=== PATIENT | female | born 1945 | race Caucasian/White ===

== ENCOUNTER → 2017-06-28 | Outpatient (CLI) | payer MEDICARE ==
--- NOTE | 2017-06-28 13:22 | MM ---
Reason for exam: screening (asymptomatic). Last mammogram was performed 1 year and 1 month ago. History: Patient is postmenopausal. Physical Findings: A clinical breast exam by your physician is recommended on an annual basis and results should be correlated with mammographic findings. MG 3D Screening Mammo W/Cad Bilateral CC and MLO view(s) were taken. Prior study comparison: June 05, 2016, bilateral MG 3d screening mammo w/cad. June 03, 2015, bilateral MG screening mammo w CAD. May 29, 2014, bilateral MG screening mammo w CAD. The breast tissue is heterogeneously dense. This may lower the sensitivity of mammography. Finding: There are typically benign dystrophic, round calcifications in the upper outer quadrant of both breasts. There is no discrete abnormality. ASSESSMENT: Benign, BI-RAD 2 RECOMMENDATION: Routine screening mammogram of both breasts in 1 year.
--- NOTE | 2017-06-28 13:50 | BD ---
EXAMINATION TYPE: MG DEXA axial skeleton. DATE OF EXAM: 06/28/2017 COMPARISON: 05.29.2014 CLINICAL HISTORY: M85.80 OSTEOPENIA Height: 62 Weight: 113 FRAX RISK QUESTIONS: Alcohol (3 or more units per day): NO Family History (Parent hip fracture): NO Glucocorticoids (More than 3mos): YES (Ex: prednisone, prednisolone, methylprednisolone, dexamethasone, and hydrocortisone). History of Fracture in Adulthood: NO Secondary Osteoporosis: NO 1. Type 1 Diabetes: NO 2. Hyperthyroidism: NO 3. Menopause before 45: NO 4. Malnutrition: NO 5. Chronic liver disease: NO Rheumatoid Arthritis: NO Current Tobacco Use: NO RISK FACTORS HISTORY OF: Family History of Osteoporosis: NO Active: YES Diet low in dairy products/other sources of calcium: NO Postmenopausal woman: YES, AT 51 YRS OLD Lost more than 2 inches in height since high school: YES...64.5 IN [employer]IGHS[employer] Hyperparathyroidism: NO Adrenal Insufficiency: NO MEDICATIONS: Prednisone or other steroids: INHALERS AND PREDNISONE FOR ALLERGIES... How Long: ON AND OFF FOR YRS, ALLERGIES/ASTHMA Osteoporosis Medications: FOSAMAX IN THE PAST NONE NOW, STOPPED OVER 10 YRS AGO Additional Medications: REFLUX MEDS IN THE PAST...NONE NOW...MULTIVITAMIN AND 600 CALCIUM WITH D Additional History: PERTHES A CHILD, EXAM MEASUREMENTS: Bone mineral densitometry was performed using the Quture System. Bone mineral density as measured about the Lumbar spine is: ----- L1-L4(G/cm2): 1.013 T Score Values are as follows: ----- L1: -1.8 ----- L2: -1.5 ----- L3: -0.9 ----- L4: -1.5 ----- L1-L4: -1.4 Bone mineral density has: Decreased -0.6% since study of: 05.29.2014 Bone mineral density about the R hip (g/cm2): 0.745 Bone mineral density about the L hip (g/cm2): 0.745 T Score values are as follows: -----R Neck: -2.2 -----L Neck: -2.5 -----R Total: -2.1 -----L Total: -2.1 Bone mineral density has: Decreased -5.6% since study of: 05.29.2014 FRAX%'S: THERE IS A 21.1% CHANCE OF A MAJOR OSTEOPOROTIC FX AND A 6.8% FOR A HIP FX....PROBABILIT Y IN 10 YRS TIME IMPRESSION: Osteopenia (T Score between -2.5 and -1 as noted by T score values There is slightly increased risk of fracture and the patient may be considered for treatment. Re-Screen 2-5 years FOR BOTH OF HER HIPS AND HER LUMBAR SPINE. NOTE: T-SCORE=SD OF THE YOUNG ADULT MEAN.
== END | disposition home or self-care (01) ==
LOC: RADMAMWWP 08:55
PROVIDERS: ATTEND Internal Medicine
DX: Z12.31 Encounter for screening mammogram for malignant neoplasm of breast (principal); M85.80 Other specified disorders of bone density and structure, unspecified site
CPT/HCPCS: 77080; 77063; G0202

== ENCOUNTER → 2018-07-09 | Outpatient (CLI) | payer MEDICARE ==
--- NOTE | 2018-07-11 11:52 | MM ---
Reason for exam: screening (asymptomatic). Last mammogram was performed 1 year ago. History: Patient is postmenopausal. Physical Findings: A clinical breast exam by your physician is recommended on an annual basis and results should be correlated with mammographic findings. MG 3D Screening Mammo W/Cad Bilateral CC and MLO view(s) were taken. Prior study comparison: June 28, 2017, bilateral MG 3d screening mammo w/cad. June 05, 2016, bilateral MG 3d screening mammo w/cad. The breast tissue is heterogeneously dense. This may lower the sensitivity of mammography. Stable benign calcifications. No significant changes when compared with prior studies. ASSESSMENT: Benign, BI-RAD 2 RECOMMENDATION: Routine screening mammogram of both breasts in 1 year.
== END | disposition home or self-care (01) ==
LOC: RADMAMWWP 08:09
PROVIDERS: ATTEND Internal Medicine
DX: Z12.31 Encounter for screening mammogram for malignant neoplasm of breast (principal)
CPT/HCPCS: 77063; 77067

== ENCOUNTER 2019-03-23 17:19 | Inpatient (IN) | payer MEDICARE ==
[2019-03-23] MEDS ORDERED: IPRATROPIUM 0.5 MG/2.5 ML NEBU INHALATION STA (17:23)
[2019-03-23] MEDS ORDERED: ALBUTEROL NEBULIZED 2.5 MG/3 ML INHALATION STA (17:23)
[2019-03-23] MEDS ORDERED: methylPREDNISolone SOD SUCCI 125 MG/2 ML VIAL IV STA (17:23)
--- NOTE | 2019-03-23 17:37 | ED ---
General Adult HPI - General Stated complaint: ASTHMA Time Seen by Provider: 03/23/19 17:23 Source: patient, family, RN notes reviewed, old records reviewed Mode of arrival: wheelchair Limitations: no limitations - History of Present Illness Initial comments: 74-year-old female with history of asthma presents with 1 hour history of severe dyspnea. Patient has had cough for the past several days. History is obtained from the patient's indicates at the time my initial evaluation patient is in moderate to severe respiratory distress. She denies any pain complaints, no chest pain. No preceding fever or chills. She did have preceding mild cough. She has history of asthma and has been taking albuterol at home with minimal relief. No previous tobacco use. No history of CAD no history of heart failure. - Related Data Home Medications Medication Instructions Recorded Confirmed Calcium+ Vitamin D 1 tab PO DAILY 06/06/16 06/08/16 Fluticasone Propionate [Flovent 1 puff INHALATION HS 06/06/16 06/08/16 Hfa 110mcg] Multivitamins, Thera [Multivitamin] 1 tab PO DAILY 06/06/16 06/06/16 diphenhydrAMINE HCL [Benadryl] 25 mg PO DIRECTED PRN 06/06/16 06/08/16 Allergies Allergy/AdvReac Type Severity Reaction Status Date / Time Sulfa (Sulfonamide Allergy Rash/Hives Verified 03/23/19 17:32 Antibiotics) Review of Systems ROS Statement: Those systems with pertinent positive or pertinent negative responses have been documented in the HPI. ROS Other: All systems not noted in ROS Statement are negative. Past Medical History Past Medical History: Asthma History of Any Multi-Drug Resistant Organisms: None Reported Past Surgical History: Unable to Obtain Past Psychological History: No Psychological Hx Reported Smoking Status: Former smoker Past Alcohol Use History: None Reported Past Drug Use History: None Reported General Exam Limitations: no limitations General appearance: alert, in distress Head exam: Present: atraumatic, normocephalic Eye exam: Present: normal appearance, PERRL ENT exam: Present: normal exam Neck exam: Present: normal inspection. Absent: tenderness, meningismus Respiratory exam: Present: respiratory distress, wheezes, rhonchi, accessory muscle use, decreased breath sounds, prolonged expiratory Cardiovascular Exam: Present: normal rhythm, tachycardia GI/Abdominal exam: Present: soft. Absent: distended, tenderness, guarding Extremities exam: Present: normal inspection, normal capillary refill. Absent: pedal edema, calf tenderness Neurological exam: Present: alert, oriented X3, CN II-XII intact. Absent: motor sensory deficit Psychiatric exam: Present: anxious Skin exam: Present: warm, dry, intact. Absent: cyanosis, diaphoretic Course Vital Signs 03/23/19 03/23/19 03/23/19 17:28 17:30 18:22 Temperature 99.5 F Pulse Rate 116 H 128 H 104 H Respiratory 28 H 34 H Rate Blood Pressure 162/103 O2 Sat by Pulse 84 L Oximetry 03/23/19 03/23/19 18:44 19:00 Temperature 98.7 F Pulse Rate Respiratory 20 Rate Blood Pressure O2 Sat by Pulse Oximetry EKG Findings - EKG Comments: EKG Findings:: EKG: Sinus tachycardia with occasional PVC T-wave inversion in inferior leads, rate of 102, CO interval 126, QRS duration 88, QTC [address] segment elevation Medical Decision Making - Medical Decision Making 74-year-old female presenting in severe respiratory distress history of asthma. Patient has minimal air entry with hypoxia in the low 80s. She is given 10 of albuterol, 1 Atrovent, IV Solu-Medrol. Workup was initiated emergency department. She has a chest x-ray which is negative for focal pneumonia. Normal CBC, normal CMP, troponin and BNP are negative. After initial treatment she has improved air entry, she has persistent wheezing and mild tachypnea. Oxygenation is improved to mid 90s with supplemental oxygen. She will be admitted for status asthmaticus. She is initially placed on 2 hour albuterol. She will be continued on IV steroids. - Lab Data Result diagrams: 03/23/19 17:35 03/23/19 17:35 Lab Results 03/23/19 03/23/19 03/23/19 Range/Units 17:35 17:35 17:35 WBC 10.4 (3.8-10.6) k/uL RBC 4.22 (3.80-5.40) m/uL Hgb 13.4 (11.4-16.0) gm/dL Hct 42.2 (34.0-46.0) % MCV 100.0 (80.0-100.0) fL MCH 31.8 (25.0-35.0) pg MCHC 31.8 (31.0-37.0) g/dL RDW 12.7 (11.5-15.5) % Plt Count 460 H (150-450) k/uL Neutrophils % 54 % Lymphocytes % 32 % Monocytes % 4 % Eosinophils % 7 % Basophils % 1 % Neutrophils # 5.6 (1.3-7.7) k/uL Lymphocytes # 3.3 (1.0-4.8) k/uL Monocytes # 0.5 (0-1.0) k/uL Eosinophils # 0.7 (0-0.7) k/uL Basophils # 0.1 (0-0.2) k/uL PT (9.0-12.0) sec INR (<1.2) APTT (22.0-30.0) sec Sodium 144 (137-145) mmol/L Potassium 4.4 (3.5-5.1) mmol/L Chloride 106 (98-107) mmol/L Carbon Dioxide 26 (22-30) mmol/L Anion Gap 12 mmol/L BUN 16 (7-17) mg/dL Creatinine 0.79 (0.52-1.04) mg/dL Est GFR (CKD-EPI)AfAm 87 (>60 ml/min/1.73 sqM) Est GFR (CKD-EPI)NonAf 76 (>60 ml/min/1.73 sqM) Glucose 98 (74-99) mg/dL Calcium 9.7 (8.4-10.2) mg/dL Magnesium 2.1 (1.6-2.3) mg/dL Total Bilirubin 0.5 (0.2-1.3) mg/dL AST 21 (14-36) U/L ALT 26 (9-52) U/L Alkaline Phosphatase 82 (38-126) U/L Troponin I (0.000-0.034) ng/mL NT-Pro-B Natriuret Pep 197 pg/mL Total Protein 8.3 H (6.3-8.2) g/dL Albumin 4.9 (3.5-5.0) g/dL 03/23/19 03/23/19 Range/Units 17:35 17:35 WBC (3.8-10.6) k/uL RBC (3.80-5.40) m/uL Hgb (11.4-16.0) gm/dL Hct (34.0-46.0) % MCV (80.0-100.0) fL MCH (25.0-35.0) pg MCHC (31.0-37.0) g/dL RDW (11.5-15.5) % Plt Count (150-450) k/uL Neutrophils % % Lymphocytes % % Monocytes % % Eosinophils % % Basophils % % Neutrophils # (1.3-7.7) k/uL Lymphocytes # (1.0-4.8) k/uL Monocytes # (0-1.0) k/uL Eosinophils # (0-0.7) k/uL Basophils # (0-0.2) k/uL PT 9.9 (9.0-12.0) sec INR 0.9 (<1.2) APTT 25.6 (22.0-30.0) sec Sodium (137-145) mmol/L Potassium (3.5-5.1) mmol/L Chloride (98-107) mmol/L Carbon Dioxide (22-30) mmol/L Anion Gap mmol/L BUN (7-17) mg/dL Creatinine (0.52-1.04) mg/dL Est GFR (CKD-EPI)AfAm (>60 ml/min/1.73 sqM) Est GFR (CKD-EPI)NonAf (>60 ml/min/1.73 sqM) Glucose (74-99) mg/dL Calcium (8.4-10.2) mg/dL Magnesium (1.6-2.3) mg/dL Total Bilirubin (0.2-1.3) mg/dL AST (14-36) U/L ALT (9-52) U/L Alkaline Phosphatase (38-126) U/L Troponin I <0.012 (0.000-0.034) ng/mL NT-Pro-B Natriuret Pep pg/mL Total Protein (6.3-8.2) g/dL Albumin (3.5-5.0) g/dL Critical Care Time Critical Care Time: Yes Total Critical Care Time: 35 Disposition Clinical Impression: Asthma with status asthmaticus Disposition: ADMITTED IP TO THIS [facility] Condition: Stable Is patient prescribed a controlled substance at d/c from ED?: No Referrals: Socrates Hutchison MD [Primary Care Provider] - 1-2 days Decision to Admit Reason: Admit from EC Decision Date: 03/23/19 Decision Time: 19:19
[2019-03-23 18:00] LABS: Basophils # (A) 0.1 k/uL (0-0.2); Basophils % (A) 1 %; Eosinophils # (A) 0.7 k/uL (0-0.7); Eosinophils % (A) 7 %; HCT 42.2 % (34.0-46.0); HGB 13.4 gm/dL (11.4-16.0); Lymphocytes # (A) 3.3 k/uL (1.0-4.8); Lymphocytes % (A) 32 %; MCH 31.8 pg (25.0-35.0); MCHC 31.8 g/dL (31.0-37.0); Mean Platelet Volume 6.9; Monocytes # (A) 0.5 k/uL (0-1.0); Monocytes % (A) 4 %; Neutrophils # (A) 5.6 k/uL (1.3-7.7); Neutrophils % (A) 54 %; Platelet Count 460 k/uL (150-450); RBC 4.22 m/uL (3.80-5.40); RDW 12.7 % (11.5-15.5); WBC 10.4 k/uL (3.8-10.6)
[2019-03-23 18:08] LABS: Albumin 4.9 g/dL (3.5-5.0); Calcium 9.7 mg/dL (8.4-10.2); Magnesium 2.1 mg/dL (1.6-2.3); Potassium 4.4 mmol/L (3.5-5.1); Total Bilirubin 0.5 mg/dL (0.2-1.3); Total Protein 8.3 g/dL (6.3-8.2)
[2019-03-23 18:12] LABS: INR 0.9 (<1.2); Partial Thromboplastin Time 25.6 sec (22.0-30.0); Prothrombin Time 9.9 sec (9.0-12.0)
--- NOTE | 2019-03-23 18:31 | XR ---
EXAMINATION TYPE: XR chest 1V portable DATE OF EXAM: 03/23/2019 COMPARISON: 05/26/2012 HISTORY: Difficulty breathing TECHNIQUE: Single frontal view of the chest is obtained. FINDINGS: Heart and mediastinum are normal. Lungs are clear of infiltrate. There is no heart failure . There are chest leads. IMPRESSION: No active cardiopulmonary disease. No change.
[2019-03-23] MEDS ORDERED: IPRATROPIUM-ALBUTEROL 3 ML NEB INHALATION PRN (19:14)
[2019-03-23] MEDS ORDERED: ALBUTEROL NEBULIZED 2.5 MG/3 ML INHALATION PRN (19:15)
[2019-03-23] MEDS ORDERED: diphenhydrAMINE 25 MG CAP PO PRN (19:53)
[2019-03-23] MEDS ORDERED: ALBUTEROL INHALER 60 PUFF/8 GM INHALER INHALATION SCH (20:00)
[2019-03-23] MEDS: IPRATROPIUM-ALBUTEROL 3 ML NEB INHALATION SCH (21:17)
--- NOTE | 2019-03-23 21:25 | P.HPIM ---
History of Present Illness H&P Date: 03/23/19 (COPD exacerbation rule out PE) Chief Complaint: Acute shortness of breath started 3 or after returning from [facility] abrupt o This history and physical dictated by Dr. barton on the weekend covering for Dr. Hutchison. Patient seen in the emergency room module 2. Patient admitted because of acute exacerbation of COPD. Chief complaint severe shortness of breath not resolved with her home treatment with nebulizers at home. The shortness of breath all of a sudden onset 3 hours after return from the [facility] and progressively worse. History of present illness: Patient of Dr. Roe with a long-standing history of asthma and she never smoked or drank. She went to [facility] this morning have no shortness of breath no wheezing. After return from discharge 3 however she started to have severe wheezing and asthma she tried a nebulizer at home 2 with no residual effusion and subsequently she brought to the emergency room at [facility]. She had lab and x-ray which shows essentially negative except her protein was 8.3 and platelets 460. I was called by the ER physician Dr. [place] who stated the patient needs to be admitted because of the acute exacerbation and still wheezing despite of treatment in the ER. Patient seen in the ER and prescription all of a sudden onset of the shortness of breath and not resolved by the nebulizer subsequently we added the d-dimer and if it is elevated we'll proceed with CT angiogram of the chest to rule out PE. And patient will be admitted to the room [address] the [place] with the underlying her sinus tach. Past history: Asthma, COPD, exacerbation which is not recurrent in the past and this is never happened before to be a is sudden shortness of breath and exacerbation. No smoking no drinking time Tubal ligation and surgical history. Family history: Patient her at bedside and she is 2 para 2 . 2 controlled sons. She had a history of varicose veins of the lower extremities bilateral but not bothering her much. Review of systems: Neuropsychiatry negative. Cardiovascular negative, no shortness of breath no chest pain. Pulmonary: Acute onset of shortness of breath after return from [facility] with the outpatient treatment failure. GI no hematemesis or melena or hematochezia no nausea or vomiting. no dysuria or bladder distention. Or incontinent. Musculoskeletal: No evidence of muscle cramps or pain in the legs . Hematologically: Negative Lymph node not enlarged and no history of malignancy. The rest of review of system 14 point was negative. Physical examination: Temperature 97.7 axillary. Heart rate 103 mild tachycardia. Respiratory rate 14-19. Blood pressure 149/68 with a repeat 130/65 she is on nasal oxygen 3 L and saturation 97%. Clinical exam. HEENT negative, neck was supple no JVD no thyromegaly no lymphadenopathy trachea midline. Oropharynx upper plate dentures and lower natural missing teeth Was negative and the ER negative. Chest was clear to auscultation and percussion at the time she cleared with from the wheezing . Heart regular sinus rhythm with the mild tachycardia. Abdomen: Soft positive bowel sounds no organomegaly enlargement. Extremities no edema positive pulses and minimal varicosities superficial. Assessment: Acute asthma exacerbation. #2 rule out PE. Plan: We'll be obtaining a d-dimer if it is positive we'll proceed with fourth her computed tomography scan angiogram of the chest. Patient treated with a steroid and they are and inhalation therapy with nebulizers. Dr. Roe will be following the patient in a.m. Past Medical History Past Medical History: Asthma History of Any Multi-Drug Resistant Organisms: None Reported Past Surgical History: Unable to Obtain Past Psychological History: No Psychological Hx Reported Smoking Status: Former smoker Past Alcohol Use History: None Reported Past Drug Use History: None Reported Medications and Allergies Home Medications Medication Instructions Recorded Confirmed Type Calcium+ Vitamin D 1 tab PO DAILY 06/06/16 03/23/19 History Multivitamins, Thera [Multivitamin] 1 tab PO DAILY 06/06/16 03/23/19 History diphenhydrAMINE HCL [Benadryl] 25 mg PO DIRECTED PRN 06/06/16 03/23/19 History Albuterol Sulfate [Proair Hfa] 2 puff INHALATION RT-Q4H 03/23/19 03/23/19 History RX: Aspirin [Ross Aspirin EC] 81 mg PO DAILY 03/23/19 03/23/19 History Ubidecarenone [Co Q-10] 100 mg PO DAILY 03/23/19 03/23/19 History Allergies Allergy/AdvReac Type Severity Reaction Status Date / Time Sulfa (Sulfonamide Allergy Rash/Hives Verified 03/23/19 19:22 Antibiotics) Physical Exam Vitals: Vital Signs Temp Pulse Resp BP Pulse Ox 05/05/19 19:40 100 19 130/65 97 03/23/19 19:30 101 H 6 L 141/66 97 03/23/19 19:10 101 H 23 141/66 95 03/23/19 19:00 98.7 F 103 H 14 149/68 96 03/23/19 18:51 107 H 20 149/68 95 03/23/19 18:44 20 03/23/19 18:22 104 H 03/23/19 17:30 99.5 F 128 H 34 H 162/103 84 L 03/23/19 17:28 116 H 28 H Intake and Output 03/23/19 03/23/19 03/23/19 06:59 14:59 22:59 Other: Weight 54.431 kg Results CBC & Chem 7: 03/23/19 17:35 03/23/19 17:35 Labs: Abnormal Lab Results - Last 24 Hours (Table) 03/23/19 03/23/19 Range/Units 17:35 17:35 Plt Count 460 H (150-450) k/uL Total Protein 8.3 H (6.3-8.2) g/dL
[2019-03-23] MEDS: methylPREDNISolone SOD SUCCI 125 MG/2 ML VIAL IV SCH (23:30)
[2019-03-24 06:07] LABS: Glucose,Whole Blood 154 mg/dL (75-99)
[2019-03-24] MEDS: methylPREDNISolone SOD SUCCI 125 MG/2 ML VIAL IV SCH ×3 (06:08→18:52)
[2019-03-24] MEDS: INSULIN ASPART (NovoLOG) 100 UNIT/ML VIAL SQ SCH ×3 (06:41→18:05)
--- NOTE | 2019-03-24 08:20 | P.PN ---
Progress Note - Text The patient is a 74-year-old female who has a history of asthma which is usually mild and controlled but yesterday she had a episode this started rather suddenly after [facility] services on Sunday she became short of breath with wheezing and cough. No fever chills or hemoptysis noted. Because it persisted despite using her inhaler she came to the emergency room here at [facility]. Patient has been treated with corticosteroids and does feel better but still has some cough and wheezing this morning. No chest pain. Patient also had an episode while wintering down in [place]. Apparently she was placed on inhaled in inhaler Brio which she did not take on a daily basis. Patient is a former smoker. This morning patient is sitting up in her room. Her is present. Some intermittent coughing. Vital signs show a temperature 98.1 with a pulse of 90 and respirations 16. Blood pressure 148/80 and she is 94% saturated on room air. Lungs do reveal an inspiratory wheeze more so on the left this morning. No consolidation signs. Heart tones were regular. No unusual edema. She is alert and oriented. Cranial nerves intact. No focal peripheral weakness noted. Laboratory values on admission were for the most part unremarkable. ProBNP, d-dimer and troponin values were normal. Chest x-ray showed no active disease. EKG showed some isolated T-wave changes in inferior leads which were nondiagnostic. Impressions and plans Exacerbation of pneumonia. Presently partially responding to IV corticosteroids along with her respiratory treatments. Discussed with patient and her at bedside this morning. We will ask pulmonary medicine to evaluate. Continue present treatment. Discussed the need likely for maintenance inhalers to hopefully prevent further episodes of possible.
[2019-03-24] MEDS: ASPIRIN 81 MG PO SCH (08:23)
[2019-03-24] MEDS: CALCIUM CARB-VIT D 500MG-200UN 1 EACH TAB PO SCH (08:23)
[2019-03-24] MEDS: MULTIVITAMINS, THERA 1 EACH TAB PO SCH (08:23)
[2019-03-24] MEDS ORDERED: NON-FORMULARY DRUG (Ubidecarenone [Co Q-10] 100 MG) PO SCH (09:00)
[2019-03-24] MEDS: IPRATROPIUM-ALBUTEROL 3 ML NEB INHALATION SCH ×5 (09:06→23:34)
[2019-03-24] MEDS: BUDESONIDE 1 MG/2 ML NEBU INHALATION SCH ×2 (10:07→19:20)
[2019-03-24] MEDS: FORMOTEROL FUMARATE 20 MCG/2 ML NEBU INHALATION SCH ×2 (10:07→19:20)
--- NOTE | 2019-03-24 11:20 | P.CNPUL ---
History of Present Illness Consult date: 03/24/19 Requesting physician: Socrates Hutchison Reason for consult: dyspnea, cough, asthma Chief complaint: Status asthmaticus History of present illness: This is a 74-year-old white female patient of Dr. Hong, with past medical history of chronic bronchial asthma, ALLERGIC rhinitis, lifetime nonsmoker who presented to the hospital on 03/23/2019 at 5:00 in the evening with complaints of moderate to severe respiratory distress, hypoxemia. Her onset of symptoms was yesterday at 4:00 pm, patient was progressively short of breath, the administered two breathing treatments [id number] with no improvement, her oxygenation continued to deteriorate and she was taken to the hospital. Patient does not wear oxygen, her pulse ox was 84% on room air on presentation. Chest x-ray did not show any active cardiopulmonary disease. Lab work was negative for any leukocytosis, white blood cell count was 10.4, d-dimer was negative, electrolytes and renal profile were within normal limits. ProBNP was 197, troponin was negative 1. Patient was given breathing treatments, she was started on IV steroids, and she was improving, this morning at the time of my evaluation patient was sitting up in bed, doing her DuoNeb nebulized treatment, in no acute distress, room air pulse ox was 94%, vitals are stable, no fever or chills. Patient stated that she was recently hospitalized in [place] for an asthma attack, her physician gave her Breo Ellipta sample, as she had recently run out of it. She has a nebulizer machine at home with albuterol breathing treatments, and she has pro-air. No other maintenance inhalers. She had seen Dr. Hanson in the remote past for an acute exacerbation of asthma for which she was hospitalized. She denies ever being intubated. She complains of ALLERGIC rhinitis, runny nose, sneezing, itchy eyes itchy throat. She states humidity and ALLERGIES suspected to be her triggers. She has lately been using her rescue inhaler quite frequently, and having a lot of nighttime symptoms with increased coughing at bedtime. Shortly after my evaluation patient was t ransferred to medical surgical floor where she suffered an acute asthma attack, she started acutely desaturating, I was called emergently to the bedside, and the patient's O2 sat was 74% on 100% nonrebreather, she received urgent nebulized treatment, etc. dose of 60 mg of Solu-Medrol was given, she was hardly moving any air, she was valadez, and a CODE BLUE was called. 1 mg of epinephrine was given IV push for acute bronchospasm, anesthesia was called, and the patient was emergently intubated. Patient never lost her pulse, CPR was not administered, she did not require defibrillation. After intubation she was sedated, and placed on assist-control mode of ventilation with a rate of 20, tidal vital 350, FiO2 100% and PEEP of 5. Review of Systems All systems: negative Constitutional: Denies chills, Denies fever Eyes: denies blurred vision, denies pain Ears, nose, mouth and throat: Reports nasal congestion, Reports post-nasal drip, Denies headache, Denies sore throat Cardiovascular: Denies chest pain, Denies shortness of breath Respiratory: Reports congestion, Reports cough with sputum, Reports dyspnea, Reports wheezing, Denies cough Gastrointestinal: Denies abdominal pain, Denies diarrhea, Denies nausea, Denies vomiting Genitourinary: Denies dysuria, Denies hematuria Musculoskeletal: Denies myalgias Integumentary: Denies pruritus, Denies rash Neurological: Denies numbness, Denies weakness Psychiatric: Denies anxiety, Denies depression Endocrine: Denies fatigue, Denies weight change Past Medical History Past Medical History: Asthma History of Any Multi-Drug Resistant Organisms: None Reported Past Surgical History: Tubal Ligation Past Anesthesia/Blood Transfusion Reactions: No Reported Reaction Past Psychological History: No Psychological Hx Reported Smoking Status: Never smoker Past Alcohol Use History: None Reported Past Drug Use History: None Reported - Past Family History Father Family Medical History: Hypertension Mother Additional Family Medical History / Comment(s): Alzhemiers Sister(s) Family Medical History: CVA/TIA Medications and Allergies Home Medications Medication Instructions Recorded Confirmed Type Calcium+ Vitamin D 1 tab PO DAILY 06/06/16 03/23/19 History Multivitamins, Thera [Multivitamin] 1 tab PO DAILY 06/06/16 03/23/19 History diphenhydrAMINE HCL [Benadryl] 25 mg PO DIRECTED PRN 06/06/16 03/23/19 History Albuterol Sulfate [Proair Hfa] 2 puff INHALATION RT-Q4H 03/23/19 03/23/19 History Aspirin [Cidra Aspirin EC] 81 mg PO DAILY 03/23/19 03/23/19 History Ubidecarenone [Co Q-10] 100 mg PO DAILY 03/23/19 03/23/19 History Allergies Allergy/AdvReac Type Severity Reaction Status Date / Time Sulfa (Sulfonamide Allergy Rash/Hives Verified 03/23/19 19:22 Antibiotics) Physical Exam Vitals: Vital Signs Temp Pulse Pulse Resp BP BP Pulse Ox 03/24/19 10:05 96 03/24/19 09:17 93 03/24/19 09:06 92 03/24/19 08:00 97.7 F 96 20 156/78 95 03/24/19 05:00 90 16 148/80 94 L 03/23/19 23:31 97 16 139/76 96 03/23/19 21:29 98.1 F 97 18 155/69 98 03/23/19 21:23 91 03/23/19 21:16 89 03/23/19 21:10 96 13 135/64 98 03/23/19 21:00 95 22 129/60 98 03/23/19 20:50 98 13 129/60 98 03/23/19 20:40 96 18 129/60 98 03/23/19 19:50 101 H 13 130/65 97 03/23/19 19:40 100 19 130/65 97 03/23/19 19:30 101 H 6 L 141/66 97 03/23/19 19:10 101 H 23 141/66 95 03/23/19 19:00 98.7 F 103 H 14 149/68 96 03/23/19 18:51 107 H 20 149/68 95 03/23/19 18:44 20 03/23/19 18:22 104 H 03/23/19 17:30 99.5 F 128 H 34 H 162/103 84 L 03/23/19 17:28 116 H 28 H Intake and Output 03/23/19 03/24/19 03/24/19 22:59 06:59 14:59 Intake Total 240 Balance 240 Intake: Oral 240 Other: # Voids 1 Weight 54.431 kg 52.9 kg GENERAL EXAM: 74-year-old white female, intubated, sedated on mechanical ventilator. HEAD: Normocephalic/atraumatic. EYES: Normal reaction of pupils, equal size. Conjunctiva pink, sclera white. NOSE: Clear with pink turbinates. THROAT: No erythema or exudates. NECK: No masses, no JVD, no thyroid enlargement, no adenopathy. CHEST: No chest wall deformity. Symmetrical expansion. LUNGS: Diminished air movement bilaterally, with very tight end expiratory wheezes CVS: Regular rate and rhythm, normal S1 and S2, no gallops, no murmurs, no rubs ABDOMEN: Soft, nontender. No hepatosplenomegaly, normal bowel sounds, no guarding or rigidity. EXTREMITIES: No clubbing, no edema, no cyanosis, 2+ pulses and upper and lower extremities. MUSCULOSKELETAL: Muscle strength and tone normal. SPINE: No scoliosis or deformity SKIN: No rashes CENTRAL NERVOUS SYSTEM: Sedated, intubated. No focal deficits, tone is normal in all 4 extremities. Results - Laboratory Findings CBC and BMP: 03/23/19 17:35 03/23/19 17:35 PT/INR, D-dimer PT 9.9 sec (9.0-12.0) 03/23/19 17:35 INR 0.9 (<1.2) 03/23/19 17:35 D-Dimer 0.33 mg/L FEU (<0.60) 03/23/19 17:35 Abnormal lab findings: Abnormal Labs 03/23/19 03/23/19 03/24/19 17:35 17:35 06:06 Plt Count 460 H POC Glucose (mg/dL) 154 H Total Protein 8.3 H - Diagnostic Findings Chest x-ray: report reviewed, image reviewed Additional studies: EKG reviewed Assessment and Plan Plan: Assessment: #1. Acute hypoxemic respiratory failure secondary to status asthmaticus, acute bronchospasm, requiring intubation and placement on mechanical ventilator #2. Severe persistent bronchial asthma #3. ALLERGIC rhinitis #4. Recent hospitalization in [place] for acute exacerbation of chronic bronchial asthma #5. History of bronchospastic angina 20 years ago #6. Lifetime nonsmoker Plan: We'll obtain a blood gas and half an hour, patient has been intubated, she sedated, she was given a dose of IV Nimbex to synchronize with the vent. Added Pulmicort and Perforomist were added, will continue with IV Solu-Medrol 62 g every 6 hours, we'll add Singulair, will add Claritin. Patient will be transferred to the intensive care unit once a bed is available, and intensive care nurse will be taking care of her on the floor. Postintubation chest x-ray has been reviewed with Dr. Cruz, patient was seen and evaluated by Dr. Curz. Patient's spouse was updated on patient's condition. We'll continue to closely follow I performed a history & physical examination of the patient and discussed their management with my nurse practitioner, Leslee Morris. I reviewed the nurse practitioner's note and agree with the documented findings and plan of care. Lung sounds are positive for diminished air entry, diffuse wheezes throughout the lung bowie. The findings and the impression was discussed with the patient. I attest to the documentation by the nurse practitioner. Time with Patient: Greater than 30
--- NOTE | 2019-03-24 11:27 | XR ---
EXAMINATION TYPE: XR chest 1V portable DATE OF EXAM: 03/24/2019 CLINICAL HISTORY: Difficulty breathing progress study. TECHNIQUE: Single AP portable supine view of the chest is obtained. COMPARISON: Chest x-ray from yesterday FINDINGS: There is new oral gastric tube projecting into stomach. There is no endotracheal tube term inating above the aortic knob and below clavicles, approximately 5 cm above queta. There is background chronic parenchymal change without suspicious new focal airspace opacity, pleural effusion, or pneumothorax seen. Cardiac silhouette size remains within normal limits. Osseous struct ures are demineralized. IMPRESSION: 1. New endotracheal and orogastric tubes are satisfactory in position. 2. Chronic parenchymal changes without acute pulmonary process.
[2019-03-24] MEDS ORDERED: SODIUM CHLORIDE 0.9% 500 ML 500 ML IV ONE (11:31)
[2019-03-24 11:33] LABS: ABG Base Excess -1.3 mmol/L; ABG HCO3 26 mmol/L (21-25); ABG PCO2 55 mmHg (35-45); ABG PH 7.28 (7.35-7.45); ABG PO2 >400 mmHg (83-108); ABG TCO2 27 mmol/L (19-24)
[2019-03-24] MEDS ORDERED: PROPOFOL 1,000 MG in EMPTY BAG 1 BAG IV SCH (11:45)
[2019-03-24 12:00] LABS: Glucose,Whole Blood 185 mg/dL (75-99)
[2019-03-24] MEDS ORDERED: NALOXONE 0.4 MG/ML 1 ML VIAL IV PRN (12:07)
[2019-03-24] MEDS ORDERED: MORPHINE SULFATE 2 MG/ML SYRINGE IVP PRN (12:12)
[2019-03-24] MEDS ORDERED: LORazepam 2 MG/ML INJ IV ONE (12:50)
[2019-03-24] MEDS ORDERED: CISATRACURIUM 2 MG/ML 5 ML VIAL IV ONE (13:30)
[2019-03-24 13:39] LABS: Appearance,Urine Clear (Clear); Bilirubin,Urine Negative (Negative); Blood,Urine Negative (Negative); Color,Urine Yellow; Glucose,Urine (UA) 1+ (Negative); Hyaline Casts,Urine 23 /lpf (0-2); Ketones,Urine Negative (Negative); Leukocyte Esterase,Urine Negative (Negative); Mucus,Urine Rare /hpf; Nitrite,Urine Negative (Negative); Protein,Urine 1+ (Negative); RBC,Urine 2 /hpf (0-5); Specific Gravity,Urine 1.024 (1.001-1.035); Squamous Epithelial Cell,Urine 1 /hpf (0-4); Urobilinogen,Urine <2.0 mg/dL (<2.0)
[2019-03-24] MEDS: SODIUM CHLORIDE 0.9% 1,000 ML IV SCH ×2 (13:44→20:10)
[2019-03-24] MEDS: PROPOFOL 1,000 MG in EMPTY BAG 1 BAG IV SCH ×2 (13:48→17:07)
[2019-03-24] MEDS: LORATADINE 10 MG TAB PO SCH (13:51)
[2019-03-24] MEDS: PANTOPRAZOLE 40 MG/10 ML VIAL IVP SCH (13:51)
[2019-03-24] MEDS: ENOXAPARIN 40 MG/0.4 ML SYRINGE SQ SCH (13:51)
[2019-03-24] MEDS ORDERED: CISATRACURIUM 200 MG in SODIUM CHLORIDE 0.9% 180 ML IV SCH (14:00)
[2019-03-24] MEDS: fentaNYL (PF) 1,000 MCG in SODIUM CHLORIDE 0.9% 80 ML IV SCH (14:12)
[2019-03-24 14:17] LABS: Glucose,Whole Blood 212 mg/dL (75-99)
[2019-03-24 15:04] LABS: ABG Base Excess 0.9 mmol/L; ABG HCO3 25 mmol/L (21-25); ABG Oxygen Saturation 97.3 % (94-97); ABG PCO2 39 mmHg (35-45); ABG PH 7.42 (7.35-7.45); ABG PO2 91 mmHg (83-108); ABG TCO2 27 mmol/L (19-24)
[2019-03-24 15:31] LABS: HCT 38.8 % (34.0-46.0); HGB 12.3 gm/dL (11.4-16.0); MCH 31.6 pg (25.0-35.0); MCHC 31.7 g/dL (31.0-37.0); MCV 99.7 fL (80.0-100.0); Mean Platelet Volume 7.5; Platelet Count 388 k/uL (150-450); RBC 3.89 m/uL (3.80-5.40); RDW 12.8 % (11.5-15.5); WBC 5.2 k/uL (3.8-10.6)
[2019-03-24 15:37] LABS: Anion Gap 11 mmol/L; Blood Urea Nitrogen 14 mg/dL (7-17); Calcium 9.5 mg/dL (8.4-10.2); Carbon Dioxide 24 mmol/L (22-30); Chloride 106 mmol/L (98-107); Glucose 144 mg/dL (74-99); Potassium 4.2 mmol/L (3.5-5.1); Sodium 141 mmol/L (137-145)
[2019-03-24] MEDS ORDERED: ARTIFICIAL TEARS-HYPROMELLOSE DROPS 15 ML BTL BOTH EYES SCH (16:00)
[2019-03-24] MEDS ORDERED: INSULIN ASPART (NovoLOG) 100 UNIT/ML VIAL SQ SCH (16:30)
[2019-03-24 17:48] LABS: Glucose,Whole Blood 100 mg/dL (75-99)
[2019-03-24] MEDS: CHLORHEXIDINE GLUCONATE 15 ML CUP MUCOUS MEM SCH (20:10)
[2019-03-24] MEDS: MONTELUKAST 10 MG TAB PO SCH (20:10)
[2019-03-24] MEDS ORDERED: SODIUM CHLORIDE 0.9% 1,000 ML IV ONE (22:03)
[2019-03-25] MEDS: methylPREDNISolone SOD SUCCI 125 MG/2 ML VIAL IV SCH ×4 (00:15→17:55)
[2019-03-25] MEDS: PROPOFOL 1,000 MG in EMPTY BAG 1 BAG IV SCH ×3 (00:16→10:57)
[2019-03-25 00:21] LABS: Glucose,Whole Blood 121 mg/dL (75-99)
[2019-03-25] MEDS: INSULIN ASPART (NovoLOG) 100 UNIT/ML VIAL SQ SCH ×4 (00:41→17:55)
[2019-03-25] MEDS: IPRATROPIUM-ALBUTEROL 3 ML NEB INHALATION SCH ×5 (03:23→19:56)
[2019-03-25 06:14] LABS: Basophils % (A) 0 %; Eosinophils % (A) 0 %; HCT 36.3 % (34.0-46.0); HGB 11.4 gm/dL (11.4-16.0); Lymphocytes # (A) 0.5 k/uL (1.0-4.8); Lymphocytes % (A) 7 %; MCH 31.5 pg (25.0-35.0); MCHC 31.5 g/dL (31.0-37.0); MCV 99.9 fL (80.0-100.0); Monocytes # (A) 0.2 k/uL (0-1.0); Monocytes % (A) 3 %; Neutrophils % (A) 90 %; Platelet Count 271 k/uL (150-450); RBC 3.64 m/uL (3.80-5.40); RDW 13.3 % (11.5-15.5); WBC 7.8 k/uL (3.8-10.6)
[2019-03-25 06:31] LABS: Anion Gap 7 mmol/L; Blood Urea Nitrogen 15 mg/dL (7-17); Calcium 8.5 mg/dL (8.4-10.2); Carbon Dioxide 20 mmol/L (22-30); Chloride 114 mmol/L (98-107); Glucose 128 mg/dL (74-99); Magnesium 2.3 mg/dL (1.6-2.3); Potassium 4.1 mmol/L (3.5-5.1); Sodium 141 mmol/L (137-145)
[2019-03-25 06:43] LABS: Glucose,Whole Blood 117 mg/dL (75-99)
[2019-03-25 07:31] LABS: ABG Base Excess -1.2 mmol/L; ABG HCO3 23 mmol/L (21-25); ABG Oxygen Saturation 99.4 % (94-97); ABG PCO2 33 mmHg (35-45); ABG PH 7.45 (7.35-7.45); ABG PO2 156 mmHg (83-108); ABG TCO2 24 mmol/L (19-24)
--- NOTE | 2019-03-25 07:55 | P.PN ---
Progress Note - Text The patient is a 74-year-old female with underlying asthma that presented to 2 days previous with the acute episode. She initially seemed to respond to respiratory treatments and corticosteroids then developed sudden attack yesterday morning requiring intubation and transfer to the intensive care unit. Patient has been seen by pulmonary medicine Dr. Kovacs please refer to his consult. Patient has generally been sedated through the night and has not had any significant problems. This morning she appears to be resting comfortably and sedated. Vital signs show a blood pressure 115/62 with a pulse of 57 respirations 24 and she is 98% saturated. Last temperature is 96.8. Lungs are generally clear although diminished at bases. Heart tones were regular. She is presently sedated. Laboratory CBC unremarkable. White count 7.8 with a hemoglobin 11.4. Sodium 141 with a potassium 4.1 and a CO2 content of 20. Blood sugar was 128 BUN of 15 and creatinine 0.47 given her GFR greater than 90. Phosphorus magnesium calcium normal Blood gases show pH 7.45 and pCO2 of 33 and a pO2 of 156 on 50% FiO2. Chest x-ray does not appear to show any acute changes. Official reading to follow from radiology. Impression and plans Patient with acute on chronic respiratory failure with underlying asthma attack requiring mechanical ventilation at this time. Discussed at length with at bedside. We'll wait for further recommendations from pulmonary medicine today. Continue present treatment for now.
[2019-03-25] MEDS: FORMOTEROL FUMARATE 20 MCG/2 ML NEBU INHALATION SCH ×2 (08:05→20:09)
[2019-03-25] MEDS: BUDESONIDE 1 MG/2 ML NEBU INHALATION SCH ×2 (08:05→19:56)
[2019-03-25] MEDS: ASPIRIN 81 MG PO SCH (08:20)
[2019-03-25] MEDS: PANTOPRAZOLE 40 MG/10 ML VIAL IVP SCH (08:20)
[2019-03-25] MEDS: CHLORHEXIDINE GLUCONATE 15 ML CUP MUCOUS MEM SCH (08:20)
[2019-03-25] MEDS: ENOXAPARIN 40 MG/0.4 ML SYRINGE SQ SCH (08:20)
[2019-03-25] MEDS: MULTIVITAMINS, THERA 1 EACH TAB PO SCH (08:20)
[2019-03-25] MEDS: LORATADINE 10 MG TAB PO SCH (08:20)
[2019-03-25] MEDS: SODIUM CHLORIDE 0.9% 1,000 ML IV SCH ×2 (08:21→16:19)
--- NOTE | 2019-03-25 08:39 | XR ---
EXAMINATION TYPE: XR chest 1V portable DATE OF EXAM: 03/25/2019 COMPARISON: 03/24/2019 HISTORY: Difficulty breathing TECHNIQUE: Single frontal view of the chest is obtained. FINDINGS: ET and NG tubes stable. Bilateral consolidation and small effusion greater on the left. Bi apical pleural thickening. Diffuse osteopenia. No overt failure. IMPRESSION: Findings suggestive of COPD with bilateral lower lobe infiltrate and small effusion whic h has progressed on the left.
--- NOTE | 2019-03-25 10:25 | P.PN ---
Subjective Progress Note Date: 03/25/19 Principal diagnosis: Acute hypoxic respiratory failure secondary to status asthmaticus. This is a 74-year-old white female patient of Dr. Hong, with past medical history of chronic bronchial asthma, ALLERGIC rhinitis, lifetime nonsmoker who presented to the hospital on 03/23/2019 at 5:00 in the evening with complaints of moderate to severe respiratory distress, hypoxemia. Her onset of symptoms was yesterday at 4:00 pm, patient was progressively short of breath, the administered two breathing treatments [id number] with no improvement, her oxygenation continued to deteriorate and she was taken to the hospital. Patient does not wear oxygen, her pulse ox was 84% on room air on presentation. Chest x-ray did not show any active cardiopulmonary disease. Lab work was negative for any leukocytosis, white blood cell count was 10.4, d-dimer was negative, electrolytes and renal profile were within normal limits. ProBNP was 197, troponin was negative 1. Patient was given breathing treatments, she was started on IV steroids, and she was improving, this morning at the time of my evaluation patient was sitting up in bed, doing her DuoNeb nebulized treatment, in no acute distress, room air pulse ox was 94%, vitals are stable, no fever or chills. Patient stated that she was recently hospitalized in [place] for an asthma attack, her physician gave her [place] sample, as she had recently run out of it. She has a nebulizer machine at home with albuterol breathing treatments, and she has pro-air. No other maintenance inhalers. She had seen Dr. Hanson in the remote past for an acute exacerbation of asthma for which she was hospitalized. She denies ever being intubated. She complains of ALLERGIC rhinitis, runny nose, sneezing, itchy eyes itchy throat. She states humidity and ALLERGIES suspected to be her triggers. She has lately been using her rescue inhaler quite frequently, and having a lot of nighttime symptoms with increased coughing at bedtime. Shortly after my evaluation patient was transferred to medical surgical floor where she suffered an acute asthma attack, she started acutely desaturating, I was called emergently to the bedside, and the patient's O2 sat was 74% on 100% nonrebreather, she received urgent nebulized treatment, etc. dose of 60 mg of Solu-Medrol was given, she was hardly moving any air, she was valadez, and a CODE BLUE was called. 1 mg of epinephrine was given IV push for acute bronchospasm, anesthesia was called, and the patient was emergently intubated. Patient never lost her pulse, CPR was not adm inistered, she did not require defibrillation. After intubation she was sedated, and placed on assist-control mode of ventilation with a rate of 20, tidal vital 350, FiO2 100% and PEEP of 5. Patient was reevaluated today on 03/25/2019, patient remains on mechanical ventilation, and she is still on propofol and fentanyl drip. Her ventilator settings were adjusted today, she is now on FiO2 of 40%, cut down her assist- control rate to 18, tidal volume is 350 and PEEP of 5. is at bedside, and he was updated on her condition. Chest x-ray was reviewed no evidence of active disease was noted. Patient is on bronchodilators, steroids, antibiotics, and my plan today is to awaken the patient, assess mental status, assess weaning and weaning parameters, and possibly give the patient a weaning trial. Patient will be placed on a pressure support and CPAP, and if tolerated may actually con senior sql dba extubating the patient today. Her ABG this morning showed a pO2 of 156 pCO2 of 33 pH of 7.45, her direct lites are normal CBC is relatively normal. Patient is yet to be awakened, presently on propofol and fentanyl. Objective - Vital Signs Vital signs: Vital Signs Temp 97.4 F L 03/25/19 08:00 Pulse 61 03/25/19 10:00 Resp 24 03/25/19 10:00 BP 108/61 03/25/19 10:00 Pulse Ox 98 03/25/19 10:00 Intake & Output 03/24/19 03/25/19 03/25/19 18:59 06:59 18:59 Intake Total 585.497 9423.412 562.107 Output Total 440 705 200 Balance 505.033 985.412 362.107 Weight 55.4 kg Intake: IV 600 1525 375 Sodium Chloride 0.9% 1, 600 1525 375 000 ml @ 125 mls/hr IV . Q8H [facility] Rx#:[id number] Intake, IV Titration 105.033 165.412 127.107 Amount Propofol 1,000 mg In 105.033 165.412 71.827 Empty Bag 1 bag @ Titrate IV .Q0M [facility] Rx#: [id number] fentaNYL (PF) 1,000 mcg 55.28 In Sodium Chloride 0.9% 80 ml @ 0.5 MCG/KG/HR 2. 645 mls/hr IV .Q24H [facility] Rx#:[id number] Oral 240 Other 60 Output: Urine 440 705 200 Other: Voiding Method Indwelling Catheter Indwelling Catheter Indwelling Catheter - Exam Physical Exam: Revealed a 74-year-old female sedated on mechanical ventilation. Head: Atraumatic, normocephalic. HEENT:[Neck is supple.] [No neck masses.] [No thyromegaly.] [No JVD.]. PERRLA, EOMI, no icterus, intact orogastric tube and endotracheal tube. Chest: [Clear throughout, no crackles, no rhonchi, no wheezes.] Cardiac Exam: [Normal S1 and S2, no S3 gallop, no murmur.] Abdomen: [Soft, nontender, no megaly, no rebound, no guarding, normal bowel sounds.] Extremities: [No clubbing, no edema, no cyanosis.] Neurological Exam: Cannot be assessed at this point, fully sedated, on propofol and also on fentanyl drip. Psychiatric: Cannot be assessed. Lymphatics: No lymphadenopathy. Skin: No rashes.] - Labs CBC & Chem 7: 03/25/19 05:27 03/25/19 05:27 Labs: Abnormal Lab Results - Last 24 Hours (Table) 03/24/19 03/24/19 03/24/19 Range/Units 06:52 11:24 11:58 RBC (3.80-5.40) m/uL Lymphocytes # (1.0-4.8) k/uL ABG pH 7.28 L (7.35-7.45) ABG pCO2 55 H (35-45) mmHg ABG pO2 >400 H (83-108) mmHg ABG HCO3 26 H (21-25) mmol/L ABG Total CO2 27 H (19-24) mmol/L ABG O2 Saturation 100.0 H (94-97) % Chloride (98-107) mmol/L Carbon Dioxide (22-30) mmol/L Creatinine (0.52-1.04) mg/dL Glucose 144 H (74-99) mg/dL POC Glucose (mg/dL) 185 H (75-99) mg/dL Urine Protein (Negative) Urine Glucose (UA) (Negative) Hyaline Casts (0-2) /lpf Urine Mucus (None) /[facility] 03/24/19 03/24/19 03/24/19 Range/Units 12:00 14:16 15:02 RBC (3.80-5.40) m/uL Lymphocytes # (1.0-4.8) k/uL ABG pH (7.35-7.45) ABG pCO2 (35-45) mmHg ABG pO2 (83-108) mmHg ABG HCO3 (21-25) mmol/L ABG Total CO2 27 H (19-24) mmol/L ABG O2 Saturation 97.3 H (94-97) % Chloride (98-107) mmol/L Carbon Dioxide (22-30) mmol/L Creatinine (0.52-1.04) mg/dL Glucose (74-99) mg/dL POC Glucose (mg/dL) 212 H (75-99) mg/dL Urine Protein 1+ H (Negative) Urine Glucose (UA) 1+ H (Negative) Hyaline Casts 23 H (0-2) /lpf Urine Mucus Rare H (None) /[facility] 03/24/19 03/25/19 03/25/19 Range/Units 17:46 00:20 05:27 RBC 3.64 L (3.80-5.40) m/uL Lymphocytes # 0.5 L (1.0-4.8) k/uL ABG pH (7.35-7.45) ABG pCO2 (35-45) mmHg ABG pO2 (83-108) mmHg ABG HCO3 (21-25) mmol/L ABG Total CO2 (19-24) mmol/L ABG O2 Saturation (94-97) % Chloride (98-107) mmol/L Carbon Dioxide (22-30) mmol/L Creatinine (0.52-1.04) mg/dL Glucose (74-99) mg/dL POC Glucose (mg/dL) 100 H 121 H (75-99) mg/dL Urine Protein (Negative) Urine Glucose (UA) (Negative) Hyaline Casts (0-2) /lpf Urine Mucus (None) /[facility] 03/25/19 03/25/1903/25/19 Range/Units 05:27 06:41 07:29 RBC (3.80-5.40) m/uL Lymphocytes # (1.0-4.8) k/uL ABG pH (7.35-7.45) ABG pCO2 33 L (35-45) mmHg ABG pO2 156 H (83-108) mmHg ABG HCO3 (21-25) mmol/L ABG Total CO2 (19-24) mmol/L ABG O2 Saturation 99.4 H (94-97) % Chloride 114 H (98-107) mmol/L Carbon Dioxide 20 L (22-30) mmol/L Creatinine 0.47 L (0.52-1.04) mg/dL Glucose 128 H (74-99) mg/dL POC Glucose (mg/dL) 117 H (75-99) mg/dL Urine Protein (Negative) Urine Glucose (UA) (Negative) Hyaline Casts (0-2) /lpf Urine Mucus (None) /hpf Assessment and Plan Assessment: Impression: 1 acute hypoxic respiratory failure secondary to status asthmaticus and acute exacerbation of bronchial asthma requiring intubation and mechanical ventilation. 2 severe persistent bronchial asthma 3. And tracheobronchitis 4 seasonal ALLERGIC rhinitis Recommendation: Discussed her condition with the , discussed her condition with the nurses at bedside, and with the respiratory therapist, instructed the nurses to discontinue propofol and fentanyl, awaken the patient, assess mental status, and instructed that there appears to assess weaning parameters, possibly switch to [place] support and CPAP, and if tolerated for half an hour up to 1 hour, may actually extubate the patient. In the meantime we'll continue present supportive care measures including ventilatory support, nutritional support to be addressed accordingly, continue GI and DVT prophylaxis, continue bronchodilators, antibiotics, steroids. Prognosis is still guarded considering her underlying severe bronchial asthma. We'll continue to follow. Critical care time is 35 minutes. Time with Patient: Greater than 30
[2019-03-25] MEDS ORDERED: DEXMEDETOMIDINE 200 MCG/2 ML VIAL IV SCH (10:30)
[2019-03-25] MEDS ORDERED: DEXMEDETOMIDINE/0.9% NACL(PMX) 400 MCG in EMPTY BAG 1 BAG IV SCH (10:45)
[2019-03-25] MEDS ORDERED: DEXMEDETOMIDINE 200 MCG in SODIUM CHLORIDE 0.9% 100 ML IV SCH (10:45)
[2019-03-25 11:54] LABS: Glucose,Whole Blood 132 mg/dL (75-99)
[2019-03-25] MEDS: CALCIUM CARB-VIT D 500MG-200UN 1 EACH TAB PO SCH (12:15)
[2019-03-25] MEDS: fentaNYL (PF) 1,000 MCG in SODIUM CHLORIDE 0.9% 80 ML IV SCH (13:40)
[2019-03-25 14:58] LABS: ABG HCO3 23 mmol/L (21-25); ABG Oxygen Saturation 98.2 % (94-97); ABG PCO2 40 mmHg (35-45); ABG PH 7.38 (7.35-7.45); ABG PO2 120 mmHg (83-108); ABG TCO2 24 mmol/L (19-24)
[2019-03-25 17:56] LABS: Glucose,Whole Blood 122 mg/dL (75-99)
[2019-03-25] MEDS: MONTELUKAST 10 MG TAB PO SCH (20:51)
[2019-03-26] MEDS: methylPREDNISolone SOD SUCCI 125 MG/2 ML VIAL IV SCH ×5 (00:07→23:35)
[2019-03-26] MEDS: SODIUM CHLORIDE 0.9% 1,000 ML IV SCH ×3 (00:08→18:06)
[2019-03-26] MEDS: INSULIN ASPART (NovoLOG) 100 UNIT/ML VIAL SQ SCH ×3 (00:12→18:31)
[2019-03-26 00:13] LABS: Glucose,Whole Blood 131 mg/dL (75-99)
[2019-03-26] MEDS: IPRATROPIUM-ALBUTEROL 3 ML NEB INHALATION SCH ×6 (00:44→20:25)
[2019-03-26 05:51] LABS: Basophils % (A) 0 %; Eosinophils % (A) 1 %; HCT 33.6 % (34.0-46.0); HGB 10.8 gm/dL (11.4-16.0); Lymphocytes # (A) 0.3 k/uL (1.0-4.8); Lymphocytes % (A) 3 %; MCH 31.7 pg (25.0-35.0); MCHC 32.1 g/dL (31.0-37.0); MCV 98.8 fL (80.0-100.0); Mean Platelet Volume 7.7; Monocytes # (A) 0.2 k/uL (0-1.0); Monocytes % (A) 3 %; Neutrophils # (A) 7.5 k/uL (1.3-7.7); Neutrophils % (A) 93 %; Platelet Count 287 k/uL (150-450); RDW 13.3 % (11.5-15.5)
[2019-03-26 05:58] LABS: Anion Gap 5 mmol/L; Blood Urea Nitrogen 21 mg/dL (7-17); Calcium 8.4 mg/dL (8.4-10.2); Carbon Dioxide 23 mmol/L (22-30); Chloride 115 mmol/L (98-107); Glucose 131 mg/dL (74-99); Magnesium 2.3 mg/dL (1.6-2.3); Phosphorus 3.1 mg/dL (2.5-4.5); Sodium 143 mmol/L (137-145)
[2019-03-26 06:37] LABS: Glucose,Whole Blood 121 mg/dL (75-99)
[2019-03-26] MEDS: BUDESONIDE 1 MG/2 ML NEBU INHALATION SCH ×2 (07:14→20:25)
[2019-03-26] MEDS: FORMOTEROL FUMARATE 20 MCG/2 ML NEBU INHALATION SCH ×2 (07:14→20:25)
--- NOTE | 2019-03-26 08:17 | P.PN ---
Progress Note - Text The patient is a 74-year-old female who has a history of underlying asthma who presented to 3 days ago with an acute episode which appeared to initially respond to respiratory treatments and corticosteroids. 2 days previously she developed further acute deterioration that required intubation and ICU care. Patient subsequently has been extubated and is presently sitting in her recliner in the ICU at this time. She does not appear to be in any distress. She denies any chest pain. She appears comfortable at rest at this time. Vital signs show a temperature of 98 with a pulse of also 98 and respirations 12. Blood pressure 134/67 and she is 93% saturated on 3 L nasal cannula. Lungs are generally clear with few short inspiratory wheeze at the right base. Heart tones were regular. No unusual edema. She is alert and oriented without focal neurological changes noted. Laboratory White count of 8 with a hemoglobin 10.8 and platelet count of 287. Sodium 143 with a potassium of 4 and a CO2 content of 23. BUN of 21 with a creatinine of 0.5-2 given her GFR greater than 90 and her blood sugar was 131 this morning. Chest x-ray Does not show any acute changes although she does have some small bilateral pleural effusions noted. Official report follow. Impressions and plans At this time patient is recovering from acute on chronic respiratory failure with acute episode of severe asthma attack. The patient required ventilatory support. We'll await further recommendations from pulmonary medicine. Likely patient can be moved to a regular floor when they deem she is stable enough.
[2019-03-26] MEDS: PANTOPRAZOLE 40 MG/10 ML VIAL IVP SCH (08:25)
[2019-03-26] MEDS: ASPIRIN 81 MG PO SCH (08:25)
[2019-03-26] MEDS: ENOXAPARIN 40 MG/0.4 ML SYRINGE SQ SCH (08:25)
[2019-03-26] MEDS: LORATADINE 10 MG TAB PO SCH (08:25)
[2019-03-26] MEDS: MULTIVITAMINS, THERA 1 EACH TAB PO SCH (08:32)
--- NOTE | 2019-03-26 09:24 | XR ---
EXAMINATION TYPE: XR chest 1V portable DATE OF EXAM: 03/26/2019 COMPARISON: 03/25/2019 HISTORY: Tube placement TECHNIQUE: Single frontal view of the chest is obtained. FINDINGS: ET and NG tube have been removed. Bilateral consolidation small effusion. Central intersti tial pattern noted. Biapical pleural thickening. Heart size normal. Diffuse osteopenia. IMPRESSION: Bilateral consolidation and small effusion. Correlate for pneumonia. Underlying venous c ongestion in the differential diagnosis
--- NOTE | 2019-03-26 11:43 | P.PN ---
Subjective Progress Note Date: 03/26/19 Principal diagnosis: Acute hypoxic respiratory failure secondary to status asthmaticus. This is a 74-year-old white female patient of Dr. Hong, with past medical history of chronic bronchial asthma, ALLERGIC rhinitis, lifetime nonsmoker who presented to the hospital on 03/23/2019 at 5:00 in the evening with complaints of moderate to severe respiratory distress, hypoxemia. Her onset of symptoms was yesterday at 4:00 pm, patient was progressively short of breath, the administered two breathing treatments [id number] with no improvement, her oxygenation continued to deteriorate and she was taken to the hospital. Patient does not wear oxygen, her pulse ox was 84% on room air on presentation. Chest x-ray did not show any active cardiopulmonary disease. Lab work was negative for any leukocytosis, white blood cell count was 10.4, d-dimer was negative, electrolytes and renal profile were within normal limits. ProBNP was 197, troponin was negative 1. Patient was given breathing treatments, she was started on IV steroids, and she was improving, this morning at the time of my evaluation patient was sitting up in bed, doing her DuoNeb nebulized treatment, in no acute distress, room air pulse ox was 94%, vitals are stable, no fever or chills. Patient stated that she was recently hospitalized in [place] for an asthma attack, her physician gave her Mc Har[place]ta sample, as she had recently run out of it. She has a nebulizer machine at home with albuterol breathing treatments, and she has pro-air. No other maintenance inhalers. She had seen Dr. Hanson in the remote past for an acute exacerbation of asthma for which she was hospitalized. She denies ever being intubated. She complains of ALLERGIC rhinitis, runny nose, sneezing, itchy eyes itchy throat. She states humidity and ALLERGIES suspected to be her triggers. She has lately been using her rescue inhaler quite frequently, and having a lot of nighttime symptoms with increased coughing at bedtime. Shortly after my evaluation patient was transferred to medical surgical floor where she suffered an acute asthma attack, she started acutely desaturating, I was called emergently to the bedside, and the patient's O2 sat was 74% on 100% nonrebreather, she received urgent nebulized treatment, etc. dose of 60 mg of Solu-Medrol was given, she was hardly moving any air, she was valadez, and a CODE BLUE was called. 1 mg of epinephrine was given IV push for acute bronchospasm, anesthesia was called, and the patient was emergently intubated. Patient never lost her pulse, CPR was not adm inistered, she did not require defibrillation. After intubation she was sedated, and placed on assist-control mode of ventilation with a rate of 20, tidal vital 350, FiO2 100% and PEEP of 5. Patient was reevaluated today on 03/25/2019, patient remains on mechanical ventilation, and she is still on propofol and fentanyl drip. Her ventilator settings were adjusted today, she is now on FiO2 of 40%, cut down her assist- control rate to 18, tidal volume is 350 and PEEP of 5. is at bedside, and he was updated on her condition. Chest x-ray was reviewed no evidence of active disease was noted. Patient is on bronchodilators, steroids, antibiotics, and my plan today is to awaken the patient, assess mental status, assess weaning and weaning parameters, and possibly give the patient a weaning trial. Patient will be placed on a pressure support and CPAP, and if tolerated may actually con planning manager extubating the patient today. Her ABG this morning showed a pO2 of 156 pCO2 of 33 pH of 7.45, her direct lites are normal CBC is relatively normal. Patient is yet to be awakened, presently on propofol and fentanyl. Patient was reevaluated today on 03/26/2019, she was extubated yesterday late in the afternoon, patient tolerated the extubation quite well. Presently she is off mechanical ventilation, on nasal cannula, feeling much better, breathing a lot easier, is at bedside, and they are both pleased with her significant clinical improvement since yesterday. Chest x-ray was reviewed. Labs were reviewed and she had a relatively normal CBC and normal electro lites. Normal renal profile. Chest x-ray showed mostly bibasilar atelectasis. And possibly some mild central interstitial pattern. Possibly some component of venous congestion, however clinically the patient is asymptomatic Objective - Vital Signs Vital signs: Vital Signs Temp 97.5 F L 03/26/19 08:00 Pulse 92 03/26/19 11:00 Resp 18 03/26/19 11:00 BP 137/77 03/26/19 11:00 Pulse Ox 94 L 03/26/19 11:00 Intake & Output 03/25/19 03/26/19 03/26/19 18:59 06:59 18:59 Intake Total 2348.039 4687 625 Output Total 550 500 200 Balance 6544.348 0322 425 Weight 55.4 kg Intake: IV 1375 1500 625 Sodium Chloride 0.9% 1, 1375 1500 625 000 ml @ 125 mls/hr IV . Q8H [facility] Rx#:[id number] Intake, IV Titration 208.051 Amount Dexmedetomidine/0.9% NaCl 21.444 (Pmx) 400 mcg In Empty Bag 1 bag @ 0.2 MCG/KG/HR 2.77 mls/hr IV .Q24H [facility] Rx#:[id number] Propofol 1,000 mg In 131.327 Empty Bag 1 bag @ Titrate IV .Q0M [facility] Rx#: [id number] fentaNYL (PF) 1,000 mcg 55.28 In Sodium Chloride 0.9% 80 ml @ 0.5 MCG/KG/HR 2. 645 mls/hr IV .Q24H [facility] Rx#:[id number] Oral 120 Other 120 Output: Urine 550 500 200 Other: Voiding Method Indwelling Catheter Bedside Commode Bedside Commode - Exam Physical Exam: Revealed a 74-year-old female on nasal cannula, in no distress. Head: Atraumatic, normocephalic. HEENT:[Neck is supple.] [No neck masses.] [No thyromegaly.] [No JVD.]. PERRLA, EOMI, no icterus, intact orogastric tube and endotracheal tube. Chest: [Clear throughout, no crackles, no rhonchi, no wheezes.] Cardiac Exam: [Normal S1 and S2, no S3 gallop, no murmur.] Abdomen: [Soft, nontender, no megaly, no rebound, no guarding, normal bowel sounds.] Extremities: [No clubbing, no edema, no cyanosis.] Neurological Exam: Alert oriented 3, no gross focal neurologic deficits.. Psychiatric: Normal mood, affect and mental status examination Lymphatics: No lymphadenopathy. Skin: No rashes.] - Labs CBC & Chem 7: 03/26/19 05:18 03/26/19 05:18 Labs: Abnormal Lab Results - Last 24 Hours (Table) 03/25/19 03/25/1903/25/19 Range/Units 11:52 14:55 17:54 RBC (3.80-5.40) m/uL Hgb (11.4-16.0) gm/dL Hct (34.0-46.0) % Lymphocytes # (1.0-4.8) k/uL ABG pO2 120 H (83-108) mmHg ABG O2 Saturation 98.2 H (94-97) % Chloride (98-107) mmol/L BUN (7-17) mg/dL Glucose (74-99) mg/dL POC Glucose (mg/dL) 132 H 122 H (75-99) mg/dL 03/26/19 03/26/19 03/26/19 Range/Units 00:11 05:18 05:18 RBC 3.40 L (3.80-5.40) m/uL Hgb 10.8 L (11.4-16.0) gm/dL Hct 33.6 L (34.0-46.0) % Lymphocytes # 0.3 L (1.0-4.8) k/uL ABG pO2 (83-108) mmHg ABG O2 Saturation (94-97) % Chloride 115 H (98-107) mmol/L BUN 21 H (7-17) mg/dL Glucose 131 H (74-99) mg/dL POC Glucose (mg/dL) 131 H (75-99) mg/dL 03/26/19 Range/Units 06:35 RBC (3.80-5.40) m/uL Hgb (11.4-16.0) gm/dL Hct (34.0-46.0) % Lymphocytes # (1.0-4.8) k/uL ABG pO2 (83-108) mmHg ABG O2 Saturation (94-97) % Chloride (98-107) mmol/L BUN (7-17) mg/dL Glucose (74-99) mg/dL POC Glucose (mg/dL) 121 H (75-99) mg/dL Microbiology - Last 24 Hours (Table) 03/24/19 12:16 Blood Culture - Preliminary Blood No Growth after 24 hours Assessment and Plan Assessment: Impression: 1 acute hypoxic respiratory failure secondary to status asthmaticus and acute exacerbation of bronchial asthma requiring intubation and mechanical ventilation. Patient was extubated on 03/25/2019, tolerated the extubation quite well. 2 severe persistent bronchial asthma 3. And tracheobronchitis 4 seasonal ALLERGIC rhinitis Recommendation: Continue patient on nasal cannula, continue bronchodilators, antibiotics, steroids, Singulair, Protonix, will transfer the patient out of the ICU today to a regular medical floor, will continue to follow closely. Updated her and the patient on her present condition and improvement over the last 24 hours. Will likely continue to monitor the patient on the medical floor for the next 24 hours, and then switched to oral medications instead of IV medications. Time with Patient: Less than 30
[2019-03-26] MEDS: CALCIUM CARB-VIT D 500MG-200UN 1 EACH TAB PO SCH (12:29)
[2019-03-26 17:46] VITALS: RESP 18
[2019-03-26] MEDS: MONTELUKAST 10 MG TAB PO SCH (20:21)
[2019-03-27] MEDS: IPRATROPIUM-ALBUTEROL 3 ML NEB INHALATION SCH ×4 (00:19→11:29)
[2019-03-27] MEDS: methylPREDNISolone SOD SUCCI 125 MG/2 ML VIAL IV SCH (05:25)
[2019-03-27 05:28] VITALS: BP 148/85; TEMP 98.1
[2019-03-27] MEDS: CALCIUM CARB-VIT D 500MG-200UN 1 EACH TAB PO SCH (07:35)
[2019-03-27] MEDS: ASPIRIN 81 MG PO SCH (07:35)
[2019-03-27] MEDS: ENOXAPARIN 40 MG/0.4 ML SYRINGE SQ SCH (07:35)
[2019-03-27] MEDS: PANTOPRAZOLE 40 MG/10 ML VIAL IVP SCH (07:35)
[2019-03-27] MEDS: LORATADINE 10 MG TAB PO SCH (07:35)
[2019-03-27] MEDS: MULTIVITAMINS, THERA 1 EACH TAB PO SCH (07:35)
[2019-03-27] MEDS: BUDESONIDE 1 MG/2 ML NEBU INHALATION SCH (07:52)
[2019-03-27] MEDS: FORMOTEROL FUMARATE 20 MCG/2 ML NEBU INHALATION SCH (07:52)
--- NOTE | 2019-03-27 07:56 | P.PN ---
Progress Note - Text The patient is a 74-year-old who presented to 4 days ago with an acute episode of asthmatic bronchitis and developed acute on chronic respiratory failure that required ventilator assistance for short period of time in the intensive care unit. She presently is out on a medical floor and is feeling better. Apparently yesterday she developed some confusion but this morning she seems to be alert and oriented. Calm and in no acute distress. Patient denies any chest pain or unusual shortness of breath. She has been getting up and going to the bathroom. Her is present in the room and states she seems to be back to her normal self. Last vital signs show temperature 98.1 with a pulse of 88 but it had been up to 122. Respirations 18 and blood pressure 148/85 and she is 93% saturated on room air. Lungs are generally clear, diminished at bases. Heart rate is slightly tachycardic but this seems to be better than the 122 recorded earlier. Abdomen nontender. No unusual edema. No focal neurological changes. Impressions and plans Patient is recovering from a severe episode of asthmatic bronchitis with acute on chronic respiratory failure. She is still presently on IV corticosteroids is at 60 mg every 6 hours. Discussed with patient and spouse. We'll await further recommendations from pulmonary medicine. Continue diet and activity level.
[2019-03-27 09:37] LABS: Basophils % (A) 0 %; Eosinophils % (A) 0 %; HCT 38.5 % (34.0-46.0); HGB 12.1 gm/dL (11.4-16.0); Lymphocytes # (A) 0.4 k/uL (1.0-4.8); Lymphocytes % (A) 4 %; MCH 31.2 pg (25.0-35.0); MCHC 31.5 g/dL (31.0-37.0); Mean Platelet Volume 7.6; Monocytes # (A) 0.3 k/uL (0-1.0); Monocytes % (A) 4 %; Neutrophils # (A) 8.1 k/uL (1.3-7.7); Neutrophils % (A) 92 %; Platelet Count 297 k/uL (150-450); RBC 3.88 m/uL (3.80-5.40); RDW 13.9 % (11.5-15.5); WBC 8.9 k/uL (3.8-10.6)
[2019-03-27 10:09] LABS: Anion Gap 8 mmol/L; Blood Urea Nitrogen 16 mg/dL (7-17); Calcium 8.9 mg/dL (8.4-10.2); Carbon Dioxide 25 mmol/L (22-30); Chloride 107 mmol/L (98-107); Glucose 174 mg/dL (74-99); Potassium 3.8 mmol/L (3.5-5.1); Sodium 140 mmol/L (137-145)
[2019-03-27] MEDS ORDERED: predniSONE 20 MG TAB PO SCH (11:15)
--- NOTE | 2019-03-27 11:29 | XR ---
EXAMINATION TYPE: XR chest 2V DATE OF EXAM: 03/27/2019 COMPARISON: 03/27/2019 TECHNIQUE: PA and lateral views submitted. HISTORY: Tube placement FINDINGS: There is bilateral consolidation and pleural effusion. There is interstitial prominence. No pneumotho rax. Hyperinflation suggests COPD. Diffuse osteopenia. There is degenerative change of the spine. Hyp erinflation suggests COPD. IMPRESSION: 1. Bilateral consolidation and pleural effusion. Correlate for pneumonia. Underlying venous congestio n in the differential diagnosis. No significant interval change.
[2019-03-27 11:32] VITALS: PULSE 92
[2019-03-27] MEDS ORDERED: FUROSEMIDE 10 MG/ML 2 ML VIAL IV STA (11:54)
--- NOTE | 2019-03-27 12:11 | P.PN ---
Subjective Progress Note Date: 03/27/19 Principal diagnosis: Acute hypoxic respiratory failure secondary to status asthmaticus This is a 74-year-old white female patient of Dr. Hong, with past medical history of chronic bronchial asthma, ALLERGIC rhinitis, lifetime nonsmoker who presented to the hospital on 03/23/2019 at 5:00 in the evening with complaints of moderate to severe respiratory distress, hypoxemia. Her onset of symptoms was yesterday at 4:00 pm, patient was progressively short of breath, the administered two breathing treatments [id number] with no improvement, her oxygenation continued to deteriorate and she was taken to the hospital. Patient does not wear oxygen, her pulse ox was 84% on room air on presentation. Chest x-ray did not show any active cardiopulmonary disease. Lab work was negative for any leukocytosis, white blood cell count was 10.4, d-dimer was negative, electrolytes and renal profile were within normal limits. ProBNP was 197, troponin was negative 1. Patient was given breathing treatments, she was started on IV steroids, and she was improving, this morning at the time of my evaluation patient was sitting up in bed, doing her DuoNeb nebulized treatment, in no acute distress, room air pulse ox was 94%, vitals are stable, no fever or chills. Patient stated that she was recently hospitalized in [place] for an asthma attack, her physician gave her [place] sample, as she had recently run out of it. She has a nebulizer machine at home with albuterol breathing treatments, and she has pro-air. No other maintenance inhalers. She had seen Dr. Hanson in the remote past for an acute exacerbation of asthma for which she was hospitalized. She denies ever being intubated. She complains of ALLERGIC rhinitis, runny nose, sneezing, itchy eyes itchy throat. She states humidity and ALLERGIES suspected to be her triggers. She has lately been using her rescue inhaler quite frequently, and having a lot of nighttime symptoms with increased coughing at bedtime. Shortly after my evaluation patient was transferred to medical surgical floor where she suffered an acute asthma attack, she started acutely desaturating, I was called emergently to the bedside, and the patient's O2 sat was 74% on 100% nonrebreather, she received urgent nebulized treatment, etc. dose of 60 mg of Solu-Medrol was given, she was hardly moving any air, she was valadez, and a CODE BLUE was called. 1 mg of epinephrine was given IV push for acute bronchospasm, anesthesia was called, and the patient was emergently intubated. Patient never lost her pulse, CPR was not admin istered, she did not require defibrillation. After intubation she was sedated, and placed on assist-control mode of ventilation with a rate of 20, tidal vital 350, FiO2 100% and PEEP of 5. Patient was reevaluated today on 03/25/2019, patient remains on mechanical ventilation, and she is still on propofol and fentanyl drip. Her ventilator settings were adjusted today, she is now on FiO2 of 40%, cut down her assist- control rate to 18, tidal volume is 350 and PEEP of 5. is at bedside, and he was updated on her condition. Chest x-ray was reviewed no evidence of active disease was noted. Patient is on bronchodilators, steroids, antibiotics, and my plan today is to awaken the patient, assess mental status, assess weaning and weaning parameters, and possibly give the patient a weaning trial. Patient will be placed on a pressure support and CPAP, and if tolerated may actually consider extubating the patient today. Her ABG this morning showed a pO2 of 156 pCO2 of 33 pH of 7.45, her direct lites are normal CBC is relatively normal. Patient is yet to be awakened, presently on propofol and fentanyl. Patient was reevaluated today on 03/26/2019, she was extubated yesterday late in the afternoon, patient tolerated the extubation quite well. Presently she is off mechanical ventilation, on nasal cannula, feeling much better, breathing a lot easier, is at bedside, and they are both pleased with her significant clinical improvement since yesterday. Chest x-ray was reviewed. Labs were reviewed and she had a relatively normal CBC and normal electro lites. Normal renal profile. Chest x-ray showed mostly bibasilar atelectasis. And possibly some mild central interstitial pattern. Possibly some component of venous congestion, however clinically the patient is asymptomatic On 03/27/2019 patient seen in follow-up on medical surgical floor. She is in no acute distress, she just feels weak and fatigued, but no coughing or wheezing, no shortness of breath, room air pulse ox is 93%, patient is afebrile, she slightly tachycardic with a heart rate is at 122. Denies any chest pain or chest tightness. Lung sounds are positive for good air entry bilaterally, with no wheezing or rhonchi. At times she is able to bring up some whitish colored sputum, there had been no fever or chills. Was cultures showed no growth, today's labs have been reviewed, and showed white blood cell count of 8.9, hemoglobin of 12.1, electro lites were within normal limits, and renal profile was unremarkable as well. Chest x-ray was obtained today showed bilateral consolidation and pleural effusions, and underlying venous congestion, clear related to fluid volume overload, patient states she also feels swollen, and lower extremities, and in her hands and fingers. Stop the IV fluids, will give the patient a dose of IV Lasix. Patient could potentially be discharged home today, has remained stable overnight, no acute events, she has been up and tolerating ambulation Objective - Vital Signs Vital signs: Vital Signs Temp 98.1 F 03/27/19 05:28 Pulse 92 03/27/19 11:42 Resp 18 03/27/19 05:28 BP 148/85 03/27/19 05:28 Pulse Ox 93 L 03/27/19 05:28 Intake & Output 03/26/19 03/27/19 03/27/19 18:59 06:59 18:59 Intake Total 375 325 Output Total 700 Balance -325 325 Intake: IV 375 Sodium Chloride 0.9% 1, 375 000 ml @ 25 mls/hr IV . Q24H [facility] Rx#:[id number] Oral 325 Output: Urine 700 Other: Voiding Method Bedside Commode # Voids 3 # Bowel Movements 1 - Exam GENERAL EXAM: Alert, pleasant 74-year-old thin white female, on room air, with a pulse ox of 93%, appears fatigued, and weak, comfortable in no apparent distress. HEAD: Normocephalic/atraumatic. EYES: Normal reaction of pupils, equal size. Conjunctiva pink, sclera white. NOSE: Clear with pink turbinates. THROAT: No erythema or exudates. NECK: No masses, no JVD, no thyroid enlargement, no adenopathy. CHEST: No chest wall deformity. Symmetrical expansion. LUNGS: Equal air entry with no crackles, wheeze, rhonchi or dullness. CVS: Regular rate and rhythm, normal S1 and S2, no gallops, no murmurs, no rubs ABDOMEN: Soft, nontender. No hepatosplenomegaly, normal bowel sounds, no guarding or rigidity. EXTREMITIES: No clubbing, no edema, no cyanosis, 2+ pulses and upper and lower extremities. MUSCULOSKELETAL: Muscle strength and tone normal. SPINE: No scoliosis or deformity SKIN: No rashes CENTRAL NERVOUS SYSTEM: Alert and oriented -3. No focal deficits, tone is normal in all 4 extremities. PSYCHIATRIC: Alert and oriented -3. Appropriate affect. Intact judgment and insight. - Labs CBC & Chem 7: 03/27/19 09:00 03/27/19 09:00 Labs: Abnormal Lab Results - Last 24 Hours (Table) 03/27/19 03/27/19 Range/Units 09:00 09:00 Neutrophils # 8.1 H (1.3-7.7) k/uL Lymphocytes # 0.4 L (1.0-4.8) k/uL Creatinine 0.51 L (0.52-1.04) mg/dL Glucose 174 H (74-99) mg/dL Microbiology - Last 24 Hours (Table) 03/24/19 12:16 Blood Culture - Preliminary Blood No Growth after 48 hours Assessment and Plan Plan: Assessment: #1. Acute hypoxemic respiratory failure secondary to status asthmaticus, acute bronchospasm, requiring intubation and placement on mechanical ventilator, she was successfully extubated on 03/25/2019, and so far she is tolerating extubation quite well #2. Severe persistent bronchial asthma #3. ALLERGIC rhinitis #4. Recent hospitalization in [place] for acute exacerbation of chronic bronchi al asthma #5. History of bronchospastic angina 20 years ago #6. Lifetime nonsmoker Plan: Today's chest x-ray has been reviewed with Dr. Cruz, and shows small bilateral pleural effusions, adjacent atelectasis or infiltrates and pulmonary venous congestion likely related to fluid volume overload, will administer 1 dose of IV Lasix 20 mg, otherwise patient is doing well, she just feels weak and fatigued, but she states her mentation seems to be more clear. She denies any shortness of breath, wheezing or coughing, denies any chest tightness. She is on room air, maintaining good O2 saturations. Patient will benefit from a home nebulizer machine with DuoNeb breathing treatments, Symbicort, she'll go home on prednisone taper, Singulair, Claritin as part of her maintenance therapy for her severe persistent bronchial asthma with an episode of status asthmaticus. She will need follow-up in the outpatient setting with Dr. Cruz within 7-10 days. I performed a history & physical examination of the patient and discussed their management with my nurse practitioner, Leslee Morris. I reviewed the nurse practitioner's note and agree with the documented findings and plan of care. Chana ng sounds are positive for diminished air entry, diffuse wheezes throughout the lung bowie. The findings and the impression was discussed with the patient. I attest to the documentation by the nurse practitioner. Time with Patient: Less than 30
[2019-03-28] MEDS ORDERED: PANTOPRAZOLE 40 MG TABLET PO SCH (07:30)
--- NOTE | 2019-03-28 09:02 | DS ---
DISCHARGE SUMMARY Mrs. Wing is a 74-year-old female who has a history of asthma who presented to the emergency room with increasing cough and shortness of breath that started rather suddenly prior to admission. She was seen in the emergency room, initially placed on corticosteroids and respiratory treatments. Subsequently, the next day she once again after some initial improvement, deteriorated fairly rapidly while she was on the medical floor, requiring intubation and transfer to the intensive care unit where she required ventilatory assistance for approximately 24 hours when she was successfully weaned from the ventilator. She did well. She was seen in consultation by Dr. Kovacs from Pulmonary Medicine. Please refer to his consultation and notes. The patient had been residing in [place] for the winter and did have an episode there which required apparently a brief hospitalization. She is a former smoker. Laboratory values revealed a white count around 8000, hemoglobin has varied from approximately 11 to 12 with a normal MCV and platelet counts of approximately 280,000. Sodium was unremarkable. Potassium 4.0, CO2 content 23, BUN 21, creatinine 0.52, her GFR greater than 90. Blood sugar was 131, it did go up with corticosteroid treatment. Calcium, magnesium, phosphorus had been unremarkable. The liver function tests were good. She did have a chest x-ray which did not show any definitive infiltrates, it was consistent with COPD. EKG revealed a sinus rhythm, slightly tachycardic without evidence of acute ischemic changes. With the treatments of corticosteroids, respiratory treatments, patient clinically improved. Once again, she was moved to the regular floor where she was ambulated and did well without difficulties. At this time, she has been discharged to home. She is to use the albuterol ipratropium or DuoNeb 0.5-3 mg 3 mL solution 3 times a day, Claritin 10 mg daily, mometasone/formoterol or Dulera 200 mcg/5 mcg inhaler 2 puffs twice a day. She is on prednisone taper 40 mg for 4 days, 30 mg for 4 days, 20 mg for 4 days and 10 mg for 4 days. She is to continue her ProAir 2 puffs every 4 hours as needed, aspirin 81 mg daily, calcium and vitamin D daily, multiple vitamin daily, coenzyme Q, she takes 100 mg daily, Benadryl 25 mg as needed. The patient will follow up with myself and Dr. Kovacs over the next several days. FINAL DISCHARGE DIAGNOSES BEIN. Acute asthmatic bronchitis with acute on chronic respiratory failure which required ventilatory support and secondary to status asthmaticus and acute bronchospasm required mechanical ventilator. 2. Allergic rhinitis. 3. History of bronchospastic angina 20 years ago. 4. History of former smoker, but quit many years ago. DIET: Will be as tolerated. ACTIVITIES: As tolerated. MMODL / IJN: [id number] /
== END 2019-03-27 15:53 | disposition home or self-care (01) | DRG 208 ==
LOC: EC 17:19 → 3SCARD 19:14 → 3NMEDONC 03-24 09:33 → 2SICU 03-24 11:52 → 4MS4W 03-26 18:26
PROVIDERS: ADMIT Internal Medicine; ATTEND Internal Medicine
PROC: 5A1935Z Respiratory Ventilation, Less than 24 Consecutive Hours (ICD-10-PCS; principal; 2019-03-24)
PROC: 0BH17EZ Insertion of Endotracheal Airway into Trachea, Via Natural or Artificial Opening (ICD-10-PCS; 2019-03-24)
DX: J45.52 Severe persistent asthma with status asthmaticus (principal); J96.21 Acute and chronic respiratory failure with hypoxia; J98.11 Atelectasis; J44.9 Chronic obstructive pulmonary disease, unspecified; E87.70 Fluid overload, unspecified; R06.03 Acute respiratory distress; J31.0 Chronic rhinitis; I83.90 Asymptomatic varicose veins of unspecified lower extremity; Z79.51 Long term (current) use of inhaled steroids; Z79.82 Long term (current) use of aspirin; Z88.2 Allergy status to sulfonamides; Z87.891 Personal history of nicotine dependence; Z82.49 Family history of ischemic heart disease and other diseases of the circulatory system
CPT/HCPCS: 36415; 36600; 71045; 71046; 80048; 80053; 81001; 82805; 83735; 83880; 84100; 84155; 84484; 85025; 85027; 85379; 85610; 85730; 87040; 87502; 93005; 94003; 94640; 94644; 94760; 96374; 99291

== ENCOUNTER → 2019-07-10 | Outpatient (CLI) | payer MEDICARE ==
--- NOTE | 2019-07-11 09:10 | MM ---
Reason for exam: screening (asymptomatic). Last mammogram was performed 1 year ago. History: Patient is postmenopausal. Physical Findings: A clinical breast exam by your physician is recommended on an annual basis and results should be correlated with mammographic findings. MG 3D Screening Mammo W/Cad Bilateral CC and MLO view(s) were taken. XCCL view(s) were taken of the right breast. Prior study comparison: July 09, 2018, bilateral MG 3d screening mammo w/cad. June 28, 2017, bilateral MG 3d screening mammo w/cad. The breast tissue is heterogeneously dense. This may lower the sensitivity of mammography. Stable benign calcifications. Focal asymmetry upper outer right breast 5cm from nipple. This finding is changed when compared with previous exams. ASSESSMENT: Incomplete: need additional imaging evaluation, BI-RAD 0 RECOMMENDATION: Special view mammogram and ultrasound of the right breast. [facility] will attempt to contact patient to return for supplemental views and ultrasound.
== END ==
LOC: RADMAMWWP 08:17
PROVIDERS: ATTEND Internal Medicine
DX: Z12.31 Encounter for screening mammogram for malignant neoplasm of breast (principal)
CPT/HCPCS: 77063; 77067

== ENCOUNTER → 2019-07-24 | Outpatient (CLI) | payer MEDICARE ==
--- NOTE | 2019-07-25 09:00 | MM ---
Reason for exam: additional evaluation requested from abnormal screening. Last mammogram was performed less than 1 month ago. History: Patient is postmenopausal. Physical Findings: Nurse did not find any significant physical abnormalities on exam. MG 3D Work Up W/Cad RT Spot compression CC, spot compression MLO, and LM view(s) were taken of the right breast. Prior study comparison: July 10, 2019, bilateral MG 3d screening mammo w/cad. July 09, 2018, bilateral MG 3d screening mammo w/cad. The breast tissue is heterogeneously dense. This may lower the sensitivity of mammography. Benign appearing calcifications in the right breast. The previously seen abnormality resolves on additional views and appears as fibroglandular tissue compatible with summation. No suspicious abnormality. These results were verbally communicated with the patient and result sheet given to the patient on 07/24/19. ASSESSMENT: Benign, BI-RAD 2 RECOMMENDATION: Return to routine screening mammogram schedule for both breasts.
== END | disposition home or self-care (01) ==
LOC: RADMAMWWP 14:57
PROVIDERS: ATTEND Family Medicine
DX: R92.8 Other abnormal and inconclusive findings on diagnostic imaging of breast (principal)
CPT/HCPCS: 77065; G0279; 77061

== ENCOUNTER → 2020-08-10 | Outpatient (CLI) | payer MEDICARE ==
[~2020-08-10] MED LIST: ONDANSETRON 4 MG/2 ML VIAL ONE
--- NOTE | 2020-08-11 10:12 | MM ---
Reason for exam: screening (asymptomatic). Last mammogram was performed 1 year and 1 month ago. History: Patient is postmenopausal. Physical Findings: A clinical breast exam by your physician is recommended on an annual basis and results should be correlated with mammographic findings. MG 3D Screening Mammo W/Cad Bilateral CC and MLO view(s) were taken. Prior study comparison: July 24, 2019, right breast MG 3d work up w/cad RT. July 10, 2019, bilateral MG 3d screening mammo w/cad. The breast tissue is heterogeneously dense. This may lower the sensitivity of mammography. Stable benign calcifications. There is no discrete abnormality. No significant changes when compared with prior studies. ASSESSMENT: Benign, BI-RAD 2 RECOMMENDATION: Routine screening mammogram of both breasts in 1 year.
== END | disposition home or self-care (01) ==
LOC: RADMAMWWP 09:13
PROVIDERS: ATTEND Family Medicine
DX: Z12.31 Encounter for screening mammogram for malignant neoplasm of breast (principal)
CPT/HCPCS: 77063; 77067

== ENCOUNTER 2021-04-21 19:09 | Observation (INO) | payer MEDICARE ==
[2021-04-21] MEDS ORDERED: IPRATROPIUM-ALBUTEROL 3 ML NEB INHALATION STA (19:25)
[2021-04-21] MEDS ORDERED: methylPREDNISolone SOD SUCCI 125 MG/2 ML VIAL IV STA (19:25)
[2021-04-21 19:48] LABS: Basophils # (A) 0.1 k/uL (0-0.2); Basophils % (A) 1 %; Eosinophils # (A) 0.7 k/uL (0-0.7); Eosinophils % (A) 8 %; HCT 43.5 % (34.0-46.0); HGB 13.5 gm/dL (11.4-16.0); Lymphocytes % (A) 23 %; MCH 31.1 pg (25.0-35.0); MCV 100.3 fL (80.0-100.0); Mean Platelet Volume 7.2; Monocytes # (A) 0.3 k/uL (0-1.0); Monocytes % (A) 3 %; Neutrophils # (A) 5.7 k/uL (1.3-7.7); Neutrophils % (A) 64 %; Platelet Count 274 k/uL (150-450); RBC 4.34 m/uL (3.80-5.40); RDW 13.2 % (11.5-15.5); WBC 8.8 k/uL (3.8-10.6)
[2021-04-21 19:59] LABS: INR 0.9 (<1.2); Partial Thromboplastin Time 23.1 sec (22.0-30.0); Prothrombin Time 10.2 sec (9.0-12.0)
[2021-04-21 20:00] LABS: Albumin 4.7 g/dL (3.5-5.0); Calcium 9.7 mg/dL (8.4-10.2); Potassium 3.7 mmol/L (3.5-5.1); Total Bilirubin 0.3 mg/dL (0.2-1.3); Total Protein 7.5 g/dL (6.3-8.2)
[2021-04-21 20:05] LABS: ABG HCO3 29 mmol/L (21-25); ABG Oxygen Saturation 98.8 % (94-97); ABG PCO2 44 mmHg (35-45); ABG PH 7.42 (7.35-7.45); ABG PO2 146 mmHg (83-108); ABG TCO2 30 mmol/L (19-24); Allen Test Performed? Yes
--- NOTE | 2021-04-21 20:47 | ED ---
General Adult HPI - General Chief complaint: Shortness of Breath Stated complaint: CADEN Time Seen by Provider: 04/21/21 19:20 Source: patient Mode of arrival: ambulatory Limitations: no limitations - History of Present Illness Initial comments: Is a 76-year-old female with a history of asthma who presents emergency department for shortness of breath. He reportedly started about an hour or 2 prior to arrival. The patient states that she Very short of breath suddenly. She states that she became very wheezy. She tried using her inhalers and nebulizers at home without much relief so she presents emergency department. The patient was hypoxic and tachycardia On arrival. She appeared to be in some mild respiratory distress. The patient was immediately placed in the room and DuoNeb treatments were ordered. The patient denies any fevers or chills. He is to mild cough. No chest pain. No lower Chevys pain or swelling. No other acute complaints. - Related Data Home Medications Medication Instructions Recorded Confirmed Multivitamins, Thera [Multivitamin] 1 tab PO DAILY 06/06/16 04/21/21 Albuterol Sulfate [Proair Hfa] 2 puff INHALATION RT-Q4H PRN 03/23/19 04/21/21 Cholecalciferol [Vitamin D3 (25 25 mcg PO DAILY 04/21/21 04/21/21 Mcg = 1000 Iu)] Mometasone/Formoterol [Dulera 200 2 puff INHALATION RT-BID PRN 04/21/21 04/21/21 Mcg/5 Mcg Inhaler] Allergies Allergy/AdvReac Type Severity Reaction Status Date / Time Sulfa (Sulfonamide Allergy Rash/Hives Verified 04/21/21 21:04 Antibiotics) Review of Systems ROS Statement: Those systems with pertinent positive or pertinent negative responses have been documented in the HPI. ROS Other: All systems not noted in ROS Statement are negative. Past Medical History Past Medical History: Asthma History of Any Multi-Drug Resistant Organisms: None Reported Past Surgical History: Tubal Ligation Past Anesthesia/Blood Transfusion Reactions: No Reported Reaction Past Psychological History: No Psychological Hx Reported Smoking Status: Never smoker Past Alcohol Use History: None Reported Past Drug Use History: None Reported - Past Family History Father Family Medical History: Hypertension Mother Additional Family Medical History / Comment(s): Alzhemiers Sister(s) Family Medical History: CVA/TIA General Exam - General Exam Comments Initial Comments: Constitutional: Awake alert patient appears in mild respiratory distress Head: Normocephalic atraumatic Eyes: no conjunctival injection No scleral icterus EOMI Neck: No JVD Supple Heart: Regular rate rhythm normal S1-S2 no murmurs Lungs: Patient is tachypneic in mild respiratory distress with bilateral expiratory wheezes No rales Abdomen: Soft nondistended nontender Extremities: Non edematous DP pulses intact Radial pulses intact Neuro: A&Ox3 No focal neurologic deficits Psych: Appropriate mood and affect Limitations: no limitations Course Vital Signs 04/21/21 04/21/21 04/21/21 19:10 19:37 19:41 Temperature 97.7 F Pulse Rate 122 H 104 H 110 H Respiratory 28 H 29 H Rate Blood Pressure 181/74 O2 Sat by Pulse 88 L 98 Oximetry 04/21/21 04/21/21 04/21/21 19:43 19:47 20:14 Temperature Pulse Rate 102 H 100 Respiratory 29 H Rate Blood Pressure O2 Sat by Pulse Oximetry 04/21/21 21:11 Temperature Pulse Rate 93 Respiratory 21 Rate Blood Pressure 133/60 O2 Sat by Pulse 97 Oximetry - Reevaluation(s) Reevaluation #1: 04/21/21 20:47 Pt much improved. Wheezing resolved. EKG Findings - EKG Comments: EKG Findings:: EKG showing sinus tachycardia with a rate of 113. There is questionable mild ST depression in V3 through V6. No elevations. No abnormal T waves. QTC is 447. Other vitals normal. No ectopy. Medical Decision Making - Medical Decision Making This is a 76-year-old female who presents emergency department for shortness of breath. The patient was quite tachypneic and in respiratory distress when she arrived. She was hypoxic and tachycardic on arrival. Patient was seen urgently upon my arrival and given 3 DuoNeb treatments. Patient greatly improved. She was given steroids as well. Patient had an EKG, blood work, chest x-ray p erformed. All these were most unremarkable. No emergent findings. The patient was greatly improved however her chart review the patient had similar episode a couple of years ago and the next morning had acute decompensation and ended up intubated. For this reason to keep the patient hospital and monitor her closely. Wrote for DuoNeb treatments every [address] Sellers accepts the patient for admission. - Lab Data Result diagrams: 04/21/21 19:41 04/21/21 19:41 Lab Results 04/21/21 04/21/21 04/21/21 Range/Units 19:41 19:41 19:41 WBC 8.8 (3.8-10.6) k/uL RBC 4.34 (3.80-5.40) m/uL Hgb 13.5 (11.4-16.0) gm/dL Hct 43.5 (34.0-46.0) % MCV 100.3 H (80.0-100.0) fL MCH 31.1 (25.0-35.0) pg MCHC 31.0 (31.0-37.0) g/dL RDW 13.2 (11.5-15.5) % Plt Count 274 (150-450) k/uL MPV 7.2 Neutrophils % 64 % Lymphocytes % 23 % Monocytes % 3 % Eosinophils % 8 % Basophils % 1 % Neutrophils # 5.7 (1.3-7.7) k/uL Lymphocytes # 2.0 (1.0-4.8) k/uL Monocytes # 0.3 (0-1.0) k/uL Eosinophils # 0.7 (0-0.7) k/uL Basophils # 0.1 (0-0.2) k/uL PT 10.2 (9.0-12.0) sec INR 0.9 (<1.2) APTT 23.1 (22.0-30.0) sec Sample Site ABG pH (7.35-7.45) ABG pCO2 (35-45) mmHg ABG pO2 (83-108) mmHg ABG HCO3 (21-25) mmol/L ABG Total CO2 (19-24) mmol/L ABG O2 Saturation (94-97) % ABG Base Excess mmol/L Jason Test FiO2 % Sodium 142 (137-145) mmol/L Potassium 3.7 (3.5-5.1) mmol/L Chloride 105 (98-107) mmol/L Carbon Dioxide 27 (22-30) mmol/L Anion Gap 10 mmol/L BUN 19 H (7-17) mg/dL Creatinine 0.83 (0.52-1.04) mg/dL Est GFR (CKD-EPI)AfAm 81 (>60 ml/min/1.73 sqM) Est GFR (CKD-EPI)NonAf 70 (>60 ml/min/1.73 sqM) Glucose 157 H (74-99) mg/dL Calcium 9.7 (8.4-10.2) mg/dL Total Bilirubin 0.3 (0.2-1.3) mg/dL AST 20 (14-36) U/L ALT 13 (4-34) U/L Alkaline Phosphatase 107 (38-126) U/L Troponin I (0.000-0.034) ng/mL NT-Pro-B Natriuret Pep pg/mL Total Protein 7.5 (6.3-8.2) g/dL Albumin 4.7 (3.5-5.0) g/dL 04/21/21 04/21/21 04/21/21 Range/Units 19:41 19:41 20:00 WBC (3.8-10.6) k/uL RBC (3.80-5.40) m/uL Hgb (11.4-16.0) gm/dL Hct (34.0-46.0) % MCV (80.0-100.0) fL MCH (25.0-35.0) pg MCHC (31.0-37.0) g/dL RDW (11.5-15.5) % Plt Count (150-450) k/uL MPV Neutrophils % % Lymphocytes % % Monocytes % % Eosinophils % % Basophils % % Neutrophils # (1.3-7.7) k/uL Lymphocytes # (1.0-4.8) k/uL Monocytes # (0-1.0) k/uL Eosinophils # (0-0.7) k/uL Basophils # (0-0.2) k/uL PT (9.0-12.0) sec INR (<1.2) APTT (22.0-30.0) sec Sample Site RAD ABG pH 7.42 (7.35-7.45) ABG pCO2 44 (35-45) mmHg ABG pO2 146 H (83-108) mmHg ABG HCO3 29 H (21-25) mmol/L ABG Total CO2 30 H (19-24) mmol/L ABG O2 Saturation 98.8 H (94-97) % ABG Base Excess 4.0 mmol/L Jason Test Yes FiO2 32 % Sodium (137-145) mmol/L Potassium (3.5-5.1) mmol/L Chloride (98-107) mmol/L Carbon Dioxide (22-30) mmol/L Anion Gap mmol/L BUN (7-17) mg/dL Creatinine (0.52-1.04) mg/dL Est GFR (CKD-EPI)AfAm (>60 ml/min/1.73 sqM) Est GFR (CKD-EPI)NonAf (>60 ml/min/1.73 sqM) Glucose (74-99) mg/dL Calcium (8.4-10.2) mg/dL Total Bilirubin (0.2-1.3) mg/dL AST (14-36) U/L ALT (4-34) U/L Alkaline Phosphatase (38-126) U/L Troponin I <0.012 (0.000-0.034) ng/mL NT-Pro-B Natriuret Pep <11 pg/mL Total Protein (6.3-8.2) g/dL Albumin (3.5-5.0) g/dL Disposition Clinical Impression: Asthma exacerbation, Hypoxia Disposition: ADMITTED IP TO THIS HOSP Condition: Stable Referrals: Luz Maria Gallegos MD [Primary Care Provider] - 1-2 days
--- NOTE | 2021-04-21 21:00 | XR ---
EXAMINATION TYPE: XR chest 1V portable DATE OF EXAM: 04/21/2021 COMPARISON: Chest x-ray 03/27/2019, 05/19/2019 HISTORY: Dyspnea TECHNIQUE: Single frontal view of the chest is obtained. FINDINGS: There is no focal air space opacity, pleural effusion, or pneumothorax seen. The cardiac silhouette size is within normal limits. Prominent lung volumes are consistent with underlying COPD . The osseous structures are intact. IMPRESSION: There is no acute cardiopulmonary disease.
[2021-04-21] MEDS ORDERED: NALOXONE 0.4 MG/ML 1 ML VIAL IV PRN (21:58)
[2021-04-21] MEDS ORDERED: IPRATROPIUM-ALBUTEROL 3 ML NEB INHALATION PRN (23:52)
[2021-04-22] MEDS ORDERED: IPRATROPIUM-ALBUTEROL 3 ML NEB INHALATION SCH
[2021-04-22] MEDS ORDERED: SYMBICORT 160-4.5 MCG INHALER INHALATION PRN (02:43)
--- NOTE | 2021-04-22 02:49 | P.HPIM ---
History of Present Illness H&P Date: 04/21/21 Chief Complaint: SOB 76-year-old female with moderate persistent asthma Patient comes in after experiencing sudden onset shortness of breath and wheezing for couple hours not responding to her regular breathing treatments at home for which she decided to come the hospital get evaluated this happened all of a sudden she cannot identify any triggering or precipitating factors been doing fine for long time her most recent attack was before Covid time back in 2019 however she recalls she had a severe attack where she ended up intubated on Upon showing up in the ED she was in a lot of respiratory distress per ED report she was given steroids and breathing treatments and started improving a little bit she was kept in the hospital for monitoring overnight. She otherwise denies any cough fevers chills she denies any chest pain denies any nausea vomiting abdominal pain denies any sick contacts or any recent traveling she claims that she's been doing fine for over a year now In the ED chest x-ray was unremarkable ABG and blood work all unremarkable Review of Systems Pertinent positives as noted in HPI. All other systems were reviewed and are negative Past Medical History Past Medical History: Asthma History of Any Multi-Drug Resistant Organisms: None Reported Past Surgical History: Tubal Ligation Past Anesthesia/Blood Transfusion Reactions: No Reported Reaction Past Psychological History: No Psychological Hx Reported Smoking Status: Never smoker Past Alcohol Use History: None Reported Past Drug Use History: None Reported - Past Family History Father Family Medical History: Hypertension Mother Additional Family Medical History / Comment(s): Alzhemiers Sister(s) Family Medical History: CVA/TIA Medications and Allergies Home Medications Medication Instructions Recorded Confirmed Type Multivitamins, Thera [Multivitamin] 1 tab PO DAILY 06/06/16 04/21/21 History Albuterol Sulfate [Proair Hfa] 2 puff INHALATION RT-Q4H PRN 03/23/19 04/21/21 History Cholecalciferol [Vitamin D3 (25 25 mcg PO DAILY 04/21/21 04/21/21 History Mcg = 1000 Iu)] Mometasone/Formoterol [Dulera 200 2 puff INHALATION RT-BID PRN 04/21/21 04/21/21 History Mcg/5 Mcg Inhaler] Allergies Allergy/AdvReac Type Severity Reaction Status Date / Time Sulfa (Sulfonamide Allergy Rash/Hives Verified 04/21/21 21:04 Antibiotics) Physical Exam Vitals: Vital Signs Temp Pulse Resp BP Pulse Ox 04/22/21 00:00 84 16 136/70 98 04/21/21 22:00 95 18 140/70 97 04/21/21 21:11 93 21 133/60 97 04/21/21 20:14 100 04/21/21 20:00 102 H 28 H 169/94 100 04/21/21 19:47 102 H 04/21/21 19:43 29 H 04/21/21 19:41 110 H 29 H 98 04/21/21 19:37 104 H 04/21/21 19:21 93 L 04/21/21 19:10 97.7 F 122 H 28 H 181/74 88 L Intake and Output 04/21/21 04/21/21 04/22/21 14:59 22:59 06:59 Other: Weight 49.895 kg Constitutional: No acute distress, conversant, pleasant Eyes: Anicteric sclerae, moist conjunctiva, Pupils equal round reactive to light ENMT: NC/AT Oropharynx clear, no erythema, or exudates Neck: Supple, FROM, no masses, or JVD No carotid bruits No thyromegaly Lungs: Clear to auscultation Clear to percussion Normal respiratory effort, no accessory muscle use Cardiovascular: Heart regular in rate and rhythm, No murmurs, gallops, or rubs No peripheral edema Abdominal: Soft Nontender, no guarding, rebound or rigidity Abdomen moving with respiration Normoactive bowel sounds No hepatomegaly, No splenomegaly No palpable mass No abdominal wall hernia noted Skin: Normal temperature, tone, texture, turgor No induration No subcutaneous nodules No rash, lesions No ulcers Extremities: No digital cyanosis No clubbing Pedal pulses intact and symmetrical Radial pulses intact and symmetrical No calf tenderness Psychiatric: Alert and oriented to person, place and time Appropriate affect fair judgement Neuro Muscles Strength 5/5 in all 4 extremities Sensation to light touch grossly present throughout Cranial nerves II-XII grossly intact No focal sensory deficits Lymphatics: no palpable cervical or supraclavicular , or inguinal lymph nodes Results CBC & Chem 7: 04/21/21 19:41 04/21/21 19:41 Labs: Abnormal Lab Results - Last 24 Hours (Table) 04/21/21 04/21/21 04/21/21 Range/Units 19:41 19:41 20:00 MCV 100.3 H (80.0-100.0) fL ABG pO2 146 H (83-108) mmHg ABG HCO3 29 H (21-25) mmol/L ABG Total CO2 30 H (19-24) mmol/L ABG O2 Saturation 98.8 H (94-97) % BUN 19 H (7-17) mg/dL Glucose 157 H (74-99) mg/dL Assessment and Plan Assessment: Acute asthma exacerbation unknown precipitating factor Patient started on by mouth prednisone DuoNeb's when necessary Inhalers long-acting beta agonist Oxygen supplemental as needed Monitor respiratory status Monitor vital signs Ambulatory oxygen saturation in the morning CODE STATUS: Full code DVT prophylaxis: Heparin subcu 3 times a day Discussed with: Patient, ER, RN Anticipated length of stay lesst than [address]: Home A total of 65 minutes was spent on the care of this complex patient more than 50% of the time was spent in counseling and care coordination.
[2021-04-22] MEDS: IPRATROPIUM-ALBUTEROL 3 ML NEB INHALATION SCH ×2 (07:59→12:03)
[2021-04-22] MEDS ORDERED: HEPARIN SODIUM,PORCINE/PF 5,000 UNIT/0.5 ML SYRINGE SQ SCH (08:00)
[2021-04-22] MEDS ORDERED: predniSONE 20 MG TAB PO SCH (09:00)
--- NOTE | 2021-04-22 11:44 | P.DS ---
Providers Date of admission: 04/21/21 21:59 Expected date of discharge: 04/22/21 Attending physician: Salinas Espinoza MD Primary care physician: Luz Maria Gallegos Hospital Course: Discharge Diagnosis: Acute exacerbation of asthma Hospital Course: Patient is a 76-year-old female with a history of moderate persistent asthma who presented to the emergency department secondary to acute onset shortness of breath that was not responsive to her home nebulizer. She underwent an extensive evaluation. She was found to be slightly hypoxic on room air. Chest x-ray showed no acute process. She was started on IV steroids and bronchodilators. By the morning after admission she had significant improvement. She was able to ambulate without difficulty. Her shortness of breath was resolved, and she was no longer hypoxic. She was determined stable for discharge home. She'll complete 5 days of prednisone. She will use her home nebulizer 3 times daily for the next 3 days. She'll follow-up with Dr. Gallegos/Monica next week. Patient seen and examined at bedside. Breathing is much improved, feeling well, wants to go home. Vital signs reviewed and stable. General: non toxic, no distress, appears at stated age Derm: warm, dry Head: atraumatic, normocephalic, symmetric Eyes: EOMI, no lid lag, anicteric sclera Mouth: no lip lesion, mucus membranes moist Cardiovascular: S1S2 reg, no murmur, positive posterior tibial pulse bilateral, Lungs: CTA bilateral, no rhonchi, no rales , no accessory muscle use Abdominal: soft, nontender to palpation, no guarding, no appreciable organomegaly Ext: no gross muscle atrophy, no edema, no contractures Neuro: CN II-XI grossly intact, no focal neuro deficits Psych: Alert, oriented, appropriate affect A total of 35 minutes of time were spent preparing this complex discharge summary . Patient Condition at Discharge: Stable Plan - Discharge Summary New Discharge Prescriptions: New predniSONE [Deltasone] 40 mg PO DAILY #10 tab Continue Albuterol Sulfate [Proair Hfa] 2 puff INHALATION RT-Q4H PRN PRN Reason: Shortness Of Breath Cholecalciferol [Vitamin D3 (25 Mcg = 1000 Iu)] 25 mcg PO DAILY Mometasone/Formoterol [Dulera 200 Mcg-5 Mcg Inhaler] 2 puff INHALATION RT-BID PRN PRN Reason: Shortness Of Breath No Action Multivitamins, Thera [Multivitamin] 1 tab PO DAILY Discharge Medication List Multivitamins, Thera [Multivitamin] 1 tab PO DAILY 06/06/16 [History] Albuterol Sulfate [Proair Hfa] 2 puff INHALATION RT-Q4H PRN 03/23/19 [History] Cholecalciferol [Vitamin D3 (25 Mcg = 1000 Iu)] 25 mcg PO DAILY 04/21/21 [History] Mometasone/Formoterol [Dulera 200 Mcg-5 Mcg Inhaler] 2 puff INHALATION RT-BID PRN 04/21/21 [History] predniSONE [Deltasone] 40 mg PO DAILY #10 tab 04/22/21 [Rx] Follow up Appointment(s)/Referral(s): Luz Maria Gallegos MD [Primary Care Provider] - 1-2 days Patient Instructions/Handouts: Asthma (DC) Activity/Diet/Wound Care/Special Instructions: Activity: as tolerated Diet: regular Special Instructions: Use your nebulizer 3 times daily for the next 3 days, and then resume as needed use. Discharge Disposition: HOME SELF-CARE
[2021-04-22 12:02] VITALS: BP 147/77; PULSE 94; RESP 16; TEMP 98.3
== END 2021-04-22 12:03 | disposition home or self-care (01) ==
LOC: EC 19:09 → INTOOBSV 21:59 → 5NMEDONC 21:59 → 4SSUR 23:01 → UNDODISIN 04-22 12:03
PROVIDERS: ADMIT Internal Medicine; ATTEND Internal Medicine
DX: J45.41 Moderate persistent asthma with (acute) exacerbation (principal); Z79.51 Long term (current) use of inhaled steroids; Z79.899 Other long term (current) drug therapy; Z88.2 Allergy status to sulfonamides; Z98.51 Tubal ligation status; Z82.49 Family history of ischemic heart disease and other diseases of the circulatory system; Z82.3 Family history of stroke; Z82.0 Family history of epilepsy and other diseases of the nervous system
CPT/HCPCS: 96372; 96374; 99285; 36415; 94640; 36600; 94760; 94644; 93005; 83880; 80053; 82805; 84484 ×2; 85025; 85610; 85730; 87635; 71045; G0378 ×3; J2930; J7512; J1644

== ENCOUNTER 2021-05-22 06:37 | Observation (INO) | payer MEDICARE ==
[2021-05-22] MEDS ORDERED: methylPREDNISolone SOD SUCCI 125 MG/2 ML VIAL IV STA (06:53)
[2021-05-22] MEDS ORDERED: ALBUTEROL NEBULIZED 2.5 MG/3 ML INHALATION STA (06:54)
[2021-05-22] MEDS ORDERED: IPRATROPIUM 0.5 MG/2.5 ML NEBU INHALATION STA (06:55)
--- NOTE | 2021-05-22 06:58 | ED ---
SOB HPI - General Chief Complaint: Shortness of Breath Stated Complaint: SOB Time Seen by Provider: 05/22/21 06:45 Source: patient, family, RN notes reviewed Mode of arrival: ambulatory Limitations: no limitations - History of Present Illness Initial Comments: This a 76-year-old female presents emergency Department with chief shortness of breath. Patient states this started suddenly this morning. She does admit in admits that she's had some episodes like this in the past they related to asthma. Patient had no symptoms overnight or yesterday. Denies any fevers chills no significant cough. Patient has no history of congestive heart failure no history of hypertension. Patient denies any leg pain, leg swelling. Patient has required intubation a few years ago for similar exacerbation. Patient denies abdominal complaints. - Related Data Home Medications Medication Instructions Recorded Confirmed Multivitamins, Thera [Multivitamin] 1 tab PO DAILY 06/06/16 05/22/21 Albuterol Sulfate [Proair Hfa] 2 puff INHALATION RT-Q4H PRN 03/23/19 05/22/21 Cholecalciferol [Vitamin D3 (25 25 mcg PO DAILY 04/21/21 05/22/21 Mcg = 1000 Iu)] Mometasone/Formoterol [Dulera 200 2 puff INHALATION RT-BID PRN 04/21/21 05/22/21 Mcg-5 Mcg Inhaler] Claritin 10mg Reditab 10 mg SL DAILY PRN 05/22/21 05/22/21 Allergies Allergy/AdvReac Type Severity Reaction Status Date / Time Sulfa (Sulfonamide Allergy Rash/Hives Verified 04/21/21 21:04 Antibiotics) Review of Systems ROS Statement: Those systems with pertinent positive or pertinent negative responses have been documented in the HPI. ROS Other: All systems not noted in ROS Statement are negative. Past Medical History Past Medical History: Asthma History of Any Multi-Drug Resistant Organisms: None Reported Past Surgical History: Tubal Ligation Past Anesthesia/Blood Transfusion Reactions: No Reported Reaction Past Psychological History: No Psychological Hx Reported Smoking Status: Never smoker Past Alcohol Use History: None Reported Past Drug Use History: None Reported - Past Family History Father Family Medical History: Hypertension Mother Additional Family Medical History / Comment(s): Alzhemiers Sister(s) Family Medical History: CVA/TIA General Exam Limitations: no limitations General appearance: alert, in no apparent distress Head exam: Present: atraumatic, normocephalic, normal inspection Eye exam: Present: normal appearance, PERRL, EOMI. Absent: scleral icterus, conjunctival injection, periorbital swelling ENT exam: Present: normal exam, normal oropharynx, mucous membranes moist Neck exam: Present: normal inspection, full ROM. Absent: tenderness, meningismus, lymphadenopathy Respiratory exam: Present: respiratory distress (Moderate to severe), wheezes, accessory muscle use. Absent: normal lung sounds bilaterally, rales, rhonchi, stridor Cardiovascular Exam: Present: normal rhythm, tachycardia, normal heart sounds. Absent: systolic murmur, diastolic murmur, rubs, gallop, clicks GI/Abdominal exam: Present: soft, normal bowel sounds. Absent: distended, tenderness, guarding, rebound, rigid Neurological exam: Present: alert Skin exam: Present: warm, dry, intact, normal color. Absent: rash Course Vital Signs 05/22/21 05/22/21 05/22/21 06:39 06:55 07:15 Temperature 98.1 F Pulse Rate 132 H 124 H 117 H Respiratory 38 H 31 H 26 H Rate Blood Pressure 173/87 154/96 O2 Sat by Pulse 74 L 90 L Oximetry 05/22/21 07:17 Temperature Pulse Rate 119 H Respiratory 28 H Rate Blood Pressure O2 Sat by Pulse Oximetry - Reevaluation(s) Reevaluation #1: 05/22/21 08:05 Patient did have reevaluation of her breathing treatments has had some mild improvement patient is not in severe distress. Patient updated on results. Medical Decision Making - Medical Decision Making 76-year-old presented for dyspnea. Patient found to be acutely hypoxic patient on underlying condition is asthma. This was a very rapid onset and may be triggered by an allergen. Patient's case discussed with who accepts admissions for observation will continue treatments as needed, steroids as needed. - Lab Data Result diagrams: 05/22/21 06:54 05/22/21 06:54 Lab Results 05/22/21 05/22/21 05/22/21 Range/Units 06:54 06:54 06:54 WBC 6.6 (3.8-10.6) k/uL RBC 4.08 (3.80-5.40) m/uL Hgb 13.5 (11.4-16.0) gm/dL Hct 40.2 (34.0-46.0) % MCV 98.6 (80.0-100.0) fL MCH 33.0 (25.0-35.0) pg MCHC 33.4 (31.0-37.0) g/dL RDW 12.7 (11.5-15.5) % Plt Count 433 (150-450) k/uL MPV 7.1 Neutrophils % 44 % Lymphocytes % 39 % Monocytes % 5 % Eosinophils % 10 % Basophils % 1 % Neutrophils # 2.9 (1.3-7.7) k/uL Lymphocytes # 2.6 (1.0-4.8) k/uL Monocytes # 0.3 (0-1.0) k/uL Eosinophils # 0.6 (0-0.7) k/uL Basophils # 0.1 (0-0.2) k/uL PT 10.0 (9.0-12.0) sec INR 0.9 (<1.2) APTT 23.3 (22.0-30.0) sec Sodium 143 (137-145) mmol/L Potassium 4.4 (3.5-5.1) mmol/L Chloride 108 H (98-107) mmol/L Carbon Dioxide 27 (22-30) mmol/L Anion Gap 8 mmol/L BUN 14 (7-17) mg/dL Creatinine 0.70 (0.52-1.04) mg/dL Est GFR (CKD-EPI)AfAm >90 (>60 ml/min/1.73 sqM) Est GFR (CKD-EPI)NonAf 86 (>60 ml/min/1.73 sqM) Glucose 138 H (74-99) mg/dL Plasma Lactic Acid Luis M (0.7-2.0) mmol/L Calcium 9.6 (8.4-10.2) mg/dL Magnesium 2.3 (1.6-2.3) mg/dL Total Bilirubin 0.4 (0.2-1.3) mg/dL AST 21 (14-36) U/L ALT 14 (4-34) U/L Alkaline Phosphatase 145 H (38-126) U/L Troponin I (0.000-0.034) ng/mL NT-Pro-B Natriuret Pep pg/mL Total Protein 7.6 (6.3-8.2) g/dL Albumin 4.6 (3.5-5.0) g/dL 05/22/21 05/22/21 05/22/21 Range/Units 06:54 06:54 06:54 WBC (3.8-10.6) k/uL RBC (3.80-5.40) m/uL Hgb (11.4-16.0) gm/dL Hct (34.0-46.0) % MCV (80.0-100.0) fL MCH (25.0-35.0) pg MCHC (31.0-37.0) g/dL RDW (11.5-15.5) % Plt Count (150-450) k/uL MPV Neutrophils % % Lymphocytes % % Monocytes % % Eosinophils % % Basophils % % Neutrophils # (1.3-7.7) k/uL Lymphocytes # (1.0-4.8) k/uL Monocytes # (0-1.0) k/uL Eosinophils # (0-0.7) k/uL Basophils # (0-0.2) k/uL PT (9.0-12.0) sec INR (<1.2) APTT (22.0-30.0) sec Sodium (137-145) mmol/L Potassium (3.5-5.1) mmol/L Chloride (98-107) mmol/L Carbon Dioxide (22-30) mmol/L Anion Gap mmol/L BUN (7-17) mg/dL Creatinine (0.52-1.04) mg/dL Est GFR (CKD-EPI)AfAm (>60 ml/min/1.73 sqM) Est GFR (CKD-EPI)NonAf (>60 ml/min/1.73 sqM) Glucose (74-99) mg/dL Plasma Lactic Acid Luis M 1.2 (0.7-2.0) mmol/L Calcium (8.4-10.2) mg/dL Magnesium (1.6-2.3) mg/dL Total Bilirubin (0.2-1.3) mg/dL AST (14-36) U/L ALT (4-34) U/L Alkaline Phosphatase (38-126) U/L Troponin I <0.012 (0.000-0.034) ng/mL NT-Pro-B Natriuret Pep 155 pg/mL Total Protein (6.3-8.2) g/dL Albumin (3.5-5.0) g/dL Disposition Clinical Impression: Acute respiratory distress, Hypoxia, Asthma, Lung nodule Disposition: ADMITTED IP TO THIS HOSP Condition: Fair Referrals: Luz Maria Gallegos MD [Primary Care Provider] - 1-2 days
[2021-05-22] MEDS ORDERED: TERBUTALINE 1 MG/ML VIAL SQ STA (07:03)
[2021-05-22 07:09] LABS: Basophils # (A) 0.1 k/uL (0-0.2); Basophils % (A) 1 %; Eosinophils # (A) 0.6 k/uL (0-0.7); Eosinophils % (A) 10 %; HCT 40.2 % (34.0-46.0); HGB 13.5 gm/dL (11.4-16.0); Lymphocytes # (A) 2.6 k/uL (1.0-4.8); Lymphocytes % (A) 39 %; MCHC 33.4 g/dL (31.0-37.0); MCV 98.6 fL (80.0-100.0); Mean Platelet Volume 7.1; Monocytes # (A) 0.3 k/uL (0-1.0); Monocytes % (A) 5 %; Neutrophils # (A) 2.9 k/uL (1.3-7.7); Neutrophils % (A) 44 %; Platelet Count 433 k/uL (150-450); RBC 4.08 m/uL (3.80-5.40); RDW 12.7 % (11.5-15.5); WBC 6.6 k/uL (3.8-10.6)
[2021-05-22 07:11] LABS: ALT 14 U/L (4-34); AST 21 U/L (14-36); African American GFR (CKD) >90 (>60 ml/min/1.73 sqM); Albumin 4.6 g/dL (3.5-5.0); Alkaline Phosphatase 145 U/L (38-126); Anion Gap 8 mmol/L; Blood Urea Nitrogen 14 mg/dL (7-17); Calcium 9.6 mg/dL (8.4-10.2); Carbon Dioxide 27 mmol/L (22-30); Chloride 108 mmol/L (98-107); Glucose 138 mg/dL (74-99); Magnesium 2.3 mg/dL (1.6-2.3); Non-African American GFR(CKD) 86 (>60 ml/min/1.73 sqM); Potassium 4.4 mmol/L (3.5-5.1); Sodium 143 mmol/L (137-145); Total Bilirubin 0.4 mg/dL (0.2-1.3); Total Protein 7.6 g/dL (6.3-8.2)
[2021-05-22 07:23] LABS: INR 0.9 (<1.2); Partial Thromboplastin Time 23.3 sec (22.0-30.0)
--- NOTE | 2021-05-22 07:59 | XR ---
EXAMINATION TYPE: XR chest 1V portable DATE OF EXAM: 05/22/2021 COMPARISON: 04/21/2021 and prior HISTORY: Shortness of breath TECHNIQUE: Single frontal view of the chest is obtained. FINDINGS: Hyperinflated lungs and flattening of the diaphragm. No pneumothorax or pleural effusion. Perihilar and basilar opacities again noted. 9 mm nodular density projecting over the left upper hemithorax new compared to prior study. Cardiomediastinal silhouette is within normal. Generalized osteopenia with no acute osseous abnormality. Scoliosis noted. IMPRESSION: 1. New 9 mm nodular density left upper lobe, consider outpatient nonenhanced CT thorax. 2. Stable perihilar and lung base opacities on the basis of scarring and/or atelectasis. Superimposed infiltrate cannot be entirely excluded. 3. COPD/emphysema changes.
[2021-05-22] MEDS ORDERED: NALOXONE 0.4 MG/ML 1 ML VIAL IV PRN ×2 (08:17→09:47)
[2021-05-22] MEDS ORDERED: ACETAMINOPHEN TAB 325 MG TAB PO PRN (08:17)
[2021-05-22] MEDS ORDERED: IPRATROPIUM-ALBUTEROL 3 ML NEB INHALATION PRN (08:20)
[2021-05-22] MEDS ORDERED: MELATONIN 3 MG TABLET PO PRN (09:47)
[2021-05-22] MEDS ORDERED: SYMBICORT 160-4.5 MCG INHALER INHALATION PRN (09:51)
[2021-05-22] MEDS ORDERED: LORATADINE 10 MG TAB PO PRN (09:51)
--- NOTE | 2021-05-22 10:01 | P.HPIM ---
<Alonzo Cifuentes - Last Filed: 05/22/21 09:35> History of Present Illness H&P Date: 05/22/21 History of Presenting Illness: Patient is a 76-year-old female with a past medical history of asthma and atrial fibrillation previously on Coumadin years ago but was taken off in the early . Patient presented to the emergency department with a chief complaint of shortness of breath. Patient reports history of asthma attacks requiring emergency assistance with one of these attacks a couple years ago actually requiring intubation. Patient states she has a history of seasonal an outdoor ALLERGIES and did follow an toaster element repairer many years ago but these seem to fade so she stopped taking the medication initially prescribed. Upon arrival to the emergency department patient was found to be in severe respiratory distress with hypoxia with SpO2 of 74% she was placed on 15 L nonrebreather mask which slowly raised her SpO2 to 90%. Patient was given terbutaline 0.25 mg subcutaneously x one dose followed by Solu-Medrol 125 mg IVP, and breathing treatments. Chest x- ray consistent with COPD exacerbation with hyperinflated lungs and flattening of her diaphragm as well as findings of new 9 mm nodular density in her left upper lobe recommending follow-up with outpatient CT of thorax and stable perihilar and lung base opacities representing scarring versus atelectasis. EKG also completed showing sinus tachycardia at 105 bpm with no noted T-wave abnormalities and slight ST depression in lateral leads of V5 and V6 unchanged from EKG obtained on 04/21/21. Labs obtained with CBC and CMP being unremarkable and pro-BMP 155 and troponin negative at < 0.012. Patient is admitted under our services for continued medical management and we have consulted pulmonology. Patient's condition is improving and she has been weaned down to 6 L O2 via nasal cannula maintaining SpO2 of 94%. She denies any known exposure to allergens but does report taking a walk a couple hours before this asthma attack began. She denies any recent travel or infections and denies any exposure to known illnesses, fever, diaphoresis, recent cough or congestion, chest pain or palpitations, abdominal pain, nausea, vomiting, changes in appetite, or experiencing any numbness/tingling/weakness/swelling in her extremities. Review of systems: Pertinent positives and negatives as discussed in HPI, a complete review of systems was performed and all other systems are negative. Physical exam: General: non toxic, no distress, appears at stated age Derm: warm, dry Head: atraumatic, normocephalic, symmetric Eyes: EOMI, no lid lag, anicteric sclera Mouth: no lip lesion, mucus membranes moist Cardiovascular: S1-S2 normal with regular rate and rhythm. No murmurs, gallops, or rubs noted. Posterior tibial pulses palpated bilaterally. Cap refill less than 2 seconds. Lungs: Respirations even, regular, and unlabored on room air. Lungs clear to auscultation bilaterally with no wheezes, rhonchi, or rales noted. No accessory muscle usage. Abdominal: soft, nontender to palpation, no guarding, no appreciable organomegaly Ext: no gross muscle atrophy, no edema, no contractures Neuro: GCS 15. Speech clear. CN II-XI grossly intact, no focal neuro deficits Psych: Alert, oriented, appropriate affect Assessment and Plan of Care: Acute respiratory failure with hypoxia secondary to Acute asthma exacerbation -Chest x-ray consistent with COPD/Asthma exacerbation with hyperinflated lungs and flattening of her diaphragm as well as findings of new 9 mm nodular density in her left upper lobe recommending follow-up with outpatient CT of thorax and stable perihilar and lung base opacities representing scarring versus atelectasis. -Oxygenation to be administered and titrated as needed to maintain SPO2 equal to or greater than 92%, wean once patient tolerates -Telemetry monitoring. -Continuous Pulse-oximetry -Duonebs scheduled 3 times daily and as needed for SOB and/or wheezing -Incentive Spirometry 10-15 times hourly while awake -Steroids: Solu-Medrol 40 mg IVP twice daily -Consult to pulmonology, appreciate recommendations this patient will likely need to follow-up outpatient for PFTs -Continue Dulera History of paroxysmal atrial fibrillation, no longer on anticoagulation -Lovenox for DVT prophylaxis Seasonal ALLERGIES -Recommend patient following up outpatient with channel marketing specialist for further ALLERGY testing to prevent or decrease chances of exposure as well as prevent further asthma exacerbations in the future. Incidental finding on x-ray -Chest x-ray revealing a new incidental finding describing a new 9 mm nodular density in patient's left upper lobe, recommending patient to follow-up outpatient for CT of thorax. The patient is admitted with an anticipated greater than 2 midnight stay for evaluation of acute respiratory failure with hypoxia Surrogate decision-maker: Self CODE STATUS: Full code DVT prophylaxis: Lovenox Discussed with: Patient and RN Anticipated discharge date: Clinical course to determine Anticipated discharge place: Home A total of 45 minutes was spent on the care of this complex patient more than 50% of the time was spent in counseling and care coordination. Past Medical History Past Medical History: Asthma History of Any Multi-Drug Resistant Organisms: None Reported Past Surgical History: Tubal Ligation Past Anesthesia/Blood Transfusion Reactions: No Reported Reaction Past Psychological History: No Psychological Hx Reported Smoking Status: Never smoker Past Alcohol Use History: None Reported Past Drug Use History: None Reported - Past Family History Father Family Medical History: Hypertension Mother Additional Family Medical History / Comment(s): Alzhemiers Sister(s) Family Medical History: CVA/TIA Medications and Allergies Home Medications Medication Instructions Recorded Confirmed Type Multivitamins, Thera [Multivitamin 1 tab PO DAILY 06/06/16 05/22/21 History (formulary)] Cholecalciferol [Vitamin D3 (25 25 mcg PO DAILY 04/21/21 05/22/21 History Mcg = 1000 Iu)] Albuterol Sulfate [Proair Hfa] 2 puff INHALATION RT-Q4H PRN #1 05/22/21 Rx inhaler Budesonide-Formot 160-4.5 Mcg 2 puff INHALATION RT-BID #1 inhaler 05/22/21 Rx [Symbicort 160-4.5 Mcg Inhaler] Claritin 10mg Reditab 10 mg SL DAILY PRN 05/22/21 05/22/21 History Ipratropium-Albuterol Nebulize 3 ml INHALATION QID 30 Days #1 box 05/22/21 Rx [Duoneb 0.5 mg-3 mg/3 ml Soln] predniSONE [Deltasone] 40 mg PO DAILY #8 tab 05/22/21 Rx Allergies Allergy/AdvReac Type Severity Reaction Status Date / Time Sulfa (Sulfonamide Allergy Rash/Hives Verified 04/21/21 21:04 Antibiotics) Physical Exam Vitals: Vital Signs Temp Pulse Resp BP Pulse Ox 05/22/21 09:18 96 18 134/66 97 05/22/21 08:42 96 18 132/65 98 05/22/21 08:06 99 20 133/62 98 05/22/21 07:17 119 H 28 H 05/22/21 07:15 117 H 26 H 154/96 90 L 07/04/21 06:55 124 H 31 H 05/22/21 06:39 98.1 F 132 H 38 H 173/87 74 L Intake and Output 05/21/21 05/22/21 05/22/21 22:59 06:59 14:59 Other: Weight 49.895 kg Results CBC & Chem 7: 05/22/21 06:54 05/22/21 06:54 Labs: Abnormal Lab Results - Last 24 Hours (Table) 05/22/21 Range/Units 06:54 Chloride 108 H (98-107) mmol/L Glucose 138 H (74-99) mg/dL Alkaline Phosphatase 145 H (38-126) U/L <Mirella Mcmahon - Last Filed: 05/22/21 16:55> Physical Exam Osteopathic Statement: *. No significant issues noted on an osteopathic structural exam other than those noted in the History and Physical/Consult. Vitals: Vital Signs Temp Pulse Pulse Resp BP BP Pulse Ox 05/22/21 16:25 97.9 F 105 H 16 153/74 96 05/22/21 12:11 102 H 05/22/21 11:59 100 05/22/21 11:10 97.9 F 91 16 132/65 99 05/22/21 09:30 97.8 F 98 20 129/63 98 05/22/21 09:18 96 18 134/66 97 05/22/21 08:42 96 18 132/65 98 05/22/21 08:06 99 20 133/62 98 05/22/21 07:17 119 H 28 H 05/22/21 07:15 117 H 26 H 154/96 90 L 05/22/21 06:55 124 H 31 H 05/22/21 06:39 98.1 F 132 H 38 H 173/87 74 L Intake and Output 05/22/21 05/22/21 05/22/21 06:59 14:59 22:59 Other: # Voids 1 Weight 49.895 kg 49.895 kg Results CBC & Chem 7: 05/22/21 06:54 05/22/21 06:54 Labs: Abnormal Lab Results - Last 24 Hours (Table) 05/22/21 Range/Units 06:54 Chloride 108 H (98-107) mmol/L Glucose 138 H (74-99) mg/dL Alkaline Phosphatase 145 H (38-126) U/L Assessment and Plan Assessment: Patient seen and examined independently. Patient was also seen by Alonzo Cifuentes NP and case was discussed. I am in agreement with subjective, physical exam, assessment and plan as written above and amended below. No chest pain, breathing back to baseline, up and walking without difficulty. General: non toxic, no distress, appears at stated age Derm: warm, dry Head: atraumatic, normocephalic, symmetric Eyes: EOMI, no lid lag, anicteric sclera Mouth: no lip lesion, mucus membranes moist Cardiovascular: S1S2 reg, no murmur, positive posterior tibial pulse bilateral, Lungs: CTA bilateral, no wheeze, no rhonchi, no rales , no accessory muscle use Abdominal: soft, nontender to palpation, no guarding, no appreciable organomegaly Ext: no gross muscle atrophy, no edema, no contractures Neuro: CN II-XI grossly intact, no focal neuro deficits Psych: Alert, oriented, appropriate affect
--- NOTE | 2021-05-22 12:34 | P.CNPUL ---
History of Present Illness Consult date: 05/22/21 Requesting physician: Mirella Mcmahon Reason for consult: dyspnea, asthma Chief complaint: Shortness of breath. History of present illness: Pulmonary consult dated 05/22/2021. 76-year-old female with history of chronic bronchial asthma. The patient's currently on a short acting beta agonist, and a combination long-acting beta agonists/inhaled corticosteroid preparation for her asthma. In addition, she takes Claritin. Her primary care physician is Dr. Gallegos. She does not see a lung doctor. The patient is a lifelong nonsmoker. She apparently has had long- standing asthma. It started getting worse a couple days ago. Apparently early this morning, while her and her were sleeping, her breathing got much worse, to use the nebulizer machine. That did not seem to help and so they came into the emergency department to be evaluated. After being evaluated and treated in the emergency department, the patient was admitted. Currently she is on 2 L. She looks very comfortable. Does not audible wheezing, use of accessory muscles, or conversational dyspnea. She apparently has long-standing asthma. Other than asthma, she has no other major medical problems. Her only ALLERGY is sulfa antibiotics. Her only surgical procedures tubal ligation. She does have a family history of hypertension, dementia, and CVA. CBC is completely normal. PT/INR/PTT, is normal also. Sodium 143, potassium 4.4, chlorides 108, CO2 27, anion gap 8, BUN 14, and creatinine is 0.7. Chest x-ray shows a 9 mm pulmonary nodule left upper lobe. She'll need a follow-up outpatient CAT scan. Other than that, in my opinion, the chest x-ray is normal. There may be some atelectatic changes at the bases of the lung. Review of Systems REVIEW OF SYSTEMS: CONSTITUTIONAL: [Negative.] NEUROLOGIC: [ Negative.] HEENT: [ Negative.] CARDIAC: [Negative.] PULMONARY: Shortness of breath, chest tightness, wheezing. GI: [Negative.] : [Negative.] RHEUMATOLOGIC: [ Negative.] IMMUNOLOGIC: [ Negative.] ENDOCRINE: [Negative. ] DERMATOLOGIC: [Negative.] Past Medical History Past Medical History: Asthma History of Any Multi-Drug Resistant Organisms: None Reported Past Surgical History: Tubal Ligation Additional Past Surgical History / Comment(s): neck surgery Past Anesthesia/Blood Transfusion Reactions: No Reported Reaction Past Psychological History: No Psychological Hx Reported Smoking Status: Never smoker Past Alcohol Use History: None Reported Past Drug Use History: None Reported - Past Family History Father Family Medical History: Hypertension Mother Additional Family Medical History / Comment(s): Alzhemiers Sister(s) Family Medical History: CVA/TIA Medications and Allergies Home Medications Medication Instructions Recorded Confirmed Type Multivitamins, Thera [Multivitamin] 1 tab PO DAILY 06/06/16 05/22/21 History Albuterol Sulfate [Proair Hfa] 2 puff INHALATION RT-Q4H PRN 03/23/19 05/22/21 History Cholecalciferol [Vitamin D3 (25 25 mcg PO DAILY 04/21/21 05/22/21 History Mcg = 1000 Iu)] Mometasone/Formoterol [Dulera 200 2 puff INHALATION RT-BID PRN 04/21/21 05/22/21 History Mcg-5 Mcg Inhaler] Claritin 10mg Reditab 10 mg SL DAILY PRN 05/22/21 05/22/21 History Allergies Allergy/AdvReac Type Severity Reaction Status Date / Time Sulfa (Sulfonamide Allergy Rash/Hives Verified 04/21/21 21:04 Antibiotics) Physical Exam Osteopathic Statement: *. No significant issues noted on an osteopathic structural exam other than those noted in the History and Physical/Consult. Vitals: Vital Signs Temp Pulse Pulse Resp BP BP Pulse Ox 05/22/21 12:11 102 H 05/22/21 11:59 100 05/22/21 09:30 97.8 F 98 18 129/63 98 05/22/21 09:18 96 18 134/66 97 05/22/21 08:42 96 18 132/65 98 05/22/21 08:06 99 20 133/62 98 05/22/21 07:17 119 H 28 H 05/22/21 07:15 117 H 26 H 154/96 90 L 05/22/21 06:55 124 H 31 H 05/22/21 06:39 98.1 F 132 H 38 H 173/87 74 L Intake and Output 05/21/21 05/22/21 05/22/21 22:59 06:59 14:59 Other: Weight 49.895 kg 49.895 kg No acute distress, oriented 3. Currently on 2 L. No conversational dyspnea, use of accessory muscles, or audible wheezing. HEENT examination is grossly unremarkable. Neck supple. Full range of motion. No adenopathy thyromegaly or neck vein distention. Cardiovascular examination reveals regular rhythm rate. S1-S2 normal. No S3 or S4. No discernible murmur noted. Heart rate 102 bpm. Lungs reveal mostly clear breath sounds. A few scattered expiratory wheezes are noted. Breath sounds are surprisingly normal. There are no crackles. No distinct rhonchi are noted. Abdomen soft bowel sounds are heard. No masses or tenderness. Extremities are intact. No cyanosis clubbing or edema. Skin is without rash or lesion. Neurologic examination is brief but nonfocal. Results - Laboratory Findings CBC and BMP: 05/22/21 06:54 05/22/21 06:54 PT/INR, D-dimer PT 10.0 sec (9.0-12.0) 05/22/21 06:54 INR 0.9 (<1.2) 05/22/21 06:54 Abnormal lab findings: Abnormal Labs 05/22/21 06:54 Chloride 108 H Glucose 138 H Alkaline Phosphatase 145 H - Diagnostic Findings Chest x-ray: image reviewed Assessment and Plan Assessment: Acute exacerbation of chronic bronchial asthma, without obvious infection in my opinion. Lifelong nonsmoker. No other major medical problems to speak of. Plan: Plan dated 05/22/2021. The patient's currently on Symbicort 160/4.5, 2 puffs twice a day, updrafts with albuterol sulfate and ipratropium bromide, and Solu-Medrol. In my opinion, the patient does not need an antibiotic. Additional recommendations and suggestions are forthcoming. I suspect, the patient could be discharged tomorrow. Time with Patient: Greater than 30
[2021-05-22] MEDS ORDERED: IPRATROPIUM-ALBUTEROL 3 ML NEB INHALATION SCH (13:00)
[2021-05-22 15:18] VITALS: RESP 16; TEMP 97.9
[2021-05-22 16:44] VITALS: BP 153/74; PULSE 105
--- NOTE | 2021-05-22 16:56 | P.DS ---
Providers Date of admission: 05/22/21 08:20 Expected date of discharge: 05/22/21 Attending physician: Mirella Mcmahon DO Consults: 05/22/21 09:49 Consult Physician Routine Consulting Provider: Ruiz Hong Reason/Comments: acute asthma exacerbation Do you want consulting provider notified?: Yes Primary care physician: Luz Maria Gallegos Hospital Course: Discharge Diagnosis: Acute respiratory failure with hypoxia secondary to Acute asthma exacerbation History of paroxysmal atrial fibrillation, no longer on anticoagulation Seasonal ALLERGIES Incidental finding on x-ray, 9 mm nodular density in the left upper lobe of lung Hospital Course: Patient is a 76-year-old female with a past medical history of asthma and atrial fibrillation previously on Coumadin years ago but was taken off in the early . Patient presented to the emergency department with a chief complaint of shortness of breath. Patient reports history of asthma attacks requiring emergency assistance with one of these attacks a couple years ago actually requiring intubation. Patient states she has a history of seasonal an outdoor ALLERGIES and did follow an property disposal officer many years ago but these seem to fade so she stopped taking the medication initially prescribed. Upon arrival to the emergency department patient was found to be in severe respiratory distress with hypoxia with SpO2 of 74% she was placed on 15 L nonrebreather mask which slowly raised her SpO2 to 90%. Patient was given terbutaline 0.25 mg subcutaneously x one dose followed by Solu-Medrol 125 mg IVP, and breathing treatments. Chest x- ray consistent with COPD exacerbation with hyperinflated lungs and flattening of her diaphragm as well as findings of new 9 mm nodular density in her left upper lobe recommending follow-up with outpatient CT of thorax and stable perihilar and lung base opacities representing scarring versus atelectasis. EKG also completed showing sinus tachycardia at 105 bpm with no noted T-wave abnormalities and slight ST depression in lateral leads of V5 and V6 unchanged from EKG obtained on 04/21/21. Labs obtained with CBC and CMP being unremarkable and pro-BMP 155 and troponin negative at < 0.012. Patient is admitted under our services for continued medical management and we have consulted pulmonology. Patient's condition rapidly improved and she was weaned completely off of oxygen and maintaining oxygen saturations well with and without ambulation. Patient's acute asthma exacerbation has resolved and she is now stable for discharge home. Asthma attack was likely initially triggered by and environmental allergen as patient reports she had just returned from a walk. Patient strongly encouraged to follow-up with property disposal officer Dr. Ruth for allergy testing to ensure patient can avoid these triggers in the future. Also pt being discharged home on prednisone 40 mg daily for the next 4 days. DuoNeb nebulizer treatments and Symbicort. Dulera inhaler was discontinued as patient reports she has not been able to use at home secondary to expense of prescription. Patient also strongly encouraged on the importance of following up with Dr. Hong for follow-up CT secondary to incidental findings of pulmonary nodule in left lung. A total of 45 minutes of time were spent preparing this complex discharge summary. Patient Condition at Discharge: Fair Plan - Discharge Summary Discharge Rx Participant: Yes New Discharge Prescriptions: New predniSONE [Deltasone] 40 mg PO DAILY #8 tab Ipratropium-Albuterol Nebulize [Duoneb 0.5 mg-3 mg/3 ml Soln] 3 ml INHALATION QID 30 Days #1 box Budesonide-Formot 160-4.5 Mcg [Symbicort 160-4.5 Mcg Inhaler] 2 puff INHALATION RT-BID #1 inhaler Continue Multivitamins, Thera [Multivitamin (formulary)] 1 tab PO DAILY Cholecalciferol [Vitamin D3 (25 Mcg = 1000 Iu)] 25 mcg PO DAILY Albuterol Sulfate [Proair Hfa] 2 puff INHALATION RT-Q4H PRN #1 inhaler PRN Reason: Shortness Of Breath Claritin 10mg Reditab 10 mg SL DAILY PRN PRN Reason: Allergy Symptoms Discontinued Mometasone/Formoterol [Dulera 200 Mcg-5 Mcg Inhaler] 2 puff INHALATION RT-BID PRN PRN Reason: Shortness Of Breath Discharge Medication List Multivitamins, Thera [Multivitamin (formulary)] 1 tab PO DAILY 06/06/16 [History] Cholecalciferol [Vitamin D3 (25 Mcg = 1000 Iu)] 25 mcg PO DAILY 04/21/21 [History] Albuterol Sulfate [Proair Hfa] 2 puff INHALATION RT-Q4H PRN #1 inhaler 05/22/21 [Rx] Budesonide-Formot 160-4.5 Mcg [Symbicort 160-4.5 Mcg Inhaler] 2 puff INHALATION RT-BID #1 inhaler 05/22/21 [Rx] Claritin 10mg Reditab 10 mg SL DAILY PRN 05/22/21 [History] Ipratropium-Albuterol Nebulize [Duoneb 0.5 mg-3 mg/3 ml Soln] 3 ml INHALATION QID 30 Days #1 box 05/22/21 [Rx] predniSONE [Deltasone] 40 mg PO DAILY #8 tab 05/22/21 [Rx] Follow up Appointment(s)/Referral(s): Shakira Ruth MD [STAFF PHYSICIAN] - 1 Week uRiz Hong DO [Doctor of Osteopathic Medicine] - 4 Weeks (for CT scan of left pulm nodule) Luz Maria Gallegos MD [Primary Care Provider] - 1-2 days Activity/Diet/Wound Care/Special Instructions: Activity: as tolerated Diet: regular Special Instructions: Take dulera twice daily- talk to Dr. Gallegos to see if she thinks there is a less expensive option Nebulizer 4 times daily as needed Follow with Dr. Hong for the CT of your pulmonary nodule
[2021-05-22] MEDS ORDERED: methylPREDNISolone SOD SUCCI 40 MG/ML 1 ML VIAL IV SCH (21:00)
[2021-05-23] MEDS ORDERED: CHOLECALCIFEROL 25 MCG (1000 IU) TABLET PO SCH (09:00)
[2021-05-23] MEDS ORDERED: MULTIVITAMINS, THERA 1 EACH TAB PO SCH (09:00)
[2021-05-23] MEDS ORDERED: ENOXAPARIN 40 MG/0.4 ML SYRINGE SQ SCH (09:00)
== END 2021-05-22 17:41 | disposition home or self-care (01) ==
LOC: EC 06:37 → 3SCARD 08:20 → INTOOBSV 08:20 → 3SCARD 09:00 → UNDODISIN 17:41
PROVIDERS: ADMIT Internal Medicine; ATTEND Internal Medicine
DX: J45.901 Unspecified asthma with (acute) exacerbation (principal); J96.01 Acute respiratory failure with hypoxia; J43.9 Emphysema, unspecified; R91.1 Solitary pulmonary nodule; I48.0 Paroxysmal atrial fibrillation; Z79.899 Other long term (current) drug therapy; Z88.2 Allergy status to sulfonamides; Z91.048 Other nonmedicinal substance allergy status; Z98.51 Tubal ligation status; Z82.49 Family history of ischemic heart disease and other diseases of the circulatory system; Z82.0 Family history of epilepsy and other diseases of the nervous system; Z82.3 Family history of stroke
CPT/HCPCS: 96372; 96374; 99285; 36415; 94640; 94644; 93005; 83880; 80053; 83605; 83735; 84484; 85025; 85610; 85730; 71045; G0378; J3105; J2930

== ENCOUNTER 2021-05-30 09:55 | Emergency (ER) | payer MEDICARE ==
[2021-05-30 10:03] VITALS: RESP 18
[2021-05-30] MEDS ORDERED: SODIUM CHLORIDE 0.9% 1,000 ML IV STA (10:30)
--- NOTE | 2021-05-30 11:13 | ED ---
Abdominal Pain HPI - General Chief Complaint: Abdominal Pain Stated Complaint: Back Pain Time Seen by Provider: 05/30/21 10:04 Source: patient, RN notes reviewed Mode of arrival: ambulatory Limitations: no limitations - History of Present Illness Initial Comments: This a 76-year-old female presents emergency from chief complaint of right-sided abdominal pain, right flank pain. Patient states that this is been getting worse last 4 days. She was recently hospitalized for a asthma exacerbation. She has no chest pain or shortness breath. She does state the pain is worse with movement especially when she eats or lays down. Patient had no prior abd ominal surgeries no dysuria no hematuria patient is slightly loose stools otherwise no significant melena or hematochezia. - Related Data Home Medications Medication Instructions Recorded Confirmed Multivitamins, Thera [Multivitamin 1 tab PO DAILY 06/06/16 05/30/21 (formulary)] Cholecalciferol [Vitamin D3 (25 25 mcg PO DAILY 04/21/21 05/30/21 Mcg = 1000 Iu)] Claritin 10mg Reditab 10 mg SL DAILY PRN 05/22/21 05/30/21 Ipratropium-Albuterol Nebulize 3 ml INHALATION RT-QID PRN 05/30/21 05/30/21 [Duoneb 0.5 mg-3 mg/3 ml Soln] Previous Rx's Medication Instructions Recorded Albuterol Sulfate [Proair Hfa] 2 puff INHALATION RT-Q4H PRN #1 05/22/21 inhaler Budesonide-Formot 160-4.5 Mcg 2 puff INHALATION RT-BID #1 inhaler 05/22/21 [Symbicort 160-4.5 Mcg Inhaler] Allergies Allergy/AdvReac Type Severity Reaction Status Date / Time No Known Allergies Allergy Verified 05/30/21 11:21 Review of Systems ROS Statement: Those systems with pertinent positive or pertinent negative responses have been documented in the HPI. ROS Other: All systems not noted in ROS Statement are negative. Past Medical History Past Medical History: Asthma History of Any Multi-Drug Resistant Organisms: None Reported Past Surgical History: Tubal Ligation Additional Past Surgical History / Comment(s): neck surgery Past Anesthesia/Blood Transfusion Reactions: No Reported Reaction Past Psychological History: No Psychological Hx Reported Smoking Status: Never smoker Past Alcohol Use History: None Reported Past Drug Use History: None Reported - Past Family History Father Family Medical History: Hypertension Mother Additional Family Medical History / Comment(s): Alzhemiers Sister(s) Family Medical History: CVA/TIA General Exam Limitations: no limitations General appearance: alert, in no apparent distress Head exam: Present: atraumatic, normocephalic, normal inspection Neck exam: Present: normal inspection, full ROM. Absent: tenderness, meni ngismus, lymphadenopathy Respiratory exam: Present: normal lung sounds bilaterally. Absent: respiratory distress, wheezes, rales, rhonchi, stridor Cardiovascular Exam: Present: regular rate, normal rhythm, normal heart sounds. Absent: systolic murmur, diastolic murmur, rubs, gallop, clicks GI/Abdominal exam: Present: soft, tenderness, normal bowel sounds. Absent: distended, guarding, rebound, rigid Back exam: Absent: CVA tenderness (R), CVA tenderness (L) Neurological exam: Present: alert, oriented X3, CN II-XII intact Skin exam: Present: warm, dry, intact, normal color. Absent: rash Course Vital Signs 05/30/21 05/30/21 10:01 13:17 Temperature 98.1 F 97.6 F Pulse Rate 91 92 Respiratory 18 18 Rate Blood Pressure 149/83 158/75 O2 Sat by Pulse 98 97 Oximetry Medical Decision Making - Medical Decision Making Patient presented for right flank pain. Which has been worse with eating. Patient CT performed ultrasound showed concerns of possible hematoma, pancreatic changes ct shows chronic pancreatitis, otherwise no abnormality on ct. patient states will follow up with outpatient hida scan patient will follow low-fat diet return parameters were discussed. - Lab Data Result diagrams: 05/30/21 10:52 05/30/21 10:52 Lab Results 05/30/21 05/30/21 05/30/21 Range/Units 10:52 10:52 10:52 WBC 7.4 (3.8-10.6) k/uL RBC 3.88 (3.80-5.40) m/uL Hgb 12.4 (11.4-16.0) gm/dL Hct 38.1 (34.0-46.0) % MCV 98.3 (80.0-100.0) fL MCH 31.9 (25.0-35.0) pg MCHC 32.5 (31.0-37.0) g/dL RDW 12.6 (11.5-15.5) % Plt Count 347 (150-450) k/uL MPV 6.9 Neutrophils % 85 % Lymphocytes % 8 % Monocytes % 3 % Eosinophils % 4 % Basophils % 0 % Neutrophils # 6.2 (1.3-7.7) k/uL Lymphocytes # 0.6 L (1.0-4.8) k/uL Monocytes # 0.2 (0-1.0) k/uL Eosinophils # 0.3 (0-0.7) k/uL Basophils # 0.0 (0-0.2) k/uL Sodium 141 (137-145) mmol/L Potassium 4.2 (3.5-5.1) mmol/L Chloride 105 (98-107) mmol/L Carbon Dioxide 31 H (22-30) mmol/L Anion Gap 5 mmol/L BUN 13 (7-17) mg/dL Creatinine 0.68 (0.52-1.04) mg/dL Est GFR (CKD-EPI)AfAm >90 (>60 ml/min/1.73 sqM) Est GFR (CKD-EPI)NonAf 86 (>60 ml/min/1.73 sqM) Glucose 98 (74-99) mg/dL Plasma Lactic Acid Luis M (0.7-2.0) mmol/L Calcium 9.4 (8.4-10.2) mg/dL Total Bilirubin 0.4 (0.2-1.3) mg/dL AST 17 (14-36) U/L ALT 12 (4-34) U/L Alkaline Phosphatase 100 (38-126) U/L Troponin I (0.000-0.034) ng/mL Total Protein 6.6 (6.3-8.2) g/dL Albumin 4.0 (3.5-5.0) g/dL Amylase 59 (30-110) U/L Lipase 179 (23-300) U/L Urine Color Yellow Urine Appearance Clear (Clear) Urine pH 7.0 (5.0-8.0) Ur Specific [place] 1.013 (1.001-1.035) Urine Protein Negative (Negative) Urine Glucose (UA) Negative (Negative) Urine Ketones Negative (Negative) Urine Blood Negative (Negative) Urine Nitrite Negative (Negative) Urine Bilirubin Negative (Negative) Urine Urobilinogen <2.0 (<2.0) mg/dL Ur Leukocyte Esterase Negative (Negative) 05/30/21 05/30/21 Range/Units 10:52 10:52 WBC (3.8-10.6) k/uL RBC (3.80-5.40) m/uL Hgb (11.4-16.0) gm/dL Hct (34.0-46.0) % MCV (80.0-100.0) fL MCH (25.0-35.0) pg MCHC (31.0-37.0) g/dL RDW (11.5-15.5) % Plt Count (150-450) k/uL MPV Neutrophils % % Lymphocytes % % Monocytes % % Eosinophils % % Basophils % % Neutrophils # (1.3-7.7) k/uL Lymphocytes # (1.0-4.8) k/uL Monocytes # (0-1.0) k/uL Eosinophils # (0-0.7) k/uL Basophils # (0-0.2) k/uL Sodium (137-145) mmol/L Potassium (3.5-5.1) mmol/L Chloride (98-107) mmol/L Carbon Dioxide (22-30) mmol/L Anion Gap mmol/L BUN (7-17) mg/dL Creatinine (0.52-1.04) mg/dL Est GFR (CKD-EPI)AfAm (>60 ml/min/1.73 sqM) Est GFR (CKD-EPI)NonAf (>60 ml/min/1.73 sqM) Glucose (74-99) mg/dL Plasma Lactic Acid Luis M 1.0 (0.7-2.0) mmol/L Calcium (8.4-10.2) mg/dL Total Bilirubin (0.2-1.3) mg/dL AST (14-36) U/L ALT (4-34) U/L Alkaline Phosphatase (38-126) U/L Troponin I <0.012 (0.000-0.034) ng/mL Total Protein (6.3-8.2) g/dL Albumin (3.5-5.0) g/dL Amylase (30-110) U/L Lipase (23-300) U/L Urine Color Urine Appearance (Clear) Urine pH (5.0-8.0) Ur Specific [place] (1.001-1.035) Urine Protein (Negative) Urine Glucose (UA) (Negative) Urine Ketones (Negative) Urine Blood (Negative) Urine Nitrite (Negative) Urine Bilirubin (Negative) Urine Urobilinogen (<2.0) mg/dL Ur Leukocyte Esterase (Negative) Disposition Clinical Impression: Right flank pain, Biliary colic symptom Disposition: HOME SELF-CARE Condition: Stable Instructions (If sedation given, give patient instructions): Abdominal Pain (ED) Additional Instructions: Follow for HIDA scan. Please return to the Emergency Department if symptoms worsen or any other concerns. Is patient prescribed a controlled substance at d/c from ED?: No Referrals: Luz Maria Gallegos MD [Primary Care Provider] - 1-2 days Lance Sorensen MD [STAFF PHYSICIAN] - 1-2 days Time of Disposition: 13:40
[2021-05-30 11:22] LABS: Appearance,Urine Clear (Clear); Basophils % (A) 0 %; Bilirubin,Urine Negative (Negative); Blood,Urine Negative (Negative); Color,Urine Yellow; Eosinophils # (A) 0.3 k/uL (0-0.7); Eosinophils % (A) 4 %; Glucose,Urine (UA) Negative (Negative); HCT 38.1 % (34.0-46.0); HGB 12.4 gm/dL (11.4-16.0); Ketones,Urine Negative (Negative); Leukocyte Esterase,Urine Negative (Negative); Lymphocytes # (A) 0.6 k/uL (1.0-4.8); Lymphocytes % (A) 8 %; MCH 31.9 pg (25.0-35.0); MCHC 32.5 g/dL (31.0-37.0); MCV 98.3 fL (80.0-100.0); Mean Platelet Volume 6.9; Monocytes # (A) 0.2 k/uL (0-1.0); Monocytes % (A) 3 %; Neutrophils # (A) 6.2 k/uL (1.3-7.7); Neutrophils % (A) 85 %; Nitrite,Urine Negative (Negative); Platelet Count 347 k/uL (150-450); Protein,Urine Negative (Negative); RBC 3.88 m/uL (3.80-5.40); RDW 12.6 % (11.5-15.5); Specific Gravity,Urine 1.013 (1.001-1.035); Urobilinogen,Urine <2.0 mg/dL (<2.0); WBC 7.4 k/uL (3.8-10.6)
--- NOTE | 2021-05-30 11:35 | XR ---
EXAMINATION TYPE: XR chest 2V DATE OF EXAM: 05/30/2021 COMPARISON: 05/22/2021 HISTORY: Shortness of breath TECHNIQUE: Frontal and lateral views of the chest are obtained. FINDINGS: Scattered senescent parenchymal changes noted. Hyperinflation compatible with COPD. No evidence for infiltrate. No evidence for atelectasis. Heart size is stable. Mediastinal structures are stable and grossly unremarkable. No evidence for hilar prominence. Degenerative changes dorsal spine. IMPRESSION: 1. No evidence for acute pulmonary disease.
[2021-05-30 11:36] LABS: ALT 12 U/L (4-34); AST 17 U/L (14-36); African American GFR (CKD) >90 (>60 ml/min/1.73 sqM); Alkaline Phosphatase 100 U/L (38-126); Amylase 59 U/L (30-110); Anion Gap 5 mmol/L; Blood Urea Nitrogen 13 mg/dL (7-17); Calcium 9.4 mg/dL (8.4-10.2); Carbon Dioxide 31 mmol/L (22-30); Chloride 105 mmol/L (98-107); Glucose 98 mg/dL (74-99); Lipase 179 U/L (23-300); Non-African American GFR(CKD) 86 (>60 ml/min/1.73 sqM); Potassium 4.2 mmol/L (3.5-5.1); Sodium 141 mmol/L (137-145); Total Bilirubin 0.4 mg/dL (0.2-1.3); Total Protein 6.6 g/dL (6.3-8.2)
--- NOTE | 2021-05-30 12:33 | US ---
EXAMINATION TYPE: US liver DATE OF EXAM: 05/30/2021 COMPARISON: NONE CLINICAL HISTORY: pain RUQ. Severe mid back pain, epigastric pain, diarrhea with and without meals EXAM MEASUREMENTS: Liver Length: 13.2 cm Gallbladder Wall: 0.1 cm CBD: 0.3 cm Right Kidney: 9.0 x 4.1 x 3.5 cm Pancreas: Prominent main pancreatic duct of the tail measuring up to 2.5 mm. Liver: Peripheral hypoechogenicity following subcapsular course. Otherwise liver echotexture normal. Gallbladder: Normal. Bulk Gas Specialist reports negative sonographic Barcenas sign. CBD: Normal. Right Kidney: No hydronephrosis or masses seen IMPRESSION: 1. Peripheral subtle hypoechogenicity of the liver following a subcapsular course. Findings may be ar tifactual, however nonacute subcapsular hematoma is included in differential. Recommend CT abdomen pe lvis with IV contrast. 2. Prominent main pancreatic duct of the pancreatic tail measures 2.5 mm. Findings can be further christiano luated on CT, although MRCP may be needed for further workup.
[2021-05-30 13:21] VITALS: BP 158/75; PULSE 92; TEMP 97.6
--- NOTE | 2021-05-30 13:24 | CT ---
EXAMINATION TYPE: CT abdomen pelvis w con DATE OF EXAM: 05/30/2021 COMPARISON: None HISTORY: Right sided flank pain. CT DLP: 551.4 mGycm CONTRAST: CT scan of the abdomen and pelvis is performed without Oral Contrast and with IV Contrast, patient in jected with 100 mL of Isovue 300. FINDINGS: LUNG BASES-: Right basilar small effusion and atelectasis. LIVER/GB: No calcified gallstones. No space occupying hepatic lesion. Biliary tree is of normal ca liber. PANCREAS: No inflammation. No distinct mass. Focal left pancreatic calcification may reflect change s of pancreatitis chronic type. SPLEEN: No splenic enlargement. No lesion seen. ADRENALS: No nodule. No thickening. KIDNEYS/BLADDER: No hydronephrosis. No nephrolithiasis. No distinct renal mass. Urinary bladder g rossly unremarkable. BOWEL: Normal appendix. Normal bowel caliber. No inflammation. GENITAL ORGANS: No gross abnormality. LYMPH NODES: No greater than 1cm abdominal or pelvic lymph nodes appreciated. AORTA: No significant abnormality. OSSEOUS STRUCTURES: Severe degenerative changes lumbar spine. OTHER: No significant additional abnormality is seen. IMPRESSION: 1. Right basilar small effusion and atelectasis. 2. Changes of mild chronic pancreatitis. 3. Trace free fluid within the pelvis.
[2021-05-30] MEDS ORDERED: ONDANSETRON 4 MG ODT STARTER PACK 2 TAB BTL PO STA (13:48)
[2021-05-30] MEDS ORDERED: KETOROLAC 15 MG/ML 1 ML VIAL IVP STA (13:48)
[2021-05-30] MEDS ORDERED: ACET/COD 300 MG/30 MG STARTER PACK 6 TAB BTL PO STA (13:48)
== END 2021-05-30 14:52 | disposition home or self-care (01) ==
LOC: EC 09:55
DX: R10.11 Right upper quadrant pain (principal); R10.13 Epigastric pain; J45.909 Unspecified asthma, uncomplicated
CPT/HCPCS: 36415; 93005; 80053; 82150; 83605; 83690; 84484; 85025; 81003; 71046; 76705; 74177; 99284; S0119; Q9967

== ENCOUNTER → 2021-06-06 | Outpatient (CLI) | payer MEDICARE ==
--- NOTE | 2021-06-06 11:54 | XR ---
Right RIBS HISTORY: R 54, pain for many years 2 views of the right ribs submitted and correlated to chest x-ray 05/30/2021 There is blunting the right costophrenic angle as on prior exam. No evident displaced rib fracture. S coliotic curvature to the spine is noted. Aorta is dense. Heart size is likely stable and within norm al limits. Lower ribs are not well seen due to decreased bone mineralization. IMPRESSION: No evident displaced rib fracture. Blunting of the costophrenic angle on the right is chr onic and may be due to chronic pleural reaction, effusion. Spinal curvature. Bone scan could be perfo rmed for increased sensitivity as indicated.
--- NOTE | 2021-06-06 12:03 | XR ---
Thoracic spine HISTORY: R 54, pain 3 views of the thoracic spine, correlation to chest x-ray 05/30/2021 There is a thoracic lumbar scoliosis present. Bone mineralization is reduced. Rotatory component is p resent. Degenerative disc changes are also present in the lumbar spine. There is loss of vertebral paris dy height at what is believed to be T10. Loss of height of approximately 50% is suspected. There is a kyphosis centered at T8 where there is greater than 75% loss of height. Difficult to exclude retropu lsion. impression: Osteoporotic compression fractures, T8 compression fracture maintained progressed in the interval. No stenosis.
== END | disposition home or self-care (01) ==
LOC: RADXRMAIN 10:38
PROVIDERS: ATTEND Family Medicine
DX: M48.54XA Collapsed vertebra, not elsewhere classified, thoracic region, initial encounter for fracture (principal)
CPT/HCPCS: 72072

== ENCOUNTER → 2021-09-01 | Outpatient (CLI) | payer MEDICARE ==
--- NOTE | 2021-09-01 16:19 | CT ---
EXAMINATION TYPE: CT CervThorLumbar spine wo con DATE OF EXAM: 09/01/2021 COMPARISON: None HISTORY: chronic back pain, no injury CT DLP: 732.3 mGycm Automated exposure control for dose reduction was used. TECHNIQUE: Axial images 3 mm thick sections. Reconstructed images in coronal and sagittal plane. Imag es were obtained from the cervical spine to the sacral spine. FINDINGS: Scoliosis is present with convexity to the right centered at approximately L2 Cervical spine: There is fusion of C4-5. Loss of disc height is present C5-6. Some posterior endplate spurring is present at C5. This has mild intrathecal sac compression Thoracic spine: There is a wedge compression deformity at T8 with near complete loss of anterior vert ebral body height. No posterior wall displacement is evident. There is a severe compression deformity of T10 with vacuum phenomenon at the T8-9 and T9-10 disc levels. No posterior wall displacement is e vident. There is a superior T12 endplate compression deformity with approximately 40% loss of the mid to post erior superior vertebral endplate. Very minimal posterior wall displacement is present in the axial p benjie. Lumbar spine: There may be 6 lumbar type vertebral bodies. Plain film correlation would be recommende d prior to intervention. There is a superior endplate compression deformity with posterior wall displacement of the superior e ndplate. This is estimated at 0.6 cm. AP spinal canal stenosis however is not evident. L1-2: Endplate changes of moderate anterior thecal sac compression. Facet hypertrophy is present. Thi s may have some AP spinal canal stenosis. Example image series 4 image 121 There is a superior endplate compression deformity of L2 with very minimal superior endplate displace ment posteriorly. Minimal endplate changes are present at the L3 level. Facet hypertrophy and ligamentum flavum laxity is present. Disc bulging may be present. L3-4: Spinal canal stenosis at this level not excluded. Example image series 3 image 147. There is a superior endplate compression of L5. No posterior wall displacement is evident. L5-S1: Broad-based disc bulge is moderate intrathecal sac impression. Correlate with radicular sympto ms. Facet hypertrophy and ligamentum flavum laxity is posterior thecal sac compression. Spinal canal stenosis is likely present. Examples series 3 image 156. There may be a transitional S1 level which has lumbarization. IMPRESSION: 1. MULTILEVEL COMPRESSION DEFORMITIES APPEAR MORE SEVERE WITHIN THE THORACIC SPINE WITHOUT POSTERIOR WALL DISPLACEMENT. HOWEVER, THE MILDER SUPERIOR ENDPLATE COMPRESSION DEFORMITIES IN THE UPPER LUMBAR SPINE HAVE POSTERIOR WALL DISPLACEMENT. 2. DEGENERATIVE DISC CHANGES T8-9 AND T9-10. 3. SPINAL CANAL STENOSIS L1 -L2, L3-4, L5-S1. 4. TRANSITIONAL VERTEBRA SUSPECTED AT S1. PLAIN FILM CORRELATION RECOMMENDED PRIOR TO SURGICAL INTERV ENTION.
== END | disposition home or self-care (01) ==
LOC: RADCTMAIN 11:21
PROVIDERS: ATTEND Orthopaedic Surgery
DX: M48.07 Spinal stenosis, lumbosacral region (principal); M47.816 Spondylosis without myelopathy or radiculopathy, lumbar region; M47.814 Spondylosis without myelopathy or radiculopathy, thoracic region; M46.02 Spinal enthesopathy, cervical region
CPT/HCPCS: 72125; 72128; 72131

== ENCOUNTER 2021-10-19 08:55 | Inpatient (IN) | payer MEDICARE ==
--- NOTE | 2021-10-19 09:04 | ED ---
General Adult HPI - General Stated complaint: fall, hip pain Time Seen by Provider: 10/19/21 08:55 Source: patient, RN notes reviewed, old records reviewed - History of Present Illness Initial comments: This is a 76-year-old female presents emergency Department complaining of trying to get out of bed last night and she slipped off the stool and landed on her left hip. Patient states she got back into bed and this morning was trying to get out of bed but the pain in the hip was so much that she couldn't get up so she called EMS. Patient denies hitting her head or neck. Patient denies being on any blood thinners. Patient denies any back pain patient denies chest pain. Patient denies any other extremity pain. Patient denies any abdominal pain. - Related Data Home Medications Medication Instructions Recorded Confirmed Multivitamins, Thera [Multivitamin 1 tab PO DAILY 06/06/16 05/30/21 (formulary)] Cholecalciferol [Vitamin D3 (25 25 mcg PO DAILY 04/21/21 05/30/21 Mcg = 1000 Iu)] Claritin 10mg Reditab 10 mg SL DAILY PRN 05/22/21 05/30/21 Ipratropium-Albuterol Nebulize 3 ml INHALATION RT-QID PRN 05/30/21 05/30/21 [Duoneb 0.5 mg-3 mg/3 ml Soln] Previous Rx's Medication Instructions Recorded Albuterol Sulfate [Proair Hfa] 2 puff INHALATION RT-Q4H PRN #1 05/22/21 inhaler Budesonide-Formot 160-4.5 Mcg 2 puff INHALATION RT-BID #1 inhaler 05/22/21 [Symbicort 160-4.5 Mcg Inhaler] Allergies Allergy/AdvReac Type Severity Reaction Status Date / Time No Known Allergies Allergy Verified 10/19/21 09:06 Review of Systems ROS Statement: Those systems with pertinent positive or pertinent negative responses have been documented in the HPI. ROS Other: All systems not noted in ROS Statement are negative. Past Medical History Past Medical History: Asthma History of Any Multi-Drug Resistant Organisms: None Reported Past Surgical History: Tubal Ligation Additional Past Surgical History / Comment(s): neck surgery Past Anesthesia/Blood Transfusion Reactions: No Reported Reaction Past Psychological History: No Psychological Hx Reported Smoking Status: Never smoker Past Alcohol Use History: None Reported Past Drug Use History: None Reported - Past Family History Father Family Medical History: Hypertension Mother Additional Family Medical History / Comment(s): Alzhemiers Sister(s) Family Medical History: CVA/TIA General Exam - General Exam Comments Initial Comments: GENERAL: Patient is well-developed and well-nourished. Patient is nontoxic and well- hydrated and is in mild distress. ENT: Neck is soft and supple. No significant lymphadenopathy is noted. Oropharynx is clear. Moist mucous membranes. Neck has full range of motion without eliciting any pain. EYES: The sclera were anicteric and conjunctiva were pink and moist. Extraocular movements were intact and pupils were equal round and reactive to light. Eyelids were unremarkable. PULMONARY: Unlabored respirations. Good breath sounds bilaterally. No audible rales rhonchi or wheezing was noted. CARDIOVASCULAR: There is a regular rate and rhythm without any murmurs gallops or rubs. ABDOMEN: Soft and nontender with normal bowel sounds. SKIN: Skin is clear with no lesions or rashes and otherwise unremarkable. NEUROLOGIC: Patient is alert and oriented x3. Cranial nerves II through XII are grossly intact. Motor and sensory are also intact. Normal speech, volume and content. Symmetrical smile. MUSCULOSKELETAL: Patient has tenderness to the left inguinal area and tenderness with any movement of the left hip. PSYCHIATRIC: Normal psychiatric evaluation. Course Vital Signs 10/19/21 09:01 Temperature 99.3 F Pulse Rate 97 Respiratory 17 Rate Blood Pressure 163/91 O2 Sat by Pulse 96 Oximetry Medical Decision Making - Medical Decision Making EKG shows normal sinus rhythm at 92 bpm ME interval 154 QRS is 80 QT interval 374 QTC is 462. Patient's EKG shows no ST segment elevation or depression. - Lab Data Result diagrams: 10/19/21 09:52 10/19/21 09:52 Lab Results 10/19/21 10/19/21 Range/Units 09:52 09:52 WBC 7.8 (3.8-10.6) k/uL RBC 3.89 (3.80-5.40) m/uL Hgb 12.3 (11.4-16.0) gm/dL Hct 37.4 (34.0-46.0) % MCV 96.4 (80.0-100.0) fL MCH 31.6 (25.0-35.0) pg MCHC 32.8 (31.0-37.0) g/dL RDW 13.3 (11.5-15.5) % Plt Count 240 (150-450) k/uL MPV 7.6 Neutrophils % 85 % Lymphocytes % 9 % Monocytes % 4 % Eosinophils % 2 % Basophils % 1 % Neutrophils # 6.6 (1.3-7.7) k/uL Lymphocytes # 0.7 L (1.0-4.8) k/uL Monocytes # 0.3 (0-1.0) k/uL Eosinophils # 0.1 (0-0.7) k/uL Basophils # 0.0 (0-0.2) k/uL Sodium 140 (137-145) mmol/L Potassium 3.9 (3.5-5.1) mmol/L Chloride 106 (98-107) mmol/L Carbon Dioxide 26 (22-30) mmol/L Anion Gap 8 mmol/L BUN 18 H (7-17) mg/dL Creatinine 0.68 (0.52-1.04) mg/dL Est GFR (CKD-EPI)AfAm >90 (>60 ml/min/1.73 sqM) Est GFR (CKD-EPI)NonAf 86 (>60 ml/min/1.73 sqM) Glucose 106 H (74-99) mg/dL Calcium 9.0 (8.4-10.2) mg/dL Total Bilirubin 0.7 (0.2-1.3) mg/dL AST 25 (14-36) U/L ALT 20 (4-34) U/L Alkaline Phosphatase 78 (38-126) U/L Total Protein 7.1 (6.3-8.2) g/dL Albumin 4.2 (3.5-5.0) g/dL Disposition
--- NOTE | 2021-10-19 09:36 | XR ---
EXAMINATION TYPE: XR chest 1V DATE OF EXAM: 10/19/2021 COMPARISON: 05/30/2021 HISTORY: Pain TECHNIQUE: Single frontal view of the chest is obtained. FINDINGS: There is no focal air space opacity, pleural effusion, or pneumothorax seen. The cardiac silhouette size is within normal limits. The osseous structures are intact. Hyperinflation. Diffuse osteopenia. Atherosclerotic change of the aorta. Degenerative is change of the spine with curvature. Slightly coarsened interstitium. IMPRESSION: COPD correlate for chronic interstitial lung disease.
--- NOTE | 2021-10-19 09:40 | XR ---
EXAMINATION TYPE: XR Hip LT and AP Pelvis DATE OF EXAM: 10/19/2021 COMPARISON: NONE HISTORY: Pain TECHNIQUE: A single AP view of the pelvis is obtained. Two views of the left hip are obtained. FINDINGS: There is a displaced left femoral neck fracture possibly subcapital. Hypertrophic change o f the spine. SI joints symmetric. IMPRESSION: 1. Displaced left femoral neck fracture.
--- NOTE | 2021-10-19 10:02 | XR ---
EXAMINATION TYPE: XR femur LT DATE OF EXAM: 10/19/2021 CLINICAL HISTORY: hip TECHNIQUE: Two views of the left femur are obtained. COMPARISON: None FINDINGS: There is fracture of the left femoral neck with displacement. Remaining portion of the fem ur is intact.. IMPRESSION: Displaced femoral neck fracture likely subcapital..
[2021-10-19] MEDS ORDERED: SODIUM CHLORIDE 0.9% 1,000 ML IV ONE (10:06)
[2021-10-19 10:20] LABS: Basophils % (A) 1 %; Eosinophils # (A) 0.1 k/uL (0-0.7); Eosinophils % (A) 2 %; HCT 37.4 % (34.0-46.0); HGB 12.3 gm/dL (11.4-16.0); Lymphocytes # (A) 0.7 k/uL (1.0-4.8); Lymphocytes % (A) 9 %; MCH 31.6 pg (25.0-35.0); MCHC 32.8 g/dL (31.0-37.0); MCV 96.4 fL (80.0-100.0); Mean Platelet Volume 7.6; Monocytes # (A) 0.3 k/uL (0-1.0); Monocytes % (A) 4 %; Neutrophils # (A) 6.6 k/uL (1.3-7.7); Neutrophils % (A) 85 %; Platelet Count 240 k/uL (150-450); RBC 3.89 m/uL (3.80-5.40); RDW 13.3 % (11.5-15.5); WBC 7.8 k/uL (3.8-10.6)
[2021-10-19 10:33] LABS: ALT 20 U/L (4-34); AST 25 U/L (14-36); African American GFR (CKD) >90 (>60 ml/min/1.73 sqM); Albumin 4.2 g/dL (3.5-5.0); Alkaline Phosphatase 78 U/L (38-126); Anion Gap 8 mmol/L; Blood Urea Nitrogen 18 mg/dL (7-17); Carbon Dioxide 26 mmol/L (22-30); Chloride 106 mmol/L (98-107); Glucose 106 mg/dL (74-99); Non-African American GFR(CKD) 86 (>60 ml/min/1.73 sqM); Potassium 3.9 mmol/L (3.5-5.1); Sodium 140 mmol/L (137-145); Total Bilirubin 0.7 mg/dL (0.2-1.3); Total Protein 7.1 g/dL (6.3-8.2)
[2021-10-19] MEDS ORDERED: SENNOSIDES 8.6 MG TAB PO PRN (10:43)
[2021-10-19] MEDS ORDERED: HYDROmorphone 0.5 MG/0.5 ML SYRINGE IVP PRN (10:44)
--- NOTE | 2021-10-19 10:47 | P.HPOR ---
History of Present Illness H&P Date: 10/19/21 Chief Complaint: left hip pain Patient is a 76 department status post fall from bed. Patient says she was trying to get out of bed late last night, when she stepped off her bed she slipped and fell landing on her hip. Patient denies losing consciousness. Patient denies any other injuries. Patient denies falling on her head. Patient says she began to have immediate left hip pain. Patient says there is some radiation of pain down the left leg. Patient says pain is 10/10. It is worse when she tries to move her leg/bear weight on it. Patient denies previous orthopedic surgical history. Patient says she is not on any blood thinners. Patient denies chest pain, fever, shortness breath, nausea, vomiting, change in vision, loss of bowel/bladder control. Past Medical History Past Medical History: Asthma History of Any Multi-Drug Resistant Organisms: None Reported Past Surgical History: Tubal Ligation Additional Past Surgical History / Comment(s): neck surgery Past Anesthesia/Blood Transfusion Reactions: No Reported Reaction Past Psychological History: No Psychological Hx Reported Smoking Status: Never smoker Past Alcohol Use History: None Reported Past Drug Use History: None Reported - Past Family History Father Family Medical History: Hypertension Mother Additional Family Medical History / Comment(s): Alzhemiers Sister(s) Family Medical History: CVA/TIA Medications and Allergies Home Medications Medication Instructions Recorded Confirmed Type Multivitamins, Thera [Multivitamin 1 tab PO DAILY 06/06/16 05/30/21 History (formulary)] Cholecalciferol [Vitamin D3 (25 25 mcg PO DAILY 04/21/21 05/30/21 History Mcg = 1000 Iu)] Albuterol Sulfate [Proair Hfa] 2 puff INHALATION RT-Q4H PRN #1 05/22/21 05/30/21 Rx inhaler Budesonide-Formot 160-4.5 Mcg 2 puff INHALATION RT-BID #1 inhaler 05/22/21 05/30/21 Rx [Symbicort 160-4.5 Mcg Inhaler] Claritin 10mg Reditab 10 mg SL DAILY PRN 05/22/21 05/30/21 History Ipratropium-Albuterol Nebulize 3 ml INHALATION RT-QID PRN 05/30/21 05/30/21 History [Duoneb 0.5 mg-3 mg/3 ml Soln] Allergies Allergy/AdvReac Type Severity Reaction Status Date / Time No Known Allergies Allergy Verified 10/19/21 09:06 Physical Examination Inspection: Left leg shortened and externally rotated. There is no evidence of ecchymosis, erythema, open fractures on left leg. Sensation: Sensation is equal, symmetric, bilaterally intact throughout. Palpation: There is significant tenderness to palpation diffusely throughout the left hip especially in the groin. Nontender to palpation throughout rest exam Range of motion: Range of motion is limited in left leg due to significant pain. Patient has full range of motion in bilateral UE and RLE Motor: Right leg - 5/5 in resisted hip flexion/extension, knee flexion/extens ion, plantar flexion/dorsiflexion the right ankle; 5/5 in resisted elbow flexion/extension, wrist flexion/extension, shoulder abduction, internal/external rotation of the bilateral UE. Left leg motor exams severely limited due to patient's pain. Ent Surgeon strength 4/5 in bilateral UE Neurovascular: Refill under 3 seconds bilaterally in upper extremity digits. DP pulses intact, bilaterally, 2+. Special tests: Negative Homans bilaterally; log roll maneuver reproduced pain on left side Results - Labs Result Diagrams: 10/19/21 09:52 10/19/21 09:52 Assessment and Plan Assessment: 1. Left hip femoral neck fracture Plan: 1. Left femoral neck fracture - surgery booked for tomorrow, , 10/20/2021. Plan for left hip hemiarthroplasty. Patient needs medical clearance. NPO after midnight 2. Appreciate medical management - Patient needs medical clearance 4. Pain management - Tylenol #3; dilaudid if needed 5. DVT prophylaxis - hold thinners at this time 6. GI prophylaxis - senna 7. PT/OT - nonweightbearing left leg. Time with Patient: Less than 30
[2021-10-19 10:48] LABS: Partial Thromboplastin Time 25.2 sec (22.0-30.0); Prothrombin Time 10.7 sec (9.0-12.0)
--- NOTE | 2021-10-19 15:44 | P.CONS ---
<Alonzo Cifuentes - Last Filed: 10/19/21 16:55> History of Present Illness - Reason for Consult Consult date: 10/19/21 - Chief Complaint mechanical fall with left hip injury - History of Present Illness History of Presenting Illness: Patient is a very pleasant 76-year-old female with a past medical history of asthma and chronic back pain. She presented to the emergency department secondary to left hip pain after falling out of bed. Patient reports he has been dealing with some back pain and that they have a very high bed so her build her a platform to help her get out of it, patient states upon getting out of bed she stepped on the corner of the platform slipping and falling down landing onto her left hip. She denies losing consciousness, hitting her head, or having any other injuries. In the emergency department patient underwent an extensive workup. X-rays left femur and left hip completed revealing a displaced left femoral neck fracture. Chest x-ray revealing mild hyperinflation and correlates with patient's chronic interstitial lung disease. Labs completed revealing CBC, CMP, and coags to be unremarkable. Covid PCR was negative. EKG was completed showing normal sinus rhythm at 92 bpm with no noted T-wave or ST abnormalities showing no signs of acute ischemia. Patient was admitted to orthopedic surgery team under Dr. English and we were consulted for surgical clearance and continued medical management throughout patient's hospitalization. Review of systems: Pertinent positives and negatives as discussed in HPI, a complete review of systems was performed and all other systems are negative. Physical exam: Vital signs reviewed and stable. General: Nontoxic, no distress and appears stated age. Derm: Skin warm and dry, normal coloration for ethnicity. Head: Atraumatic, normocephalic and symmetric. Eyes: EOMs intact, no lid lag, and anicteric sclera Mouth: no lip lesions, mucus membranes moist Cardiovascular: regular rate and rhythm with normal S1S2, no murmur, positive posterior tibial pulses bilaterally, and cap refill < 2 seconds. Lungs: Respirations even, regular, and unlabored on room air. Lungs CTA bilaterally, no rhonchi, no rales, no wheezing, and no accessory muscle usage. Abdominal: soft, nontender to palpation, no guarding, no appreciable organomegaly Ext: Movement and sensation intact. Movement is limited and left lower extremity secondary to injury. Left lower extremity positive for deformity with shortening and external rotation. Neuro: Speech clear, face symmetrical and CN II-XII grossly intact with no noted focal neuro deficits Psych: Alert and oriented to person, place, time, and situation. Appropriate and pleasant affect. Assessment and Plan of Care: Presurgical clearance for patient to undergo left hip hemiarthroplasty -METS >4, prior to fall and displaced left femoral neck fracture, patient was able to perform all activities of daily living, walk 1-2 blocks and up one flight of stairs without experiencing any chest pain or shortness of breath. -Alvarez Perioperative Risk ALYSA score showing 0.2% risk of myocardial infarction or cardiac arrest intraoperatively or up to 30 days postoperatively. -NSQUIP showing a below average risk of cardiac complications with a 0.1% risk with average risk being 1.7% and a below average risk of at 0.1% with average of 3.1%. -Patient is medically optimized to proceed with recommended surgery at this time with no further recommendations or needs for further testing. Asthma/COPD -Oxygenation to be administered and titrated as needed to maintain SPO2 equal to or greater than 92% -Monitor pulse ox -Duonebs as needed for SOB and/or wheezing -Incentive Spirometry, encourage use 10-15 times hourly while awake. Mechanical fall -Fall precautions in place. -Safe and supportive treatment. Closed displaced left femoral neck fracture -Management of DVT prophylaxis, pain management, postoperative dressing care, weightbearing, and PT/OT per primary admitting orthopedic surgery team. -Fall precautions to remain in place. -Patient to be provided with assistance as needed. -Encourage use of incentive spirometry. Thank you for allowing us to participate in the care of this pleasant patient. Do not hesitate to contact us with questions. Someone can be reached from the [facility] hospitalist group all hours of the day at [phone] or via [employer]. Past Medical History Past Medical History: Asthma History of Any Multi-Drug Resistant Organisms: None Reported Past Surgical History: Tubal Ligation Additional Past Surgical History / Comment(s): neck surgery Past Anesthesia/Blood Transfusion Reactions: No Reported Reaction Past Psychological History: No Psychological Hx Reported Smoking Status: Never smoker Past Alcohol Use History: None Reported Past Drug Use History: None Reported - Past Family History Father Family Medical History: Hypertension Mother Additional Family Medical History / Comment(s): Alzhemiers Sister(s) Family Medical History: CVA/TIA Medications and Allergies Home Medications Medication Instructions Recorded Confirmed Type Acetaminophen-Codeine 300-30mg 1 tab PO TID PRN 10/19/21 10/19/21 History [Tylenol w/codeine #3] Ascorbic Acid [Vitamin C] 1,000 mg PO DAILY 10/19/21 10/19/21 History Calcium Carbonate [Calcium] 600 mg PO DAILY 10/19/21 10/19/21 History Cholecalciferol (Vitamin D3) 75 mcg PO DAILY 10/19/21 10/19/21 History [Vitamin D3 (3000 Iu)] Ibuprofen [Motrin] 600 mg PO Q8HR PRN 10/19/21 10/19/21 History Meloxicam [Mobic] 15 mg PO DAILY 10/19/21 10/19/21 History S-Adenosylmethionine Sul Tosyl 400 mg PO DAILY 10/19/21 10/19/21 History [Bahman-E] Turmeric Root Extract [Turmeric] 500 mg PO DAILY 10/19/21 10/19/21 History Allergies Allergy/AdvReac Type Severity Reaction Status Date / Time No Known Allergies Allergy Verified 10/19/21 10:52 Physical Exam Vitals: Vital Signs Temp Pulse Resp BP Pulse Ox 10/19/21 09:01 99.3 F 97 17 163/91 96 Intake and Output 10/19/21 10/19/21 10/19/21 06:59 14:59 22:59 Other: Weight 45.813 kg Results CBC & Chem 7: 10/19/21 09:52 10/19/21 09:52 Labs: Abnormal Lab Results - Last 24 Hours (Table) 10/19/21 10/19/21 Range/Units 09:52 09:52 Lymphocytes # 0.7 L (1.0-4.8) k/uL BUN 18 H (7-17) mg/dL Glucose 106 H (74-99) mg/dL <Cheyanne Cifuentes - Last Filed: 10/19/21 18:30> History of Present Illness - History of Present Illness Patient seen and examined independently. Patient was also seen by Alonzo Cifuentes NP and case was discussed. I am in agreement with subjective, physical exam, assessment and plan as written above and amended below. General: [non toxic], [no distress], [appears at stated age] Derm: [warm], [dry] Head: [atraumatic], [normocephalic], [symmetric] Eyes: [EOMI], [no lid lag], [anicteric sclera] Mouth: [no lip lesion], [mucus membranes moist] Cardiovascular: [S1S2 reg], [no murmur], [positive posterior tibial pulse bilateral], Lungs: [CTA bilateral], [no rhonchi, no rales] , [no accessory muscle use] Abdominal: [soft], [ nontender to palpation], [no guarding], [no appreciable organomegaly] Ext: [no gross muscle atrophy], [no edema], [no contractures] Neuro: [ CN II-XI grossly intact], [no focal neuro deficits], restricted range of motion of the left lower extremity Psych: [Alert], [oriented], [appropriate affect] Physical Exam Osteopathic Statement: *. No significant issues noted on an osteopathic structural exam other than those noted in the History and Physical/Consult. Vitals: Vital Signs Temp Pulse Resp BP Pulse Ox 10/19/21 16:31 99.2 F 95 18 147/75 97 10/19/21 09:01 99.3 F 97 17 163/91 96 Intake and Output 10/19/21 10/19/21 10/19/21 06:59 14:59 22:59 Other: Weight 45.813 kg 45.813 kg Results CBC & Chem 7: 10/19/21 17:48 10/19/21 09:52 Labs: Abnormal Lab Results - Last 24 Hours (Table) 10/19/21 10/19/21 Range/Units 09:52 09:52 Lymphocytes # 0.7 L (1.0-4.8) k/uL BUN 18 H (7-17) mg/dL Glucose 106 H (74-99) mg/dL
[2021-10-19] MEDS ORDERED: IPRATROPIUM-ALBUTEROL 3 ML NEB INHALATION PRN (16:57)
[2021-10-19] MEDS: Acetaminophen-Codeine 300-30mg TAB PO PRN ×2 (18:07→23:45)
[2021-10-19 18:12] LABS: Basophils # (A) 0.1 k/uL (0-0.2); Basophils % (A) 1 %; Eosinophils # (A) 0.4 k/uL (0-0.7); Eosinophils % (A) 5 %; HCT 39.4 % (34.0-46.0); Lymphocytes # (A) 1.5 k/uL (1.0-4.8); Lymphocytes % (A) 19 %; MCH 31.8 pg (25.0-35.0); MCHC 32.9 g/dL (31.0-37.0); MCV 96.7 fL (80.0-100.0); Mean Platelet Volume 8.2; Monocytes # (A) 0.4 k/uL (0-1.0); Monocytes % (A) 6 %; Neutrophils # (A) 5.3 k/uL (1.3-7.7); Neutrophils % (A) 68 %; Platelet Count 271 k/uL (150-450); RBC 4.07 m/uL (3.80-5.40); WBC 7.8 k/uL (3.8-10.6)
[2021-10-20] MEDS: Acetaminophen-Codeine 300-30mg TAB PO PRN (08:40)
[2021-10-20 09:43] LABS: African American GFR (CKD) 94.3 (60.0-200.0); Anion Gap 8.2 mmol/L (10.00-18.00); BUN/Creat Ratio 22.53 Ratio (12.00-20.00); Blood Urea Nitrogen 16.4 mg/dL (9.0-27.0); Calcium 8.2 mg/dL (8.7-10.3); Carbon Dioxide 24.9 mmol/L (20.0-27.5); Non-African American GFR(CKD) 81.4 (60.0-200.0); Potassium 3.6 mmol/L (3.5-5.5)
--- NOTE | 2021-10-20 10:33 | P.PN ---
Subjective Progress Note Date: 10/20/21 Principal diagnosis: Left hip fracture Patient seen and examined this morning she is doing well her pain is controlled she was cleared by medicine for surgery. He is ready and willing to go to surgery. The site was marked in the room. Objective - Vital Signs Vital signs: Vital Signs Temp 97.9 F 10/20/21 07:49 Pulse 78 10/20/21 07:49 Resp 18 10/20/21 07:49 BP 130/75 10/20/21 07:49 Pulse Ox 93 L 10/20/21 07:49 Intake & Output 10/19/21 10/20/21 10/20/21 18:59 06:59 18:59 Intake Total 1080 Balance 1080 Weight 45.813 kg Intake: Oral 1080 Other: Voiding Method Indwelling Catheter # Voids 3 300 - Exam Pain with logroll of the left hip otherwise her exam is stable she is neurovascular intact distally with no other issues she has good motor and sensation bilateral lower and upper extremities. - Labs CBC & Chem 7: 10/19/21 17:48 10/20/21 06:15 Labs: Abnormal Lab Results - Last 24 Hours (Table) 10/19/21 10/20/21 Range/Units 09:52 06:15 Anion Gap 8.20 L (10.00-18.00) mmol/L BUN 18 H (7-17) mg/dL BUN/Creatinine Ratio 22.53 H (12.00-20.00) Ratio Glucose 106 H (74-99) mg/dL Calcium 8.2 L (8.7-10.3) mg/dL Assessment and Plan Assessment: 1. Left hip femoral neck fracture completely displaced 2. Status post fall from standing 3. Chronic thoracic fractures 4. Multiple medical comorbidities Plan: Orthopedic Surgery Risk Review Latricia Wing is a 76-year-old female presenting for evaluation of sudden onset left hip pain, inability to ambulate after . Fall From standing. It was my pleasure to have seen and examined Latricia Wing. In our visit today we have had a chance to go over subjective complaints, physical examination findings and treatments including the natural course history without intervention and various interventional options. Her imaging demonstrates left hip femoral neck fracture completely displaced. On physical exam, Latricia Wing demonstrates pain with motion of left hip, which is NV intact at this time. I have explained to the patient that this fracture needs stabilization. Based on the patients imaging, physical exam, and the rapid progression and disabling nature of her symptoms, at this time I recommend surgery in the form or a: Left hip hemiarthroplasty I discussed the risk and benefits of this procedure at length with Latricia Wing and her . Questions were invited and answered, and the patient wishes to proceed as outlined below. Currently, I am recommendin. Left hip hemiarthroplasty 2. Review of surgical risks and benefits as well as an educational packet on the proposed surgical procedure. Risks: All surgical procedures come with inherent risks, including those related to positioning, anesthesia, intraoperative findings, and postoperative complications. It is important to understand that surgery does not come with any guarantee of a successful outcome as complications and adverse events are always possible. The patient was given a handout discussing the surgical procedure and risks associated with the intervention, both of which were discussed with the patient. These risks include but are not limited to the following: - Experiencing same, different or even worse symptoms compared to before surgery. - Requiring further surgery or other forms of treatment presently or at some time in the future . - On an extreme but fortunately relatively rare basis severe complication such as blindness, stroke, heart attack, temporary and/or permanent nerve injury, paralysis, coma, or may occur, sometimes without known explanatio n. - Surgical complications may include but are not limited to risk of infection, fluid accumulation in the surgical dissection site, including a seroma or hematoma, that requires additional surgery, wound drainage, bleeding, new numbness or weakness, vision changes/loss, spinal fluid leakage, non-healing and/or infected incision, headaches, difficulty or inability to swallow, hoarseness, hemopneumothorax, pneumothorax, injury to nerves, spinal cord, blood vessels, lymphatics or other vital organs (i.e., bowel injury, injury to the great vessels); heterotopic bone formation; complications related to the hardware such as screws, rods, including misplaced hardware, device failure, hardware fracture/breakage, or hardware loosening; retained surgical instrumentations or devices and the need for further surgery. - Medical risks of the planned surgery include but are not limited to generalized Infections to the whole body or local areas outside of the surgical site (sepsis), heart attack, bleeding, anaphylaxis, meningitis, seizure, epilepsy, hearing loss, burn fallon, laceration of the head or other areas of the body, bruising, hypersensitivity of the skin, bladder over distension; allergic reaction; shoulder injury related to positioning; fat, blood and air clots to other areas of the body like heart, lungs, brain; failure of internal organs such as lungs, kidneys, liver and excessive bleeding. If blood transfusions are necessary, note that transfusions may cause intolerance reactions such as anaphylaxis or other complex reactions. Despite best efforts, the results of surgery might not heal in terms of bone, soft tissues such as skin, fascia, ligaments, and joints. [facility] is an educational center that serves as a training facility for physician assistants, nurses, orthopedic residents and fellows. Residents are physicians who are completing their surgical intensive training following medical school. They assist in the operating room with direct supervision of the attending surgeons. Carson are surgeons who have completed their training and eligible for board certification. They have opted for an elective year of more specialized training in their field. They assist in the operating room under the supervision of the attending surgeons. Physician assistants are medically trained surgical providers who function in the outpatient, inpatient, and operating room setting under the direct supervision of the attending maged carrillo. [facility] has multiple operating rooms with single and overlapping rooms running daily. They currently function under the required guidelines as produced by the [facility] Finance Committee with regards to the overlapping rooms and will continue to comply with changes to this policy as they occur. The requirements include and are complied with as follows: (1) the critical portions of the overlapping rooms will not occur at the same time, (2) the attending physician will be physically present during the critical portions of the procedure and immediately available during the entire case, and (3) a back-up attending is designated should the primary attending not be immediately available. The patient has had a chance to review all the listed information, has been given print outs detailing this information, and has had all his/her questions answered to their satisfaction. It was my pleasure to have seen and examined Latricia Wing. In our visit today we have had a chance to go over my understanding of our patient's current condition, the natural course history without intervention and various interventional options. Questions were invited and answered, and the patient wishes to proceed as outlined above. I have seen and examined the patient for 25 minutes and we have spent more than 50% of the time in repeat and detailed counseling about the patient's condition, its natural course history with out and as much as can be predicted with surgery and re-review of various surgical treatment options. In conclusion, Latricia Wing and her requested we proceed with the above suggested surgery and are willing to accept risks and limitations of the suggested surgery as nature of the disease process and our best attempts at treatment for the condition. Thank you again for allowing us to be part of your patient's care. Please don't hesitate to contact me if you have any further questions. Signed and authenticated by: David [facility] [address] [address]
[2021-10-20] MEDS: CALCIUM CARBONATE 500 MG CHEWABLE PO SCH (10:34)
[2021-10-20] MEDS: CHOLECALCIFEROL 25 MCG (1000 IU) TABLET PO SCH (10:34)
[2021-10-20] MEDS: ASCORBIC ACID 500 MG TAB PO SCH (10:34)
[2021-10-20 12:12] LABS: Magnesium 2.1 mg/dL (1.5-2.4)
[2021-10-20] MEDS ORDERED: LACTATED RINGERS 1,000 ML IV ONE ×2 (14:55→17:37)
[2021-10-20] MEDS ORDERED: LIDOCAINE 1% (10MG/ML) FOR IV START INTRADERMA ONE (14:55)
--- NOTE | 2021-10-20 15:12 | P.PN ---
Subjective Progress Note Date: 10/20/21 Hospital course: Patient is a very pleasant 76-year-old female with a past medical history of asthma and chronic back pain. She presented to the emergency department secondary to left hip pain after falling out of bed. Patient reports he has been dealing with some back pain and that they have a very high bed so her build her a platform to help her get out of it, patient states upon getting out of bed she stepped on the corner of the platform slipping and falling down landing onto her left hip. She denies losing consciousness, hitting her head, or having any other injuries. In the emergency department patient underwent an extensive workup. X-rays left femur and left hip completed revealing a displaced left femoral neck fracture. Chest x-ray revealing mild hyperinflation and correlates with patient's chronic interstitial lung disease. Labs completed revealing CBC, CMP, and coags to be unremarkable. Covid PCR was negative. EKG was completed showing normal sinus rhythm at 92 bpm with no noted T-wave or ST abnormalities showing no signs of acute ischemia. Patient was admitted to orthopedic surgery team under Dr. English and we were consulted for surgical clearance and continued medical management throughout patient's hospitalization. Physical exam: Patient seen and evaluated at bedside this morning. Patient appeared to be doing well and reports pain to left hip and leg is currently controlled at this time. Patient's at bedside. Morning labs reviewed and unremarkable. Patient is scheduled to undergo a left hip hemiarthroplasty later this afternoon with Dr. English. Patient denies having any needs or complaints at this time including headache, lightheadedness, dizziness, chest pain, palpitations, shortness of breath, or numbness/tingling/weakness in her extremity. Sensation and movement of left lower extremity remains intact. Patient again educated on the importance of incentive spirometry use throughout her postsurgical period. Vital signs reviewed and stable. General: Nontoxic, no distress and appears stated age. Derm: Skin warm and dry, normal coloration for ethnicity. Head: Atraumatic, normocephalic and symmetric. Eyes: EOMs intact, no lid lag, and anicteric sclera Mouth: no lip lesions, mucus membranes moist Cardiovascular: regular rate and rhythm with normal S1S2, no murmur, positive posterior tibial pulses bilaterally, and cap refill < 2 seconds. Lungs: Respirations even, regular, and unlabored on room air. Lungs CTA bilatera lly, no rhonchi, no rales, no wheezing, and no accessory muscle usage. Abdominal: soft, nontender to palpation, no guarding, no appreciable organomegaly Ext: Movement and sensation intact. Movement is limited and left lower extremity secondary to injury. Left lower extremity positive for deformity with shortening and external rotation. Neuro: Speech clear, face symmetrical and CN II-XII grossly intact with no noted focal neuro deficits Psych: Alert and oriented to person, place, time, and situation. Appropriate and pleasant affect. Assessment and Plan of Care: Presurgical clearance for patient to undergo scheduled left hip hemiarthroplasty later this afternoon -METS >4, prior to fall and displaced left femoral neck fracture, patient was able to perform all activities of daily living, walk 1-2 blocks and up one flight of stairs without experiencing any chest pain or shortness of breath. -Alvarez Perioperative Risk ALYSA score showing 0.2% risk of myocardial infarction or cardiac arrest intraoperatively or up to 30 days postoperatively. -NSQUIP showing a below average risk of cardiac complications with a 0.1% risk with average risk being 1.7% and a below average risk of at 0.1% with average of 3.1%. -Patient is medically optimized to proceed with recommended surgery at this time with no further recommendations or needs for further testing. Asthma/COPD -Oxygenation to be administered and titrated as needed to maintain SPO2 equal to or greater than 92% -Monitor pulse ox -Duonebs as needed for SOB and/or wheezing -Incentive Spirometry, encourage use 10-15 times hourly while awake. Mechanical fall -Fall precautions in place. -Safe and supportive treatment. Closed displaced left femoral neck fracture -Management of DVT prophylaxis, pain management, postoperative dressing care, weightbearing, and PT/OT per primary admitting orthopedic surgery team. -Fall precautions to remain in place. -Patient to be provided with assistance as needed. -Encourage use of incentive spirometry. Thank you for allowing us to participate in the care of this pleasant patient. Do not hesitate to contact us with questions. Someone can be reached from the [facility] hospitalist group all hours of the day at [phone] or via perfect serve. Objective - Vital Signs Vital signs: Vital Signs Temp 97.9 F 10/20/21 07:49 Pulse 78 10/20/21 07:49 Resp 18 10/20/21 07:49 BP 130/75 10/20/21 07:49 Pulse Ox 93 L 10/20/21 07:49 Intake & Output 10/19/21 10/20/21 10/20/21 18:59 06:59 18:59 Intake Total 1080 Balance 1080 Weight 45.813 kg Intake: Oral 1080 Other: Voiding Method Indwelling Catheter # Voids 3 300 - Labs CBC & Chem 7: 10/19/21 17:48 10/20/21 06:15 Labs: Abnormal Lab Results - Last 24 Hours (Table) 10/19/21 10/19/21 Range/Units 09:52 09:52 Lymphocytes # 0.7 L (1.0-4.8) k/uL BUN 18 H (7-17) mg/dL Glucose 106 H (74-99) mg/dL
[2021-10-20] MEDS ORDERED: KETAMINE 10 MG/ML 20 ML VIAL ONE (16:16)
[2021-10-20] MEDS ORDERED: .fentaNYL (PF) 50 MCG/ML 2 ML AMP ONE (16:16)
[2021-10-20] MEDS ORDERED: MIDAZOLAM 2 MG/2 ML VIAL ONE (16:16)
[2021-10-20] MEDS ORDERED: ceFAZolin 1,000 MG in SODIUM CHLORIDE 0.9% 1,000 ML IRRIGATION ONE (16:53)
[2021-10-20] MEDS ORDERED: HYDROmorphone 0.5 MG/0.5 ML SYRINGE IVP PRN (18:00)
[2021-10-20] MEDS ORDERED: NALOXONE 0.4 MG/ML 1 ML VIAL IV PRN (18:00)
[2021-10-20] MEDS: HYDROcodone/APAP 7.5-325MG 1 EACH TAB PO PRN (19:19)
--- NOTE | 2021-10-20 19:28 | XR ---
PROCEDURE: XR Hip Limited LT - 1V DATE AND TIME: 10/20/2021 6:22 PM CLINICAL INDICATION: Status post hip surgery, assess surgical alignment TECHNIQUE: AP postoperative view COMPARISON: None FINDINGS: There is no fracture or malalignment. Postprocedural changes are noted. No unexpected findi ngs. IMPRESSION: AP postoperative view
[2021-10-20] MEDS: SENNOSIDES-DOCUSATE SODIUM 1 EACH TAB PO SCH (20:32)
[2021-10-21] MEDS: Acetaminophen-Codeine 300-30mg TAB PO PRN (00:39)
[2021-10-21] MEDS: ENOXAPARIN 40 MG/0.4 ML SYRINGE SQ SCH (07:32)
[2021-10-21] MEDS: CALCIUM CARBONATE 500 MG CHEWABLE PO SCH (07:33)
[2021-10-21] MEDS: ASCORBIC ACID 500 MG TAB PO SCH (07:33)
[2021-10-21] MEDS: CHOLECALCIFEROL 25 MCG (1000 IU) TABLET PO SCH (07:33)
--- NOTE | 2021-10-21 07:57 | P.OP ---
Date of Procedure: 10/20/21 Preoperative Diagnosis: 1. Lt hip femoral neck fracture, complete, displaced, comminuted Postoperative Diagnosis: 1. Lt hip femoral neck fracture, complete, displaced, comminuted Procedure(s) Performed: 1. Lt hip hemiarthroplasty Implants: S&N Polar stem F:4 Bipol 45/28 Std +0 head Anesthesia: spinal Surgeon: David English Diet Supervisor #1: Niall Patiño (Was present and necessary due to the complexity of the case) Estimated Blood Loss (ml): 50 IV fluids (ml): 1,100 Urine output (ml): 250 Pathology: none sent Condition: stable Disposition: PACU Indications for Procedure: 76 yo female sustained a ffs at home overnight while tring to go the bathroom on to her Lt hip. She had immediate pain and inability to ambulate her carried her downstairs and then to the ED. She was seen and evaluated and found to have a Lt femoral neck fracture. She denies any numbness/tingling/BHT or LOC with the fall. She states pain in her hip and no other injuries. We discussed all options for surgery and they have elected for hemiarthroplasty on the Lt. She was seen and cleared by medical services for surgery. They were ready and willing to proceed. Description of Procedure: The patient was seen and examined in the preoperative area. All preoperative protocols were followed. Informed consent was obtained risks and benefits of the procedure were discussed at length. Risks including bleeding infection damage to the surrounding tissue and risk of reoperation were discussed with the patient. Risk of anesthesia up to and including was a discussed with the patient. These are outlined in the risk reviewed. They were willing to accept these risks and all of the risks of surgery. The patient was given a weight- based dose of antibiotics in the form of 2 g Ancef. The patient was seen and evaluated by the anesthesia team who deemed them fit for surgery. The site was marked, the patient was willing to proceed with the procedure. The patient was transferred to the operative suite by the Department of anesthesia. There were then drifted off to sleep by the department of anesthesia and spinal with sedation anesthesia was used. Once adequate anesthesia had been obtained the patient was carefully transferred to the operative bed. All bony prominences were padded accordingly. SCDs were placed on the nonoperative lower extremities. Arms were well padded. Patient was placed in the right lateral decub's position on the pegboard and was well-padded axillary roll was placed patient's nonoperative leg was well-padded and secured to the table. Arms were placed on arm board padded. Left lower extremity was exposed and 10:15 drapes placed around the operative area Preoperative briefing was done with the operative team and everyone was ready for the procedure to start. The patients left leg was then prepped and draped in the normal sterile fashion. Timeout was then performed and all parties in agreement with the procedure to be performed. Standard posterior approach to the hip was performed skin incision made over the tip of the greater trochanter taken down to the tensor fascia which was then split longitudinally with its fibers and Charnley retractors and placed the hip was eventually rotated and the posterior external rotators were identified peripheral risks was identified and tagged and then released along with the short external rotators. Capsulotomy was then performed and an L shape. The fracture was highly comminuted in this area and performed a cleanup cut then of the femoral neck Hohmann retractors were placed around the superior and inferior portion of the femoral neck and a template used to amira with a made a cleanup cut of the femoral neck using a saw. We then removed the femoral head with a corkscrew this was removed easily incised. We then sized the acetabulum with a trial sizer. Once this performed with then internal rotated and abducted the leg to allow for visualization of the canal. Box osteotome was used to lateralize to the shoulder. We then used a canal finder as well as rent tail noted to lateralize and accessed the canal. Sequential broaching was then p erformed until a broach size was entered that was stable at 84. Once this broach was stable we trialed it with a standard neck and 0 head the hip was reduced appropriately and atraumatically I was then taken through range of motion and was completely stable. Leg lengths were then assessed and were equal. We then atraumatically dislocated the hip and removed the components the broach remained stable until final components were selected broach was removed copious irrigation of the femoral canal as well as acetabular was then performed with antibiotic saline solution. Following normal sterile saline. We then cleaned any edges or bone fragments from the area. We then inserted the final femoral stem was impacted into place and sat well. Then cleaned the trunnion and dried it and the bipolar head was then impacted onto the trunnion and tested and was stable. We then atraumatically reduce the hip to get through range of motion and was stable and leg lengths were equal. Then copiously irrigated the wound with normal sterile saline. A posterior capsular as well as posterior external rotator repair was performed to a drill bit was used to drill 3 holes in the posterior aspect of the greater trochanter Ethibond stitch was passed through the posterior external rotators and piriformis and these were passed through the bone tunnels with a suture passer. They were then tied and secured. Then over sewed this area with Ethibond stitch in a [id number] fashion for a tight closure. Sharman was then removed we irrigated superficially. #1 Vicryl was then used in a running locking fashion to close the tensor fascia. We then used 0 Vicryl in the deep subcu tissue followed by 2-0 Vicryl in the superficial subcu tissue and jason in the skin. The wound edges approximated very well. The wound was then cleaned with alcohol dried and dressed with a sterile Opti foam dressing. The patient was then transferred back to their hospital bed. There were awakened by department of anesthesia having tolerated the procedure very well with no complications. The patient was then transported to the postoperative care unit in stable condition.
[2021-10-21] MEDS: HYDROcodone/APAP 7.5-325MG 1 EACH TAB PO PRN ×2 (09:17→15:03)
--- NOTE | 2021-10-21 09:41 | XR ---
EXAMINATION TYPE: XR Hip LT and AP Pelvis DATE OF EXAM: 10/21/2021 COMPARISON: NONE HISTORY: Postop TECHNIQUE: A single AP view of the pelvis is obtained. Two views of the left hip are obtained. FINDINGS: Postsurgical change involving the left hip. Diffuse osteopenia. Right hip intact. SI joints symmetric. Sclerotic density overlying the left iliac bone is stable could be related to bone island . Soft tissue emphysema and edema noted with surgical jason along the left hip. IMPRESSION: 1. Postoperative change.
[2021-10-21 11:05] LABS: Basophils # (A) 0.04 X 10*3/uL (0.00-0.10); Basophils % (A) 0.7 %; Eosinophils # (A) 0.29 X 10*3/uL (0.04-0.35); Eosinophils % (A) 4.9 %; HCT 33.3 % (37.2-46.3); HGB 10.2 g/dL (12.0-15.0); Lymphocytes # (A) 0.94 X 10*3/uL (0.90-5.00); Lymphocytes % (A) 15.9 %; MCHC 30.6 g/dL (32.0-37.0); MCV 101.2 fL (80.0-97.0); Mean Platelet Volume 10.3 fL (9.5-12.2); Monocytes # (A) 0.47 X 10*3/uL (0.20-1.00); Monocytes % (A) 7.9 %; Neutrophils # (A) 4.15 X 10*3/uL (1.80-7.70); Neutrophils % (A) 70.1 %; Platelet Count 211 X 10*3/uL (140-440); RBC 3.29 X 10*6/uL (4.10-5.20); RDW 13.6 % (11.5-14.5); WBC 5.92 X 10*3/uL (4.50-10.00)
--- NOTE | 2021-10-21 11:13 | P.PN ---
Subjective Progress Note Date: 10/21/21 Principal diagnosis: Left hip femoral neck fracture Patient was seen at bedside this morning resting, sitting up in chair with throughout the encounter. Patient says she did get up with physical therapy today and got up and sat in the chair. Patient says her hip is somewhat painful but she is feeling better than she was before surgery. Patient discussed pain as achy in nature. Patient says she has been using incentive spirometer. Patient says she has not had bowel movement yet, however, patient says she has been passing gas. Patient denies chest pain, fever, shortness breath, nausea, vomiting, change in vision, loss of bowel/bladder control. Objective - Vital Signs Vital signs: Vital Signs Temp 97.9 F 10/21/21 06:58 Pulse 98 10/21/21 09:21 Resp 16 10/21/21 09:21 BP 122/71 10/21/21 06:58 Pulse Ox 92 L 10/21/21 06:58 Intake & Output 10/20/21 10/21/21 10/21/21 18:59 06:59 18:59 Intake Total 1351 Output Total 600 350 Balance 751 -350 Intake: IV 1351 Output: Urine 550 350 Estimated Blood Loss 50 Other: Voiding Method Indwelling Catheter Indwelling Catheter - Exam Inspection: Silver optifoam dressing in place. Incision is clan, dry, intact. [place] in good place/well aligned. There is no evidence of ecchymosis, erythema, open fractures on left leg. Sensation: Sensation is equal, symmetric, bilaterally intact throughout. Palpation: There is significant tenderness to palpation diffusely throughout the left hip especially in the groin. Nontender to palpation throughout rest exam Range of motion: Patient is able to flex and extnd digits in left foot and flex and extend at left knee. Left hip ROM limited due to pain. Patient has full range of motion in bilateral UE and RLE Motor: Right leg - 5/5 in resisted hip flexion/extension, knee flexion/extension, plantar flexion/dorsiflexion the right ankle; 5/5 in resisted elbow flexion/extension, wrist flexion/extension, shoulder abduction, internal/external rotation of the bilateral UE. Left leg motor exams severely limited due to patient's pain. Media Theorist And Author Of strength 4/5 in bilateral UE Neurovascular: Refill under 3 seconds bilaterally in upper extremity digits. DP pulses intact, bilaterally, 2+. Special tests: Negative Homans bilaterally; - Labs CBC & Chem 7: 10/21/21 07:18 10/20/21 06:15 Assessment and Plan Assessment: 1. Left hip femoral neck fracture Postoperative day 1 status post left hip hemiarthroplasty Plan: 1. Left femoral neck fracture - surgery performed yesterday, , - left hip hemiarthroplasty. Patient stable at bedside today. 2. Appreciate medical management 4. Pain management - Tylenol #3; [place]; dilaudid if needed 5. DVT prophylaxis - Lovenox 6. GI prophylaxis - senna 7. PT/OT - nonweightbearing left leg. 8. Discharge planning - plan discharge home tomorrow, Sunday vs Sunday with health services Time with Patient: Less than 30
--- NOTE | 2021-10-21 17:58 | P.PN ---
Subjective Progress Note Date: 10/21/21 Hospital course: Patient is a very pleasant 76-year-old female with a past medical history of asthma and chronic back pain. She presented to the emergency department secondary to left hip pain after falling out of bed. Patient reports he has been dealing with some back pain and that they have a very high bed so her build her a platform to help her get out of it, patient states upon getting out of bed she stepped on the corner of the platform slipping and falling down landing onto her left hip. She denies losing consciousness, hitting her head, or having any other injuries. In the emergency department patient underwent an extensive workup. X-rays left femur and left hip completed revealing a displaced left femoral neck fracture. Chest x-ray revealing mild hyperinflation and correlates with patient's chronic interstitial lung disease. Labs completed revealing CBC, CMP, and coags to be unremarkable. Covid PCR was negative. EKG was completed showing normal sinus rhythm at 92 bpm with no noted T-wave or ST abnormalities showing no signs of acute ischemia. Patient was admitted to orthopedic surgery team under Dr. English and we were consulted for surgical clearance and continued medical management throughout patient's hospitalization. Physical exam: Patient seen and evaluated at bedside this morning. She is currently postoperative day 1. at bedside. Patient working with her and walker attempting to stand. Patient was able to stand independently while holding onto walker. Patient did have mild discomfort but reports pain improved after administration of [place] by RN. Postoperative hemoglobin stable at 10.2. Patient denies any postoperative nausea or vomiting. Patient tolerating oral intake. She denies having any headache, lightheadedness, dizziness, chest pain, palpitations, shortness of breath, or experiencing any numbness/tingling/weakness in her extremities. Patient and her report the patient has been using incentive spirometry at least 10 times per hour. Vital signs reviewed and stable. General: Nontoxic, no distress and appears stated age. Derm: Skin warm and dry, normal coloration for ethnicity. Head: Atraumatic, normocephalic and symmetric. Eyes: EOMs intact, no lid lag, and anicteric sclera Mouth: no lip lesions, mucus membranes moist Cardiovascular: regular rate and rhythm with normal S1S2, no murmur, positive posterior tibial pulses bilaterally, and cap refill < 2 seconds. Lungs: Respirations even, regular, and unlabored on room air. Lungs CTA bilaterally, no rhonchi, no rales, no wheezing, and no accessory muscle usage. Abdominal: soft, nontender to palpation, no guarding, no appreciable organomegaly Ext: Movement and sensation intact. Neuro: Speech clear, face symmetrical and CN II-XII grossly intact with no noted focal neuro deficits Psych: Alert and oriented to person, place, time, and situation. Appropriate and pleasant affect. Assessment and Plan of Care: Closed displaced left femoral neck fracture status post left hemiarthroplasty completed on 10/20/21 -Management of DVT prophylaxis, pain management, postoperative dressing care, weightbearing, and PT/OT per primary admitting orthopedic surgery team. -Fall precautions to remain in place. -Patient to be provided with assistance as needed. -Encourage use of incentive spirometry. -Currently DVT prophylaxis with Lovenox. Acute blood loss postoperative anemia, expected drop -Hemoglobin 10.2, stable. This is an expected drop after surgical procedure. We will continue to monitor with repeat a.m. labs. Asthma/COPD -Oxygenation to be administered and titrated as needed to maintain SPO2 equal to or greater than 92% -Monitor pulse ox -Duonebs as needed for SOB and/or wheezing -Incentive Spirometry, encourage use 10-15 times hourly while awake. Mechanical fall -Fall precautions in place. -Safe and supportive treatment. Thank you for allowing us to participate in the care of this pleasant patient. Do not hesitate to contact us with questions. Someone can be reached from the [facility] hospitalist group all hours of the day at [phone] or via perfect serve. Objective - Vital Signs Vital signs: Vital Signs Temp 97.9 F 10/21/21 06:58 Pulse 98 10/21/21 09:21 Resp 16 10/21/21 09:21 BP 122/71 10/21/21 06:58 Pulse Ox 92 L 10/21/21 06:58 Intake & Output 10/20/21 10/21/21 10/21/21 18:59 06:59 18:59 Intake Total 1351 Output Total 600 350 Balance 751 -350 Intake: IV 1351 Output: Urine 550 350 Estimated Blood Loss 50 Other: Voiding Method Indwelling Catheter Indwelling Catheter - Labs CBC & Chem 7: 10/21/21 07:18 10/20/21 06:15 Labs: Abnormal Lab Results - Last 24 Hours (Table) 10/21/21 Range/Units 07:18 RBC 3.29 L (4.10-5.20) X 10*6/uL Hgb 10.2 L (12.0-15.0) g/dL Hct 33.3 L (37.2-46.3) % MCV 101.2 H (80.0-97.0) fL MCHC 30.6 L (32.0-37.0) g/dL
[2021-10-21] MEDS: SENNOSIDES-DOCUSATE SODIUM 1 EACH TAB PO SCH (21:15)
[2021-10-22 07:59] VITALS: BP 131/69; PULSE 110; RESP 18; TEMP 99.2
[2021-10-22] MEDS: CALCIUM CARBONATE 500 MG CHEWABLE PO SCH (07:59)
[2021-10-22] MEDS: ASCORBIC ACID 500 MG TAB PO SCH (07:59)
[2021-10-22] MEDS: CHOLECALCIFEROL 25 MCG (1000 IU) TABLET PO SCH (07:59)
[2021-10-22] MEDS: ENOXAPARIN 40 MG/0.4 ML SYRINGE SQ SCH (07:59)
[2021-10-22] MEDS: HYDROcodone/APAP 7.5-325MG 1 EACH TAB PO PRN (09:51)
--- NOTE | 2021-10-22 10:04 | P.PN ---
Subjective Progress Note Date: 10/22/21 Principal diagnosis: Left hip femoral neck fracture Patient was seen at bedside this morning resting comfortably sitting up in chair with present throughout the encounter. Patient says she did get up yesterday afternoon/evening and walked around the room and into the hallway with her at her side using a walker. Patient says the pain is under better control and still describes it as aching in nature. Patient does have a walker to use when she gets home. Patient says she has been using incentive spirometer. Patient says she has not had bowel movement yet, however, patient says she has been passing gas. Patient denies chest pain, fever, shortness breath, nausea, vomiting, change in vision, loss of bowel/bladder control. Objective - Vital Signs Vital signs: Vital Signs Temp 99.2 F 10/22/21 07:58 Pulse 110 H 10/22/21 07:58 Resp 18 10/22/21 07:58 BP 131/69 10/22/21 07:58 Pulse Ox 93 L 10/22/21 07:58 Intake & Output 10/21/21 10/22/21 10/22/21 18:59 06:59 18:59 Intake Total 120 Output Total 150 Balance -30 Intake: Intake, IV Titration 120 Amount Lactated Ringers 1,000 ml 120 @ 0 mls/hr IV .Hypecal ONE Rx#:[id number] Output: Urine 150 Uretheral (Mercado) 150 Other: Voiding Method Indwelling Catheter Toilet # Voids 1 - Exam Inspection: Silver optifoam dressing in place. Incision is intact. There is minimal serous drainage. Farhana in good place/well aligned. There is no evidence of erythema, open fractures on left leg. Negative for fluctuance/purulence. Minimal ecchymosis present along the incision Sensation: Sensation is equal, symmetric, bilaterally intact throughout. Palpation: There is moderate tenderness to palpation over the incision on lateral left hip. Nontender to palpation throughout rest exam Range of motion: Patient is able to flex and extnd digits in left foot and flex and extend at left knee. Left hip ROM limited due to pain. Patient has full range of motion in bilateral UE and RLE Motor: Right leg - 5/5 in resisted hip flexion/extension, knee flexion/extension, plantar flexion/dorsiflexion the right ankle; 5/5 in resisted elbow flexion/extension, wrist flexion/extension, shoulder abduction, internal/external rotation of the bilateral UE. Left leg motor exams severely limited due to patient's pain. [employer] strength 4/5 in bilateral UE Neurovascular: Refill under 3 seconds bilaterally in upper extremity digits. DP pulses intact, bilaterally, 2+. Special tests: Negative Homans bilaterally; - Labs CBC & Chem 7: 10/21/21 07:18 10/20/21 06:15 Labs: Abnormal Lab Results - Last 24 Hours (Table) 10/21/21 Range/Units 07:18 RBC 3.29 L (4.10-5.20) X 10*6/uL Hgb 10.2 L (12.0-15.0) g/dL Hct 33.3 L (37.2-46.3) % MCV 101.2 H (80.0-97.0) fL MCHC 30.6 L (32.0-37.0) g/dL Assessment and Plan Assessment: 1. Left hip femoral neck fracture Postoperative day 2 status post left hip hemiarthroplasty Plan: 1. Left femoral neck fracture - surgery performed , 10/20/2021 - left hip hemiarthroplasty. Patient stable at bedside today. Plan discharge home today with health services 2. Appreciate medical management 4. Pain management - Tylenol #3; [place]; Sendin home with [place] 7.5 mg/325 mg 5. DVT prophylaxis - Lovenox; Sending home with Lovenox 30 mg SQ daily x 21 days 6. GI prophylaxis - sending he with Colace 7. PT/OT - WBAT w/walker on left leg 8. Discharge planning - plan discharge home today with health services Time with Patient: Less than 30
--- NOTE | 2021-10-22 10:24 | P.DS ---
Providers Date of admission: 10/19/21 10:07 Expected date of discharge: 10/22/21 Attending physician: David English DO Consults: 10/19/21 10:06 Consult Physician Urgent Consulting Provider: Cheyanne Cifuentes Consult Reason/Comments: Medical clearance Do you want consulting provider notified?: Yes Primary care physician: Luz Maria Gallegos Hospital Course: Date of admission: 10/19/2021 Date of discharge: 10/22/2021 Admission diagnosis: Left hip femoral neck fracture Discharge diagnosis: Same Attending physician: Dr. English Surgical procedures: Left hip hemiarthroplasty Brief history: Patient is a 76-year-old female with a left hip femoral neck fracture. At this point patient has failed conservative treatment measures and has opted to proceed with a elective left hip hemiarthroplasty. Hospital course: Details of patient's surgery can be found in operative report. Patient tolerated the procedure well and was subsequently transported to orthopedic floor. Patient's orthopedoc and medical care was provided daily. Patient had daily laboratory tests performed for evaluation of overall blood counts. Patient had daily physical therapy to include strengthening range of motion as well as education with walker ambulation. Patient was treated with Lovenox for their postoperative DVT prophylaxis during their inpatient stay. Patient was noted to have a relatively uneventful postoperative course. Patient reported satisfactory pain control with oral pain medications by postoperative day 2. Patient showed satisfactory progress with physical therapy. Patient moved steadily through the program and had no difficulty meeting the goals by postoperative day 2. Given patient's otherwise satisfactory course and having m et physical therapy goals, plan is to discharge patient home on postoperative day 2. Discharge condition/disposition: Patient will be discharged home in stable condition. Discharge medications: Instructions are given on resumption of patient's normal daily medications per primary care recommendation, in addition patient will be prescribed [place] 7.5 mg/325 mg; Colace; Lovenox 30 mg. Discharge instructions: 1. Wound care and infection precautions, keep incision dry and covered while showering, no lotions, creams, moisturizers. No soaking, tubs, pools, hottubs. Do not scrub over the incision. 2. Weight-bear as tolerated with walker / cane until follow-up. 3. Ice when necessary. Do not exceed 20 minutes per hour with ice pack. 4. Visiting nursing care. 5. Home physical therapy. 6. Pain meds and anticoagulants per prescription. 7. Pain medication has potential to cause constipation. Increase oral fluid and fiber intake. Contact primary care provider if you have not had a bowel movement within 48 hours after discharge 8. No anti-inflammatory medication until discussed at first post operative visit, this including Motrin, Aleve, Mobic, Diclofenac. 9. Follow up in office at [address] English 10. Follow up with your primary care doctor 7-10 days after discharge. 11. Contact [facility] with any questions, . Keep incision clean, dry, intact while at home. While showering, cover incision with Saran wrap. Silver foam dressing may be removed on 10/25/2021. Medications: [place] 7.5 mg/325; Colace; Lovenox 30 mg Assessment: Left hip femoral neck fracture Procedures: Left hip hemiarthroplasty Patient Condition at Discharge: Fair Plan - Discharge Summary Discharge Rx Participant: Yes New Discharge Prescriptions: New Enoxaparin [Lovenox] 30 mg SQ DAILY #21 each Docusate [Colace] 100 mg PO DAILY #30 capsule HYDROcodone/APAP 7.5-325MG [[place] 7.5] 1 each PO Q6HR PRN #28 tab PRN Reason: Pain No Action Meloxicam [Mobic] 15 mg PO DAILY Acetaminophen-Codeine 300-30mg [Tylenol w/codeine #3] 1 tab PO TID PRN PRN Reason: Pain Turmeric Root Extract [Turmeric] 500 mg PO DAILY Calcium Carbonate [Calcium] 600 mg PO DAILY S-Adenosylmethionine Sul Tosyl [Bahman-E] 400 mg PO DAILY Ibuprofen [Motrin] 600 mg PO Q8HR PRN PRN Reason: Pain Cholecalciferol (Vitamin D3) [Vitamin D3 (3000 Iu)] 75 mcg PO DAILY Ascorbic Acid [Vitamin C] 1,000 mg PO DAILY Discharge Medication List Acetaminophen-Codeine 300-30mg [Tylenol w/codeine #3] 1 tab PO TID PRN 10/19/21 [History] Ascorbic Acid [Vitamin C] 1,000 mg PO DAILY 10/19/21 [History] Calcium Carbonate [Calcium] 600 mg PO DAILY 10/19/21 [History] Cholecalciferol (Vitamin D3) [Vitamin D3 (3000 Iu)] 75 mcg PO DAILY 10/19/21 [History] Ibuprofen [Motrin] 600 mg PO Q8HR PRN 10/19/21 [History] Meloxicam [Mobic] 15 mg PO DAILY 10/19/21 [History] S-Adenosylmethionine Sul Tosyl [Bahman-E] 400 mg PO DAILY 10/19/21 [History] Turmeric Root Extract [Turmeric] 500 mg PO DAILY 10/19/21 [History] Docusate [Colace] 100 mg PO DAILY #30 capsule 10/22/21 [Rx] Enoxaparin [Lovenox] 30 mg SQ DAILY #21 each 10/22/21 [Rx] HYDROcodone/APAP 7.5-325MG [[place] 7.5] 1 each PO Q6HR PRN #28 tab 10/22/21 [Rx] Follow up Appointment(s)/Referral(s): Ricardo Diaz Senior [NON-STAFF] - ([facility] will call you to schedule your home care nursing, physical therapy, and occupational therapy visits. ) Luz Maria Gallegos MD [Primary Care Provider] - 1-2 days David English DO [Doctor of Osteopathic Medicine] - 2 Weeks Activity/Diet/Wound Care/Special Instructions: Discharge instructions: 1. Wound care and infection precautions, keep incision dry and covered while showering, no lotions, creams, moisturizers. No soaking, tubs, pools, hottubs. Do not scrub over the incision. 2. Weight-bear as tolerated with walker / cane until follow-up. 3. Ice when necessary. Do not exceed 20 minutes per hour with ice pack. 4. Visiting nursing care. 5. Home physical therapy. 6. Pain meds and anticoagulants per prescription. 7. Pain medication has potential to cause constipation. Increase oral fluid and fiber intake. Contact primary care provider if you have not had a bowel movement within 48 hours after discharge 8. No anti-inflammatory medication until discussed at first post operative visit, this including Motrin, Aleve, Mobic, Diclofenac. 9. Follow up in office at [address] English 10. Follow up with your primary care doctor 7-10 days after discharge. 11. Contact [facility] with any questions, . Keep incision clean, dry, intact while at home. While showering, cover incision with Saran wrap. Silver foam dressing may be removed on 10/25/2021. Medications: [place] 7.5 mg/325; Colace; Lovenox 30 mg Discharge Disposition: HOME WITH HOME HEALTH SERVICES
--- NOTE | 2021-10-22 11:28 | P.PN ---
Subjective Progress Note Date: 10/22/21 Hospital course: Patient is a very pleasant 76-year-old female with a past medical history of asthma and chronic back pain. She presented to the emergency department secondary to left hip pain after falling out of bed. Patient reports he has been dealing with some back pain and that they have a very high bed so her build her a platform to help her get out of it, patient states upon getting out of bed she stepped on the corner of the platform slipping and falling down landing onto her left hip. She denies losing consciousness, hitting her head, or having any other injuries. In the emergency department patient underwent an extensive workup. X-rays left femur and left hip completed revealing a displaced left femoral neck fracture. Chest x-ray revealing mild hyperinflation and correlates with patient's chronic interstitial lung disease. Labs completed revealing CBC, CMP, and coags to be unremarkable. Covid PCR was negative. EKG was completed showing normal sinus rhythm at 92 bpm with no noted T-wave or ST abnormalities showing no signs of acute ischemia. Patient was admitted to orthopedic surgery team under Dr. English and we were consulted for surgical clearance and continued medical management throughout patient's hospitalization. Patient underwent left hip hemiarthroplasty on 10/20/21. Physical exam: Patient seen and evaluated at bedside this morning. She is currently postop erative day 2. at bedside. Patient doing well, she has been working with her and standing independently while holding onto her walker. Patient reports pain is being managed at this time. She denies having any headache, lightheadedness, dizziness, chest pain, palpitations, shortness of breath or experiencing any numbness/tingling/weakness in her extremities. Patient is medically stable for discharge at this time pending clearance from her primary orthopedic surgery team. Vital signs reviewed and stable. General: Nontoxic, no distress and appears stated age. Derm: Skin warm and dry, normal coloration for ethnicity. Head: Atraumatic, normocephalic and symmetric. Eyes: EOMs intact, no lid lag, and anicteric sclera Mouth: no lip lesions, mucus membranes moist Cardiovascular: regular rate and rhythm with normal S1S2, no murmur, positive posterior tibial pulses bilaterally, and cap refill < 2 seconds. Lungs: Respirations even, regular, and unlabored on room air. Lungs CTA bilaterally, no rhonchi, no rales, no wheezing, and no accessory muscle usage. Abdominal: soft, nontender to palpation, no guarding, no appreciable organomegaly Ext: Movement and sensation intact. Neuro: Speech clear, face symmetrical and CN II-XII grossly intact with no noted focal neuro deficits Psych: Alert and oriented to person, place, time, and situation. Appropriate and pleasant affect. Assessment and Plan of Care: Closed displaced left femoral neck fracture status post left hemiarthroplasty completed on 10/20/21 -Management of DVT prophylaxis, pain management, postoperative dressing care, weightbearing, and PT/OT per primary admitting orthopedic surgery team. -Fall precautions to remain in place. -Patient to be provided with assistance as needed. -Encourage use of incentive spirometry. -Currently DVT prophylaxis with Lovenox. Acute blood loss postoperative anemia, expected drop -Hemoglobin 10.2, stable. This is an expected drop after surgical procedure. We will continue to monitor with repeat a.m. labs. Asthma/COPD -Oxygenation to be administered and titrated as needed to maintain SPO2 equal to or greater than 92% -Monitor pulse ox -Duonebs as needed for SOB and/or wheezing -Incentive Spirometry, encourage use 10-15 times hourly while awake. Mechanical fall -Fall precautions in place. -Safe and supportive treatment. Thank you for allowing us to participate in the care of this pleasant patient. Do not hesitate to contact us with questions. Someone can be reached from the [facility] hospitalist group all hours of the day at [phone] or via perfect serve. Objective - Vital Signs Vital signs: Vital Signs Temp 99.2 F 10/22/21 07:58 Pulse 110 H 10/22/21 07:58 Resp 18 10/22/21 07:58 BP 131/69 10/22/21 07:58 Pulse Ox 93 L 10/22/21 07:58 Intake & Output 10/21/21 10/22/21 10/22/21 18:59 06:59 18:59 Intake Total 120 1080 Output Total 150 Balance -30 1080 Intake: Intake, IV Titration 120 Amount Lactated Ringers 1,000 ml 120 @ 0 mls/hr IV .STK-MED ONE Rx#:[id number] Oral 1080 Output: Urine 150 Uretheral ([place]ercado) 150 Other: Voiding Method Indwelling Catheter Toilet # Voids 1 - Labs CBC & Chem 7: 10/21/21 07:18 10/20/21 06:15
[2021-10-22 12:36] LABS: African American GFR (CKD) 86.7 (60.0-200.0); Anion Gap 12.6 mmol/L (10.00-18.00); BUN/Creat Ratio 25.1 Ratio (12.00-20.00); Blood Urea Nitrogen 19.6 mg/dL (9.0-27.0); Calcium 8.5 mg/dL (8.7-10.3); Carbon Dioxide 24.7 mmol/L (20.0-27.5); Non-African American GFR(CKD) 74.8 (60.0-200.0); Potassium 3.3 mmol/L (3.5-5.5)
[2021-10-22] MEDS ORDERED: POTASSIUM CHLORIDE ER 20 MEQ TAB.ER PO STA (12:52)
== END 2021-10-22 14:38 | disposition home health service (06) | DRG 522 ==
LOC: EC 08:55 → 4SSUR 10:07
PROVIDERS: ADMIT Orthopaedic Surgery; ATTEND Orthopaedic Surgery
PROC: 0SRS0JZ Replacement of Left Hip Joint, Femoral Surface with Synthetic Substitute, Open Approach (ICD-10-PCS; principal; 2021-10-20 15:00)
DX: S72.002A Fracture of unspecified part of neck of left femur, initial encounter for closed fracture (principal); J84.9 Interstitial pulmonary disease, unspecified; M84.48XA Pathological fracture, other site, initial encounter for fracture; D62 Acute posthemorrhagic anemia; W06.XXXA Fall from bed, initial encounter; J45.909 Unspecified asthma, uncomplicated; Z20.822 Contact with and (suspected) exposure to COVID-19; Z79.1 Long term (current) use of non-steroidal anti-inflammatories (NSAID); Z79.51 Long term (current) use of inhaled steroids; Z82.49 Family history of ischemic heart disease and other diseases of the circulatory system; Y92.013 Bedroom of single-family (private) house as the place of occurrence of the external cause
CPT/HCPCS: 36415; 71045; 73501; 73502; 80048; 80053; 83735; 85025; 85610; 85730; 86850; 86900; 86901; 87635; 88305; 88311; 93005; 99285

== ENCOUNTER → 2022-01-19 | Outpatient (CLI) | payer MEDICARE ==
--- NOTE | 2022-01-19 16:53 | BD ---
EXAMINATION TYPE: Axial Bone Density DATE OF EXAM: 01/19/2022 COMPARISON: NONE CLINICAL HISTORY: Height: 60 Weight: 103.1 FRAX RISK QUESTIONS: Alcohol (3 or more units per day): n Family History (Parent hip fracture): no Glucocorticoids (More than 3mos): no (Ex: prednisone, prednisolone, methylprednisolone, dexamethasone, and hydrocortisone). History of Fracture in Adulthood: yes Secondary Osteoporosis: 1. Type 1 Diabetes: no 2. Hyperthyroidism: no 3. Menopause before 45: no 4. Malnutrition: no 5. Chronic liver disease: no Rheumatoid Arthritis: no Current Tobacco Use: no RISK FACTORS HISTORY OF: Hip Fracture (Right/Left): lt hip When: 2020 Surgery to Spine/Hip(right/left)/Wrist (right/left): lt hip When: 2020 Family History of Osteoporosis: no Active: yes Diet low in dairy products/other sources of calcium: no Postmenopausal woman: Lost more than 2 inches in height since high school: yes MEDICATIONS: Additional History: EXAM MEASUREMENTS: Bone mineral densitometry was performed using the [employer] System. Bone mineral density as measured about the Lumbar spine is: ----- L1-L4(G/cm2): 0.995 T Score Values are as follows: ----- L2: -1.7 ----- L3: -1.2 ----- L4: -2.1 ----- L1-L4: -1.5 Bone mineral density has: decreased -4.7 % since study of: 01.26.2017 Bone mineral density about the R hip (g/cm2): 0.675 T Score values are as follows: -----R Neck: -2.6 -----R Total: -2.6 Bone mineral density has: decreased -9.4 % since study of: 01.26.2017 IMPRESSION: Osteoporosis (T Score less than -2.5). There is increased fracture risk and therapy is usually indicated based on age. Re-Screen 1-2 years. NOTE: T-SCORE=SD OF THE YOUNG ADULT MEAN.
== END | disposition home or self-care (01) ==
LOC: RADBDWWP 01-05 09:22
PROVIDERS: ATTEND Family Medicine
DX: M81.0 Age-related osteoporosis without current pathological fracture (principal)
CPT/HCPCS: 77080

== ENCOUNTER 2022-08-25 17:45 | Inpatient (IN) | payer MEDICARE ==
[2022-08-25] MEDS ORDERED: methylPREDNISolone SOD SUCCI 125 MG/2 ML VIAL IV STA (17:53)
[2022-08-25] MEDS ORDERED: IPRATROPIUM-ALBUTEROL 3 ML NEB INHALATION STA ×3 (17:53→18:32)
[2022-08-25] MEDS ORDERED: SODIUM CHLORIDE 0.9% 500 ML 500 ML IV STA (17:53)
[2022-08-25] MEDS ORDERED: MAGNESIUM SULFATE-D5W PMX 1 GM in DEXTROSE/WATER 1 100ML.BAG IVPB ONE (17:54)
[2022-08-25 18:16] LABS: Basophils # (A) 0.1 k/uL (0-0.2); Basophils % (A) 1 %; Eosinophils # (A) 0.5 k/uL (0-0.7); Eosinophils % (A) 5 %; HCT 40.5 % (34.0-46.0); HGB 12.8 gm/dL (11.4-16.0); Lymphocytes # (A) 4.2 k/uL (1.0-4.8); Lymphocytes % (A) 47 %; MCH 31.8 pg (25.0-35.0); MCHC 31.7 g/dL (31.0-37.0); MCV 100.4 fL (80.0-100.0); Mean Platelet Volume 8.4; Monocytes # (A) 0.3 k/uL (0-1.0); Monocytes % (A) 3 %; Neutrophils # (A) 3.7 k/uL (1.3-7.7); Neutrophils % (A) 41 %; Platelet Count 343 k/uL (150-450); RBC 4.03 m/uL (3.80-5.40); RDW 12.7 % (11.5-15.5)
[2022-08-25 18:19] LABS: Partial Thromboplastin Time 22.5 sec (22.0-30.0); Prothrombin Time 10.5 sec (9.0-12.0)
[2022-08-25 18:23] LABS: Albumin 4.8 g/dL (3.5-5.0); Calcium 9.4 mg/dL (8.4-10.2); Potassium 4.5 mmol/L (3.5-5.1); Total Bilirubin 0.4 mg/dL (0.2-1.3); Total Protein 7.5 g/dL (6.3-8.2)
--- NOTE | 2022-08-25 18:33 | XR ---
EXAMINATION TYPE: XR chest 1V portable DATE OF EXAM: 08/25/2022 COMPARISON: 02/25/2022 HISTORY: Difficulty breathing TECHNIQUE: Single view FINDINGS: Heart size is normal. No heart failure. Thoracic aorta is atheromatous. There is slight caitlyn nting right costophrenic angle. There are chest leads. IMPRESSION: There is some mild pleural reaction at the right lung base. No change compared to old exa m. No heart failure seen.
[2022-08-25] MEDS ORDERED: SODIUM CHLORIDE 0.9% 1,000 ML IV STA (18:47)
--- NOTE | 2022-08-25 19:18 | ED ---
General Adult HPI - General Chief complaint: Shortness of Breath Stated complaint: Asthma Attack Time Seen by Provider: 08/25/22 17:55 Source: EMS, RN notes reviewed, old records reviewed Mode of arrival: ambulatory Limitations: no limitations - History of Present Illness Initial comments: She is a 77-year-old female with significant history remarkable for asthma requiring prior hospitalizations as well as intubations who presents emergency Department complaining of increased work of breathing. Current approximately 1 hour prior to arrival. Breathing treatments at home did not help. She brought her to the emergency department for further evaluation. Was found to be hypoxic on room air down to 75%. Was immediately taken to the trauma bay where I evaluated the patient. She is complaining of shortness of breath. No chest pain. No fevers, chills, cough. No abdominal pain, nausea, vomiting. She is having increased work of breathing at this time. I obtained some history from the patient but most of the history from the patient's quickly due to her current clinical state. No other acute complaints at this time other than the shortness of breath. - Related Data Home Medications Medication Instructions Recorded Confirmed Calcium Carbonate [Calcium] 600 mg PO BID 10/19/21 08/25/22 Meloxicam [Mobic] 15 mg PO DAILY 10/19/21 08/25/22 Turmeric Root Extract [Turmeric] 500 mg PO DAILY 10/19/21 08/25/22 Alendronate Sodium [Fosamax] 70 mg PO TH 08/25/22 08/25/22 Ubidecarenone [Coenzyme Q10] 200 mg PO Q48H 08/25/22 08/25/22 Allergies Allergy/AdvReac Type Severity Reaction Status Date / Time No Known Allergies Allergy Verified 08/25/22 18:42 Review of Systems ROS Statement: Those systems with pertinent positive or pertinent negative responses have been documented in the HPI. Review of Systems: CONST: Denies fever EYES: Denies blurry vision ENT: Denies nasal congestion C/V: Denies Chest pain RESP: Endorses shortness of breath GI: Denies abdominal pain : Denies dysuria SKIN: Denies rash. MSK: Denies joint pain. NEURO: Denies headache ROS Other: All systems not noted in ROS Statement are negative. Past Medical History Past Medical History: Asthma History of Any Multi-Drug Resistant Organisms: None Reported Past Surgical History: Tubal Ligation Additional Past Surgical History / Comment(s): neck surgery Past Anesthesia/Blood Transfusion Reactions: No Reported Reaction Past Psychological History: No Psychological Hx Reported Smoking Status: Never smoker Past Alcohol Use History: None Reported Past Drug Use History: None Reported - Past Family History Father Family Medical History: Hypertension Mother Additional Family Medical History / Comment(s): Alzhemiers Sister(s) Family Medical History: CVA/TIA General Exam - General Exam Comments Initial Comments: General: Appears to be having increased work of breathing. HEAD: Normal with no signs of head trauma. EYES: PERRLA, EOMI, conjunctiva normal, no discharge. ENT: Hearing grossly intact, normal oropharynx. RESPIRATORY: Lungs are tight. Little air movement. Increased respiratory effort. Hypoxic on room air. Hypoxic on 15% nonrebreather at bedside to 90%. C/V: Tachycardic. S1 and S2 auscultated. No peripheral edema. Peripheral p ulses 2+ intact throughout. ABD: Abd is soft, nontender, nondistended EXT: Normal range of motion, no obvious deformity SKIN: No rashes or lesions observed on exposed skin. NEURO: Alert and oriented 4. Limitations: no limitations Course Vital Signs 08/25/22 08/25/22 08/25/22 17:55 18:01 18:08 Temperature 97.5 F L Pulse Rate 102 H 120 H 102 H Respiratory 20 22 Rate Blood Pressure 170/96 180/96 O2 Sat by Pulse 96 99 Oximetry Fraction of 100 Inspired Oxygen (FIO2) 08/25/22 08/25/22 08/25/22 18:19 18:26 18:30 Temperature Pulse Rate 104 H 103 H Respiratory Rate Blood Pressure O2 Sat by Pulse Oximetry Fraction of 70 Inspired Oxygen (FIO2) 08/25/22 08/25/22 08/25/22 18:43 19:25 21:05 Temperature Pulse Rate 96 82 Respiratory 20 Rate Blood Pressure 144/80 O2 Sat by Pulse 99 Oximetry Fraction of 50 Inspired Oxygen (FIO2) Medical Decision Making - Medical Decision Making Based on the patient's presentation and physical exam, I'm concerned for a severe asthma exacerbation. Patient has poor air movement. She has increased work of breathing and hypoxia despite a large amount of supplemental oxygenation at this time. I called respiratory therapy, patient will be started on BiPAP immediately with IV steroids, small fluid bolus, as well as IV magnesium. Patient also be given subcutaneous epinephrine, 0.5 mg. She'll be reevaluated for improvement. Cardiopulmonary labs will be obtained. Vital signs are remarkable for hypoxia on room air, increased work of breathing, as well as tachycardia. Blood pressure is stable. Patient was in agreement with this plan. Following epinephrine administration as well as 2 breathing treatments, patient appears more comfortable on BiPAP. Current settings are 12/5/70%. She is able to communicate in full sentences. Lungs are opening up. She is having wheezing now, and is saturating well on current BiPAP settings. We'll continue to wean as tolerated. We'll continue breathing treatments. EKG shows no signs of ischemia. Chest x-ray shows no acute cardiopulmonary process. There are chronic changes. Laboratory studies are remarkable for negative Covid and flu swabs. Remainder of the labs are unremarkable. After the patient at this time. She continues to be alert and oriented 4, increased work of breathing has resolved. Hypoxia is resolved. Lung sounds are improved with improving wheezing. I discussed with her the results of her labs and imaging. She'll be admitted to the hospital on BiPAP for her asthma exacerbation. Pulmonology will be consulted. Patient was in agreement with this plan. Patient's ABG revealed a pH of 7.38. PCO2 was adequate at 44. PaO2 was 82 and slightly decreased. Bicarb is 26. We're continuing to wean her off oxygen supp ort on BiPAP. She is currently at 12/5 and 50%. I did discuss the case with the ICU attending, Dr. Hong due to her history of intubations for asthma exacerbations, he was in agreement that the patient will tolerate a stepdown admission at this time. We will continue breathing treatments and IV steroids. We will continue BiPAP. Patient was in agreement this plan. I spoke with the admitting physician, Dr. Nash who accepted the patient. Patient was admitted in serious condition. I updated the patient. Wheezing is improving at this time. She is saturating well. No respiratory distress. Still on BiPAP. She was in agreement with this plan. - Lab Data Result diagrams: 08/25/22 Unknown 08/25/22 Unknown Lab Results 08/25/22 08/25/22 08/25/22 Range/Units 18:22 18:22 19:24 Sample Site R radial ABG pH 7.38 (7.35-7.45) ABG pCO2 44 (35-45) mmHg ABG pO2 82 L (83-108) mmHg ABG HCO3 26 H (21-25) mmol/L ABG Total CO2 27 H (19-24) mmol/L ABG O2 Saturation 96.3 (94-97) % ABG Base Excess 0.5 mmol/L Jason Test Yes FiO2 70 % Coronavirus (PCR) Not Detected (Not Detectd) Influenza Type A RNA Not Detected (Not Detectd) Influenza Type B (PCR) Not Detected (Not Detectd) - EKG Data -: EKG Interpreted by Me EKG Comments: 12-lead Electrocardiogram Interpretation Note EKG was reviewed and interpreted by myself. 12-lead ECG performed at 1811 is interpreted by me as revealing sinus tachycardia at a rate of 109 beats per minute. [place] is normal. VT interval is 175 ms, QRS duration 78 ms, QTc is 379 milliseconds.. There were no ST or T wave abnormalities to suggest myocardial ischemia or injury. R wave progression across the precordium was satisfactory. By my interpretation this EKG is non-diagnostic for acute ischemia. Disposition Clinical Impression: Asthma exacerbation, Acute respiratory failure with hypoxia Disposition: ADMITTED IP TO THIS HOSP Condition: Serious Time of Disposition: 17:30
[2022-08-25 19:20] LABS: ABG Base Excess 0.5 mmol/L; ABG HCO3 26 mmol/L (21-25); ABG Oxygen Saturation 96.3 % (94-97); ABG PCO2 44 mmHg (35-45); ABG PH 7.38 (7.35-7.45); ABG PO2 82 mmHg (83-108); ABG TCO2 27 mmol/L (19-24); Allen Test Performed? Yes
[2022-08-25] MEDS ORDERED: NALOXONE 0.4 MG/ML 1 ML VIAL IV PRN (20:15)
[2022-08-25] MEDS: HEPARIN SODIUM,PORCINE/PF 5,000 UNIT/0.5 ML SYRINGE SQ SCH (21:37)
--- NOTE | 2022-08-25 23:02 | P.HPIM ---
History of Present Illness H&P Date: 08/25/22 The patient is a 77-year-old female with a PMH of asthma who presents to the emergency room with complaints of shortness of breath. The patient reports that her symptoms started earlier today when she developed worsening shortness of breath over a period of a few hours. She reported using her rescue inhaler 3 times without relief. She reported chest tightness. Denied experiencing cough, fever, chills, chest pain. Upon arrival at the emergency room, the patient was in severe respiratory distress and required BiPAP. She was given epinephrine, DuoNeb's, and Solu-Medrol which significantly alleviated her symptoms. At time of interview, the patient reported feeling significantly better. Chest x-ray revealed a mild pleural reaction at the right lung base without any additional abnormalities. EKG revealed sinus tachycardia at 109 bpm without any acute ST/T-wave changes noted as reviewed by me. Laboratory evaluation was remarkable for creatinine of 1.18 (baseline 0.9). Review of systems: Pertinent positives and negatives as discussed in HPI, a complete review of systems was performed and all other systems are negative. Physical examination: General: non toxic, no distress, on BiPAP, appears at stated age, normal weight Derm: no unusual rashes/lesions, warm Head: atraumatic, normocephalic, symmetric Eyes: EOMI, no lid lag, anicteric sclera, pupils equal round reactive to light ENT: Nose and ears atraumatic Neck: No cervical lymphadenopathy, trachea midline, supple Mouth: no lip lesion, mucus membranes moist Cardiovascular: S1S2 reg, no murmur, positive dorsalis pedis pulse bilateral, no edema Lungs: Mild expiratory wheezing throughout, no rhonchi, no rales, no accessory muscle use Abdominal: soft, nontender to palpation, no guarding Ext: muscle strength 5 out of 5 in all 4 extremities grossly, no gross muscle atrophy, no contractures, Neuro: CN II-XI grossly intact, no gross focal neuro deficits Psych: Alert, oriented, appropriate affect Assessment/plan Acute asthma exacerbation -Continue with Solu-Medrol and DuoNeb -Slowly wean off of BiPAP -Pulmonary consulted by ED physician Acute kidney injury -Continue IV fluids and monitor BMP DVT prophylaxis -Heparin subcu The patient is admitted with an anticipated greater than 2 midnight stay for evaluation of acute asthma exacerbation. CODE STATUS: Full Code Discussed with: Patient Anticipated discharge date: 08/[address]: Home Past Medical History Past Medical History: Asthma History of Any Multi-Drug Resistant Organisms: None Reported Past Surgical History: Tubal Ligation Additional Past Surgical History / Comment(s): neck surgery Past Anesthesia/Blood Transfusion Reactions: No Reported Reaction Past Psychological History: No Psychological Hx Reported Smoking Status: Never smoker Past Alcohol Use History: None Reported Past Drug Use History: None Reported - Past Family History Father Family Medical History: Hypertension Mother Additional Family Medical History / Comment(s): Alzhemiers Sister(s) Family Medical History: CVA/TIA Medications and Allergies Home Medications Medication Instructions Recorded Confirmed Type Calcium Carbonate [Calcium] 600 mg PO BID 10/19/21 08/25/22 History Meloxicam [Mobic] 15 mg PO DAILY 10/19/21 08/25/22 History Turmeric Root Extract [Turmeric] 500 mg PO DAILY 10/19/21 08/25/22 History Alendronate Sodium [Fosamax] 70 mg PO TH 08/25/22 08/25/22 History Ubidecarenone [Coenzyme Q10] 200 mg PO Q48H 08/25/22 08/25/22 History Allergies Allergy/AdvReac Type Severity Reaction Status Date / Time No Known Allergies Allergy Verified 08/25/22 18:42 Physical Exam Vitals: Vital Signs Temp Pulse Pulse Resp BP BP Pulse Ox 08/25/22 22:35 97.7 F 87 16 159/95 100 08/25/22 22:00 08/25/22 21:05 82 20 144/80 99 08/25/22 19:25 08/25/22 18:43 96 08/25/22 18:30 08/25/22 18:26 103 H 08/25/22 18:19 104 H 08/25/22 18:08 102 H 22 180/96 99 08/25/22 18:01 97.5 F L 120 H 20 170/96 96 08/25/22 17:55 102 H FiO2 08/25/22 22:35 50 08/25/22 22:00 40 08/25/22 21:05 08/25/22 19:25 50 08/25/22 18:43 08/25/22 18:30 70 08/25/22 18:26 08/25/22 18:19 08/25/22 18:08 08/25/22 18:01 08/25/22 17:55 100 Intake and Output 08/25/22 08/25/22 08/25/22 06:59 14:59 22:59 Other: Weight 49.895 kg Results CBC & Chem 7: 08/25/22 Unknown 08/25/22 Unknown Labs: Abnormal Lab Results - Last 24 Hours (Table) 08/25/22 08/25/22 08/25/22 Range/Units 19:24 Unknown Unknown MCV 100.4 H (80.0-100.0) fL ABG pO2 82 L (83-108) mmHg ABG HCO3 26 H (21-25) mmol/L ABG Total CO2 27 H (19-24) mmol/L BUN 26 H (7-17) mg/dL Creatinine 1.18 H (0.52-1.04) mg/dL Glucose 133 H (74-99) mg/dL Thrombosis Risk Factor Assmnt - Choose All That Apply Any of the Below Risk Factors Present?: No Other Risk Factors: Yes Each Risk Factor Represents 2 Points: Age 61-74 years Other congenital or acquired thrombophilia - If yes, enter type in comment: No Thrombosis Risk Factor Assessment Total Risk Factor Score: 2 Thrombosis Risk Factor Assessment Level: Low Risk
[2022-08-26] MEDS: IPRATROPIUM-ALBUTEROL 3 ML NEB INHALATION PRN ×2 (00:36→04:14)
[2022-08-26] MEDS: methylPREDNISolone SOD SUCCI 40 MG/ML 1 ML VIAL IV SCH ×3 (00:48→18:47)
[2022-08-26] MEDS: IPRATROPIUM-ALBUTEROL 3 ML NEB INHALATION SCH ×4 (07:35→20:12)
[2022-08-26 08:29] LABS: Basophils % (A) 0 %; Eosinophils % (A) 1 %; HCT 37.9 % (34.0-46.0); HGB 11.7 gm/dL (11.4-16.0); Hypochromasia Moderate; Lymphocytes # (A) 0.2 k/uL (1.0-4.8); Lymphocytes % (A) 6 %; MCH 31.9 pg (25.0-35.0); MCHC 30.8 g/dL (31.0-37.0); MCV 103.6 fL (80.0-100.0); Macrocytosis Slight; Mean Platelet Volume 10.3; Monocytes # (A) 0.1 k/uL (0-1.0); Monocytes % (A) 2 %; Neutrophils # (A) 3.6 k/uL (1.3-7.7); Neutrophils % (A) 91 %; Platelet Count 200 k/uL (150-450); RBC 3.66 m/uL (3.80-5.40); RDW 12.7 % (11.5-15.5)
[2022-08-26 08:48] LABS: African American GFR (CKD) >90 (>60 ml/min/1.73 sqM); Anion Gap 12 mmol/L; Blood Urea Nitrogen 22 mg/dL (7-17); Calcium 8.5 mg/dL (8.4-10.2); Carbon Dioxide 21 mmol/L (22-30); Chloride 108 mmol/L (98-107); Glucose 175 mg/dL (74-99); Non-African American GFR(CKD) 86 (>60 ml/min/1.73 sqM); Potassium 4.4 mmol/L (3.5-5.1); Sodium 141 mmol/L (137-145)
--- NOTE | 2022-08-26 09:15 | P.PN ---
Subjective Progress Note Date: 08/26/22 Patient states her breathing has improved. Still requiring 4 L of oxygen. Gen: awake, alert HEENT: normocephalic, atraumatic, good hearing acuity, moist mucous membranes Resp: Impaired air exchange, breathing comfortably with no accessory muscle use, poor oxygen movement on auscultation, no wheezing CVS: good distal perfusion x 4, GI: soft, NTTP, ND : no SPT, no CVAT, clay catheter not present MSK: no pitting edema, no clubbing Neuro: non-focal, moving all extremities Psych: cooperative, euthymic mood Assessment/plan: Acute asthma exacerbation -Continue with Solu-Medrol and DuoNeb -Slowly wean off of BiPAP -Pulmonary consulted by ED physician Acute kidney injury -Continue IV fluids and monitor BMP DVT prophylaxis -Heparin subcu The patient is admitted with an anticipated greater than 2 midnight stay for evaluation of acute asthma exacerbation. CODE STATUS: Full Code Discussed with: Patient Anticipated discharge date: 08/[address]: Home Objective - Vital Signs Vital signs: Vital Signs Temp 96.2 F L 08/26/22 08:00 Pulse 105 H 08/26/22 08:00 Resp 16 08/26/22 08:00 BP 112/59 08/26/22 08:00 Pulse Ox 98 08/26/22 08:00 FiO2 40 08/26/22 01:23 Intake & Output 08/25/22 08/26/22 08/26/22 18:59 06:59 18:59 Intake Total 20 100 Balance 20 100 Weight 49.895 kg 49.895 kg Intake: IV 20 Invasive Line 1 10 Invasive Line 2 10 Oral 100 Other: Voiding Method Toilet Toilet # Voids 1 - Labs CBC & Chem 7: 08/26/22 07:53 08/26/22 07:53 Labs: Abnormal Lab Results - Last 24 Hours (Table) 08/25/22 08/25/22 08/25/22 Range/Units 19:24 Unknown Unknown RBC (3.80-5.40) m/uL MCV 100.4 H (80.0-100.0) fL MCHC (31.0-37.0) g/dL Lymphocytes # (1.0-4.8) k/uL ABG pO2 82 L (83-108) mmHg ABG HCO3 26 H (21-25) mmol/L ABG Total CO2 27 H (19-24) mmol/L Chloride (98-107) mmol/L Carbon Dioxide (22-30) mmol/L BUN 26 H (7-17) mg/dL Creatinine 1.18 H (0.52-1.04) mg/dL Glucose 133 H (74-99) mg/dL 08/26/22 08/26/22 Range/Units 07:53 07:53 RBC 3.66 L (3.80-5.40) m/uL MCV 103.6 H (80.0-100.0) fL MCHC 30.8 L (31.0-37.0) g/dL Lymphocytes # 0.2 L (1.0-4.8) k/uL ABG pO2 (83-108) mmHg ABG HCO3 (21-25) mmol/L ABG Total CO2 (19-24) mmol/L Chloride 108 H (98-107) mmol/L Carbon Dioxide 21 L (22-30) mmol/L BUN 22 H (7-17) mg/dL Creatinine (0.52-1.04) mg/dL Glucose 175 H (74-99) mg/dL
[2022-08-26] MEDS: HEPARIN SODIUM,PORCINE/PF 5,000 UNIT/0.5 ML SYRINGE SQ SCH ×2 (09:28→20:04)
--- NOTE | 2022-08-26 11:28 | P.CNPUL ---
History of Present Illness Consult date: 08/26/22 Requesting physician: Adrián Nash Reason for consult: dyspnea, cough, asthma, hypoxemia Chief complaint: Shortness of breath. History of present illness: Pulmonary consult dated 08/26/2022. 77-year-old female with history of asthma, presents to the emergency department, on August 25, complaining of increasing shortness of breath. She hasn't been feeling well for a couple weeks, and things have been getting worse on a daily basis. The patient was using breathing treatments at home, and he did not seem to help. The patient was seen in the emergency room, and admitted with a diagnosis of asthma exacerbation, and I was consulted. When I saw the patient, in room 352, her and son were also in the room. The patient was complaining of shortness of breath, coughing, chest tightness, and wheezing. She was not producing any phlegm. There was no fever or chills. Her medical history includes primarily asthma, osteoporosis, and osteoarthritis. She is a lifelong nonsmoker. White count 4, hemoglobin 11.7, hematocrit 37.9, and platelet count was 200,000. Coagulation studies were normal. Blood gases show pO2 of 82, pCO2 of 44, and a pH is 7.38. The patient was initially placed on BiPAP, with some improvement. Sodium 141, potassium 4.4, chlorides 108, CO2 21, BUN 22, and creatinine 0.68. Testing for coronavirus was negative. Likewise, testing for influenza A, and influenza B, were also negative. The chest x-ray showed some atelectasis at the right lung base, and was unchanged compared to an x-ray done in February of this year. Review of Systems REVIEW OF SYSTEMS: CONSTITUTIONAL: [Negative.] NEUROLOGIC: [ Negative.] HEENT: [ Negative.] CARDIAC: [Negative.] PULMONARY: Shortness of breath, cough, chest tightness, and wheezing. GI: [Negative.] : [Negative.] RHEUMATOLOGIC: [ Negative.] IMMUNOLOGIC: [ Negative.] ENDOCRINE: [Negative. ] DERMATOLOGIC: [Negative.] Past Medical History Past Medical History: Asthma History of Any Multi-Drug Resistant Organisms: None Reported Past Surgical History: Tubal Ligation Additional Past Surgical History / Comment(s): neck surgery Past Anesthesia/Blood Transfusion Reactions: No Reported Reaction Past Psychological History: No Psychological Hx Reported Smoking Status: Never smoker Past Alcohol Use History: None Reported Past Drug Use History: None Reported - Past Family History Father Family Medical History: Hypertension Mother Additional Family Medical History / Comment(s): Alzhemiers Sister(s) Family Medical History: CVA/TIA Medications and Allergies Home Medications Medication Instructions Recorded Confirmed Type Calcium Carbonate [Calcium] 600 mg PO BID 10/19/21 08/25/22 History Meloxicam [Mobic] 15 mg PO DAILY 10/19/21 08/25/22 History Turmeric Root Extract [Turmeric] 500 mg PO DAILY 10/19/21 08/25/22 History Alendronate Sodium [Fosamax] 70 mg PO TH 08/25/22 08/25/22 History Ubidecarenone [Coenzyme Q10] 200 mg PO Q48H 08/25/22 08/25/22 History Allergies Allergy/AdvReac Type Severity Reaction Status Date / Time No Known Allergies Allergy Verified 08/25/22 18:42 Physical Exam Osteopathic Statement: *. No significant issues noted on an osteopathic structural exam other than those noted in the History and Physical/Consult. Vitals: Vital Signs Temp Pulse Pulse Resp BP BP Pulse Ox 08/26/22 11:11 95 08/26/22 08:00 96.2 F L 105 H 16 112/59 98 08/26/22 07:48 96 08/26/22 07:35 86 100 08/26/22 04:35 98 08/26/22 04:30 80 08/26/22 04:23 80 08/26/22 04:00 98.0 F 91 16 133/64 98 08/26/22 01:23 98 08/26/22 01:00 84 08/26/22 00:47 80 08/26/22 00:36 08/26/22 00:00 97.8 F 89 17 144/76 100 08/25/22 22:35 97.7 F 87 16 159/95 100 08/25/22 22:00 08/25/22 21:05 82 20 144/80 99 08/25/22 19:25 08/25/22 18:43 96 08/25/22 18:30 08/25/22 18:26 103 H 08/25/22 18:19 104 H 08/25/22 18:08 102 H 22 180/96 99 08/25/22 18:01 97.5 F L 120 H 20 170/96 96 08/25/22 17:55 102 H FiO2 08/26/22 11:11 08/26/22 08:00 08/26/22 07:48 08/26/22 07:35 08/26/22 04:35 08/26/22 04:30 08/26/22 04:23 08/26/22 04:00 08/26/22 01:23 40 08/26/22 01:00 08/26/22 00:47 08/26/22 00:36 40 08/26/22 00:00 50 08/25/22 22:35 50 08/25/22 22:00 40 08/25/22 21:05 08/25/22 19:25 50 08/25/22 18:43 08/25/22 18:30 70 08/25/22 18:26 08/25/22 18:19 08/25/22 18:08 08/25/22 18:01 08/25/22 17:55 100 Intake and Output 08/25/22 08/26/22 08/26/22 22:59 06:59 14:59 Intake Total 20 100 Balance 20 100 Intake: IV 20 Invasive Line 1 10 Invasive Line 2 10 Oral 100 Other: Voiding Method Toilet Toilet # Voids 1 Weight 49.895 kg No acute distress, oriented 3. No audible wheezing, conversational dyspnea, or use of accessory muscles. Currently, the patient is on 4 L, with saturations of 98%. HEENT examination is grossly unremarkable. Neck supple. Full range of motion. No adenopathy thyromegaly or neck vein distention. Cardiovascular examination reveals regular rhythm rate. S1-S2 normal. No S3 or S4. No discernible murmur noted. Heart rate 105 bpm. Lungs reveal mild scattered rhonchi and wheezes. Slight prolongation on forced maneuver. No crackles. Breath sounds are equal bilaterally. Abdomen soft bowel sounds are heard. No masses or tenderness. Extremities are intact. No cyanosis clubbing or edema. Skin is without rash or lesion. Neurologic examination is brief but nonfocal. Results - Laboratory Findings CBC and BMP: 08/26/22 07:53 08/26/22 07:53 ABG ABG pH 7.38 (7.35-7.45) 08/25/22 19:24 ABG pCO2 44 mmHg (35-45) 08/25/22 19:24 ABG pO2 82 mmHg (83-108) L 08/25/22 19:24 ABG O2 Saturation 96.3 % (94-97) 08/25/22 19:24 PT/INR, D-dimer PT 10.5 sec (9.0-12.0) 08/25/22 Unknown INR 1.0 (<1.2) 08/25/22 Unknown Abnormal lab findings: Abnormal Labs 08/25/22 08/25/22 08/25/22 19:24 Unknown Unknown RBC MCV 100.4 H MCHC Lymphocytes # ABG pO2 82 L ABG HCO3 26 H ABG Total CO2 27 H Chloride Carbon Dioxide BUN 26 H Creatinine 1.18 H Glucose 133 H 08/26/22 08/26/22 07:53 07:53 RBC 3.66 L MCV 103.6 H MCHC 30.8 L Lymphocytes # 0.2 L ABG pO2 ABG HCO3 ABG Total CO2 Chloride 108 H Carbon Dioxide 21 L BUN 22 H Creatinine Glucose 175 H - Diagnostic Findings Chest x-ray: image reviewed Assessment and Plan Assessment: Acute exacerbation of asthma, without obvious infection. History of osteoporosis. History of osteoarthritis. Plan: Plan dated 08/26/2022. The patient is currently on Symbicort 160/4.5, 2 puffs twice a day, and updrafts with albuterol sulfate and ipratropium bromide. In addition, she is on Solu- Medrol 40 mg every 8 hours. No antibiotics are needed at this time. The patient could likely be discharged home tomorrow. She'll need to follow with me in the office. Prognosis is thought to be generally good. Time with Patient: Greater than 30
[2022-08-26 12:43] VITALS: BMI 18.8
[2022-08-26] MEDS: SYMBICORT 160-4.5 MCG INHALER INHALATION SCH (20:13)
[2022-08-27] MEDS: methylPREDNISolone SOD SUCCI 40 MG/ML 1 ML VIAL IV SCH ×2 (00:55→09:49)
[2022-08-27] MEDS: SYMBICORT 160-4.5 MCG INHALER INHALATION SCH (07:20)
[2022-08-27] MEDS: IPRATROPIUM-ALBUTEROL 3 ML NEB INHALATION SCH ×2 (07:20→10:54)
[2022-08-27 08:01] VITALS: TEMP 97.3
[2022-08-27 08:33] VITALS: RESP 18
[2022-08-27] MEDS: HEPARIN SODIUM,PORCINE/PF 5,000 UNIT/0.5 ML SYRINGE SQ SCH (09:50)
--- NOTE | 2022-08-27 11:17 | P.PN ---
Subjective Progress Note Date: 08/27/22 Principal diagnosis: Shortness of breath. Pulmonary consult dated 08/26/2022. 77-year-old female with history of asthma, presents to the emergency department, on August 25, complaining of increasing shortness of breath. She hasn't been feeling well for a couple weeks, and things have been getting worse on a daily basis. The patient was using breathing treatments at home, and he did not seem to help. The patient was seen in the emergency room, and admitted with a diagnosis of asthma exacerbation, and I was consulted. When I saw the patient, in room 352, her and son were also in the room. The patient was complaining of shortness of breath, coughing, chest tightness, and wheezing. She was not producing any phlegm. There was no fever or chills. Her medical history includes primarily asthma, osteoporosis, and osteoarthritis. She is a lifelong nonsmoker. White count 4, hemoglobin 11.7, hematocrit 37.9, and platelet count was 200,000. Coagulation studies were normal. Blood gases show pO2 of 82, pCO2 of 44, and a pH is 7.38. The patient was initially placed on BiPAP, with some improvement. Sodium 141, potassium 4.4, chlorides 108, CO2 21, BUN 22, and creatinine 0.68. Testing for coronavirus was negative. Likewise, testing for influenza A, and influenza B, were also negative. The chest x-ray showed some atelectasis at the right lung base, and was unchanged compared to an x-ray done in February of this year. Progress note dated 08/27/2022. 77-year-old female seen yesterday in consultation. She has a history of asthma. Today, she is on room air. She's not receiving any IV fluids. She has her street clothes on, and is laying in bed. She is hoping to be discharged today. I told her that I could not discharge her, but rather, the hospital group we'll need to do that. She states that her breathing is much improved. No new laboratory data today. She denies any shortness of breath, chest tightness, cough, wheezing, or phlegm production. She had an uneventful night. Objective - Vital Signs Vital signs: Vital Signs Temp 97.3 F L 08/27/22 08:00 Pulse 92 08/27/22 11:05 Resp 18 08/27/22 08:00 BP 135/63 08/27/22 08:00 Pulse Ox 96 08/27/22 08:00 FiO2 21 08/26/22 20:14 Intake & Output 08/26/22 08/27/22 08/27/22 18:59 06:59 18:59 Intake Total 100 20 120 Balance 100 20 120 Weight 49.895 kg Intake: IV 20 Invasive Line 1 10 Invasive Line 2 10 Oral 100 120 Other: Voiding Method Toilet Toilet Toilet # Voids 1 2 1 - Exam No acute distress, oriented 3. Not using any supplemental oxygen. No audible wheezing, use of accessory muscles, or conversational dyspnea. HEENT examination is grossly unremarkable. Neck supple. Full range of motion. No adenopathy thyromegaly or neck vein distention. Cardiovascular examination reveals regular rhythm rate. S1-S2 normal. No S3 or S4. No discernible murmur noted. Heart rate 92 bpm. Lungs reveal mostly clear breath sounds. Minimal scattered rhonchi. No wheezes or crackles. Breath sounds equal bilaterally. The room air saturation is 96%. Abdomen soft bowel sounds are heard. No masses or tenderness. Extremities are intact. No cyanosis clubbing or edema. Skin is without rash or lesion. Neurologic examination is brief but nonfocal. - Labs CBC & Chem 7: 08/26/22 07:53 08/26/22 07:53 Assessment and Plan Assessment: Acute exacerbation of asthma, without obvious infection. History of osteoporosis. History of osteoarthritis. Plan: Plan dated 08/26/2022. The patient is currently on Symbicort 160/4.5, 2 puffs twice a day, and updrafts with albuterol sulfate and ipratropium bromide. In addition, she is on Solu- Medrol 40 mg every 8 hours. No antibiotics are needed at this time. The patient could likely be discharged home tomorrow. She'll need to follow with me in the office. Prognosis is thought to be generally good. Plan dated 08/27/2022. The patient's doing much better. In my opinion, the patient could be discharged . I told the patient to call the office in the morning, and make an appointment to see me in the next week or 2. The patient could be discharged home on a short course of prednisone. No antibiotics are necessary. She does have a rescue inhaler at home. Prognosis is thought to be generally good. Time with Patient: Less than 30
[2022-08-27 11:49] VITALS: BP 135/73; PULSE 102
--- NOTE | 2022-08-27 13:17 | P.DS ---
Providers Date of admission: 08/25/22 20:15 Expected date of discharge: 08/27/22 Attending physician: Adrián Nash MD Consults: 08/25/22 20:15 Consult Physician Routine Consulting Provider: Ruiz Hong Consult Reason/Comments: asthma exacerbation Do you want consulting provider notified?: Already Contacted Primary care physician: [facility] Course: Acute asthma exacerbation Acute kidney injury The patient is a 77-year-old female with a PMH of asthma who presents to the emergency room with complaints of shortness of breath. Upon arrival at the emergency room, the patient was in severe respiratory distress and required BiPAP. She was given epinephrine, DuoNeb's, and Solu-Medrol which significantly alleviated her symptoms. At time of interview, the patient reported feeling significantly better. Chest x-ray revealed a mild pleural reaction at the right lung base without any additional abnormalities. EKG revealed sinus tachycardia at 109 bpm without any acute ST/T-wave changes noted as reviewed by me. Laboratory evaluation was remarkable for creatinine of 1.18 (baseline 0.9). She improved to nasal cannula 24 hours of hospitalization, requiring about 4 L, and by 48 hours she was able to be weaned off of oxygen and felt that her normal baseline. She was seen by the window tinter who recommended outpatient follow-u p at this clinic. Patient was prescribed Symbicort, rescue inhaler, as well as prednisone course on discharge. I spent 32 minutes coordinating this discharge. Gen: awake, alert HEENT: normocephalic, atraumatic, good hearing acuity, moist mucous membranes Resp: good air exchange, breathing comfortably with no accessory muscle use CVS: good distal perfusion x 4, GI: soft, NTTP, ND : no SPT, no CVAT, clay catheter not present MSK: no pitting edema, no clubbing Neuro: non-focal, moving all extremities Psych: cooperative, euthymic mood Patient Condition at Discharge: Good Plan - Discharge Summary Discharge Rx Participant: No New Discharge Prescriptions: New Albuterol Inhaler [Ventolin Hfa Inhaler] 1 puff INHALATION QID PRN #8 gm PRN Reason: Dyspnea predniSONE [Deltasone] 40 mg PO DAILY #6 tab Budesonide-Formot 160-4.5 Mcg [Symbicort 160-4.5 Mcg Inhaler] 2 puff INHALATION RT-BID #1 each Continue Meloxicam [Mobic] 15 mg PO DAILY Turmeric Root Extract [Turmeric] 500 mg PO DAILY Alendronate Sodium [Fosamax] 70 mg PO TH Ubidecarenone [Coenzyme Q10] 200 mg PO Q48H Calcium Carbonate [Calcium] 600 mg PO BID Discharge Medication List Calcium Carbonate [Calcium] 600 mg PO BID 10/19/21 [History] Meloxicam [Mobic] 15 mg PO DAILY 10/19/21 [History] Turmeric Root Extract [Turmeric] 500 mg PO DAILY 10/19/21 [History] Alendronate Sodium [Fosamax] 70 mg PO TH 08/25/22 [History] Ubidecarenone [Coenzyme Q10] 200 mg PO Q48H 08/25/22 [History] Albuterol Inhaler [Ventolin Hfa Inhaler] 1 puff INHALATION QID PRN #8 gm 08/27/22 [Rx] Budesonide-Formot 160-4.5 Mcg [Symbicort 160-4.5 Mcg Inhaler] 2 puff INHALATION RT-BID #1 each 08/27/22 [Rx] predniSONE [Deltasone] 40 mg PO DAILY #6 tab 08/27/22 [Rx] Follow up Appointment(s)/Referral(s): Shreyas Steve [Primary Care Provider] - 1-2 days Discharge Disposition: HOME SELF-CARE
[2022-08-31] MEDS ORDERED: NON FORMULARY DRUG (Alendronate Sodium [Fosamax] 70 MG Tablet) PO SCH (09:00)
== END 2022-08-27 14:05 | disposition home or self-care (01) | DRG 202 ==
LOC: EC 17:45 → 3SCARD 20:15
PROVIDERS: ADMIT Internal Medicine; ATTEND Internal Medicine
PROC: 5A09357 Assistance with Respiratory Ventilation, Less than 24 Consecutive Hours, Continuous Positive Airway Pressure (ICD-10-PCS; principal; 2022-08-25)
DX: J45.901 Unspecified asthma with (acute) exacerbation (principal); J96.01 Acute respiratory failure with hypoxia; N17.9 Acute kidney failure, unspecified; J90 Pleural effusion, not elsewhere classified; M81.0 Age-related osteoporosis without current pathological fracture; Z79.1 Long term (current) use of non-steroidal anti-inflammatories (NSAID); Z79.83 Long term (current) use of bisphosphonates; Z20.822 Contact with and (suspected) exposure to COVID-19; Z98.51 Tubal ligation status
CPT/HCPCS: 36415; 36600; 71045; 80048; 80053; 82805; 85025; 85610; 85730; 87502; 87635; 93005; 94640; 94660; 94760; 94762; 96361; 96365; 96366; 96375; 99285

== ENCOUNTER 2023-03-01 11:42 | Emergency (ER) | payer MEDICARE ==
[2023-03-01 12:02] VITALS: TEMP 98
--- NOTE | 2023-03-01 12:11 | ED ---
General Adult HPI - General Chief complaint: Shortness of Breath Stated complaint: sob Time Seen by Provider: 03/01/23 12:00 Source: patient, family, RN notes reviewed, old records reviewed Mode of arrival: ambulatory Limitations: no limitations - History of Present Illness Initial comments: This 78-year-old female with past medical history significant for asthma. Patient states she's had a couple of episodes recently of an exacerbation of her asthma. Patient states about 10:00 this morning she started having another with a stick couple breathing treatments but it didn't get any better so she came to the emergency department. Patient denies any recent fever chills or cough. Patient denies any chest pain. Patient denies any palpitations. states her heart rate did dip 220 when she was having a real difficult time breathing after couple treatments. Patient denies any abdominal pain patient denies nausea vomiting diarrhea. Patient denies any swelling to the legs or calf tenderness. - Related Data Home Medications Medication Instructions Recorded Confirmed Multivitamins, Thera [Multivitamin 1 tab PO DAILY 01/08/23 01/08/23 (formulary)] Previous Rx's Medication Instructions Recorded Budesonide-Formot 160-4.5 Mcg 2 puff INHALATION RT-BID #1 each 08/27/22 [Symbicort 160-4.5 Mcg Inhaler] Albuterol Inhaler [Ventolin Hfa 1 puff INHALATION RT-QID PRN #1 01/09/23 Inhaler] each Doxycycline [Vibramycin] 100 mg PO BID 4 Days #8 cap 01/09/23 Loratadine [Claritin] 10 mg PO DAILY 30 Days #30 tab 01/09/23 predniSONE 50 mg PO DAILY 3 Days #3 tab 01/09/23 predniSONE [Deltasone] 40 mg PO DAILY #8 tab 03/01/23 Allergies Allergy/AdvReac Type Severity Reaction Status Date / Time No Known Allergies Allergy Verified 03/01/23 12:02 Review of Systems ROS Statement: Those systems with pertinent positive or pertinent negative responses have been documented in the HPI. ROS Other: All systems not noted in ROS Statement are negative. Past Medical History Past Medical History: Asthma History of Any Multi-Drug Resistant Organisms: None Reported Past Surgical History: Tubal Ligation Additional Past Surgical History / Comment(s): neck surgery Past Anesthesia/Blood Transfusion Reactions: No Reported Reaction Past Psychological History: No Psychological Hx Reported Smoking Status: Never smoker Past Alcohol Use History: None Reported Past Drug Use History: None Reported - Past Family History Father Family Medical History: Hypertension Mother Additional Family Medical History / Comment(s): Alzhemiers Sister(s) Family Medical History: CVA/TIA General Exam - General Exam Comments Initial Comments: GENERAL: Patient is well-developed and well-nourished. Patient is nontoxic and well- hydrated and is in mild distress. ENT: Neck is soft and supple. No significant lymphadenopathy is noted. Oropharynx is clear. Moist mucous membranes. Neck has full range of motion without eliciting any pain. EYES: The sclera were anicteric and conjunctiva were pink and moist. Extraocular movements were intact and pupils were equal round and reactive to light. Eyelids were unremarkable. PULMONARY: Diminished breath sounds diffusely. Patient has occasional expiratory wheezing CARDIOVASCULAR: There is a regular rate and rhythm without any murmurs gallops or rubs. ABDOMEN: Soft and nontender with normal bowel sounds. No palpable organomegaly was noted. There is no palpable pulsatile mass. SKIN: Skin is clear with no lesions or rashes and otherwise unremarkable. NEUROLOGIC: Patient is alert and oriented x3. Cranial nerves II through XII are grossly intact. Motor and sensory are also intact. Normal speech, volume and content. Symmetrical smile. MUSCULOSKELETAL: Normal extremities with adequate strength and full range of motion. No lower extremity swelling or edema. No calf tenderness. LYMPHATICS: No significant lymphadenopathy is noted PSYCHIATRIC: Normal psychiatric evaluation. Limitations: no limitations Course Vital Signs 03/01/23 03/01/23 03/01/23 12:00 12:02 12:31 Temperature 98.0 F Pulse Rate 110 H 92 Respiratory 26 H 24 20 Rate Blood Pressure 105/54 O2 Sat by Pulse 79 L Oximetry 03/01/23 03/01/23 03/01/23 12:47 13:00 13:30 Temperature Pulse Rate 90 92 92 Respiratory 20 18 18 Rate Blood Pressure 120/66 136/77 O2 Sat by Pulse 96 99 Oximetry Medical Decision Making - Medical Decision Making EKG was interpreted by myself EKG shows sinus tachycardia at 100 bpm VA interval 147 QRS is 94 QT interval 340 QTC is 397. Patient has T-wave inversions in leads 3 and aVF which were seen on previous EKG. Was pt. sent in by a medical professional or institution (Dr., PA, HEALTHCARE RECEPTIONIST, urgent care, hospital, or assisted...) When possible be specific @ -No Did you speak to anyone other than the patient for history (EMS, parent, family, police, friend...)? What history was obtained from this source @ -No Did you review nursing and triage notes (agree or disagree)? Why? @ -I reviewed and agree with nursing and triage notes Were old charts reviewed (outside hosp., previous admission, EMS record, old EKG, old radiological studies, urgent care reports/EKG's, assisted records)? Report findings @ -I reviewed prior charts prior radiological studies in prior EKGs. Differential Diagnosis (chest pain, altered mental status, abdominal pain women, abdominal pain men, vaginal bleeding, weakness, fever, dyspnea, syncope, headache, dizziness, GI bleed, back pain, seizure, CVA, palpatations, mental health, musculoskeletal)? @ -Differential Dyspnea: Coronary syndrome, arrhythmia, tamponade, asthma, COPD, pulmonary embolism, pneumonia, pneumothorax, pulmonary effusion, anaphylaxis, diabetic ketoacidosis, flailed chest, pulmonary contusion, diaphragmatic rupture, anemia, neuromuscular, this is not meant to be an all-inclusive list. EKG interpreted by me (3pts min.). @ -As above X-rays interpreted by me (1pt min.). @ -Chest x-ray showed no acute abnormality. Chest x-ray as interpreted by myself. CT interpreted by me (1pt min.). @ -None done U/S interpreted by me (1pt. min.). @ -None done What testing was considered but not performed or refused? (CT, X-rays, U/S, labs)? Why? @ -None What meds were considered but not given or refused? Why? @ -None Did you discuss the management of the patient with other professionals (professionals i.e. SUNDEEP Albrecht, HEALTHCARE RECEPTIONIST, lab, RT, psych nurse, social services, recreation therapy aide, teacher, field artillery officer, case monitor)? Give summary @ -No Was smoking cessation discussed for >3mins.? @ -No Was critical care preformed (if so, how long)? @ -No Were there social determinants of health that impacted care today? How? (Homelessness, low income, unemployed, alcoholism, drug addiction, transportation, low edu. Level, literacy, decrease access to med. care, [place] [facility], rehab)? @ -No Was there de-escalation of care discussed even if they declined (Discuss DNR or withdrawal of care, Hospice)? DNR status @ -No What co-morbidities impacted this encounter? (DM, HTN, Smoking, COPD, CAD, Cancer, CVA, ARF, Chemo, Hep., AIDS, mental health diagnosis, sleep apnea, morbid obesity)? @ -None Was patient admitted / discharged? Hospital course, mention meds given and route, prescriptions, significant lab abnormalities, going to OR and other pertinent info. @ -She received 2 albuterol and Atrovent treatments and steroids 125 mg of Solu-Medrol. I will back and reevaluated the patient and she felt considerably better her oxygenation was 96% on room air and she felt back to her baseline. Patient's lab work returned and it came back normal x-ray was normal and patient wanted to go home and was also comfortable with this. Undiagnosed new problem with uncertain prognosis? @ -No Drug Therapy requiring intensive monitoring for toxicity (Heparin, Nitro, Insulin, Cardizem)? @ -No Were any procedures done? @ -No Diagnosis/symptom? @ -Exacerbation of asthma Acute, or Chronic, or Acute on Chronic? @ -Acute Uncomplicated (without systemic symptoms) or Complicated (systemic symptoms)? @ -Complicated Side effects of treatment? @ -No Exacerbation, Progression, or Severe Exacerbation? @ -No Poses a threat to life or bodily function? How? (Chest pain, USA, SC, pneumonia, PE, COPD, DKA, ARF, appy, cholecystitis, CVA, Diverticulitis, Homicidal, Suicidal, threat to staff... and all critical care pts) @ -No - Lab Data Result diagrams: 03/01/23 12:31 03/01/23 12:31 Lab Results 03/01/23 03/01/23 03/01/23 Range/Units 12:31 12:31 12:31 WBC 4.9 (3.8-10.6) k/uL RBC 3.91 (3.80-5.40) m/uL Hgb 12.9 (11.4-16.0) gm/dL Hct 38.2 (34.0-46.0) % MCV 97.8 (80.0-100.0) fL MCH 32.9 (25.0-35.0) pg MCHC 33.7 (31.0-37.0) g/dL RDW 12.9 (11.5-15.5) % Plt Count 208 (150-450) k/uL MPV 7.9 Neutrophils % 73 % Lymphocytes % 19 % Monocytes % 3 % Eosinophils % 3 % Basophils % 0 % Neutrophils # 3.6 (1.3-7.7) k/uL Lymphocytes # 0.9 L (1.0-4.8) k/uL Monocytes # 0.2 (0-1.0) k/uL Eosinophils # 0.2 (0-0.7) k/uL Basophils # 0.0 (0-0.2) k/uL PT 10.3 (9.0-12.0) sec INR 1.0 (<1.2) APTT 23.5 (22.0-30.0) sec D-Dimer 0.58 (<0.60) mg/L FEU Sodium 138 (137-145) mmol/L Potassium 3.9 (3.5-5.1) mmol/L Chloride 104 (98-107) mmol/L Carbon Dioxide 26 (22-30) mmol/L Anion Gap 8 mmol/L BUN 18 H (7-17) mg/dL Creatinine 0.99 (0.52-1.04) mg/dL Est GFR (CKD-EPI)AfAm 64 (>60 ml/min/1.73 sqM) Est GFR (CKD-EPI)NonAf 56 (>60 ml/min/1.73 sqM) Glucose 161 H (74-99) mg/dL Plasma Lactic Acid Luis M (0.7-2.0) mmol/L Calcium 9.2 (8.4-10.2) mg/dL Magnesium 2.1 (1.6-2.3) mg/dL Total Bilirubin 0.9 (0.2-1.3) mg/dL AST 22 (14-36) U/L ALT 20 (4-34) U/L Alkaline Phosphatase 90 (38-126) U/L Troponin I (0.000-0.034) ng/mL Total Protein 7.1 (6.3-8.2) g/dL Albumin 4.2 (3.5-5.0) g/dL 03/01/23 03/01/23 Range/Units 12:31 12:31 WBC (3.8-10.6) k/uL RBC (3.80-5.40) m/uL Hgb (11.4-16.0) gm/dL Hct (34.0-46.0) % MCV (80.0-100.0) fL MCH (25.0-35.0) pg MCHC (31.0-37.0) g/dL RDW (11.5-15.5) % Plt Count (150-450) k/uL MPV Neutrophils % % Lymphocytes % % Monocytes % % Eosinophils % % Basophils % % Neutrophils # (1.3-7.7) k/uL Lymphocytes # (1.0-4.8) k/uL Monocytes # (0-1.0) k/uL Eosinophils # (0-0.7) k/uL Basophils # (0-0.2) k/uL PT (9.0-12.0) sec INR (<1.2) APTT (22.0-30.0) sec D-Dimer (<0.60) mg/L FEU Sodium (137-145) mmol/L Potassium (3.5-5.1) mmol/L Chloride (98-107) mmol/L Carbon Dioxide (22-30) mmol/L Anion Gap mmol/L BUN (7-17) mg/dL Creatinine (0.52-1.04) mg/dL Est GFR (CKD-EPI)AfAm (>60 ml/min/1.73 sqM) Est GFR (CKD-EPI)NonAf (>60 ml/min/1.73 sqM) Glucose (74-99) mg/dL Plasma Lactic Acid Luis M 1.4 (0.7-2.0) mmol/L Calcium (8.4-10.2) mg/dL Magnesium (1.6-2.3) mg/dL Total Bilirubin (0.2-1.3) mg/dL AST (14-36) U/L ALT (4-34) U/L Alkaline Phosphatase (38-126) U/L Troponin I <0.012 (0.000-0.034) ng/mL Total Protein (6.3-8.2) g/dL Albumin (3.5-5.0) g/dL Disposition Clinical Impression: Asthma exacerbation Disposition: HOME SELF-CARE Condition: Good Instructions (If sedation given, give patient instructions): Asthma (ED) Prescriptions: predniSONE [Deltasone] 40 mg PO DAILY #8 tab Is patient prescribed a controlled substance at d/c from ED?: No Referrals: Milad Choudhary MD [Primary Care Provider] - 1-2 days Time of Disposition: 14:10
[2023-03-01] MEDS: methylPREDNISolone SOD SUCCI 125 MG/2 ML VIAL IV STA (12:28)
[2023-03-01] MEDS: IPRATROPIUM 0.5 MG/2.5 ML NEBU INHALATION STA (12:31)
[2023-03-01] MEDS: ALBUTEROL NEBULIZED 2.5 MG/3 ML INHALATION STA (12:31)
[2023-03-01 12:57] LABS: Basophils % (A) 0 %; Eosinophils # (A) 0.2 k/uL (0-0.7); Eosinophils % (A) 3 %; HCT 38.2 % (34.0-46.0); HGB 12.9 gm/dL (11.4-16.0); Lymphocytes # (A) 0.9 k/uL (1.0-4.8); Lymphocytes % (A) 19 %; MCH 32.9 pg (25.0-35.0); MCHC 33.7 g/dL (31.0-37.0); MCV 97.8 fL (80.0-100.0); Mean Platelet Volume 7.9; Monocytes # (A) 0.2 k/uL (0-1.0); Monocytes % (A) 3 %; Neutrophils # (A) 3.6 k/uL (1.3-7.7); Neutrophils % (A) 73 %; Platelet Count 208 k/uL (150-450); RBC 3.91 m/uL (3.80-5.40); RDW 12.9 % (11.5-15.5); WBC 4.9 k/uL (3.8-10.6)
[2023-03-01 13:07] LABS: Albumin 4.2 g/dL (3.5-5.0); Calcium 9.2 mg/dL (8.4-10.2); Magnesium 2.1 mg/dL (1.6-2.3); Potassium 3.9 mmol/L (3.5-5.1); Total Bilirubin 0.9 mg/dL (0.2-1.3); Total Protein 7.1 g/dL (6.3-8.2)
[2023-03-01 13:23] LABS: Partial Thromboplastin Time 23.5 sec (22.0-30.0); Prothrombin Time 10.3 sec (9.0-12.0)
--- NOTE | 2023-03-01 13:26 | XR ---
EXAMINATION TYPE: XR chest 2V DATE OF EXAM: 03/01/2023 COMPARISON: 08/25/22 HISTORY: Shortness of breath TECHNIQUE: Frontal and lateral views of the chest are obtained. FINDINGS: Scattered senescent parenchymal changes noted. Hyperinflation compatible with COPD. No evidence for infiltrate. No evidence for atelectasis. Heart size is stable. Mediastinal structures are stable and grossly unremarkable. No evidence for hilar prominence. Degenerative changes dorsal spine. IMPRESSION: 1. No evidence for acute pulmonary disease.
[2023-03-01 13:34] VITALS: RESP 18
[2023-03-01 14:38] VITALS: BP 127/69; PULSE 86
== END 2023-03-01 14:37 | disposition home or self-care (01) ==
LOC: EC 11:42
DX: J45.901 Unspecified asthma with (acute) exacerbation (principal)
CPT/HCPCS: 36415; 94640; 93005; 85379; 80053; 83605; 83735; 84484; 85025; 85610; 85730; 87040; 71046; 99285; 96374; J2930

== ENCOUNTER 2023-05-04 19:37 | Inpatient (IN) | payer MEDICARE ==
[2023-05-04] MEDS ORDERED: IPRATROPIUM-ALBUTEROL 3 ML NEB INHALATION STA ×2 (19:40→21:39)
--- NOTE | 2023-05-04 19:50 | ED ---
SOB HPI - General Stated Complaint: CADEN Time Seen by Provider: 05/04/23 19:40 Source: patient, EMS, RN notes reviewed, old records reviewed Mode of arrival: EMS Limitations: no limitations - History of Present Illness Initial Comments: This is a 78-year-old female to the emergency department today. This patient presents today for evaluation of otherwise not feeling well. Patient has severe shortness breath with history of COPD. No travel history or sick contacts. MD Complaint: shortness of breath, cough -: hour(s) Radiation: back Severity: moderate Severity scale (1-10): 7 Quality: sharp, stabbing Consistency: constant Improves With: nothing Known History Of: COPD, asthma Associated Symptoms: denies other symptoms, cough Treatments Prior to Arrival: none - Related Data Home Medications Medication Instructions Recorded Confirmed Multivitamins, Thera [Multivitamin 1 tab PO DAILY 01/08/23 05/04/23 (formulary)] Alendronate Sodium [Fosamax] 70 mg PO TH 03/01/23 05/04/23 Calcium Carbonate [Calcium] 600 mg PO BID 03/01/23 05/04/23 Cyanocobalamin (Vitamin B-12) 1,000 mcg PO DAILY 05/04/23 05/04/23 [Vitamin B-12] Fish Oil/Dha/Epa [Fish Oil 1,200 1 cap PO DAILY 05/04/23 05/04/23 mg Fish Oil] Turmeric Root Extract [Turmeric] 500 mg PO DAILY 05/04/23 05/04/23 Previous Rx's Medication Instructions Recorded Budesonide-Formot 160-4.5 Mcg 2 puff INHALATION RT-BID #1 each 08/27/22 [Symbicort 160-4.5 Mcg Inhaler] Albuterol Inhaler [Ventolin Hfa 1 puff INHALATION RT-QID PRN #1 01/09/23 Inhaler] each Doxycycline [Vibramycin] 100 mg PO BID 4 Days #8 cap 05/05/23 predniSONE [Deltasone] 40 mg PO DAILY 4 Days #8 tab 05/05/23 Allergies Allergy/AdvReac Type Severity Reaction Status Date / Time acetaminophen [From Tylenol] AdvReac Severe CADEN Verified 05/04/23 21:48 Review of Systems ROS Statement: Those systems with pertinent positive or pertinent negative responses have been documented in the HPI. ROS Other: All systems not noted in ROS Statement are negative. Past Medical History Past Medical History: Asthma History of Any Multi-Drug Resistant Organisms: None Reported Past Surgical History: Tubal Ligation Additional Past Surgical History / Comment(s): neck surgery Past Anesthesia/Blood Transfusion Reactions: No Reported Reaction Past Psychological History: No Psychological Hx Reported Smoking Status: Never smoker Past Alcohol Use History: None Reported Past Drug Use History: None Reported - Past Family History Father Family Medical History: Hypertension Mother Additional Family Medical History / Comment(s): Alzhemiers Sister(s) Family Medical History: CVA/TIA General Exam Limitations: no limitations General appearance: alert, in no apparent distress, anxious Head exam: Present: atraumatic, normocephalic, normal inspection Eye exam: Present: normal appearance, PERRL, EOMI. Absent: scleral icterus, conjunctival injection, periorbital swelling ENT exam: Present: normal exam, mucous membranes moist Neck exam: Present: normal inspection. Absent: tenderness, meningismus, lymphadenopathy Respiratory exam: Present: normal lung sounds bilaterally, respiratory distress, wheezes, accessory muscle use, decreased breath sounds, prolonged expiratory. Absent: rales, rhonchi, stridor Cardiovascular Exam: Present: normal rhythm, tachycardia, normal heart sounds. Absent: systolic murmur, diastolic murmur, rubs, gallop, clicks GI/Abdominal exam: Present: soft, normal bowel sounds. Absent: distended, tenderness, guarding, rebound, rigid Extremities exam: Present: normal inspection, full ROM, normal capillary refill. Absent: tenderness, pedal edema, joint swelling, calf tenderness Back exam: Present: normal inspection Neurological exam: Present: alert, oriented X3, CN II-XII intact Psychiatric exam: Present: normal affect, normal mood Skin exam: Present: warm, dry, intact, normal color. Absent: rash Course Vital Signs 05/04/23 05/04/23 05/04/23 19:40 19:49 19:50 Temperature 97.7 F Pulse Rate 116 H Respiratory 26 H Rate Blood Pressure 107/57 O2 Sat by Pulse 85 L Oximetry Fraction of 100 100 Inspired Oxygen (FIO2) 05/04/23 05/04/23 05/04/23 20:03 20:12 20:16 Temperature Pulse Rate 108 H Respiratory 28 H Rate Blood Pressure O2 Sat by Pulse Oximetry Fraction of 80 Inspired Oxygen (FIO2) 05/04/23 05/04/23 20:21 22:33 Temperature Pulse Rate 107 H 101 H Respiratory 20 Rate Blood Pressure 120/61 O2 Sat by Pulse 98 Oximetry Fraction of Inspired Oxygen (FIO2) - Reevaluation(s) Reevaluation #1: 05/04/23 19:52 Records records reviewed 05/04/23 19:52 Patient placed on BiPAP 05/04/23 21:41 Patient continues to improve on BiPAP Reevaluation #2: 05/04/23 19:52 Patient symptoms continue to improve Reevaluation #3: 05/04/23 19:52 Patient informed results and questions answered Reevaluation #4: 05/04/23 19:52 Was pt. sent in by a medical professional or institution? @ -no Did you speak to anyone other than the patient for history? @ -no Did you review nursing and triage notes? @ -agree Were old charts reviewed? @ -Yes patient's prior hospital admissions involving reviewed with severe history of respiratory distress Differential Diagnosis? @ -prior EKG interpreted by me (3pts min.)? @ -yes X-rays interpreted by me (1pt min.)? @ -yes CT interpreted by me (1pt min.)? @ -no U/S interpreted by me (1pt. min.)? @ -no What testing was considered but not performed? (CT, X-rays, U/S, labs)? Why? @ -no What meds were considered but not given? Why? @ -no Did you discuss the management of the patient with other professionals? @ -no Did you reconcile home meds? @ -no Was smoking cessation discussed for >3mins.? @ -no Was critical care preformed (if so, how long)? @ -yes31 Were there social determinants of health that impacted care today? How? (Homelessness, low income, unemployed, alcoholism, drug addiction, transportation, low edu. Level, literacy, decrease access to med. care, correction, rehab)? @ -no Was there de-escalation of care discussed even if they declined? (Discuss DNR or withdrawal of care, Hospice)? @ -no What co-morbidities impacted this encounter? (DM, HTN, Smoking, COPD, CAD, Cancer, CVA, Hep., AIDS, mental health diagnosis, sleep apnea, morbid obesity)? @ -none Was patient admitted / discharged? @ -78 female the admitted for acute COPD and her stress fire with hypoxia on BiPAP, will admit for breathing treatment steroids. Supportive care Admitted Undiagnosed new problem with uncertain prognosis? @ -no Drug Therapy requiring intensive monitoring for toxicity (Heparin, Nitro, In sulin, Cardizem)? @ -no Were any procedures done? @ -no Diagnosis/symptom? @ -COPD, hypoxia, respiratory failure Acute, or Chronic, or Acute on Chronic? @ -no Uncomplicated (without systemic symptoms) or Complicated (systemic symptoms)? @ -uncomplicated Side effects of treatment? @ -no Exacerbation, Progression, or Severe Exacerbation] @ -no Poses a threat to life or bodily function? @ -no 05/15/23 01:42 Reevaluation #5: 05/04/23 19:52 Differential Dyspnea: Coronary syndrome, arrhythmia, tamponade, asthma, COPD, pulmonary embolism, pneumonia, pneumothorax, pulmonary effusion, anaphylaxis, diabetic ketoacidosis, flailed chest, pulmonary contusion, diaphragmatic rupture, anemia, neuromuscular, this is not meant to be an all-inclusive list. - Consultations Consultation #1: Spoke with admitting physicians, sound who agrees to admit the patient Medical Decision Making - Medical Decision Making 78 female the admitted for acute COPD and her issues here with significant respiratory distress on BiPAP, chest x-rays negative, with hypoxia on BiPAP, will admit for breathing treatment steroids. Supportive care - Lab Data Result diagrams: 05/05/23 02:18 05/05/23 02:18 Lab Results 05/04/23 05/04/23 05/04/23 Range/Units 19:51 19:51 19:51 WBC 14.0 H (3.8-10.6) k/uL RBC 3.96 (3.80-5.40) m/uL Hgb 13.1 (11.4-16.0) gm/dL Hct 40.3 (34.0-46.0) % MCV 101.7 H (80.0-100.0) fL MCH 33.0 (25.0-35.0) pg MCHC 32.4 (31.0-37.0) g/dL RDW 12.4 (11.5-15.5) % Plt Count 306 (150-450) k/uL MPV 8.5 Neutrophils % 72 % Lymphocytes % 24 % Monocytes % 1 % Eosinophils % 3 % Basophils % 0 % Neutrophils # 10.1 H (1.3-7.7) k/uL Lymphocytes # 3.3 (1.0-4.8) k/uL Monocytes # 0.2 (0-1.0) k/uL Eosinophils # 0.4 (0-0.7) k/uL Basophils # 0.0 (0-0.2) k/uL PT 10.4 (9.0-12.0) sec INR 1.0 (<1.2) APTT 30.3 H (22.0-30.0) sec Sodium 141 (137-145) mmol/L Potassium 3.9 (3.5-5.1) mmol/L Chloride 106 (98-107) mmol/L Carbon Dioxide 26 (22-30) mmol/L Anion Gap 9 mmol/L BUN 23 H (7-17) mg/dL Creatinine 1.24 H (0.52-1.04) mg/dL Est GFR (CKD-EPI)AfAm 49 (>60 ml/min/1.73 sqM) Est GFR (CKD-EPI)NonAf 42 (>60 ml/min/1.73 sqM) Glucose 218 H (74-99) mg/dL Lactic Ac Sepsis Rflx Plasma Lactic Acid Luis M (0.7-2.0) mmol/L Calcium 9.2 (8.4-10.2) mg/dL Magnesium 2.2 (1.6-2.3) mg/dL Total Bilirubin 0.5 (0.2-1.3) mg/dL AST 24 (14-36) U/L ALT 18 (4-34) U/L Alkaline Phosphatase 86 (38-126) U/L Troponin I (0.000-0.034) ng/mL NT-Pro-B Natriuret Pep pg/mL Total Protein 7.0 (6.3-8.2) g/dL Albumin 4.2 (3.5-5.0) g/dL 05/04/23 05/04/23 05/04/23 Range/Units 19:51 19:51 19:51 WBC (3.8-10.6) k/uL RBC (3.80-5.40) m/uL Hgb (11.4-16.0) gm/dL Hct (34.0-46.0) % MCV (80.0-100.0) fL MCH (25.0-35.0) pg MCHC (31.0-37.0) g/dL RDW (11.5-15.5) % Plt Count (150-450) k/uL MPV Neutrophils % % Lymphocytes % % Monocytes % % Eosinophils % % Basophils % % Neutrophils # (1.3-7.7) k/uL Lymphocytes # (1.0-4.8) k/uL Monocytes # (0-1.0) k/uL Eosinophils # (0-0.7) k/uL Basophils # (0-0.2) k/uL PT (9.0-12.0) sec INR (<1.2) APTT (22.0-30.0) sec Sodium (137-145) mmol/L Potassium (3.5-5.1) mmol/L Chloride (98-107) mmol/L Carbon Dioxide (22-30) mmol/L Anion Gap mmol/L BUN (7-17) mg/dL Creatinine (0.52-1.04) mg/dL Est GFR (CKD-EPI)AfAm (>60 ml/min/1.73 sqM) Est GFR (CKD-EPI)NonAf (>60 ml/min/1.73 sqM) Glucose (74-99) mg/dL Lactic Ac Sepsis Rflx Plasma Lactic Acid Luis M 2.2 H* (0.7-2.0) mmol/L Calcium (8.4-10.2) mg/dL Magnesium (1.6-2.3) mg/dL Total Bilirubin (0.2-1.3) mg/dL AST (14-36) U/L ALT (4-34) U/L Alkaline Phosphatase (38-126) U/L Troponin I <0.012 (0.000-0.034) ng/mL NT-Pro-B Natriuret Pep 479 pg/mL Total Protein (6.3-8.2) g/dL Albumin (3.5-5.0) g/dL 05/04/23 Range/Units 20:18 WBC (3.8-10.6) k/uL RBC (3.80-5.40) m/uL Hgb (11.4-16.0) gm/dL Hct (34.0-46.0) % MCV (80.0-100.0) fL MCH (25.0-35.0) pg MCHC (31.0-37.0) g/dL RDW (11.5-15.5) % Plt Count (150-450) k/uL MPV Neutrophils % % Lymphocytes % % Monocytes % % Eosinophils % % Basophils % % Neutrophils # (1.3-7.7) k/uL Lymphocytes # (1.0-4.8) k/uL Monocytes # (0-1.0) k/uL Eosinophils # (0-0.7) k/uL Basophils # (0-0.2) k/uL PT (9.0-12.0) sec INR (<1.2) APTT (22.0-30.0) sec Sodium (137-145) mmol/L Potassium (3.5-5.1) mmol/L Chloride (98-107) mmol/L Carbon Dioxide (22-30) mmol/L Anion Gap mmol/L BUN (7-17) mg/dL Creatinine (0.52-1.04) mg/dL Est GFR (CKD-EPI)AfAm (>60 ml/min/1.73 sqM) Est GFR (CKD-EPI)NonAf (>60 ml/min/1.73 sqM) Glucose (74-99) mg/dL Lactic Ac Sepsis Rflx Y Plasma Lactic Acid Luis M (0.7-2.0) mmol/L Calcium (8.4-10.2) mg/dL Magnesium (1.6-2.3) mg/dL Total Bilirubin (0.2-1.3) mg/dL AST (14-36) U/L ALT (4-34) U/L Alkaline Phosphatase (38-126) U/L Troponin I (0.000-0.034) ng/mL NT-Pro-B Natriuret Pep pg/mL Total Protein (6.3-8.2) g/dL Albumin (3.5-5.0) g/dL - EKG Data -: EKG Interpreted by Me (EKG sinus tach 113 MO 142 QRS 81 QTc 411) - Radiology Data Radiology results: report reviewed (Chest x-rays negative for acute disease), image reviewed Critical Care Time Critical Care Time: Yes Total Critical Care Time: 31 Disposition Clinical Impression: COPD exacerbation, Asthma with status asthmaticus, Acute respiratory failure with hypoxia, Asthma exacerbation, Acute respiratory distress, Asthma, Hypoxia Disposition: ADMITTED IP TO THIS HOSP Condition: Fair Is patient prescribed a controlled substance at d/c from ED?: No Time of Disposition: 21:30
[2023-05-04 20:02] LABS: Basophils % (A) 0 %; Eosinophils # (A) 0.4 k/uL (0-0.7); Eosinophils % (A) 3 %; HCT 40.3 % (34.0-46.0); HGB 13.1 gm/dL (11.4-16.0); Lymphocytes # (A) 3.3 k/uL (1.0-4.8); Lymphocytes % (A) 24 %; MCHC 32.4 g/dL (31.0-37.0); MCV 101.7 fL (80.0-100.0); Mean Platelet Volume 8.5; Monocytes # (A) 0.2 k/uL (0-1.0); Monocytes % (A) 1 %; Neutrophils # (A) 10.1 k/uL (1.3-7.7); Neutrophils % (A) 72 %; Platelet Count 306 k/uL (150-450); RBC 3.96 m/uL (3.80-5.40); RDW 12.4 % (11.5-15.5)
[2023-05-04 20:13] LABS: Partial Thromboplastin Time 30.3 sec (22.0-30.0); Prothrombin Time 10.4 sec (9.0-12.0)
[2023-05-04 20:17] LABS: ALT 18 U/L (4-34); AST 24 U/L (14-36); African American GFR (CKD) 49 (>60 ml/min/1.73 sqM); Albumin 4.2 g/dL (3.5-5.0); Alkaline Phosphatase 86 U/L (38-126); Anion Gap 9 mmol/L; Blood Urea Nitrogen 23 mg/dL (7-17); Calcium 9.2 mg/dL (8.4-10.2); Carbon Dioxide 26 mmol/L (22-30); Chloride 106 mmol/L (98-107); Glucose 218 mg/dL (74-99); Magnesium 2.2 mg/dL (1.6-2.3); Non-African American GFR(CKD) 42 (>60 ml/min/1.73 sqM); Potassium 3.9 mmol/L (3.5-5.1); Sodium 141 mmol/L (137-145); Total Bilirubin 0.5 mg/dL (0.2-1.3)
--- NOTE | 2023-05-04 21:31 | XR ---
EXAMINATION TYPE: XR chest 1V portable DATE OF EXAM: 05/04/2023 9:07 PM COMPARISON: Chest radiographs from 03/01/2023 TECHNIQUE: XR chest 1V portable Frontal view of the chest. CLINICAL INDICATION:Female, 78 years old with history of sob; FINDINGS: Lungs/Pleura: Prominent interstitial lung markings are seen scattered throughout the lungs. No eviden ce of focal consolidation, pneumothorax or pleural effusion. Pulmonary vascularity: Unremarkable. Heart/mediastinum: Cardiomediastinal silhouette is unremarkable. Musculoskeletal: No acute osseous pathology. IMPRESSION: Chronic changes without acute pulmonary process. No significant change from prior.
[2023-05-04] MEDS ORDERED: NALOXONE 0.4 MG/ML 1 ML VIAL IV PRN (21:39)
[2023-05-04] MEDS ORDERED: MORPHINE SULFATE 4 MG/ML SYRINGE IV PRN (21:39)
[2023-05-04] MEDS ORDERED: ONDANSETRON 4 MG/2 ML VIAL IVP PRN (21:39)
[2023-05-04] MEDS: SODIUM CHLORIDE 0.9% 1,000 ML IV SCH (23:29)
[2023-05-05] MEDS: ALBUTEROL NEBULIZED 2.5 MG/3 ML INHALATION SCH ×5 (01:02→12:28)
[2023-05-05] MEDS: SODIUM CHLORIDE 0.9% 1,000 ML IV SCH (01:22)
[2023-05-05 02:49] LABS: Basophils # (A) 0.1 k/uL (0-0.2); Basophils % (A) 0 %; Eosinophils # (A) 0.1 k/uL (0-0.7); Eosinophils % (A) 0 %; HCT 37.8 % (34.0-46.0); HGB 11.9 gm/dL (11.4-16.0); Lymphocytes # (A) 0.2 k/uL (1.0-4.8); Lymphocytes % (A) 1 %; MCH 32.2 pg (25.0-35.0); MCHC 31.5 g/dL (31.0-37.0); MCV 102.3 fL (80.0-100.0); Macrocytosis Slight; Mean Platelet Volume 7.8; Monocytes # (A) 0.5 k/uL (0-1.0); Monocytes % (A) 3 %; Neutrophils # (A) 16.4 k/uL (1.3-7.7); Neutrophils % (A) 95 %; Platelet Count 231 k/uL (150-450); RBC 3.69 m/uL (3.80-5.40); RDW 12.3 % (11.5-15.5); WBC 17.2 k/uL (3.8-10.6)
[2023-05-05 03:13] LABS: ALT 18 U/L (4-34); AST 21 U/L (14-36); African American GFR (CKD) 54 (>60 ml/min/1.73 sqM); Alkaline Phosphatase 76 U/L (38-126); Anion Gap 9 mmol/L; Blood Urea Nitrogen 38 mg/dL (7-17); Calcium 9.1 mg/dL (8.4-10.2); Carbon Dioxide 23 mmol/L (22-30); Chloride 108 mmol/L (98-107); Glucose 185 mg/dL (74-99); Magnesium 2.1 mg/dL (1.6-2.3); Non-African American GFR(CKD) 47 (>60 ml/min/1.73 sqM); Phosphorus 3.6 mg/dL (2.5-4.5); Potassium 3.9 mmol/L (3.5-5.1); Sodium 140 mmol/L (137-145); Total Bilirubin 0.5 mg/dL (0.2-1.3); Total Protein 6.7 g/dL (6.3-8.2)
[2023-05-05 04:14] VITALS: TEMP 98.3
--- NOTE | 2023-05-05 04:21 | P.HPIM ---
History of Present Illness H&P Date: 05/04/23 Chief Complaint: shortness of breath , feeling weak 78 year old female with copd not on home oxygen she is coming in for evaluation due to severe shortness of breath with slightest activity , she reports no fever, no chills, no changes in baseline cough and phlegm production, but she was getting easily short of breath and wheezing, no smoke exposure no sick contacts, no recent travel. her nebulizers were not helping and decided to come in for evaluation. she denies any chest pain or history of heart attacks, chf or afib. she was found wheezy and hypoxic in the ED and started on bipap , which she started improving after which she is also reporting feeling weak, and dizzy when she stands up , again no palpitations or chest pain , no falls. denies smoking, illicit drugs or alcohol Review of Systems Pertinent positives as noted in HPI. All other systems were reviewed and are negative Past Medical History Past Medical History: Asthma History of Any Multi-Drug Resistant Organisms: None Reported Past Surgical History: Tubal Ligation Additional Past Surgical History / Comment(s): neck surgery Past Anesthesia/Blood Transfusion Reactions: No Reported Reaction Past Psychological History: No Psychological Hx Reported Smoking Status: Never smoker Past Alcohol Use History: None Reported Past Drug Use History: None Reported - Past Family History Father Family Medical History: Hypertension Mother Additional Family Medical History / Comment(s): Alzhemiers Sister(s) Family Medical History: CVA/TIA Medications and Allergies Home Medications Medication Instructions Recorded Confirmed Type Budesonide-Formot 160-4.5 Mcg 2 puff INHALATION RT-BID #1 each 08/27/22 05/04/23 Rx [Symbicort 160-4.5 Mcg Inhaler] Multivitamins, Thera [Multivitamin 1 tab PO DAILY 01/08/23 05/04/23 History (formulary)] Albuterol Inhaler [Ventolin Hfa 1 puff INHALATION RT-QID PRN #1 01/09/23 05/04/23 Rx Inhaler] each Alendronate Sodium [Fosamax] 70 mg PO TH 03/01/23 05/04/23 History Calcium Carbonate [Calcium] 600 mg PO BID 03/01/23 05/04/23 History methylPREDNISolone [Medrol Dose 1 dose PO DIRECTED 03/01/23 05/04/23 History Pack] Cyanocobalamin (Vitamin B-12) 1,000 mcg PO DAILY 05/04/23 05/04/23 History [Vitamin B-12] Fish Oil/Dha/Epa [Fish Oil 1,200 1 cap PO DAILY 05/04/23 05/04/23 History mg Fish Oil] Turmeric Root Extract [Turmeric] 500 mg PO DAILY 05/04/23 05/04/23 History Allergies Allergy/AdvReac Type Severity Reaction Status Date / Time acetaminophen [From Tylenol] AdvReac Severe CADEN Verified 05/04/23 21:48 Physical Exam Vitals: Vital Signs Temp Pulse Resp BP Pulse Ox FiO2 05/04/23 20:21 107 H 05/04/23 20:16 80 05/04/23 20:12 108 H 05/04/23 20:03 28 H 05/04/23 19:50 100 05/04/23 19:49 100 05/04/23 19:40 97.7 F 116 H 26 H 107/57 85 L Intake and Output 05/04/23 05/04/23 05/04/23 06:59 14:59 22:59 Other: Weight 49.895 kg Constitutional: No acute distress, conversant, pleasant, on bipap Eyes: Anicteric sclerae, moist conjunctiva, Pupils equal round reactive to light ENMT: NC/AT Oropharynx clear, no erythema, or exudates Neck: Supple, no masses, or JVD No carotid bruits No thyromegaly Lungs: Clear to auscultation, no wheezing Clear to percussion Normal respiratory effort, no accessory muscle use Cardiovascular: Heart regular in rate and rhythm, No murmurs, gallops, or rubs No peripheral edema Abdominal: Soft Nontender, no guarding, rebound or rigidity Abdomen moving with respiration Normoactive bowel sounds No hepatomegaly, No splenomegaly No palpable mass No abdominal wall hernia noted Skin: Normal temperature, tone, texture, turgor No induration No subcutaneous nodules No rash, lesions No ulcers Extremities: No digital cyanosis No clubbing Pedal pulses intact and symmetrical Radial pulses intact and symmetrical No calf tenderness Psychiatric: Alert and oriented to person, place and time Appropriate affect fair judgement Neuro Muscles Strength 5/5 in all 4 extremities Sensation to light touch grossly present throughout Cranial nerves II-XII grossly intact Lymphatics: no palpable cervical or supraclavicular lymph nodes Results CBC & Chem 7: 05/05/23 02:18 05/05/23 02:18 Labs: Abnormal Lab Results - Last 24 Hours (Table) 05/04/23 05/04/23 05/04/23 Range/Units 19:51 19:51 19:51 WBC 14.0 H (3.8-10.6) k/uL MCV 101.7 H (80.0-100.0) fL Neutrophils # 10.1 H (1.3-7.7) k/uL APTT 30.3 H (22.0-30.0) sec BUN 23 H (7-17) mg/dL Creatinine 1.24 H (0.52-1.04) mg/dL Glucose 218 H (74-99) mg/dL Plasma Lactic Acid Luis M (0.7-2.0) mmol/L 05/04/23 Range/Units 19:51 WBC (3.8-10.6) k/uL MCV (80.0-100.0) fL Neutrophils # (1.3-7.7) k/uL APTT (22.0-30.0) sec BUN (7-17) mg/dL Creatinine (0.52-1.04) mg/dL Glucose (74-99) mg/dL Plasma Lactic Acid Luis M 2.2 H* (0.7-2.0) mmol/L Assessment and Plan Assessment: 78 year old female iwth copd , coming in for SOB, she was found wheezing and hypoxic in the ED , I discussed the case with ED doc , and I accepted the admission for COPD management with anticipated length of stay > 2 midnights acute hypoxic respiratory failure acute copd exacerbation supplemental oxygen asneeded BIpap PRN doxycycline 100 mg po bid systemic po steroids with prednisone 40 mg po daily inhalers PRN neublizer PRN symbicort BID CXR no acute pathology check covid blood work showed elevated WBC 14\\HGB 13 unremarkable renal function unremarkable BUN 23 , Cr 1,2 lactic acidosis 2.2 --> resolved continue with some IVF hydration at 130 cc per hour, some component of dehydr ation is suspected check orthostatic vitals in AM trops initially negative , then slightly elevated to 0.046 then trended down to 0.04 no chest pain EKG no acute ST changes full code DVT PPX lovenox sc
--- NOTE | 2023-05-05 06:56 | XR ---
EXAMINATION TYPE: XR chest 1V DATE OF EXAM: 05/05/2023 6:52 AM COMPARISON: Chest radiographs from 05/04/2023 TECHNIQUE: XR chest 1V Frontal view of the chest. CLINICAL INDICATION:Female, 78 years old with history of bipap; FINDINGS: Lungs/Pleura: Prominent interstitial lung markings are seen scattered throughout the lungs with mignon ening of the diaphragm and increased lucency of the lung apices. No evidence of focal consolidation, pneumothorax or pleural effusion. Pulmonary vascularity: Unremarkable. Heart/mediastinum: Cardiomediastinal silhouette is unremarkable. Musculoskeletal: No acute osseous pathology. IMPRESSION: 1. No acute cardiopulmonary disease process. 2. COPD changes.
[2023-05-05] MEDS ORDERED: SYMBICORT 160-4.5 MCG INHALER INHALATION SCH (08:00)
[2023-05-05 08:36] VITALS: BP 126/58; RESP 16
[2023-05-05] MEDS ORDERED: ENOXAPARIN 40 MG/0.4 ML SYRINGE SQ SCH (09:00)
[2023-05-05] MEDS ORDERED: predniSONE 20 MG TAB PO SCH (09:00)
[2023-05-05] MEDS ORDERED: DOXYCYCLINE 100 MG CAP PO SCH (09:00)
--- NOTE | 2023-05-05 10:43 | P.CNPUL ---
History of Present Illness Consult date: 05/05/23 Requesting physician: Adrián Nash Reason for consult: dyspnea, cough, asthma, hypoxemia Chief complaint: Shortness of breath. History of present illness: Pulmonary consult dated 05/05/2023. 78-year-old female with a known history of chronic bronchial asthma, sensitive the emergency department, via EMS, with difficulty breathing. He apparently came on rather suddenly according to her and her . She was wheezing and coughing. Apparently recently, she's responded negatively to both Tylenol and aspirin, as relates to her asthma. I told her not to take either. Currently, she is on room air. She was placed on BiPAP for a period of time, with settings of 10/5 and 40%. The patient is not receiving any IV fluids. The patient sees Dr. Choudhary as a primary. She's feeling much better now, and could likely be discharged home on some prednisone. White count 17.2, hemoglobin 11.9, hem atocrit 37.8, and platelet count normal. Sodium 140, potassium 3.9, chlorides 108, CO2 23, BUN 38, creatinine 1.14. Troponins were 0.046 and 0.040. Lactic acid was elevated at 2.2. Repeat was 1.7. Chest x-ray showed no acute abnormalities. Review of Systems REVIEW OF SYSTEMS: CONSTITUTIONAL: [Negative.] NEUROLOGIC: [ Negative.] HEENT: [ Negative.] CARDIAC: [Negative.] PULMONARY: Shortness of breath, chest tightness, wheezing, and cough. GI: [Negative.] : [Negative.] RHEUMATOLOGIC: [ Negative.] IMMUNOLOGIC: [ Negative.] ENDOCRINE: [Negative. ] DERMATOLOGIC: [Negative.] Past Medical History Past Medical History: Asthma History of Any Multi-Drug Resistant Organisms: None Reported Past Surgical History: Tubal Ligation Additional Past Surgical History / Comment(s): neck surgery Past Anesthesia/Blood Transfusion Reactions: No Reported Reaction Past Psychological History: No Psychological Hx Reported Smoking Status: Never smoker Past Alcohol Use History: None Reported Past Drug Use History: None Reported - Past Family History Father Family Medical History: Hypertension Mother Additional Family Medical History / Comment(s): Alzhemiers Sister(s) Family Medical History: CVA/TIA Medications and Allergies Home Medications Medication Instructions Recorded Confirmed Type Budesonide-Formot 160-4.5 Mcg 2 puff INHALATION RT-BID #1 each 08/27/22 05/04/23 Rx [Symbicort 160-4.5 Mcg Inhaler] Multivitamins, Thera [Multivitamin 1 tab PO DAILY 01/08/23 05/04/23 History (formulary)] Albuterol Inhaler [Ventolin Hfa 1 puff INHALATION RT-QID PRN #1 01/09/23 05/04/23 Rx Inhaler] each Alendronate Sodium [Fosamax] 70 mg PO TH 03/01/23 05/04/23 History Calcium Carbonate [Calcium] 600 mg PO BID 03/01/23 05/04/23 History methylPREDNISolone [Medrol Dose 1 dose PO DIRECTED 03/01/23 05/04/23 History Pack] Cyanocobalamin (Vitamin B-12) 1,000 mcg PO DAILY 05/04/23 05/04/23 History [Vitamin B-12] Fish Oil/Dha/Epa [Fish Oil 1,200 1 cap PO DAILY 05/04/23 05/04/23 History mg Fish Oil] Turmeric Root Extract [Turmeric] 500 mg PO DAILY 05/04/23 05/04/23 History Allergies Allergy/AdvReac Type Severity Reaction Status Date / Time acetaminophen [From Tylenol] AdvReac Severe CADEN Verified 05/04/23 21:48 Physical Exam Osteopathic Statement: *. No significant issues noted on an osteopathic structural exam other than those noted in the History and Physical/Consult. Vitals: Vital Signs Temp Pulse Pulse Resp BP BP BP 05/05/23 08:00 100 16 05/05/23 07:57 96 05/05/23 07:49 05/05/23 07:46 99 05/05/23 06:12 147/70 05/05/23 06:10 138/65 05/05/23 06:07 05/05/23 04:20 05/05/23 04:19 95 05/05/23 04:09 98 05/05/23 04:00 98.3 F 100 05/05/23 02:00 90 05/05/23 01:21 94 05/05/23 01:07 90 05/05/23 01:00 97.7 F 90 05/04/23 23:00 98.5 F 105 H 24 05/04/23 22:33 101 H 20 120/61 05/04/23 20:21 107 H 05/04/23 20:16 05/04/23 20:12 108 H 05/04/23 20:03 28 H 05/04/23 19:50 05/04/23 19:49 05/04/23 19:40 97.7 F 116 H 26 H 107/57 BP BP Pulse Ox FiO2 05/05/23 08:00 126/58 94 L 05/05/23 07:57 05/05/23 07:49 95 05/05/23 07:46 05/05/23 06:12 05/05/23 06:10 05/05/23 06:07 135/65 05/05/23 04:20 100 05/05/23 04:19 05/05/23 04:09 40 05/05/23 04:00 148/67 100 40 05/05/23 02:00 05/05/23 01:21 05/05/23 01:07 40 05/05/23 01:00 135/65 100 80 05/04/23 23:00 150/67 98 80 05/04/23 22:33 98 05/04/23 20:21 05/04/23 20:16 80 05/04/23 20:12 05/04/23 20:03 05/04/23 19:50 100 05/04/23 19:49 100 05/04/23 19:40 85 L Intake and Output 05/04/23 05/05/23 05/05/23 22:59 06:59 14:59 Intake Total 180 Balance 180 Intake: Oral 180 Other: # Voids 1 2 Weight 49.895 kg 49.895 kg No acute distress, oriented 3. Currently on room air. No conversational dyspnea, or use of accessory muscles, or audible wheezing. HEENT examination is grossly unremarkable. Mucous membranes are moist. No oral lesions. Neck supple. Full range of motion. No adenopathy thyromegaly or neck vein distention. Cardiovascular examination reveals regular rhythm rate. S1-S2 normal. No S3 or S4. No discernible murmur noted. Heart rate 96 bpm. Lungs reveal mostly clear breath sounds. Minimal mild rhonchi on exhalation. No wheezes or crackles. Breath sounds equal bilaterally. Room air saturation 95%. Abdomen soft bowel sounds are heard. No masses or tenderness. Extremities are intact. No cyanosis clubbing or edema. Skin is without rash or lesion. Neurologic examination is brief but nonfocal. Results - Laboratory Findings CBC and BMP: 05/05/23 02:18 05/05/23 02:18 PT/INR, D-dimer PT 10.4 sec (9.0-12.0) 05/04/23 19:51 INR 1.0 (<1.2) 05/04/23 19:51 Abnormal lab findings: Abnormal Labs 05/04/23 05/04/23 05/04/23 19:51 19:51 19:51 WBC 14.0 H RBC MCV 101.7 H Neutrophils # 10.1 H Lymphocytes # APTT 30.3 H Chloride BUN 23 H Creatinine 1.24 H Glucose 218 H Plasma Lactic Acid Luis M Troponin I 05/04/23 05/04/23 05/05/23 19:51 23:47 02:18 WBC RBC MCV Neutrophils # Lymphocytes # APTT Chloride BUN Creatinine Glucose Plasma Lactic Acid Luis M 2.2 H* Troponin I 0.046 H* 0.040 H* 05/05/23 05/05/23 02:18 02:18 WBC 17.2 H RBC 3.69 L MCV 102.3 H Neutrophils # 16.4 H Lymphocytes # 0.2 L APTT Chloride 108 H BUN 38 H Creatinine 1.14 H Glucose 185 H Plasma Lactic Acid Luis M Troponin I - Diagnostic Findings Chest x-ray: image reviewed Assessment and Plan Assessment: Acute exacerbation of chronic bronchial asthma. Possible ALLERGIC reaction to Tylenol/aspirin. History of osteoporosis. DJD. Lifelong nonsmoker. Plan: Plan dated 05/05/2023. The patient appears to be doing relatively well. She is on room air. Her saturations are 95%. Patient could be discharged on some prednisone with a burst and taper. Labs, x-rays, medications are reviewed. I told the , to forego the Tylenol and aspirin for the time being. We will continue to follow. Prognosis is guarded. Time with Patient: Greater than 30
--- NOTE | 2023-05-05 11:14 | P.DS ---
Providers Date of admission: 05/04/23 21:39 Attending physician: Adrián Nash MD Consults: 05/04/23 21:39 Consult Physician Routine Consulting Provider: Ruiz Hong Consult Reason/Comments: known Do you want consulting provider notified?: Yes Primary care physician: Milad Choudhary MD Hospital Course: Discharge Diagnosis: Acute hypoxic respiratory failure Acute on chronic bronchial asthma exacerbation could be due to aspirin versus other etiology Hospital Course: Patient is a 78-year-old female with a past medical history of chronic bronchial asthma not on home O2 who presented to the ED with shortness of breath. Patient states that in the past whenever she took Tylenol she had exacerbation of her asthma. She was told by her computer salesperson retail and her PCP to stop taking Tylenol. Per patient instead took aspirin for her back pain. He states that she then had shortness of breath. In the ED patient's chest XR was negative for any acute process. Patient was temporally placed on BiPAP for hypoxia. Patient was started on COPD pathway. She was on steroids and breathing treatments and doxycycline. Patient was seen by her computer salesperson retail who recommended to also stop aspirin. I told patient that she may take [id number] Lidoderm patch for her back pain. On the day of discharge which was the next day of admission son reza was feeling much better. She stated that she is at her baseline. She was satting well on room air. She is cleared for discharge by pulmonology. Patient seen and examined at bedside.[] Vital signs reviewed and stable. General: [non toxic], [no distress], [appears at stated age] Derm: [warm], [dry] Head: [atraumatic], [normocephalic], [symmetric] Eyes: [EOMI], [no lid lag], [anicteric sclera] Mouth: [no lip lesion], [mucus membranes moist] Cardiovascular: [S1S2 reg], [no murmur], [positive posterior tibial pulse bilateral], Lungs: [CTA bilateral], [no rhonchi, no rales] , [no accessory muscle use] Abdominal: [soft], [ nontender to palpation], [no guarding], [no appreciable organomegaly] Ext: [no gross muscle atrophy], [no edema], [no contractures] Neuro: [ CN II-XI grossly intact], [no focal neuro deficits] Psych: [Alert], [oriented], [appropriate affect] A total of [33] minutes of time were spent preparing this complex discharge summary . Patient Condition at Discharge: Fair Plan - Discharge Summary Discharge Rx Participant: Yes New Discharge Prescriptions: New predniSONE [Deltasone] 40 mg PO DAILY 4 Days #8 tab Doxycycline [Vibramycin] 100 mg PO BID 4 Days #8 cap Continue Multivitamins, Thera [Multivitamin (formulary)] 1 tab PO DAILY Calcium Carbonate [Calcium] 600 mg PO BID Turmeric Root Extract [Turmeric] 500 mg PO DAILY Cyanocobalamin (Vitamin B-12) [Vitamin B-12] 1,000 mcg PO DAILY Fish Oil/Dha/Epa [Fish Oil 1,200 mg Fish Oil] 1 cap PO DAILY Budesonide-Formot 160-4.5 Mcg [Symbicort 160-4.5 Mcg Inhaler] 2 puff INHALATION RT-BID #1 each Albuterol Inhaler [Ventolin Hfa Inhaler] 1 puff INHALATION RT-QID PRN #1 each PRN Reason: Dyspnea Alendronate Sodium [Fosamax] 70 mg PO TH Discontinued methylPREDNISolone [Medrol Dose Pack] 1 dose PO DIRECTED Discharge Medication List Budesonide-Formot 160-4.5 Mcg [Symbicort 160-4.5 Mcg Inhaler] 2 puff INHALATION RT-BID #1 each 08/27/22 [Rx] Multivitamins, Thera [Multivitamin (formulary)] 1 tab PO DAILY 01/08/23 [History] Albuterol Inhaler [Ventolin Hfa Inhaler] 1 puff INHALATION RT-QID PRN #1 each 01/09/23 [Rx] Alendronate Sodium [Fosamax] 70 mg PO TH 03/01/23 [History] Calcium Carbonate [Calcium] 600 mg PO BID 03/01/23 [History] Cyanocobalamin (Vitamin B-12) [Vitamin B-12] 1,000 mcg PO DAILY 05/04/23 [History] Fish Oil/Dha/Epa [Fish Oil 1,200 mg Fish Oil] 1 cap PO DAILY 05/04/23 [History] Turmeric Root Extract [Turmeric] 500 mg PO DAILY 05/04/23 [History] Doxycycline [Vibramycin] 100 mg PO BID 4 Days #8 cap 05/05/23 [Rx] predniSONE [Deltasone] 40 mg PO DAILY 4 Days #8 tab 05/05/23 [Rx] Follow up Appointment(s)/Referral(s): Milad Choudhary MD [Primary Care Provider] - 1-2 days Ruiz Hong DO [Family Provider] - 1 Week Discharge Disposition: HOME SELF-CARE
[2023-05-05 12:44] VITALS: BMI 18.8
[2023-05-05 12:49] VITALS: PULSE 90
== END 2023-05-05 12:53 | disposition home or self-care (01) | DRG 190 ==
LOC: EC 19:37 → 3SCARD 21:39
PROVIDERS: ADMIT Internal Medicine; ATTEND Internal Medicine
PROC: 5A09357 Assistance with Respiratory Ventilation, Less than 24 Consecutive Hours, Continuous Positive Airway Pressure (ICD-10-PCS; principal; 2023-05-04)
DX: J44.1 Chronic obstructive pulmonary disease with (acute) exacerbation (principal); J96.01 Acute respiratory failure with hypoxia; E87.20 Acidosis, unspecified; J45.901 Unspecified asthma with (acute) exacerbation; T39.1X1A Poisoning by 4-Aminophenol derivatives, accidental (unintentional), initial encounter; M81.0 Age-related osteoporosis without current pathological fracture; M19.90 Unspecified osteoarthritis, unspecified site; E86.0 Dehydration; M54.9 Dorsalgia, unspecified; Z20.822 Contact with and (suspected) exposure to COVID-19; Z88.6 Allergy status to analgesic agent; Z79.899 Other long term (current) drug therapy; Z79.51 Long term (current) use of inhaled steroids; Z79.83 Long term (current) use of bisphosphonates
CPT/HCPCS: 36415; 71045; 80053; 83605; 83735; 83880; 84100; 84484; 85025; 85610; 85730; 93005; 94640; 94660; 94760; 99291

== ENCOUNTER → 2024-09-16 | Outpatient (CLI) | payer MEDICARE ==
--- NOTE | 2024-09-16 12:48 | XR ---
EXAMINATION TYPE: XR cervical spine w flex/ext DATE OF EXAM: 09/16/2024 12:30 PM COMPARISON: None CLINICAL INDICATION: Female, 79 years old with history of M54.2 Neck pain; PHH TECHNIQUE: The cervical spine was imaged in frontal, lateral, odontoid and bilateral oblique. FINDINGS: The osseous structures show normal alignment without evidence of an acute fracture. No significant ve rtebral body osteophytes or facet joint arthropathy. The intervertebral disk spaces are preserved. Pe dicles are intact. Soft tissues are within normal limits. The odontoid appears intact. Ankylosis of the C4-C5 vertebral bodies. IMPRESSION: 1. No fracture or dislocation. 2. Moderate degenerative disc disease changes of the cervical spine with anterolisthesis of C4-C5 harpreet tebral bodies.. [facility], , 09/16/2024 12:46 PM
== END | disposition home or self-care (01) ==
LOC: RADXRMAIN 12:15
PROVIDERS: ATTEND Family Medicine
CPT/HCPCS: 72052

== ENCOUNTER → 2024-12-17 | Outpatient (CLI) | payer MEDICARE ==
--- NOTE | 2024-12-17 15:31 | XR ---
EXAMINATION TYPE: XR chest 2V DATE OF EXAM: 12/17/2024 3:20 PM COMPARISON: Chest radiographs from 05/05/2023, CTA chest 01/08/2023 TECHNIQUE: XR chest 2V Frontal and lateral views of the chest. CLINICAL INDICATION:Female, 79 years old with history of R06.02 SHORTNESS OF BREATH; FINDINGS: Lungs/Pleura: Prominent interstitial lung markings are seen scattered throughout the lungs. No eviden ce of focal consolidation, pneumothorax or pleural effusion. Pulmonary vascularity: Unremarkable. Heart/mediastinum: Cardiomediastinal silhouette is unremarkable. Musculoskeletal: No acute osseous pathology. Relatively stable appearing multilevel chronic anterior wedge compression deformities of the thoracic spine with increased kyphotic appearance. IMPRESSION: Chronic changes without acute pulmonary process. No significant change from prior. [facility], , 12/17/2024 3:29 PM
== END | disposition home or self-care (01) ==
LOC: RADXRMAIN 15:10
PROVIDERS: ATTEND Internal Medicine
DX: R06.02 Shortness of breath (principal); R91.8 Other nonspecific abnormal finding of lung field
CPT/HCPCS: 71046

== ENCOUNTER → 2025-04-01 | Outpatient (CLI) | payer MEDICARE ==
--- NOTE | 2025-04-01 13:00 | MR ---
EXAMINATION TYPE: MR brain wo con DATE OF EXAM: 04/01/2025 12:02 PM COMPARISON: None. CLINICAL INDICATION: Female, 80 years old with history of I67.9 CEREBROVASCULAR DISEASE; PHH, Memory Loss TECHNIQUE: Multi planar, multi sequence imaging was performed through the brain including: T1, T2, In version recovery, Diffusion weighted imaging, and gradient echo imaging. No gadolinium was given. FINDINGS: The valadez-white junctions, ventricular system, basal cisterns appear unremarkable. Scattered foci of high T2 signal intensity are seen within the periventricular white matter. Midline structures show n o abnormality. Diffusion-weighted imaging shows no evidence of restricted diffusion. The susceptibili ty weighted images do not reveal any evidence for micro-hemorrhage. The bone marrow signal is within normal limits. Paranasal sinuses and mastoid air cells: Scattered severe paranasal sinus mucosal thickening in the p aranasal sinuses are nearly completely opacified Visualized orbits: Orbital contents are intact. IMPRESSION: 1. No evidence of intracranial mass or acute/subacute infarct. 2. Nonspecific white matter changes, likely secondary to small vessel ischemic disease. 3. Severe paranasal sinus mucosal thickening. [facility], , 04/01/2025 12:58 PM
== END | disposition home or self-care (01) ==
LOC: RADMRIMAIN 11:24
PROVIDERS: ATTEND Psychiatry & Neurology Neurology
DX: I67.9 Cerebrovascular disease, unspecified (principal); R90.82 White matter disease, unspecified; J34.89 Other specified disorders of nose and nasal sinuses
CPT/HCPCS: 70551

== ENCOUNTER 2025-04-02 15:08 | Inpatient (IN) | payer MEDICARE ==
--- NOTE | 2025-04-02 15:46 | ED ---
General Adult HPI - General Source: patient, family, RN notes reviewed Mode of arrival: ambulatory Limitations: no limitations <Dennis Benites - Last Filed: 04/02/25 15:45> <Samuel Sinha - Last Filed: 04/02/25 20:48> - General Stated complaint: Fell chest injury Time Seen by Provider: 04/02/25 15:25 - History of Present Illness Initial comments: Quick note 80-year-old female presents the emergency department complaint of right-sided rib pain. Patient had a trip and fall fell onto some outdoor figurines. Patient states she has right-sided rib pain pain with movement deep inspiration. She states she had small abrasion to her chin but denies any significant pain no headache no loss conscious no blood thinners. (Dennis Benites) This is a 80-year-old female who presents emergency department stating that she was in the garden working she fell forward and hit her sternum on a hard garden decoration. Patient did not hit her head or neck. Patient complains of some right-sided rib pain as well. Patient has some difficulty breathing because of the pain but not shortness of breath. Patient denies any other injury at this time (Samuel Sinha) - Related Data Home Medications Medication Instructions Recorded Confirmed Multivitamins, Thera [Multivitamin 1 tab PO DAILY 01/08/23 05/04/23 (formulary)] Alendronate Sodium [Fosamax] 70 mg PO TH 03/01/23 05/04/23 Calcium Carbonate [Calcium] 600 mg PO BID 03/01/23 05/04/23 Cyanocobalamin (Vitamin B-12) 1,000 mcg PO DAILY 05/04/23 05/04/23 [Vitamin B-12] Fish Oil/Dha/Epa [Fish Oil 1,200 1 cap PO DAILY 05/04/23 05/04/23 mg Fish Oil] Turmeric Root Extract [Turmeric] 500 mg PO DAILY 05/04/23 05/04/23 Previous Rx's Medication Instructions Recorded Budesonide-Formot 160-4.5 Mcg 2 puff INHALATION RT-BID #1 each 08/27/22 [Symbicort 160-4.5 Mcg Inhaler] Albuterol Inhaler [Ventolin Hfa 1 puff INHALATION RT-QID PRN #1 01/09/23 Inhaler] each Doxycycline [Vibramycin] 100 mg PO BID 4 Days #8 cap 05/05/23 predniSONE [Deltasone] 40 mg PO DAILY 4 Days #8 tab 05/05/23 Allergies Allergy/AdvReac Type Severity Reaction Status Date / Time acetaminophen [From Tylenol] AdvReac Severe CADEN Verified 05/04/23 21:48 Review of Systems ROS Other: All systems not noted in ROS Statement are negative. <Dennis Benites - Last Filed: 04/02/25 15:45> ROS Other: All systems not noted in ROS Statement are negative. <Samuel Sinha - Last Filed: 04/02/25 20:48> ROS Statement: Those systems with pertinent positive or pertinent negative responses have been documented in the HPI. Past Medical History Past Medical History: Asthma, Dementia History of Any Multi-Drug Resistant Organisms: None Reported Past Surgical History: Tubal Ligation Additional Past Surgical History / Comment(s): neck surgery Past Anesthesia/Blood Transfusion Reactions: No Reported Reaction Past Psychological History: No Psychological Hx Reported Smoking Status: Never smoker Past Alcohol Use History: None Reported Past Drug Use History: None Reported - Past Family History Father Family Medical History: Hypertension Mother Additional Family Medical History / Comment(s): Alzhemiers Sister(s) Family Medical History: CVA/TIA <Dennis Benites - Last Filed: 04/02/25 15:45> General Exam Limitations: no limitations <Dennis Benites - Last Filed: 04/02/25 15:45> <Samuel Sinha - Last Filed: 04/02/25 20:48> - General Exam Comments Initial Comments: Visual Physical Exam Vital signs reviewed General: Well-appearing, nontoxic, no acute distress. Head: Normocephalic, atraumatic Eyes: PERRLA, EOMI ENT: Airway patent Chest: Nonlabored breathing Skin: No visual rash, normal skin tone Neuro: Alert and oriented 3 Musculoskeletal: No gross abnormalities (Dennis Benites) GENERAL: Patient is well-developed and well-nourished. Patient is nontoxic and well- hydrated and is in mild distress. ENT: Neck is soft and supple. No significant lymphadenopathy is noted. Oropharynx is clear. Moist mucous membranes. Neck has full range of motion without eliciting any pain. EYES: The sclera were anicteric and conjunctiva were pink and moist. Extraocular movements were intact and pupils were equal round and reactive to light. Eyelids were unremarkable. PULMONARY: Unlabored respirations. Good breath sounds bilaterally. No audible rales rhonchi or wheezing was noted. CARDIOVASCULAR: There is a regular rate and rhythm without any murmurs gallops or rubs. Patient's sternum is tender to palpation as are the ribs just to the right of the sternum. ABDOMEN: Soft and nontender with normal bowel sounds. SKIN: Skin is clear with no lesions or rashes and otherwise unremarkable. NEUROLOGIC: Patient is alert and oriented x3. Cranial nerves II through XII are grossly intact. Motor and sensory are also intact. Normal speech, volume and content. Symmetrical smile. MUSCULOSKELETAL: Normal extremities with adequate strength and full range of motion. PSYCHIATRIC: Normal psychiatric evaluation. (Samuel Sinha) Course Vital Signs 04/02/25 04/02/25 04/02/25 15:42 18:14 18:17 Temperature 98.2 F 98.9 F Pulse Rate 89 85 Respiratory 20 18 18 Rate Blood Pressure 180/83 172/75 O2 Sat by Pulse 97 93 L Oximetry Fraction of Inspired Oxygen (FIO2) 04/02/25 04/02/25 04/02/25 18:55 19:00 19:07 Temperature Pulse Rate 129 H 133 H 130 H Respiratory 40 H 48 H Rate Blood Pressure O2 Sat by Pulse 56 L 70 L Oximetry Fraction of Inspired Oxygen (FIO2) 04/02/25 04/02/25 04/02/25 19:15 19:20 19:30 Temperature Pulse Rate 126 H Respiratory 48 H 16 Rate Blood Pressure 164/92 170/103 O2 Sat by Pulse 78 L 98 Oximetry Fraction of 100 Inspired Oxygen (FIO2) 04/02/25 04/02/25 04/02/25 19:34 19:36 19:39 Temperature Pulse Rate 113 H 115 H Respiratory 16 Rate Blood Pressure 148/78 O2 Sat by Pulse 98 Oximetry Fraction of 100 Inspired Oxygen (FIO2) 04/02/25 04/02/25 04/02/25 19:45 19:50 19:55 Temperature Pulse Rate 106 H 107 H 107 H Respiratory 16 16 20 Rate Blood Pressure 113/67 118/63 107/58 O2 Sat by Pulse 99 98 98 Oximetry Fraction of 60 Inspired Oxygen (FIO2) 04/02/25 04/02/25 04/02/25 20:10 20:20 20:42 Temperature Pulse Rate 94 92 94 Respiratory 20 20 Rate Blood Pressure 102/54 96/52 88/50 O2 Sat by Pulse 99 99 98 Oximetry Fraction of Inspired Oxygen (FIO2) Procedures - Intubation Sedative: Versed Paralytic: Succinylcholine Laryngoscope: May Size: 3 Tube Secured Location: teeth Tube Placement Confirmation: visualized tube passing through cords, equal breath sounds bilaterally, no breath sounds over epigastrium, confirmation by capnometry Patient Tolerated Procedure: well Intubation Complications: none <Samuel Sinha - Last Filed: 04/02/25 20:48> Medical Decision Making <Dennis Benites - Last Filed: 04/02/25 15:45> - Lab Data Result diagrams: 04/02/25 19:15 04/02/25 19:15 <Samuel Sinha - Last Filed: 04/02/25 20:48> - Medical Decision Making I completed the quick note portion of this chart signed Dennis Benites PA-C (Dennis Benites) EKG is interpreted by myself her EKG shows a sinus rhythm at 89 bpm parables 152 QRS is 86 QT interval 357 QTc is 4 3 per patient's EKG shows no ST segment elevation or depression. Repeat EKG was done shows a sinus tachycardia at 111 bpm MS 150 QRS is 83 QT of 307 QTc is 372. Patient's EKG shows no ST segment elevation Was pt. sent in by a medical professional or institution (SUNDEEP Albrecht, PAYMENT PROCESSOR, urgent care, hospital, or usp...) When possible be specific @ -No Did you speak to anyone other than the patient for history (EMS, parent, family, police, friend...)? What history was obtained from this source @ -No Did you review nursing and triage notes (agree or disagree)? Why? @ -I reviewed and agree with nursing and triage notes Were old charts reviewed (outside hosp., previous admission, EMS record, old EKG, old radiological studies, urgent care reports/EKG's, usp records)? Report findings @ -No old charts were reviewed Differential Diagnosis? @ -Differential Musculoskeletal Muscular strain, contusion, ligament sprain, fracture, arthritis, septic arthritis, bursitis, cellulitis, muscle spasm, nerve compression, DVT, arterial occlusion, herpes zoster, electrolyte abnormality, tumor.... This is not meant to be in all inclusive list EKG interpreted by me (3pts min.). @ -As above X-rays interpreted by me (1pt min.). @ -X-ray and sternum x-ray showed no acute abnormality. Postintubation x-ray showed good placement of the ET tube CT interpreted by me (1pt min.). @ -CT of the chest showed good placement of the ET tube no pneumothorax and no acute abnormality patient has a nondisplaced sternal fracture U/S interpreted by me (1pt. min.). @ -None done What testing was considered but not performed or refused? (CT, X-rays, U/S, labs)? Why? @ -None What meds were considered but not given or refused? Why? @ -None Did you discuss the management of the patient with other professionals (professionals i.e. , PA, PAYMENT PROCESSOR, lab, RT, psych nurse, social media sr strategy manager, tennis net maker, teacher, chief wellness officer, pillowcase cutter)? Give summary @ -Spoke with Dr. Soto and he agreed to take the patient in the ICU. I spoke with sound physicians they agreed to admit the patient. Was smoking cessation discussed for >3mins.? @ -No Was critical care preformed (if so, how long)? @ -35 minutes Were there social determinants of health that impacted care today? How? (Homel essness, low income, unemployed, alcoholism, drug addiction, transportation, low edu. Level, literacy, decrease access to med. care, skilled nursing, rehab)? @ -No Was there de-escalation of care discussed even if they declined (Discuss DNR or withdrawal of care, Hospice)? DNR status @ -No What co-morbidities impacted this encounter? (DM, HTN, Smoking, COPD, CAD, Cancer, CVA, ARF, Chemo, Hep., AIDS, mental health diagnosis, sleep apnea, morbid obesity)? @ -None Was patient admitted / discharged? Hospital course, mention meds given and route, prescriptions, significant lab abnormalities, going to OR and other pertinent info. @ -Patient came in for a fall in the garden where she hit her sternum on someth ing hard in the garden. Patient was complaining of soreness no difficulty breathing or shortness of breath however she did receive Toradol and a while after that she seemed to have very significant difficulty breathing was not moving much air and eventually we had to bring her into the trauma bay and we gave her the allergy protocol of epinephrine Solu-Medrol and Benadryl and she did not seem to be progressing so we intubated her and eventually started her on propofol. After this the told me that in the past she was allergic to aspirin though that was not mentioned earlier and was not on her chart. He told me that she had to be intubated once in the past for 2 days after she had taken aspirin. Patient will be admitted to the hospitalist because she is not being admitted for trauma is being admitted for respiratory failure secondary to anaphylaxis Undiagnosed new problem with uncertain prognosis? @ -No Drug Therapy requiring intensive monitoring for toxicity (Heparin, Nitro, Insulin, Cardizem)? @ -No Were any procedures done? @ -No Diagnosis/symptom? @ -Chest contusion Acute, or Chronic, or Acute on Chronic? @ -Acute Uncomplicated (without systemic symptoms) or Complicated (systemic symptoms)? @ -Complicated Side effects of treatment? @ -No Exacerbation, Progression, or Severe Exacerbation? @ -No Poses a threat to life or bodily function? How? (Chest pain, USA, PA, pneumonia, PE, COPD, DKA, ARF, appy, cholecystitis, CVA, Diverticulitis, Homicidal, Suicidal, threat to staff... and all critical care pts) @ -No Diagnosis/symptom? @ -Anaphylactic reaction Acute, or Chronic, or Acute on Chronic? @ -Acute Uncomplicated (without systemic symptoms) or Complicated (systemic symptoms)? @ -Complicated Side effects of treatment? @ -None Exacerbation, Progression, or Severe Exacerbation] @ -No Poses a threat to life or bodily function? @ -Yes this could lead to hypoxia and (Samuel Sinha) - Lab Data Lab Results 04/02/25 04/02/25 04/02/25 Range/Units 19:15 19:15 19:15 WBC 23.59 H (4.50-10.00) 10*3/uL RBC 4.11 (4.10-5.20) 10*6/uL Hgb 13.4 (12.0-15.0) g/dL Hct 41.4 (37.2-46.3) % MCV 100.7 H (80.0-97.0) fL MCH 32.6 H (27.0-32.0) pg MCHC 32.4 (32.0-37.0) g/dL Plt Count 346 (140-440) 10*3/uL MPV 9.9 (9.5-12.2) fL Immature Gran % (Auto) 1.9 % Neutrophils % 69.4 % Lymphocytes % 20.4 % Monocytes % 3.8 % Eosinophils % 3.8 % Basophils % 0.7 % Immature Gran # 0.46 H (0.00-0.04) 10*3/uL Neutrophils # 16.37 H (1.80-7.70) 10*3/uL Lymphocytes # 4.82 (0.90-5.00) 10*3/uL Monocytes # 0.89 (0.20-1.00) 10*3/uL Eosinophils # 0.89 H (0.04-0.35) 10*3/uL Basophils # 0.16 H (0.00-0.10) 10*3/uL PT 11.0 (10.0-12.5) sec INR 1.0 (<1.2) APTT 23.4 (22.0-30.0) sec Sample Site ABG pH (7.35-7.45) ABG pCO2 (35-45) mmHg ABG pO2 (83-108) mmHg ABG HCO3 (21-25) mmol/L ABG Total CO2 (19-24) mmol/L ABG O2 Saturation (94-97) % ABG Base Excess mmol/L Jason Test Hemoglobin (11.4-16.0) gm/dL FiO2 % Sodium 138 (137-145) mmol/L Potassium 4.2 (3.5-5.1) mmol/L Chloride 102 (98-107) mmol/L Carbon Dioxide 25 (22-30) mmol/L Anion Gap 11 mmol/L BUN 21 H (7-17) mg/dL Creatinine 0.82 (0.52-1.04) mg/dL Est GFR (CKD-EPI)AfAm 79 (>60 ml/min/1.73 sqM) Est GFR (CKD-EPI)NonAf 69 (>60 ml/min/1.73 sqM) Glucose 145 H (74-99) mg/dL Calcium 9.7 (8.4-10.2) mg/dL Magnesium 2.1 (1.6-2.3) mg/dL Total Bilirubin 0.8 (0.2-1.3) mg/dL AST 28 (14-36) U/L ALT 17 (4-34) U/L Alkaline Phosphatase 78 (38-126) U/L Troponin I (0.000-0.034) ng/mL Total Protein 8.0 (6.3-8.2) g/dL Albumin 4.7 (3.5-5.0) g/dL 04/02/25 04/02/25 Range/Units 19:15 19:46 WBC (4.50-10.00) 10*3/uL RBC (4.10-5.20) 10*6/uL Hgb (12.0-15.0) g/dL Hct (37.2-46.3) % MCV (80.0-97.0) fL MCH (27.0-32.0) pg MCHC (32.0-37.0) g/dL Plt Count (140-440) 10*3/uL MPV (9.5-12.2) fL Immature Gran % (Auto) % Neutrophils % % Lymphocytes % % Monocytes % % Eosinophils % % Basophils % % Immature Gran # (0.00-0.04) 10*3/uL Neutrophils # (1.80-7.70) 10*3/uL Lymphocytes # (0.90-5.00) 10*3/uL Monocytes # (0.20-1.00) 10*3/uL Eosinophils # (0.04-0.35) 10*3/uL Basophils # (0.00-0.10) 10*3/uL PT (10.0-12.5) sec INR (<1.2) APTT (22.0-30.0) sec Sample Site L brachial ABG pH 7.23 L (7.35-7.45) ABG pCO2 65 H (35-45) mmHg ABG pO2 227 H (83-108) mmHg ABG HCO3 27 H (21-25) mmol/L ABG Total CO2 29 H (19-24) mmol/L ABG O2 Saturation 99.6 H (94-97) % ABG Base Excess -2.2 mmol/L Jason Test Yes Hemoglobin 13.2 (11.4-16.0) gm/dL FiO2 100 % Sodium (137-145) mmol/L Potassium (3.5-5.1) mmol/L Chloride (98-107) mmol/L Carbon Dioxide (22-30) mmol/L Anion Gap mmol/L BUN (7-17) mg/dL Creatinine (0.52-1.04) mg/dL Est GFR (CKD-EPI)AfAm (>60 ml/min/1.73 sqM) Est GFR (CKD-EPI)NonAf (>60 ml/min/1.73 sqM) Glucose (74-99) mg/dL Calcium (8.4-10.2) mg/dL Magnesium (1.6-2.3) mg/dL Total Bilirubin (0.2-1.3) mg/dL AST (14-36) U/L ALT (4-34) U/L Alkaline Phosphatase (38-126) U/L Troponin I <0.012 (0.000-0.034) ng/mL Total Protein (6.3-8.2) g/dL Albumin (3.5-5.0) g/dL Critical Care Time Critical Care Time: Yes Total Critical Care Time: 35 <Samuel Sinha - Last Filed: 04/02/25 20:48> Disposition <Dennis Benites - Last Filed: 04/02/25 15:45> Time of Disposition: 20:27 <Samuel Sinha - Last Filed: 04/02/25 20:48> Clinical Impression: Anaphylactic reaction, Chest trauma, Sternal fracture Disposition: ADMITTED IP TO THIS HOSP
--- NOTE | 2025-04-02 16:28 | XR ---
EXAMINATION TYPE: XR ribs RT w pa chest xray DATE OF EXAM: 04/02/2025 4:23 PM COMPARISON: 12/17/2024 CLINICAL INDICATION: Female, 80 years old with history of fall, pain; PHH, pain TECHNIQUE: 5 views FINDINGS: Heart normal size. Hyperinflation with interstitial prominence appears similar. Rounded retrocardiac lucency with air-fluid level. No kingsley consolidation or pleural effusion. No displaced right rib fracture seen. Prominent dextro convex scoliosis lumbar spine. IMPRESSION: 1. COPD with chronic changes. No acute process seen. 2. No displaced right rib fracture identified. 3. Moderate to large underlying hiatal hernia. 4. Lumbar dextroconvex scoliosis. [facility], , 04/02/2025 4:26 PM
--- NOTE | 2025-04-02 17:49 | XR ---
EXAMINATION TYPE: XR sternum DATE OF EXAM: 04/02/2025 5:39 PM INDICATION: Patient age:Female; 80 years old; Reason for study: Trauma; PHH. pain COMPARISON: Chest radiograph 04/02/2025 TECHNIQUE: Frontal and oblique views of the sternum FINDINGS: The sternum has a normal appearance. No evidence of fracture. Overall, the lungs are clear . The cardiac silhouette is normal in size. The remaining osseous structures are intact. IMPRESSION: No acute osseous pathology. [facility], , 04/02/2025 5:46 PM
[2025-04-02] MEDS: HYDROmorphone 0.5 MG/0.5 ML SYRINGE IM STA (17:57)
[2025-04-02] MEDS: KETOROLAC 15 MG/ML 1 ML VIAL IM STA (18:00)
[2025-04-02] MEDS: IPRATROPIUM-ALBUTEROL 3 ML NEB INHALATION STA ×3 (19:07→21:56)
[2025-04-02] MEDS: EPINEPHrine - Anaphylaxis Kit (1 mg/mL) IM STA (19:12)
[2025-04-02] MEDS: methylPREDNISolone SOD SUCCI 125 MG/2 ML VIAL IV STA (19:13)
--- NOTE | 2025-04-02 19:14 | XR ---
EXAMINATION TYPE: XR chest 1V DATE OF EXAM: 04/02/2025 7:08 PM COMPARISON: Chest radiographs from 04/02/2025 TECHNIQUE: XR chest 1V Portable AP radiograph of the chest. CLINICAL INDICATION:Female, 80 years old with history of SOB; FINDINGS: Lungs/Pleura: There is no evidence of pleural effusion, focal consolidation, or pneumothorax. Hyperi nflation with chronic senescent parenchymal change. Pulmonary vascularity: Unremarkable. Heart/mediastinum: Cardiomediastinal silhouette is unremarkable. Musculoskeletal: No acute osseous pathology. Dextro convex scoliosis of the lumbar spine. IMPRESSION: 1. No acute cardiopulmonary disease process. 2. COPD changes. [facility], , 04/02/2025 7:11 PM
[2025-04-02] MEDS: MIDAZOLAM 1 MG/ML 5 ML VIAL IV STA (19:18)
[2025-04-02] MEDS: SUCCINYLCHOLINE CHLORIDE 200 MG/10 ML VIAL IV STA (19:20)
[2025-04-02] MEDS: diphenhydrAMINE 50 MG/ML 1 ML VIAL IVP STA (19:21)
[2025-04-02] MEDS: LORazepam 1 MG/0.5 ML VIAL IV STA ×2 (19:33→22:50)
[2025-04-02 19:37] LABS: Basophils # (A) 0.16 10*3/uL (0.00-0.10); Basophils % (A) 0.7 %; Eosinophils # (A) 0.89 10*3/uL (0.04-0.35); Eosinophils % (A) 3.8 %; HCT 41.4 % (37.2-46.3); HGB 13.4 g/dL (12.0-15.0); Lymphocytes # (A) 4.82 10*3/uL (0.90-5.00); Lymphocytes % (A) 20.4 %; MCH 32.6 pg (27.0-32.0); MCHC 32.4 g/dL (32.0-37.0); MCV 100.7 fL (80.0-97.0); Mean Platelet Volume 9.9 fL (9.5-12.2); Monocytes # (A) 0.89 10*3/uL (0.20-1.00); Monocytes % (A) 3.8 %; Neutrophils # (A) 16.37 10*3/uL (1.80-7.70); Neutrophils % (A) 69.4 %; Platelet Count 346 10*3/uL (140-440); RBC 4.11 10*6/uL (4.10-5.20); RDW 12.9 % (11.5-14.5); WBC 23.59 10*3/uL (4.50-10.00)
[2025-04-02] MEDS: BUDESONIDE 0.5 MG/2 ML NEBU INHALATION STA (19:37)
--- NOTE | 2025-04-02 19:39 | XR ---
EXAMINATION TYPE: XR chest 1V portable DATE OF EXAM: 04/02/2025 7:33 PM COMPARISON: Chest radiographs from 04/02/2025 TECHNIQUE: XR chest 1V portable Portable AP radiograph of the chest. CLINICAL INDICATION:Female, 80 years old with history of post intubation; FINDINGS: Lungs/Pleura: There is no evidence of pleural effusion, focal consolidation, or pneumothorax. Right basilar linear atelectasis. Chronic senescent parenchymal change. Pulmonary vascularity: Unremarkable. Heart/mediastinum: Cardiomediastinal silhouette is unremarkable. Musculoskeletal: No acute osseous pathology. Dextroconvex scoliosis of the lumbar spine with degenera tive disc disease. Other findings: None Lines/Tubes: Endotracheal tube with distal tip 2.5 cm above the queta Nasogastric tube with its distal tip and side-port projecting under the diaphragm and projecting over the gastric lumen. IMPRESSION: Appropriate position of endotracheal and NG tubes. [facility], , 04/02/2025 7:37 PM
[2025-04-02 19:47] LABS: ALT 17 U/L (4-34); AST 28 U/L (14-36); African American GFR (CKD) 79 (>60 ml/min/1.73 sqM); Albumin 4.7 g/dL (3.5-5.0); Alkaline Phosphatase 78 U/L (38-126); Anion Gap 11 mmol/L; Blood Urea Nitrogen 21 mg/dL (7-17); Calcium 9.7 mg/dL (8.4-10.2); Carbon Dioxide 25 mmol/L (22-30); Chloride 102 mmol/L (98-107); Glucose 145 mg/dL (74-99); Magnesium 2.1 mg/dL (1.6-2.3); Non-African American GFR(CKD) 69 (>60 ml/min/1.73 sqM); Potassium 4.2 mmol/L (3.5-5.1); Sodium 138 mmol/L (137-145); Total Bilirubin 0.8 mg/dL (0.2-1.3)
[2025-04-02 19:51] LABS: ABG Base Excess -2.2 mmol/L; ABG HCO3 27 mmol/L (21-25); ABG Oxygen Saturation 99.6 % (94-97); ABG PCO2 65 mmHg (35-45); ABG PH 7.23 (7.35-7.45); ABG PO2 227 mmHg (83-108); ABG TCO2 29 mmol/L (19-24); Allen Test Performed? Yes
[2025-04-02 20:08] LABS: Partial Thromboplastin Time 23.4 sec (22.0-30.0)
[2025-04-02] MEDS: SODIUM CHLORIDE 0.9% 1,000 ML IV ONE ×2 (20:19→23:10)
--- NOTE | 2025-04-02 20:25 | CT ---
EXAMINATION TYPE: CT chest wo con CT DLP: 199.5 mGycm, Automated exposure control for dose reduction was used. DATE OF EXAM: 04/02/2025 8:12 PM COMPARISON: Chest radiograph from same day, CTA chest 01/08/2023. CLINICAL INDICATION:Female, 80 years old with history of Trauma; [facility], Patient fell onto lawn gnome, s ternal injury. patient intubated TECHNIQUE: Multiple axial images were obtained through the chest without IV contrast. Lack of IV or o ral contrast limits evaluation of solid and hollow organ viscera. . Coronal and sagittal reformats re viewed. FINDINGS: LUNGS/ PLEURA: No pleural effusion, pneumothorax, or focal consolidation. Minimal bilateral lower lob e subsegmental atelectasis. No suspicious pulmonary nodule or mass. Minimal linear scarring or atelec tasis within the medial aspect of the right middle lobe and lingula. AIRWAY: Endotracheal tube identified which terminates approximately 5.3 cm above the queta. HEART: Size within normal limits. . No pericardial effusion. Moderate coronary arterial calcification s involving the circumflex artery. MEDIASTINUM: No gross evidence of adenopathy. No mediastinal hematoma. VASCULATURE: No aortic aneurysm. Atherosclerotic calcification of the aorta and its branches. MUSCULOSKELETAL: Diffuse bone demineralization with limits evaluation. Acute nondisplaced fracture of the lower sternum. Chronic anterior wedge compression deformities of the T8, T10, and T12 vertebral bodies additional involvement of the L2 vertebral body with superior endplate compression deformities of the L1, L3, L4 vertebral bodies. No significant retropulsion identified. There is increased thora cic kyphosis at the T8 vertebral body. Multilevel degenerative disc disease. Benign bone island ident ified within the L2 vertebral body. Dextroscoliotic curvature of the lumbar spine. SOFT TISSUES/LYMPH NODES: Unremarkable. LOWER NECK: No significant findings. UPPER ABDOMEN: Enteric tube terminates appropriately in the stomach. IMPRESSION: 1. Acute nondisplaced fracture of the lower sternum. 2. Appropriate position of endotracheal and enteric tubes. 3. Chronic multilevel compression deformities of the thoracolumbar spine with increased thoracic kyph osis. [facility], , 04/02/2025 8:23 PM
[2025-04-02] MEDS ORDERED: NALOXONE 0.4 MG/ML 1 ML VIAL IV PRN (20:28)
[2025-04-02 21:12] LABS: ABG HCO3 25 mmol/L (21-25); ABG Oxygen Saturation 99.2 % (94-97); ABG PCO2 54 mmHg (35-45); ABG PH 7.26 (7.35-7.45); ABG PO2 164 mmHg (83-108); ABG TCO2 26 mmol/L (19-24); Allen Test Performed? Yes
[2025-04-02] MEDS: NOREPINEPHRINE 4 MG in SODIUM CHLORIDE 0.9% 250 ML IV ONE (21:15)
--- NOTE | 2025-04-02 22:30 | ED ---
Medical Decision Making - Lab Data Result diagrams: 04/02/25 19:15 04/02/25 19:15 Lab Results 04/02/25 04/02/25 04/02/25 Range/Units 19:15 19:15 19:15 WBC 23.59 H (4.50-10.00) 10*3/uL RBC 4.11 (4.10-5.20) 10*6/uL Hgb 13.4 (12.0-15.0) g/dL Hct 41.4 (37.2-46.3) % MCV 100.7 H (80.0-97.0) fL MCH 32.6 H (27.0-32.0) pg MCHC 32.4 (32.0-37.0) g/dL Plt Count 346 (140-440) 10*3/uL MPV 9.9 (9.5-12.2) fL Immature Gran % (Auto) 1.9 % Neutrophils % 69.4 % Lymphocytes % 20.4 % Monocytes % 3.8 % Eosinophils % 3.8 % Basophils % 0.7 % Immature Gran # 0.46 H (0.00-0.04) 10*3/uL Neutrophils # 16.37 H (1.80-7.70) 10*3/uL Lymphocytes # 4.82 (0.90-5.00) 10*3/uL Monocytes # 0.89 (0.20-1.00) 10*3/uL Eosinophils # 0.89 H (0.04-0.35) 10*3/uL Basophils # 0.16 H (0.00-0.10) 10*3/uL PT 11.0 (10.0-12.5) sec INR 1.0 (<1.2) APTT 23.4 (22.0-30.0) sec Sample Site ABG pH (7.35-7.45) ABG pCO2 (35-45) mmHg ABG pO2 (83-108) mmHg ABG HCO3 (21-25) mmol/L ABG Total CO2 (19-24) mmol/L ABG O2 Saturation (94-97) % ABG Base Excess mmol/L Jason Test Hemoglobin (11.4-16.0) gm/dL FiO2 % Sodium 138 (137-145) mmol/L Potassium 4.2 (3.5-5.1) mmol/L Chloride 102 (98-107) mmol/L Carbon Dioxide 25 (22-30) mmol/L Anion Gap 11 mmol/L BUN 21 H (7-17) mg/dL Creatinine 0.82 (0.52-1.04) mg/dL Est GFR (CKD-EPI)AfAm 79 (>60 ml/min/1.73 sqM) Est GFR (CKD-EPI)NonAf 69 (>60 ml/min/1.73 sqM) Glucose 145 H (74-99) mg/dL Calcium 9.7 (8.4-10.2) mg/dL Magnesium 2.1 (1.6-2.3) mg/dL Total Bilirubin 0.8 (0.2-1.3) mg/dL AST 28 (14-36) U/L ALT 17 (4-34) U/L Alkaline Phosphatase 78 (38-126) U/L Troponin I (0.000-0.034) ng/mL Total Protein 8.0 (6.3-8.2) g/dL Albumin 4.7 (3.5-5.0) g/dL 04/02/25 04/02/25 Range/Units 19:15 19:46 WBC (4.50-10.00) 10*3/uL RBC (4.10-5.20) 10*6/uL Hgb (12.0-15.0) g/dL Hct (37.2-46.3) % MCV (80.0-97.0) fL MCH (27.0-32.0) pg MCHC (32.0-37.0) g/dL Plt Count (140-440) 10*3/uL MPV (9.5-12.2) fL Immature Gran % (Auto) % Neutrophils % % Lymphocytes % % Monocytes % % Eosinophils % % Basophils % % Immature Gran # (0.00-0.04) 10*3/uL Neutrophils # (1.80-7.70) 10*3/uL Lymphocytes # (0.90-5.00) 10*3/uL Monocytes # (0.20-1.00) 10*3/uL Eosinophils # (0.04-0.35) 10*3/uL Basophils # (0.00-0.10) 10*3/uL PT (10.0-12.5) sec INR (<1.2) APTT (22.0-30.0) sec Sample Site L brachial ABG pH 7.23 L (7.35-7.45) ABG pCO2 65 H (35-45) mmHg ABG pO2 227 H (83-108) mmHg ABG HCO3 27 H (21-25) mmol/L ABG Total CO2 29 H (19-24) mmol/L ABG O2 Saturation 99.6 H (94-97) % ABG Base Excess -2.2 mmol/L Jason Test Yes Hemoglobin 13.2 (11.4-16.0) gm/dL FiO2 100 % Sodium (137-145) mmol/L Potassium (3.5-5.1) mmol/L Chloride (98-107) mmol/L Carbon Dioxide (22-30) mmol/L Anion Gap mmol/L BUN (7-17) mg/dL Creatinine (0.52-1.04) mg/dL Est GFR (CKD-EPI)AfAm (>60 ml/min/1.73 sqM) Est GFR (CKD-EPI)NonAf (>60 ml/min/1.73 sqM) Glucose (74-99) mg/dL Calcium (8.4-10.2) mg/dL Magnesium (1.6-2.3) mg/dL Total Bilirubin (0.2-1.3) mg/dL AST (14-36) U/L ALT (4-34) U/L Alkaline Phosphatase (38-126) U/L Troponin I <0.012 (0.000-0.034) ng/mL Total Protein (6.3-8.2) g/dL Albumin (3.5-5.0) g/dL Disposition Clinical Impression: Anaphylactic reaction, Chest trauma, Sternal fracture Disposition: ADMITTED IP TO THIS [facility] Procedures - Central Line Placement Right Femoral Consent Obtained: verbal consent, emergent situation Patient Placed on Monitor/Pulse Ox: Yes Prep: mask, gown, gloves Central Line Prep: Chlorhexidine scrub Local Anesthesia Used: Lidocaine 2%, with Epi Ultrasound Used for Placement: Yes Central Line Lumen Inserted: triple Bloods Obtained for Lab: No Central Line Position: good blood return, all ports aspirated, flushed, capped, sutured in place with nylon Dressing Applied: Tegaderm Post Procedure X-Ray: tip of catheter in good position Patient Tolerated Procedure: well Complications: none
--- NOTE | 2025-04-02 23:25 | P.HPIM ---
History of Present Illness H&P Date: 04/02/25 History of present illness; Patient is a 80-year-old female with asthma and dementia who presented for fall. Patient states she was in the garden where she fell and hit her sternum on hard object. Patient was complaining of soreness no difficulty breathing or shortness of breath. Continue to have right-sided rib pain. Did not hit head or neck. Later, in ER she did receive Toradol and developed significant difficulty breathing, and was given epinephrine, Solu-Medrol, and Benadryl without improvement and was subsequently intubated her and eventually started her on propofol. After this the told me that in the past she was allergic to aspirin though that was not mentioned earlier and was not on her chart. He also mentioned that she had diarrhea over the last 2 weeks but has improved over the last few days. She has also been taking prednisone for some recent difficulty breathing. stated she had to be intubated once in the past for 2 days after she had taken aspirin. Spoke with the ER physician, patient admission was accepted by internal medicine service for treatment. REVIEW OF SYSTEMS: Cannot fully assess PHYSICAL EXAMINATION: VITAL SIGNS: Reviewed GENERAL: Mechanically intubated HENT: Normocephalic, atraumatic CARDIOVASCULAR: S1 and S2 present. No murmurs, rubs, or gallops. PULMONARY: Chest is clear to auscultation, no wheezing, rhonchi, or crackles. ABDOMEN: Soft, nondistended. No palpable organomegaly. NEUROLOGICAL: Sedated EXTREMITIES: No apparent cyanosis, clubbing. No pedal edema. SKIN: No apparent rashes. ER FINDINGS: Labs significant for WBC 23.5, ABG pH 7.2, PCO2 65, PO2 227, BUN 21, glucose 145, troponin <0.012. EKG independently interpreted showed sinus tachycardia, heart rate of 111, QTc 372, nonspecific ST and T wave abnormality Chest x-ray done independently interpreted showed no acute cardiopulmonary process. COPD changes. Sternum x-ray no acute osseous pathology. Assessment and Plan: In summary, patient is a 80-year-old female with asthma and dementia who presented for fall and is treated for acute hypoxic respiratory failure due to anaphylaxis. # Acute hypoxic respiratory failure due to anaphylactic shock #COPD #Mechanical fall #Sternal injury History of severe allergy to aspirin, with Toradol administered in the ED Status post intubation with mechanical ventilation. Continue propofol 10 mcg/kg/min, and Levophed 0.03 mcg/kg/min Given epinephrine, Solu-Medrol, Benadryl Given 2 L normal saline Begin Solu-Cortef 100 mg IV every 8 hours Begin IV NS X-rays without acute osseous pathology CT chest abdomen pelvis with contrast for ruling out pericardial effusion, p neumothorax, aortic dissection Pulmonology consulted Orthopedic surgery consulted Chronic Medical Conditions: COPD Osteoporosis Resume home medications DVT ppx: Subq Lovenox 40 meq daily Code status: Full code F: IV fluids E: Replete as needed N: NPO A: Ambulatory Anticipated discharge place: Pending clinical course Anticipated discharge time: Greater than 2 days Ruiz Johnson MD Internal Medicine Resident, PGY1 Dictation was produced using [employer] dictation software. Please excuse any grammatical, word or spelling errors. I have seen and evaluated the patient today. I Discussed the case with the resident and agree with the resident's findings I edited the assessment and patsy n as necessary as documented in the resident's note. I was called to bedside secondary to SVT in the 170 , hypotension , while on levophed sync cardioversion was performed at 120 j , then 150 j , then 200 j heart rate came down to 140s start 1 L normal saline bolus add Vasopressin to help wean levophed a little , to help reduce heart rate and SVT continue to monitor Past Medical History Past Medical History: Asthma, Dementia History of Any Multi-Drug Resistant Organisms: None Reported Past Surgical History: Tubal Ligation Additional Past Surgical History / Comment(s): neck surgery Past Anesthesia/Blood Transfusion Reactions: No Reported Reaction Past Psychological History: No Psychological Hx Reported Smoking Status: Never smoker Past Alcohol Use History: None Reported Past Drug Use History: None Reported - Past Family History Father Family Medical History: Hypertension Mother Additional Family Medical History / Comment(s): Alzhemiers Sister(s) Family Medical History: CVA/TIA Medications and Allergies Home Medications Medication Instructions Recorded Confirmed Type Budesonide-Formot 160-4.5 Mcg 2 puff INHALATION RT-BID #1 each 08/27/22 05/04/23 Rx [Symbicort 160-4.5 Mcg Inhaler] Multivitamins, Thera [Multivitamin 1 tab PO DAILY 01/08/23 05/04/23 History (formulary)] Albuterol Inhaler [Ventolin Hfa 1 puff INHALATION RT-QID PRN #1 01/09/23 05/04/23 Rx Inhaler] each Alendronate Sodium [Fosamax] 70 mg PO TH 03/01/23 05/04/23 History Calcium Carbonate [Calcium] 600 mg PO BID 03/01/23 05/04/23 History Cyanocobalamin (Vitamin B-12) 1,000 mcg PO DAILY 05/04/23 05/04/23 History [Vitamin B-12] Fish Oil/Dha/Epa [Fish Oil 1,200 1 cap PO DAILY 05/04/23 05/04/23 History mg Fish Oil] Turmeric Root Extract [Turmeric] 500 mg PO DAILY 05/04/23 05/04/23 History Doxycycline [Vibramycin] 100 mg PO BID 4 Days #8 cap 05/05/23 Rx predniSONE [Deltasone] 40 mg PO DAILY 4 Days #8 tab 05/05/23 Rx Allergies Allergy/AdvReac Type Severity Reaction Status Date / Time acetaminophen [From Tylenol] AdvReac Severe CADEN Verified 05/04/23 21:48 Physical Exam Vitals: Vital Signs Temp Pulse Resp BP Pulse Ox FiO2 04/02/25 20:52 93 87/50 99 04/02/25 20:46 95 20 91/45 98 04/02/25 20:42 94 88/50 98 04/02/25 20:20 92 20 96/52 99 04/02/25 20:10 94 20 102/54 99 04/02/25 19:55 107 H 20 107/58 98 60 04/02/25 19:50 107 H 16 118/63 98 04/02/25 19:45 106 H 16 113/67 99 04/02/25 19:39 100 04/02/25 19:36 115 H 16 148/78 98 04/02/25 19:34 113 H 04/02/25 19:30 100 04/02/25 19:20 126 H 16 170/103 98 04/02/25 19:15 48 H 164/92 78 L 04/02/25 19:07 130 H 04/02/25 19:00 133 H 48 H 70 L 04/02/25 18:55 129 H 40 H 56 L 04/02/25 18:17 18 04/02/25 18:14 98.9 F 85 18 172/75 93 L 04/02/25 15:42 98.2 F 89 20 180/83 97 Intake and Output 04/02/25 04/02/25 04/02/25 06:59 14:59 22:59 Intake Total 3.742 Balance 3.742 Intake: Intake, IV Titration 3.742 Amount propofoL 1,000 mg In 3.742 Empty Bag 1 bag @ 10 MCG/ KG/MIN 2.722 mls/hr IV . Q24H [facility] Rx#:[id number] Other: Weight 45.359 kg Results CBC & Chem 7: 04/02/25 23:19 04/02/25 19:15 Labs: Abnormal Lab Results - Last 24 Hours (Table) 04/02/25 04/02/25 04/02/25 Range/Units 19:15 19:15 19:46 WBC 23.59 H (4.50-10.00) 10*3/uL MCV 100.7 H (80.0-97.0) fL MCH 32.6 H (27.0-32.0) pg Immature Gran # 0.46 H (0.00-0.04) 10*3/uL Neutrophils # 16.37 H (1.80-7.70) 10*3/uL Eosinophils # 0.89 H (0.04-0.35) 10*3/uL Basophils # 0.16 H (0.00-0.10) 10*3/uL ABG pH 7.23 L (7.35-7.45) ABG pCO2 65 H (35-45) mmHg ABG pO2 227 H (83-108) mmHg ABG HCO3 27 H (21-25) mmol/L ABG Total CO2 29 H (19-24) mmol/L ABG O2 Saturation 99.6 H (94-97) % BUN 21 H (7-17) mg/dL Glucose 145 H (74-99) mg/dL
[2025-04-02 23:26] LABS: Basophils # (A) 0.07 10*3/uL (0.00-0.10); Basophils % (A) 0.3 %; Eosinophils # (A) 0.15 10*3/uL (0.04-0.35); Eosinophils % (A) 0.7 %; HCT 33.1 % (37.2-46.3); HGB 10.8 g/dL (12.0-15.0); Lymphocytes # (A) 0.64 10*3/uL (0.90-5.00); MCH 32.9 pg (27.0-32.0); MCHC 32.6 g/dL (32.0-37.0); MCV 100.9 fL (80.0-97.0); Mean Platelet Volume 9.9 fL (9.5-12.2); Monocytes # (A) 0.52 10*3/uL (0.20-1.00); Monocytes % (A) 2.4 %; Neutrophils # (A) 19.75 10*3/uL (1.80-7.70); Neutrophils % (A) 91.6 %; Platelet Count 261 10*3/uL (140-440); RBC 3.28 10*6/uL (4.10-5.20); RDW 12.9 % (11.5-14.5); WBC 21.57 10*3/uL (4.50-10.00)
[2025-04-02 23:27] LABS: Glucose,Whole Blood 207 mg/dL (70-110)
[2025-04-02] MEDS: IPRATROPIUM-ALBUTEROL 3 ML NEB INHALATION SCH (23:37)
[2025-04-02] MEDS: CISATRACURIUM 2 MG/ML 5 ML VIAL IV ONE (23:58)
[2025-04-02] MEDS: CISATRACURIUM 200 MG in SODIUM CHLORIDE 0.9% 180 ML IV SCH (23:59)
[2025-04-03] MEDS: DEXTROSE 5% IN WATER 100 ML with AMIODARONE 150 MG IV ONE (00:02)
[2025-04-03] MEDS: SODIUM CHLORIDE 0.9% 1,000 ML IV SCH ×2 (00:17→00:24)
[2025-04-03] MEDS: AMIODARONE 360 MG in DEXTROSE 5% IN WATER 200 ML IV ONE (00:18)
[2025-04-03] MEDS: FAMOTIDINE 20 MG/2 ML VIAL IV SCH (00:20)
[2025-04-03] MEDS: diphenhydrAMINE 50 MG/ML 1 ML VIAL IVP SCH (00:20)
[2025-04-03] MEDS: ARTIFICIAL TEARS-HYPROMELLOSE DROPS 15 ML BTL BOTH EYES SCH (00:24)
[2025-04-03] MEDS ORDERED: SODIUM CHLORIDE 0.9% 1,000 ML IV SCH (00:30)
[2025-04-03] MEDS ORDERED: DEXTROSE 50% SYRINGE 50 ML IVP PRN ×2 (00:38)
[2025-04-03 00:45] LABS: ABG Base Excess -4.4 mmol/L; ABG HCO3 23 mmol/L (21-25); ABG Oxygen Saturation 97.4 % (94-97); ABG PCO2 50 mmHg (35-45); ABG PH 7.27 (7.35-7.45); ABG PO2 102 mmHg (83-108); ABG TCO2 24 mmol/L (19-24)
[2025-04-03 00:46] LABS: Allen Test Performed? no
--- NOTE | 2025-04-03 01:23 | P.PCN ---
Date of Procedure: 04/03/25 Preoperative Diagnosis: Anaphylaxis, anaphylactic shock Postoperative Diagnosis: Anaphylaxis, anaphylactic shock Procedure(s) Performed: Insertion of a left wrist radial arterial line Indications for Procedure: Hemodynamic monitoring and frequent blood draws Description of Procedure: Informed consent was obtained, and a procedural timeout was performed . The patient was placed in supine position. The left radial region was prepared in a sterile fashion, and a sterile drape was applied. The left radial artery was palpated, easily cannulated, and a guidewire was placed. A Cook catheter was inserted over the guidewire, and the guidewire was removed. There was good arterial blood flow, good arterial waveform, and no complications. The line was secured with using a 3-0 silk suture.
--- NOTE | 2025-04-03 01:56 | CT ---
EXAM: CT Angiography Chest With Intravenous Contrast CLINICAL HISTORY: ITS.REASON CT Reason: r/o aortic discection, bleeding, pneumothorax TECHNIQUE: Axial computed tomographic angiography images of the chest with intravenous contrast. CTDI is 35.58 mGy and DLP is 1048.6 mGy-cm. This CT exam was performed using one or more of the following dose reduction techniques: automated exposure control, adjustment of the mA and/or kV according to patient size, and/or use of iterative reconstruction technique. MIP reconstructed images were created and reviewed. COMPARISON: 01/08/2023 FINDINGS: Motion-induced image degradation. An enteric tube terminates about 3 cm above the queta. Pulmonary arteries: Unremarkable. No pulmonary embolism. Aorta: Atherosclerotic calcifications and tortuosity of the thoracic aorta. No acute findings. No thoracic aortic aneurysm. Heart: No cardiomegaly. Densely calcified left coronary arterial atherosclerosis. No significant pericardial effusion. No evidence of RV dysfunction. Lungs: Central airways are patent. Moderate centrilobular pulmonary emphysema. Biapical pleural parenchymal thinning/scarring. Demonstrates a triangular shaped opacity in the posteromedial aspect of the left lower lung, which appears thinner at the left hilum, suggestive of a segmental collapse versus lobar consolidation. There is posterior right basilar subpleural small atelectatic or consolidative changes seen. Biapical pleural parenchymal thickening/scarring. Pleural space: Trace left pleural fluid. Posteriorly bilateral pleural thickening. No pneumothorax. Bones/joints: Osteopenia. Significant T7, T9 and T11 vertebral compression deformities/fractures with loss of 80-90% body heights. No subluxation. Increased thoracic kyphosis. Levoscoliosis. Degenerative spondylitic changes.. Soft tissues: Unremarkable. Lymph nodes: Small reactive right hilar lymph node. No lymphadenopathy by CT size criteria. IMPRESSION: No evidence of pulmonary embolism, aortic aneurysm or dissection. Moderate centrilobular pulmonary emphysema. A triangular-shaped opacity in the posterior medial aspect of the left lower lung lobe seen, suggestive of a segmental collapse versus lobar consolidation. Radiographic follow-up to normalization recommended. Posteriorly right basilar subpleural small atelectatic changes versus consolidation. Osteopenia. Multiple vertebral compression deformities/fractures of indeterminant age. Degenerative spondylosis. Increased thoracic kyphosis. Levoscoliosis. EXAM: CT Angiography Abdomen and Pelvis With Intravenous Contrast CLINICAL HISTORY: ITS.REASON CT Reason: r/o aortic discection, bleeding, pneumothorax TECHNIQUE: Axial computed tomographic angiography images of the abdomen and pelvis with intravenous contrast. This CT exam was performed using one or more of the following dose reduction techniques: automated exposure control, adjustment of the mA and/or kV according to patient size, and/or use of iterative reconstruction technique. MIP reconstructed images were created and reviewed. COMPARISON: No relevant prior studies available. FINDINGS: VASCULATURE: Aorta: Diffuse abdominal aortic calcified atherosclerosis, tortuosity and elongation. No acute findings. No abdominal aortic aneurysm. No dissection. Celiac trunk and mesenteric arteries: No acute findings. No occlusion or significant stenosis. Renal arteries: Small plaques at the origin of the right and left renal artery. No acute findings. No occlusion or significant stenosis. Iliac arteries: No acute findings. No occlusion or significant stenosis. A right femoral vein catheter is seen terminating at right-sided L5 vertebral level. ABDOMEN: Liver: Diffuse fatty hepatic infiltration. No mass. Gallbladder and bile ducts: Small pericholecystic fluid. Uniformly mildly enhancing bladder wall.. No calcified stones. No ductal dilation. Pancreas: No contour deforming mass. No significant ductal dilation. Spleen: Smaller sized spleen.. Adrenals: No mass. Kidneys and ureters: No hydronephrosis. No solid mass. Stomach and bowel: An enteric tube terminates in a fluid/gas filled distended stomach. There is concern for a gastric outlet obstruction (series 502 image 54, series 501 image 169). Anteriorly along the inferior margin of the liver air-containing cavity is seen most likely related to gastric pylorus, un-likely an extraluminal air (series 502 image 53, series 501 image 150). Gas filled up to 3.5 cm dilated small bowel loops, related to adynamic ileus. Circumferential mucosal wall thickening of the ascending colon is seen, this could be related to an acute colitis versus incomplete distention (series 502 image 67). No acute findings in the region of the appendix. PELVIS: Evaluation of the pelvis is nondiagnostic due to motion and extensive beam hardening artifact from patient's total left hip replacement hardware. Bladder: A nearly empty bladder with a Mercado's catheter in situ. ABDOMEN and PELVIS: Intraperitoneal space: No significant fluid collection. No conclusive free air. Bones/joints: Osteopenia. T12, L1 and L4 mild/moderate vertebral compression fractures of indeterminant age. Degenerative spondylitic changes. Moderately severe thoracic dextroscoliosis. No subluxation. Soft tissues: Diffusely decreased peritoneal and body wall fat Lymph nodes: Unremarkable. No enlarged lymph nodes. IMPRESSION: Calcified/noncalcified atherosclerosis, tortuosity and elongation of a normal caliber aortoiliac vasculature. Small calcified plaques at the origin of the right and left renal artery. No acute findings. No significant/flow-limiting stenosis or occlusion. A fluid/gas filled distended stomach with a NG tube, concerning for a gastric outlet obstruction. Recommend clinical correlation. Small bowel adynamic ileus. Circumferential mucosal wall thickening of the ascending colon, this could be related to an acute colitis versus incomplete distention. Clinical correlation is advised. Additional chronic findings as described above.
[2025-04-03 02:14] LABS: Glucose,Whole Blood 278 mg/dL (70-110)
[2025-04-03] MEDS: PANTOPRAZOLE 40 MG/10 ML VIAL IVP ONE (02:16)
[2025-04-03] MEDS: INSULIN LISPRO (HumaLOG) 100 UNIT/ML 10 mL VL SQ SCH (02:16)
[2025-04-03] MEDS: fentaNYL (PF). 1,000 MCG in SODIUM CHLORIDE 0.9% 80 ML IV SCH (02:17)
--- NOTE | 2025-04-03 02:23 | P.CNPUL ---
History of Present Illness Consult date: 04/03/25 Requesting physician: Samuel Sinha Reason for consult: other (Anaphylactic shock, ICU management) Chief complaint: Fall History of present illness: Patient is a 80-year-old female with past medical history significant for chronic bronchial asthma, previous possible allergic reaction to Tylenol or aspirin. Presented to emergency department yesterday afternoon. She had a fall while working in the garden. Reportedly, fell on a garden decoration. Her chief complaint was right-sided rib pain. Workup in the emergency department including a CT of the chest showing a acute nondisplaced fracture of the lower sternum. Labs including a CBC with a WBC count of 21.6, hemoglobin 10.8, platele ts 261. Previous hemoglobin 13.4, possibly hemodilution. CMP: Sodium 138, potassium 4.2, chloride 102, serum bicarb 25, BUN 21, creatinine 0.82, glucose 145. LFTs unremarkable. Troponin less than 0.012 She did receive some Toradol for the pain. According to the ER note, shortly after developed significant increased work of breathing, reduced air exchange, and impending respiratory failure. She was treated for suspected allergic reaction, given a dose of IM epinephrine, Solu-Medrol, and Benadryl. She was intubated by the ED provider. Subsequently, became hypotensive and tachycardic. She received 1.5 L fluid bolus in the ED. Also, started on norepinephrine for blood pressure support. Patient did go into unstable atrial fibrillation with RVR, she was cardioverted x 3 in the ED, which were unsuccessful. Patient transferred to the intensive care unit in critical condition. I am evaluating this patient in room 256. Current ventilator settings assist-control, respiratory rate 24, tidal volume 300, FiO2 60%, PEEP of 5. She is asynchronous with the ventilator, breathing in the high 30s and bucking the vent. Propofol is being used for sedation and is currently increased to 40 mcg/kg/min. Limited lung sounds and air exchange bilaterally. Most recent ABG done on above-mention ed ventilator settings with a PaO2 of 164, pCO2 54, pH of 7.26. Follow-up chest x-ray endotracheal tube approximately 5.7 cm above the queta. Orogastric tube coursing below the diaphragm. Coarse interstitial lung markings. No notable pneumothoraces or effusions. Left lower lobe opacity. Currently, patient is in atrial fibrillation with RVR. Rate ranging from 130 to 160 bpm. Norepinephrine infusing at 0.2 mcg/kg/min. Blood pressure 96/67 mmHg. Despite adequate sedation, continues to have elevated peak airway pressures of 44 and her static airway pressure is 29. my supervising physician, Dr. Hanson called and updated on the situation. Review of Systems ROS unobtainable: due to endotracheal tube, due to mental status Past Medical History Past Medical History: Asthma, Dementia History of Any Multi-Drug Resistant Organisms: None Reported Past Surgical History: Tubal Ligation Additional Past Surgical History / Comment(s): neck surgery Past Anesthesia/Blood Transfusion Reactions: No Reported Reaction Past Psychological History: No Psychological Hx Reported Smoking Status: Never smoker Past Alcohol Use History: None Reported Past Drug Use History: None Reported - Past Family History Father Family Medical History: Hypertension Mother Additional Family Medical History / Comment(s): Alzhemiers Sister(s) Family Medical History: CVA/TIA Medications and Allergies Home Medications Medication Instructions Recorded Confirmed Type Budesonide-Formot 160-4.5 Mcg 2 puff INHALATION RT-BID #1 each 08/27/22 05/04/23 Rx [Symbicort 160-4.5 Mcg Inhaler] Multivitamins, Thera [Multivitamin 1 tab PO DAILY 01/08/23 05/04/23 History (formulary)] Albuterol Inhaler [Ventolin Hfa 1 puff INHALATION RT-QID PRN #1 01/09/23 05/04/23 Rx Inhaler] each Alendronate Sodium [Fosamax] 70 mg PO TH 03/01/23 05/04/23 History Calcium Carbonate [Calcium] 600 mg PO BID 03/01/23 05/04/23 History Cyanocobalamin (Vitamin B-12) 1,000 mcg PO DAILY 05/04/23 05/04/23 History [Vitamin B-12] Fish Oil/Dha/Epa [Fish Oil 1,200 1 cap PO DAILY 05/04/23 05/04/23 History mg Fish Oil] Turmeric Root Extract [Turmeric] 500 mg PO DAILY 05/04/23 05/04/23 History Doxycycline [Vibramycin] 100 mg PO BID 4 Days #8 cap 05/05/23 Rx predniSONE [Deltasone] 40 mg PO DAILY 4 Days #8 tab 05/05/23 Rx Allergies Allergy/AdvReac Type Severity Reaction Status Date / Time acetaminophen [From Tylenol] Allergy Severe Anaphylaxis Verified 04/03/25 07:37 ketorolac [From Toradol] Allergy Severe Anaphylaxis Verified 04/03/25 07:41 aspirin Allergy Anaphylaxis Verified 04/03/25 07:37 Physical Exam Vitals: Vital Signs Temp Pulse Resp BP Pulse Ox FiO2 04/03/25 00:48 60 04/03/25 00:20 112 H 24 111/73 94 L 04/03/25 00:10 144 H 24 125/92 95 04/03/25 00:00 140 H 21 124/83 96 60 04/02/25 23:56 142 H 04/02/25 23:50 149 H 11 L 142/92 97 04/02/25 23:40 138 H 12 109/67 95 04/02/25 23:38 144 H 04/02/25 23:30 94.6 F L 152 H 11 L 114/61 93 L 60 04/02/25 22:54 160 H 96/67 04/02/25 22:51 151 H 89/53 04/02/25 22:49 152 H 95/60 04/02/25 22:45 158 H 90/56 04/02/25 21:56 105 H 85/58 04/02/25 21:55 105 H 04/02/25 21:48 108 H 80/43 98 04/02/25 21:44 107 H 74/40 04/02/25 21:35 60/40 04/02/25 21:31 64/39 04/02/25 21:29 98 70/38 04/02/25 21:25 96 65/40 100 04/02/25 21:21 98 20 92/41 100 04/02/25 20:52 93 87/50 99 04/02/25 20:46 95 20 91/45 98 04/02/25 20:42 94 88/50 98 04/02/25 20:20 92 20 96/52 99 04/02/25 20:10 94 20 102/54 99 04/02/25 19:55 107 H 20 107/58 98 60 04/02/25 19:50 107 H 16 118/63 98 04/02/25 19:45 106 H 16 113/67 99 04/02/25 19:36 115 H 16 148/78 98 04/02/25 19:34 113 H 04/02/25 19:30 100 04/02/25 19:20 126 H 16 170/103 98 04/02/25 19:15 48 H 164/92 78 L 04/02/25 19:07 130 H 04/02/25 19:00 133 H 48 H 70 L 04/02/25 18:55 129 H 40 H 56 L 04/02/25 18:17 18 04/02/25 18:14 98.9 F 85 18 172/75 93 L 04/02/25 15:42 98.2 F 89 20 180/83 97 Intake and Output 04/02/25 04/02/25 04/03/25 14:59 22:59 06:59 Intake Total 12.885 389.333 Output Total 60 Balance 12.885 329.333 Intake: IV 260 Sodium Chloride 0.9% 1, 260 000 ml @ 130 mls/hr IV . Q7H42M [facility] Rx#:[id number] Intake, IV Titration 12.885 129.333 Amount Norepinephrine 4 mg In 3.428 123.709 Sodium Chloride 0.9% 250 ml @ 0.03 MCG/KG/MIN 5. 185 mls/hr IV .Q24H [facility] Rx#:[id number] propofoL 1,000 mg In 9.457 5.624 Empty Bag 1 bag @ 10 MCG/ KG/MIN 2.722 mls/hr IV . Q24H [facility] Rx#:[id number] Output: Urine 60 Other: Weight 45.359 kg GENERAL EXAM: Sedated, 80-year-old female, intubated to the mechanical ventilator HEAD: Normocephalic and atraumatic. No angioedema. EYES: reaction of pupils to light, left greater than right. NOSE: Clear with pink turbinates. THROAT: No erythema or exudates. NECK: No masses, no JVD. CHEST: No chest wall deformity. LUNGS: Markedly diminished lung sounds bilaterally. Intubated mechanical ventilator breathing above set rate. Peak pressures 44, static pressure 29. Calculated airway resistance 15 CVS: S1 and S2 normal with no audible murmur, irregular rhythm. No extra heart sounds ABDOMEN: No hepatosplenomegaly, active bowel sounds, no guarding or rigidity. No diarrhea. Orogastric tube to LIS with limited coffee-ground output. SPINE: No scoliosis or deformity SKIN: No rashes, urticaria. CENTRAL NERVOUS SYSTEM: No focal deficits, tone is normal in all 4 extremities. EXTREMITIES: There is no peripheral edema, clubbing, or cyanosis. Peripheral pulses are intact. Right femoral central line. Results - Laboratory Findings CBC and BMP: 04/03/25 04:36 04/03/25 04:36 ABG ABG pH 7.27 (7.35-7.45) L 04/03/25 00:38 ABG pCO2 50 mmHg (35-45) H 04/03/25 00:38 ABG pO2 102 mmHg (83-108) 04/03/25 00:38 ABG O2 Saturation 97.4 % (94-97) H 04/03/25 00:38 PT/INR, D-dimer PT 11.0 sec (10.0-12.5) 04/02/25 19:15 INR 1.0 (<1.2) 04/02/25 19:15 Abnormal lab findings: Abnormal Labs 04/02/25 04/02/25 04/02/25 19:15 19:15 19:46 WBC 23.59 H RBC Hgb Hct MCV 100.7 H MCH 32.6 H Immature Gran # 0.46 H Neutrophils # 16.37 H Lymphocytes # Eosinophils # 0.89 H Basophils # 0.16 H ABG pH 7.23 L ABG pCO2 65 H ABG pO2 227 H ABG HCO3 27 H ABG Total CO2 29 H ABG O2 Saturation 99.6 H Hemoglobin BUN 21 H Glucose 145 H POC Glucose (mg/dL) 04/02/25 04/02/25 04/02/25 20:48 23:19 23:26 WBC 21.57 H RBC 3.28 L Hgb 10.8 L Hct 33.1 L MCV 100.9 H MCH 32.9 H Immature Gran # 0.44 H Neutrophils # 19.75 H Lymphocytes # 0.64 L Eosinophils # Basophils # ABG pH 7.26 L ABG pCO2 54 H ABG pO2 164 H ABG HCO3 ABG Total CO2 26 H ABG O2 Saturation 99.2 H Hemoglobin 10.5 L BUN Glucose POC Glucose (mg/dL) 207 H 04/03/25 00:38 WBC RBC Hgb Hct MCV MCH Immature Gran # Neutrophils # Lymphocytes # Eosinophils # Basophils # ABG pH 7.27 L ABG pCO2 50 H ABG pO2 ABG HCO3 ABG Total CO2 ABG O2 Saturation 97.4 H Hemoglobin BUN Glucose POC Glucose (mg/dL) - Diagnostic Findings Chest x-ray: image reviewed Assessment and Plan Assessment: Suspected anaphylaxis, anaphylactic shock. Patient presented after a fall. Found to have sternal fracture. Given a dose of IV Toradol in the ED, subsequently developed increased work of breathing, reduced air exchange, and impending respiratory failure. Initially given a dose of IM epinephrine, Solu- Medrol, and Benadryl. Acute asthma exacerbation Acute hypoxemic and hypercapnic respiratory failure, secondary to above, requiring intubation mechanical ventilator. Chest x-ray showing endotracheal tube approximately 5.7 cm above the queta, orogastric tube coursing below the diaphragm, and a left basilar opacity. Atrial fibrillation with rapid ventricular response, status post cardioversion x 3, failed Hypotension and shock,, did receive 1.5 L fluid bolus in the ED, and started on norepinephrine. Mechanical fall with acute lower body sternal fracture Acute leukocytosis History of previous allergic reaction to Tylenol or aspirin History of left femoral neck fracture with left hip hemiarthroplasty Plan: Patient's medications, labs, imaging reviewed Follow-up ABG PaO2 of 102, pCO2 50, pH of 7.27 Continue on mechanical ventilator, increased respiratory rate to 28, wean FiO2 as tolerated Sedated on propofol Continues to have elevated airway pressures and difficulty with ventilator synchrony Paralyze patient with Nimbex 10 mg IV push once and continue on infusion per protocol Continue Solu-Medrol 1 to 2 mg/kg per day, Pepcid, Benadryl Add DuoNebs every 4 hours, budesonide inhalation, formoterol inhalation Patient continues to be in atrial fibrillation with RVR, give IV amiodarone 150 mg bolus and continue per protocol Given additional fluid bolus of normal saline 1 L once now and continue with normal saline at 130 mL/h Continues on norepinephrine, currently at 0.2 mcg/kg/min, add vasopressin if needed Central line access previously established Establish arterial line CT of the thoracic aorta pending Postintubation chest x-ray showing the endotracheal tube approximately 5.7 cm above the queta, orogastric tube coursing below the diaphragm, possible left basilar opacity Advance ET tube 2 cm Cover empirically on Zosyn Case discussed with my supervising physician, additional recommendations forthcoming I have personally seen and examined the patient, performed the documentation and the assessment and plan as written. Number of minutes spent on the visit:20 This is a joint evaluation that was done along with the nurse practitioner. This evaluation was done in 40 minutes. This is a 81-year-old female patient who came into the hospital following a mechanical fall and the patient received Toradol in the emergency for pain control and subsequent emergency room anaphylactic shock with significant hemodynamic instability and collapse. She also developed an acute bronchospasm. She had to be intubated and placed on a mechanical ventilator. She had to be sedated and paralyzed. She was supported with IV fluids, pressors, there was and she was also given a combination of Pepcid and Benadryl. The patient was also given epinephrine in the emergency department. This morning, the patient remains on propofol and fentanyl and she is calm and comfortable on the mechanical ventilator. The patient had to be paralyzed and she is on an index drip. She peak airway pressure is dropped down to 30. Oxygenation is improved. Ventilation is improved. Chest x-ray shows some elevation of the right hemidiaphragm, orotracheal tube remains in a good location, her cardiac rhythm has subsequently converted into sinus and the patient remains on the amiodarone drip at 0.5 mg/min. The patient remains on norepinephrine which is running at 09 0.09 mcg/kg/min and she is on IV fluids with normal saline at rate of 130 cc an hour. The plan for today is essentially to wean this patient off the fentanyl and Nimbex and keep the patient sedated only on propofol. Will continue the bronchodilators. Will continue the steroids. Will complete the amiodarone bolus and then discontinue as the patient's cardiac rhythm is sinus. We are going to wean off the pressors. Continue IV Zosyn as an empiric antibiotic coverage. Avoid any form of nonsteroidal anti-inflammatory medications. Keep the NG tube in place. CAT scan of the chest and the CT of the thoracic aorta was noted. The patient has significant deformities and multiple areas of compression fracture of her spine including thoracic and lumbar spine and she has significant kyphoscoliosis. The stomach was also distended. NG tube is in place. Output is minimal at this point. Abdomen is nondistended and the abdomi nal exam is soft. I agree to the above-mentioned information as stated by the FRAMING MILL OPERATOR. Condition is obviously critical. Will continue to follow. The family will be updated I will make further recommendations based on her progress. Time with Patient: Greater than 30
--- NOTE | 2025-04-03 03:14 | XR ---
EXAM: XR Chest, 1 View CLINICAL HISTORY: ITS.REASON XR Reason: mechanical ventilation TECHNIQUE: Frontal view of the chest. COMPARISON: No relevant prior studies available. IMPRESSION: ET tube in good position
[2025-04-03] MEDS: PIPERACILLIN-TAZOBACTAM 3.375 GM in SODIUM CHLORIDE 0.9% 100 ML IVPB SCH (03:59)
[2025-04-03 05:43] LABS: ABG Base Excess -6.8 mmol/L; ABG HCO3 19 mmol/L (21-25); ABG Oxygen Saturation 99.8 % (94-97); ABG PCO2 39 mmHg (35-45); ABG PO2 224 mmHg (83-108); ABG TCO2 20 mmol/L (19-24)
[2025-04-03 05:45] LABS: Allen Test Performed? no
[2025-04-03 05:53] LABS: Glucose,Whole Blood 196 mg/dL (70-110)
[2025-04-03 06:22] LABS: Basophils # (A) 0.04 10*3/uL (0.00-0.10); Basophils % (A) 0.2 %; HCT 34.5 % (37.2-46.3); HGB 11.1 g/dL (12.0-15.0); Lymphocytes # (A) 0.29 10*3/uL (0.90-5.00); Lymphocytes % (A) 1.5 %; MCH 32.8 pg (27.0-32.0); MCHC 32.2 g/dL (32.0-37.0); MCV 102.1 fL (80.0-97.0); Mean Platelet Volume 10.6 fL (9.5-12.2); Monocytes # (A) 0.47 10*3/uL (0.20-1.00); Monocytes % (A) 2.4 %; Neutrophils # (A) 18.94 10*3/uL (1.80-7.70); Platelet Count 234 10*3/uL (140-440); RBC 3.38 10*6/uL (4.10-5.20); RDW 13.1 % (11.5-14.5); WBC 19.91 10*3/uL (4.50-10.00)
[2025-04-03] MEDS: AMIODARONE 450 MG in DEXTROSE 5% IN WATER 250 ML IV SCH (06:25)
[2025-04-03 06:37] LABS: AST 31 U/L (14-36); African American GFR (CKD) 85 (>60 ml/min/1.73 sqM); Albumin 3.1 g/dL (3.5-5.0); Alkaline Phosphatase 48 U/L (38-126); Anion Gap 14 mmol/L; Blood Urea Nitrogen 17 mg/dL (7-17); Calcium 7.5 mg/dL (8.4-10.2); Carbon Dioxide 18 mmol/L (22-30); Chloride 108 mmol/L (98-107); Glucose 184 mg/dL (74-99); Non-African American GFR(CKD) 73 (>60 ml/min/1.73 sqM); Potassium 3.4 mmol/L (3.5-5.1); Sodium 140 mmol/L (137-145); Total Bilirubin 0.5 mg/dL (0.2-1.3); Total Protein 5.6 g/dL (6.3-8.2)
[2025-04-03 06:48] LABS: ALT 29 U/L (4-34)
[2025-04-03] MEDS ORDERED: Potassium Replacement Protocol 1 EACH MISC MISCELLANE PRN (06:54)
--- NOTE | 2025-04-03 07:22 | XR ---
EXAMINATION TYPE: XR chest 1V portable DATE OF EXAM: 04/03/2025 5:54 AM COMPARISON: 04/02/2025 CLINICAL INDICATION: Female, 80 years old with history of mechanical ventilation; [facility] TECHNIQUE: XR chest 1V portable Frontal view of the chest. FINDINGS: Lungs/Pleura: There is no evidence of pleural effusion, focal consolidation, or pneumothorax. Pulmonary vascularity: Unremarkable. Heart/mediastinum: Cardiomediastinal silhouette is unremarkable. Musculoskeletal: No acute osseous pathology. Other findings: None Lines/Tubes: Endotracheal tube with distal tip 4.4 cm above the queta. Nasogastric tube with its distal tip and side-port projecting under the diaphragm. IMPRESSION: Stable exam stable support tubes. [facility], , 04/03/2025 7:19 AM
[2025-04-03] MEDS: ENOXAPARIN 40 MG/0.4 ML SYRINGE SQ SCH (09:35)
[2025-04-03] MEDS: PANTOPRAZOLE 40 MG/10 ML VIAL IVP SCH (09:35)
[2025-04-03] MEDS: POTASSIUM CHLORIDE 20 MEQ in WATER FOR INJECTION 1 100ML.BAG IVPB SCH (09:35)
[2025-04-03] MEDS: MAGNESIUM SULFATE-D5W PMX 1 GM in DEXTROSE/WATER 1 100ML.BAG IVPB ONE (09:36)
[2025-04-03] MEDS: VASOPRESSIN 20 UNIT in SODIUM CHLORIDE 0.9% 50 ML IV SCH (09:38)
[2025-04-03] MEDS: CHLORHEXIDINE GLUCONATE 15 ML CUP MUCOUS MEM SCH (09:41)
[2025-04-03] MEDS: methylPREDNISolone SOD SUCCI 40 MG/ML 1 ML VIAL IV SCH (09:41)
[2025-04-03] MEDS: BUDESONIDE 1 MG/2 ML NEBU INHALATION SCH (10:28)
[2025-04-03] MEDS: FORMOTEROL FUMARATE 20 MCG/2 ML NEBU INHALATION SCH (10:28)
--- NOTE | 2025-04-03 11:47 | P.PN ---
Subjective Progress Note Date: 04/03/25 80 year old F with PMH Asthma and Dementia initially presented to the ED after a mechanical fall landing on her right chest. In the ED she underwent extensive evaluation. BP 180/83, HR 89, RR 20, T 98.2F, 97% on RA. CBC, Coag panel, CMP significant for WBC 23.59, MCV 100.7, BUN 21, glu 145. Trop < 0.012. Mag 2.1. CXR showed findings of COPD, no rib fracture, hiatal hernia, scoliosis. Unfortunately, she received Toradol for pain management with an allergy to ASA which resulted in an anaphylactic reaction requiring intubation and transfer to ICU. Chest CT did show nondisplaced fracture of the lower sternum. She did develop hypotension for which she was started on Levophed. Also developed SVT requiring cardioversion and A-Fib with RVR requiring Amiodarone drip. 04/03 Patient was seen and examined. Intubated. Vent settings include rate 28, tidal volume 300, PEEP of 5 and FiO2 40%. Sedated with Propofol at 40 mcg/kg/min. Paralytic includes Fentanyl at 0.5 mcg/kg/hr and Nimbex at 0.5 mcg/kg/min. Pressors include Levophed at 0.07 mcg/kg/min. Antibiotics include Zosyn 3.75g IV TID. Also on Amiodarone drip at 0.5 mg/min. Noted abdominal distention, NG tube inserted this morning. CTA chest/abd/pevis showing no PE, LLL opacity, R basilar atelectasis versus consolidation, multiple vertebral compression deformities, fluid/gas filled distended stomach with NG tube, small bowel ileus, wall thickening of the ascending colon. CBC, CMP significant for WBC 19.91, RBC 3.38, Hg 11.1, Hct 34.5, MCV 102.1, K 3.4, Cl 108, bicarb 18, glu 184, Ca 7.5, alb 3.1. Mag 1.7. ABG shows pH 7.3, pCO2 39, pO2 224 on FiO2 60%. General: toxic, no distress, appears at stated age, intubated and sedated with ETT and NGT Derm: warm, dry Head: atraumatic, normocephalic, symmetric Eyes: EOMI, no lid lag, anicteric sclera Mouth: no lip lesion, mucus membranes moist Cardiovascular: S1S2 reg, no murmur Lungs: Coarse BS bilaterally, no rhonchi, no rales , no accessory muscle use GI: Abdomen distended with sluggish bowel sounds Ext: no gross muscle atrophy, no edema Neuro: Unable to determine Psych: Unable to determine Based on my assessment of this patient, this patient meets a high complexity level of care. Acute hypoxic respiratory failure secondary to anaphylactic shock from Toradol: Ventilator management per Pulmonary. Sedated with Propofol at 40 mcg/kg/min. Paralytic includes Fentanyl at 0.5 mcg/kg/hr and Nimbex at 0.5 mcg/kg/min. Continue SoluMedrol 40 mg IV BID. Continue Levophed and titrate to maintain MAP > 65. Pulmonary on board. Sepsis with concerns of aspiration and possible colitis: Continue Zosyn 3.75 g IV TID. Obtain Sputum Cx and Blood cultures. Obtain Pro-jenny. Telemetry monitoring. Continue NS at 130 cc/hr. Aspiration precautions and elevate HOB. SVT and Atrial fibrillation with RVR: Likely from Levophed and above. Status post cardioversion. Now sinus rhythm. Continue Amiodarone at 0.5 mg/min and wean. Obtain TSH and Echo. Sternal fracture from trauma: As seen on CT chest. Obtain Troponin and Echo to rule out myocardial injury. Gastric outlet obstruction: NG tube in place. Surgery consulted. Hyperglycemia: No history of DM. Likely reactive and steroid induced. Accuchecks Q6H. Macrocytic anemia: Likely dilutional. No signs of active bleeding. Monitor. Hypokalemia: KCl 40 meq IV x 1. Repeat in the AM. Vertebral compression fractures: Chronic. Likely outpatient follow up. CODE STATUS: FULL CODE DVT Prophylaxis: Lovenox SQ GI Prophylaxis: Protonix IV Designated medical POA if patient is not able to make medical decisions for themselves: I have reviewed the following travel sales consultant notes: Pulmonary. I have reviewed the results of the following tests: As above. I have ordered the following tests: As above. I have discussed the care of this patient with the following independent historian: I have independently interpreted the following test below: I have discussed the management of this patient with the following physician: Objective - Vital Signs Vital signs: Vital Signs Temp 97.5 F L 04/03/25 08:00 Pulse 63 04/03/25 10:28 Resp 28 H 04/03/25 10:28 BP 111/73 04/03/25 00:20 Pulse Ox 99 04/03/25 10:00 FiO2 40 04/03/25 10:19 Intake & Output 04/02/25 04/03/25 04/03/25 18:59 06:59 18:59 Intake Total 1290.919 488.445 Output Total 745 105 Balance 545.919 383.445 Weight 45.359 kg 51 kg Intake: IV 1040 390 Sodium Chloride 0.9% 1, 1040 390 000 ml @ 130 mls/hr IV . Q7H42M [facility] Rx#:[id number] Intake, IV Titration 250.919 98.445 Amount Cisatracurium 200 mg In 27.674 Sodium Chloride 0.9% 180 ml @ 1 MCG/KG/MIN 2.722 mls/hr IV .Q24H [facility] Rx#: [id number] Norepinephrine 4 mg In 175.784 70.771 Sodium Chloride 0.9% 250 ml @ 0.03 MCG/KG/MIN 5. 185 mls/hr IV .Q24H [facility] Rx#:[id number] propofoL 1,000 mg In 75.135 Empty Bag 1 bag @ 10 MCG/ KG/MIN 2.722 mls/hr IV . Q24H [facility] Rx#:[id number] Output: Gastric Drainage 240 Urine 505 105 Other: Voiding Method Indwelling Catheter Indwelling Catheter ABP, PAP, CO, CI - Last Documented Arterial Blood Pressure 120/59 - Labs CBC & Chem 7: 04/03/25 04:36 04/03/25 04:36 Labs: Abnormal Lab Results - Last 24 Hours (Table) 04/02/25 04/02/25 04/02/25 Range/Units 19:15 19:15 19:46 WBC 23.59 H (4.50-10.00) 10*3/uL RBC (4.10-5.20) 10*6/uL Hgb (12.0-15.0) g/dL Hct (37.2-46.3) % MCV 100.7 H (80.0-97.0) fL MCH 32.6 H (27.0-32.0) pg Immature Gran # 0.46 H (0.00-0.04) 10*3/uL Neutrophils # 16.37 H (1.80-7.70) 10*3/uL Lymphocytes # (0.90-5.00) 10*3/uL Eosinophils # 0.89 H (0.04-0.35) 10*3/uL Basophils # 0.16 H (0.00-0.10) 10*3/uL ABG pH 7.23 L (7.35-7.45) ABG pCO2 65 H (35-45) mmHg ABG pO2 227 H (83-108) mmHg ABG HCO3 27 H (21-25) mmol/L ABG Total CO2 29 H (19-24) mmol/L ABG O2 Saturation 99.6 H (94-97) % Hemoglobin (11.4-16.0) gm/dL Potassium (3.5-5.1) mmol/L Chloride (98-107) mmol/L Carbon Dioxide (22-30) mmol/L BUN 21 H (7-17) mg/dL Glucose 145 H (74-99) mg/dL POC Glucose (mg/dL) (70-110) mg/dL Calcium (8.4-10.2) mg/dL Total Protein (6.3-8.2) g/dL Albumin (3.5-5.0) g/dL 04/02/25 04/02/25 04/02/25 Range/Units 20:48 23:19 23:26 WBC 21.57 H (4.50-10.00) 10*3/uL RBC 3.28 L (4.10-5.20) 10*6/uL Hgb 10.8 L (12.0-15.0) g/dL Hct 33.1 L (37.2-46.3) % MCV 100.9 H (80.0-97.0) fL MCH 32.9 H (27.0-32.0) pg Immature Gran # 0.44 H (0.00-0.04) 10*3/uL Neutrophils # 19.75 H (1.80-7.70) 10*3/uL Lymphocytes # 0.64 L (0.90-5.00) 10*3/uL Eosinophils # (0.04-0.35) 10*3/uL Basophils # (0.00-0.10) 10*3/uL ABG pH 7.26 L (7.35-7.45) ABG pCO2 54 H (35-45) mmHg ABG pO2 164 H (83-108) mmHg ABG HCO3 (21-25) mmol/L ABG Total CO2 26 H (19-24) mmol/L ABG O2 Saturation 99.2 H (94-97) % Hemoglobin 10.5 L (11.4-16.0) gm/dL Potassium (3.5-5.1) mmol/L Chloride (98-107) mmol/L Carbon Dioxide (22-30) mmol/L BUN (7-17) mg/dL Glucose (74-99) mg/dL POC Glucose (mg/dL) 207 H (70-110) mg/dL Calcium (8.4-10.2) mg/dL Total Protein (6.3-8.2) g/dL Albumin (3.5-5.0) g/dL 04/03/25 04/03/25 04/03/25 Range/Units 00:38 02:13 04:36 WBC 19.91 H (4.50-10.00) 10*3/uL RBC 3.38 L (4.10-5.20) 10*6/uL Hgb 11.1 L (12.0-15.0) g/dL Hct 34.5 L (37.2-46.3) % MCV 102.1 H (80.0-97.0) fL MCH 32.8 H (27.0-32.0) pg Immature Gran # 0.17 H (0.00-0.04) 10*3/uL Neutrophils # 18.94 H (1.80-7.70) 10*3/uL Lymphocytes # 0.29 L (0.90-5.00) 10*3/uL Eosinophils # 0.00 L (0.04-0.35) 10*3/uL Basophils # (0.00-0.10) 10*3/uL ABG pH 7.27 L (7.35-7.45) ABG pCO2 50 H (35-45) mmHg ABG pO2 (83-108) mmHg ABG HCO3 (21-25) mmol/L ABG Total CO2 (19-24) mmol/L ABG O2 Saturation 97.4 H (94-97) % Hemoglobin (11.4-16.0) gm/dL Potassium (3.5-5.1) mmol/L Chloride (98-107) mmol/L Carbon Dioxide (22-30) mmol/L BUN (7-17) mg/dL Glucose (74-99) mg/dL POC Glucose (mg/dL) 278 H (70-110) mg/dL Calcium (8.4-10.2) mg/dL Total Protein (6.3-8.2) g/dL Albumin (3.5-5.0) g/dL 04/03/25 04/03/25 04/03/25 Range/Units 04:36 05:40 05:51 WBC (4.50-10.00) 10*3/uL RBC (4.10-5.20) 10*6/uL Hgb (12.0-15.0) g/dL Hct (37.2-46.3) % MCV (80.0-97.0) fL MCH (27.0-32.0) pg Immature Gran # (0.00-0.04) 10*3/uL Neutrophils # (1.80-7.70) 10*3/uL Lymphocytes # (0.90-5.00) 10*3/uL Eosinophils # (0.04-0.35) 10*3/uL Basophils # (0.00-0.10) 10*3/uL ABG pH 7.30 L (7.35-7.45) ABG pCO2 (35-45) mmHg ABG pO2 224 H (83-108) mmHg ABG HCO3 19 L (21-25) mmol/L ABG Total CO2 (19-24) mmol/L ABG O2 Saturation 99.8 H (94-97) % Hemoglobin (11.4-16.0) gm/dL Potassium 3.4 L (3.5-5.1) mmol/L Chloride 108 H (98-107) mmol/L Carbon Dioxide 18 L (22-30) mmol/L BUN (7-17) mg/dL Glucose 184 H (74-99) mg/dL POC Glucose (mg/dL) 196 H (70-110) mg/dL Calcium 7.5 L (8.4-10.2) mg/dL Total Protein 5.6 L (6.3-8.2) g/dL Albumin 3.1 L (3.5-5.0) g/dL
[2025-04-03 11:53] LABS: Glucose,Whole Blood 168 mg/dL (70-110)
[2025-04-03 11:57] LABS: Glucose,Whole Blood 160 mg/dL (70-110)
--- NOTE | 2025-04-03 13:25 | P.GSCN ---
History of Present Illness Consult date: 04/03/25 Reason for Consult: Nondisplaced sternal fracture Requesting physician: Renetta Lorenzo History of present illness: This is a 80-year-old female who follows outpatient with Dr. Mojica for primary care and Dr. Hong for pulmonology. She has a previous medical history of asthma, dementia, brief episode of atrial fibrillation 40 years ago not currently on anticoagulation, osteoarthritis, and lifelong non-smoker however s he did have significant exposure until she was 21 years old. Apparently her and her were working in the yard, she tripped and fell onto a cement lawn ornament. She complained of some pain, when it did not go away her convinced her to report to [facility] emergency room for evaluation. In the emergency room she had x-rays and CT chest demonstrating nondisplaced fracture of the lower sternum. She received Toradol for pain. Unfortunately the ER was not aware of her previous anaphylactic reaction to aspirin. The patient became significantly short of breath and evidenced signs of anaphylaxis, she was taken to the trauma bay and rapidly intubated and given anaphylaxis protocol of epinephrine, Solu-Medrol, and Benadryl. She became hypotensive and tachycardic was given fluid boluses and started on IV Levophed. Unfortunately she also went into rapid atrial fibrillation and was started on IV amiodarone. She was admitted to the intensive care unit for anaphylactic shock with consultation placed to digital computer operator for management as well as cardiothoracic surgery regarding sternal fracture. Review of Systems Review of systems was completed verbally with the as the patient is intubated and sedated - Cardiovascular Reports as per HPI, Reports chest pain Past Medical History Past Medical History: Atrial Fibrillation, Asthma, Dementia, Osteoarthritis (OA) History of Any Multi-Drug Resistant Organisms: None Reported Past Surgical History: Tubal Ligation Additional Past Surgical History / Comment(s): neck surgery; partial right hip Past Anesthesia/Blood Transfusion Reactions: No Reported Reaction Past Psychological History: No Psychological Hx Reported Smoking Status: Never smoker Past Alcohol Use History: None Reported Past Drug Use History: None Reported - Past Family History Father Family Medical History: Congestive Heart Failure (CHF), Hypertension Mother Additional Family Medical History / Comment(s): Alzhemiers Sister(s) Family Medical History: CVA/TIA Medications and Allergies Home Medications Medication Instructions Recorded Confirmed Type Budesonide-Formot 160-4.5 Mcg 2 puff INHALATION RT-BID #1 each 08/27/22 04/03/25 Rx [Symbicort 160-4.5 Mcg Inhaler] Alendronate Sodium [Fosamax] 70 mg PO WEEKLY 03/01/23 04/03/25 History Calcium Carbonate [Calcium] 600 mg PO BID 03/01/23 04/03/25 History Albuterol Inhaler [Ventolin Hfa 1 puff INHALATION RT-Q4H PRN 04/03/25 04/03/25 History Inhaler] Albuterol Nebulized [Ventolin 2.5 mg INHALATION RT-Q4H PRN 04/03/25 04/03/25 History Nebulized] Donepezil [Aricept] 5 mg PO DAILY 04/03/25 04/03/25 History Fexofenadine HCl [Gemini Allergy] 60 mg PO DAILY 04/03/25 04/03/25 History Allergies Allergy/AdvReac Type Severity Reaction Status Date / Time acetaminophen [From Tylenol] Allergy Severe Anaphylaxis Verified 04/03/25 07:37 ketorolac [From Toradol] Allergy Severe Anaphylaxis Verified 04/03/25 07:41 aspirin Allergy Anaphylaxis Verified 04/03/25 07:37 Surgical - Exam Vital Signs Temp Pulse Resp BP Pulse Ox 98.2 F 89 20 180/83 97 04/02/25 15:42 04/02/25 15:42 04/02/25 15:42 04/02/25 15:42 04/02/25 15:42 CONSTITUTIONAL: Currently sedated, on mechanical ventilation EYES: Pupils equal, round, reactive to light, normal ocular movement ENT: Moist mucous membranes without oral lesions present, 7.0 ET tube present, 23 at the lip NECK: No masses, no bruits, trachea midline RESPIRATORY: Lungs sounds diminished bilaterally. Respirations even, nonlabored. Currently on assist-control mode, FiO2 40%, tidal volume 300, respiratory rate 28, PEEP 5 CARDIOVASCULAR: S1, S2 present. Regular rate and rhythm, sinus rhythm on telemetry. Palpable peripheral pulses bilaterally. Trace generalized edema present. No calf pain or tenderness noted. Left radial arterial line present GASTROINTESTINAL: Abdomen soft, nontender, nondistended without masses or organomegaly noted. There is no rebound or guarding present. Active bowel sounds present 4 quadrants. NG tube present to low intermittent suction GENITOURINARY: Mercado catheter present INTEGUMENTARY: Skin is warm and dry NEUROLOGIC: Currently sedated PSYCHIATRIC: Unable to assess as she is currently sedated Results - Labs 04/03/25 04:36 04/03/25 04:36 Abnormal Lab Results - Last 24 Hours (Table) 04/02/25 04/02/25 04/02/25 Range/Units 19:15 19:15 19:46 WBC 23.59 H (4.50-10.00) 10*3/uL RBC (4.10-5.20) 10*6/uL Hgb (12.0-15.0) g/dL Hct (37.2-46.3) % MCV 100.7 H (80.0-97.0) fL MCH 32.6 H (27.0-32.0) pg Immature Gran # 0.46 H (0.00-0.04) 10*3/uL Neutrophils # 16.37 H (1.80-7.70) 10*3/uL Lymphocytes # (0.90-5.00) 10*3/uL Eosinophils # 0.89 H (0.04-0.35) 10*3/uL Basophils # 0.16 H (0.00-0.10) 10*3/uL ABG pH 7.23 L (7.35-7.45) ABG pCO2 65 H (35-45) mmHg ABG pO2 227 H (83-108) mmHg ABG HCO3 27 H (21-25) mmol/L ABG Total CO2 29 H (19-24) mmol/L ABG O2 Saturation 99.6 H (94-97) % Hemoglobin (11.4-16.0) gm/dL Potassium (3.5-5.1) mmol/L Chloride (98-107) mmol/L Carbon Dioxide (22-30) mmol/L BUN 21 H (7-17) mg/dL Glucose 145 H (74-99) mg/dL POC Glucose (mg/dL) (70-110) mg/dL Calcium (8.4-10.2) mg/dL Total Protein (6.3-8.2) g/dL Albumin (3.5-5.0) g/dL 04/02/25 04/02/2525 Range/Units 20:48 23:19 23:26 WBC 21.57 H (4.50-10.00) 10*3/uL RBC 3.28 L (4.10-5.20) 10*6/uL Hgb 10.8 L (12.0-15.0) g/dL Hct 33.1 L (37.2-46.3) % MCV 100.9 H (80.0-97.0) fL MCH 32.9 H (27.0-32.0) pg Immature Gran # 0.44 H (0.00-0.04) 10*3/uL Neutrophils # 19.75 H (1.80-7.70) 10*3/uL Lymphocytes # 0.64 L (0.90-5.00) 10*3/uL Eosinophils # (0.04-0.35) 10*3/uL Basophils # (0.00-0.10) 10*3/uL ABG pH 7.26 L (7.35-7.45) ABG pCO2 54 H (35-45) mmHg ABG pO2 164 H (83-108) mmHg ABG HCO3 (21-25) mmol/L ABG Total CO2 26 H (19-24) mmol/L ABG O2 Saturation 99.2 H (94-97) % Hemoglobin 10.5 L (11.4-16.0) gm/dL Potassium (3.5-5.1) mmol/L Chloride (98-107) mmol/L Carbon Dioxide (22-30) mmol/L BUN (7-17) mg/dL Glucose (74-99) mg/dL POC Glucose (mg/dL) 207 H (70-110) mg/dL Calcium (8.4-10.2) mg/dL Total Protein (6.3-8.2) g/dL Albumin (3.5-5.0) g/dL 04/03/25 04/03/25 04/03/25 Range/Units 00:38 02:13 04:36 WBC 19.91 H (4.50-10.00) 10*3/uL RBC 3.38 L (4.10-5.20) 10*6/uL Hgb 11.1 L (12.0-15.0) g/dL Hct 34.5 L (37.2-46.3) % MCV 102.1 H (80.0-97.0) fL MCH 32.8 H (27.0-32.0) pg Immature Gran # 0.17 H (0.00-0.04) 10*3/uL Neutrophils # 18.94 H (1.80-7.70) 10*3/uL Lymphocytes # 0.29 L (0.90-5.00) 10*3/uL Eosinophils # 0.00 L (0.04-0.35) 10*3/uL Basophils # (0.00-0.10) 10*3/uL ABG pH 7.27 L (7.35-7.45) ABG pCO2 50 H (35-45) mmHg ABG pO2 (83-108) mmHg ABG HCO3 (21-25) mmol/L ABG Total CO2 (19-24) mmol/L ABG O2 Saturation 97.4 H (94-97) % Hemoglobin (11.4-16.0) gm/dL Potassium (3.5-5.1) mmol/L Chloride (98-107) mmol/L Carbon Dioxide (22-30) mmol/L BUN (7-17) mg/dL Glucose (74-99) mg/dL POC Glucose (mg/dL) 278 H (70-110) mg/dL Calcium (8.4-10.2) mg/dL Total Protein (6.3-8.2) g/dL Albumin (3.5-5.0) g/dL 04/03/25 04/03/25 04/03/25 Range/Units 04:36 05:40 05:51 WBC (4.50-10.00) 10*3/uL RBC (4.10-5.20) 10*6/uL Hgb (12.0-15.0) g/dL Hct (37.2-46.3) % MCV (80.0-97.0) fL MCH (27.0-32.0) pg Immature Gran # (0.00-0.04) 10*3/uL Neutrophils # (1.80-7.70) 10*3/uL Lymphocytes # (0.90-5.00) 10*3/uL Eosinophils # (0.04-0.35) 10*3/uL Basophils # (0.00-0.10) 10*3/uL ABG pH 7.30 L (7.35-7.45) ABG pCO2 (35-45) mmHg ABG pO2 224 H (83-108) mmHg ABG HCO3 19 L (21-25) mmol/L ABG Total CO2 (19-24) mmol/L ABG O2 Saturation 99.8 H (94-97) % Hemoglobin (11.4-16.0) gm/dL Potassium 3.4 L (3.5-5.1) mmol/L Chloride 108 H (98-107) mmol/L Carbon Dioxide 18 L (22-30) mmol/L BUN (7-17) mg/dL Glucose 184 H (74-99) mg/dL POC Glucose (mg/dL) 196 H (70-110) mg/dL Calcium 7.5 L (8.4-10.2) mg/dL Total Protein 5.6 L (6.3-8.2) g/dL Albumin 3.1 L (3.5-5.0) g/dL 04/03/25 04/03/25 Range/Units 11:51 11:55 WBC (4.50-10.00) 10*3/uL RBC (4.10-5.20) 10*6/uL Hgb (12.0-15.0) g/dL Hct (37.2-46.3) % MCV (80.0-97.0) fL MCH (27.0-32.0) pg Immature Gran # (0.00-0.04) 10*3/uL Neutrophils # (1.80-7.70) 10*3/uL Lymphocytes # (0.90-5.00) 10*3/uL Eosinophils # (0.04-0.35) 10*3/uL Basophils # (0.00-0.10) 10*3/uL ABG pH (7.35-7.45) ABG pCO2 (35-45) mmHg ABG pO2 (83-108) mmHg ABG HCO3 (21-25) mmol/L ABG Total CO2 (19-24) mmol/L ABG O2 Saturation (94-97) % Hemoglobin (11.4-16.0) gm/dL Potassium (3.5-5.1) mmol/L Chloride (98-107) mmol/L Carbon Dioxide (22-30) mmol/L BUN (7-17) mg/dL Glucose (74-99) mg/dL POC Glucose (mg/dL) 168 H 160 H (70-110) mg/dL Calcium (8.4-10.2) mg/dL Total Protein (6.3-8.2) g/dL Albumin (3.5-5.0) g/dL Diabetes panel 04/02/25 04/03/25 Range/Units 19:15 04:36 Sodium 138 140 (137-145) mmol/L Potassium 4.2 3.4 L (3.5-5.1) mmol/L Chloride 102 108 H (98-107) mmol/L Carbon Dioxide 25 18 L (22-30) mmol/L BUN 21 H 17 (7-17) mg/dL Creatinine 0.82 0.78 (0.52-1.04) mg/dL Glucose 145 H 184 H (74-99) mg/dL Calcium 9.7 7.5 L (8.4-10.2) mg/dL AST 28 31 (14-36) U/L ALT 17 29 (4-34) U/L Alkaline Phosphatase 78 48 (38-126) U/L Total Protein 8.0 5.6 L (6.3-8.2) g/dL Albumin 4.7 3.1 L (3.5-5.0) g/dL Calcium panel 04/02/25 04/03/25 Range/Units 19:15 04:36 Calcium 9.7 7.5 L (8.4-10.2) mg/dL Albumin 4.7 3.1 L (3.5-5.0) g/dL Pituitary panel 04/02/25 04/03/25 Range/Units 19:15 04:36 Sodium 138 140 (137-145) mmol/L Potassium 4.2 3.4 L (3.5-5.1) mmol/L Chloride 102 108 H (98-107) mmol/L Carbon Dioxide 25 18 L (22-30) mmol/L BUN 21 H 17 (7-17) mg/dL Creatinine 0.82 0.78 (0.52-1.04) mg/dL Glucose 145 H 184 H (74-99) mg/dL Calcium 9.7 7.5 L (8.4-10.2) mg/dL Adrenal panel 04/02/25 04/03/25 Range/Units 19:15 04:36 Sodium 138 140 (137-145) mmol/L Potassium 4.2 3.4 L (3.5-5.1) mmol/L Chloride 102 108 H (98-107) mmol/L Carbon Dioxide 25 18 L (22-30) mmol/L BUN 21 H 17 (7-17) mg/dL Creatinine 0.82 0.78 (0.52-1.04) mg/dL Glucose 145 H 184 H (74-99) mg/dL Calcium 9.7 7.5 L (8.4-10.2) mg/dL Total Bilirubin 0.8 0.5 (0.2-1.3) mg/dL AST 28 31 (14-36) U/L ALT 17 29 (4-34) U/L Alkaline Phosphatase 78 48 (38-126) U/L Total Protein 8.0 5.6 L (6.3-8.2) g/dL Albumin 4.7 3.1 L (3.5-5.0) g/dL - Imaging Chest x-ray: report reviewed, image reviewed CT scan - chest: report reviewed, image reviewed Assessment and Plan Assessment: Fall from standing, nondisplaced sternal fracture Pain secondary to above Acute hypoxemic respiratory failure secondary to anaphylactic reaction to Toradol Hypotension secondary to above Paroxysmal rapid atrial fibrillation, currently sinus History of asthma Dementia Brief episode of atrial fibrillation 40 years ago not currently on anticoagulation Osteoarthritis Lifelong non-smoker however she did have significant exposure until she was 21 years old Plan: The patient was seen and examined laying in bed in the intensive care unit, currently on mechanical ventilation with propofol for sedation. Currently in sinus rhythm, hemodynamically stable although remains on amiodarone, IV Levoph ed, fentanyl and propofol. Patient's current and previous medical history obtained from the who is at the bedside. Discussed case with Dr. Dove. No surgical intervention warranted as sternal fracture is minimal and nondisplaced. Recommend heart hugger once patient is extubated to provide stability to the sternum while it heals. Avoid lifting more than 10 pounds for the next 3 months. Recommend good pain control. Discussed our recommendations with the . Medical management of other comorbidities per internal medicine, pulmonology. Will see again on an as needed basis. Thank you for this consult, please call us with any further questions. I have personally seen and examined the patient, performed the documentation and the assessment and plan as written. Number of minutes spent on the visit: 30. OBEY ChavezC
--- NOTE | 2025-04-03 14:22 | P.GSCN ---
History of Present Illness Consult date: 04/03/25 History of present illness: CHIEF COMPLAINT: Fall with chest trauma HISTORY OF PRESENT ILLNESS: This is a 80-year-old female who presented to the hospital due to a fall and chest trauma. Patient had been working out in the garden had tripped and fell on a figurine in the garden hitting her sternum. She presented to the ER with significant pain. She was found to have a nondisplaced sternal fracture of the lower sternum on CT scan of chest. Patient received IV Toradol in the ER for pain management. However she then had anaphylactic reaction that did not improve with epinephrine and IV Solu-Medrol patient required to be intubated because she went to respiratory failure. Patient is currently in the ICU on mechanical ventilation. Trauma service consulted in regards to sternal fracture. Patient does require small amount of Levophed. Patient is also on amiodarone for A-fib. Patient has NG tube with only 200 mL output. PAST MEDICAL HISTORY: See below PAST SURGICAL HISTORY: See below MEDICATIONS: See below ALLERGIES: See below SOCIAL HISTORY: No illicit drug use. REVIEW OF SYSTEMS: CONSTITUTIONAL: Denies fever or chills. HEENT: Denies blurred vision, vision changes, or eye pain. Denies hemoptysis CARDIOVASCULAR: Denies chest pain or pressure. RESPIRATORY: No shortness of breath. GASTROINTESTINAL: See HPI for pertinent findings HEMATOLOGIC: Denies bleeding disorders. GENITOURINARY: Denies any blood in urine or increased urinary frequency. SKIN: Denies pruitis. Denies rash. PHYSICAL EXAM: VITAL SIGNS: Reviewed GENERAL: Well-developed in no acute distress. HEENT: No sclera icterus. Extraocular movements grossly intact. Moist buccal mucosa. Head is atraumatic, normocephalic. No nasal drainage. CHEST: No ecchymosis, erythema or abrasions noted. ABDOMEN: Soft. Mildly distended. NEUROLOGIC: Alert and oriented. Cranial nerves II through XII grossly intact. LABORATORY DATA: WBC 21 down to 19 Hgb 11.1 platelets 234 Sodium 140 potassium 3.4 creatinine 0.78 IMAGING: CT scan chest reports acute nondisplaced fracture of the lower sternum. Chronic multilevel compression deformities of the thoracic lumbar spine with increased thoracic kyphosis. CTA of the chest abdomen and pelvis reports no evidence of PE aortic aneurysm or dissection. Pulmonary emphysema. Triangular-shaped opacity in the posterior medial aspect of the left lower lung seen suggests segmental collapse versus lobar consolidation. Multiple vertebral compression deformity/fractures of indeterminate age. No acute findings in the abdomen. Fluid-filled distended stomach with NG tube concerning for gastric outlet obstruction. Small bowel christina namic ileus. Circumferential mucosal wall thickening of the ascending colon this could be related to an acute colitis versus incomplete distention. ASSESSMENT: 1. Mechanical fall with trauma to chest wall 2. Nondisplaced fracture of the lower sternum 3. Anaphylactic reaction to Toradol with respiratory failure requiring to be intubated PLAN: - Consult cardiothoracic team for evaluation of the sternal fracture - Vent management per pulmonary team - Continue pain management Physician Box Spring Maker note has been reviewed by physician. Signing provider agrees with the documented findings, assessment, and plan of care. Past Medical History Past Medical History: Asthma, Dementia History of Any Multi-Drug Resistant Organisms: None Reported Past Surgical History: Tubal Ligation Additional Past Surgical History / Comment(s): neck surgery Past Anesthesia/Blood Transfusion Reactions: No Reported Reaction Past Psychological History: No Psychological Hx Reported Smoking Status: Never smoker Past Alcohol Use History: None Reported Past Drug Use History: None Reported - Past Family History Father Family Medical History: Hypertension Mother Additional Family Medical History / Comment(s): Alzhemiers Sister(s) Family Medical History: CVA/TIA Medications and Allergies Home Medications Medication Instructions Recorded Confirmed Type Budesonide-Formot 160-4.5 Mcg 2 puff INHALATION RT-BID #1 each 08/27/22 04/03/25 Rx [Symbicort 160-4.5 Mcg Inhaler] Alendronate Sodium [Fosamax] 70 mg PO WEEKLY 03/01/23 04/03/25 History Calcium Carbonate [Calcium] 600 mg PO BID 03/01/23 04/03/25 History Albuterol Inhaler [Ventolin Hfa 1 puff INHALATION RT-Q4H PRN 04/03/25 04/03/25 History Inhaler] Albuterol Nebulized [Ventolin 2.5 mg INHALATION RT-Q4H PRN 04/03/25 04/03/25 History Nebulized] Donepezil [Aricept] 5 mg PO DAILY 04/03/25 04/03/25 History Fexofenadine HCl [Gemini Allergy] 60 mg PO DAILY 04/03/25 04/03/25 History Allergies Allergy/AdvReac Type Severity Reaction Status Date / Time acetaminophen [From Tylenol] Allergy Severe Anaphylaxis Verified 04/03/25 07:37 ketorolac [From Toradol] Allergy Severe Anaphylaxis Verified 04/03/25 07:41 aspirin Allergy Anaphylaxis Verified 04/03/25 07:37 Surgical - Exam Vital Signs Temp Pulse Resp BP Pulse Ox 98.2 F 89 20 180/83 97 04/02/25 15:42 04/02/25 15:42 04/02/25 15:42 04/02/25 15:42 04/02/25 15:42 Results - Labs 04/03/25 04:36 04/03/25 04:36 Abnormal Lab Results - Last 24 Hours (Table) 04/02/25 04/02/25 04/02/25 Range/Units 19:15 19:15 19:46 WBC 23.59 H (4.50-10.00) 10*3/uL RBC (4.10-5.20) 10*6/uL Hgb (12.0-15.0) g/dL Hct (37.2-46.3) % MCV 100.7 H (80.0-97.0) fL MCH 32.6 H (27.0-32.0) pg Immature Gran # 0.46 H (0.00-0.04) 10*3/uL Neutrophils # 16.37 H (1.80-7.70) 10*3/uL Lymphocytes # (0.90-5.00) 10*3/uL Eosinophils # 0.89 H (0.04-0.35) 10*3/uL Basophils # 0.16 H (0.00-0.10) 10*3/uL ABG pH 7.23 L (7.35-7.45) ABG pCO2 65 H (35-45) mmHg ABG pO2 227 H (83-108) mmHg ABG HCO3 27 H (21-25) mmol/L ABG Total CO2 29 H (19-24) mmol/L ABG O2 Saturation 99.6 H (94-97) % Hemoglobin (11.4-16.0) gm/dL Potassium (3.5-5.1) mmol/L Chloride (98-107) mmol/L Carbon Dioxide (22-30) mmol/L BUN 21 H (7-17) mg/dL Glucose 145 H (74-99) mg/dL POC Glucose (mg/dL) (70-110) mg/dL Calcium (8.4-10.2) mg/dL Total Protein (6.3-8.2) g/dL Albumin (3.5-5.0) g/dL 04/02/25 04/02/25 04/02/25 Range/Units 20:48 23:19 23:26 WBC 21.57 H (4.50-10.00) 10*3/uL RBC 3.28 L (4.10-5.20) 10*6/uL Hgb 10.8 L (12.0-15.0) g/dL Hct 33.1 L (37.2-46.3) % MCV 100.9 H (80.0-97.0) fL MCH 32.9 H (27.0-32.0) pg Immature Gran # 0.44 H (0.00-0.04) 10*3/uL Neutrophils # 19.75 H (1.80-7.70) 10*3/uL Lymphocytes # 0.64 L (0.90-5.00) 10*3/uL Eosinophils # (0.04-0.35) 10*3/uL Basophils # (0.00-0.10) 10*3/uL ABG pH 7.26 L (7.35-7.45) ABG pCO2 54 H (35-45) mmHg ABG pO2 164 H (83-108) mmHg ABG HCO3 (21-25) mmol/L ABG Total CO2 26 H (19-24) mmol/L ABG O2 Saturation 99.2 H (94-97) % Hemoglobin 10.5 L (11.4-16.0) gm/dL Potassium (3.5-5.1) mmol/L Chloride (98-107) mmol/L Carbon Dioxide (22-30) mmol/L BUN (7-17) mg/dL Glucose (74-99) mg/dL POC Glucose (mg/dL) 207 H (70-110) mg/dL Calcium (8.4-10.2) mg/dL Total Protein (6.3-8.2) g/dL Albumin (3.5-5.0) g/dL 04/03/25 04/03/25 04/03/25 Range/Units 00:38 02:13 04:36 WBC 19.91 H (4.50-10.00) 10*3/uL RBC 3.38 L (4.10-5.20) 10*6/uL Hgb 11.1 L (12.0-15.0) g/dL Hct 34.5 L (37.2-46.3) % MCV 102.1 H (80.0-97.0) fL MCH 32.8 H (27.0-32.0) pg Immature Gran # 0.17 H (0.00-0.04) 10*3/uL Neutrophils # 18.94 H (1.80-7.70) 10*3/uL Lymphocytes # 0.29 L (0.90-5.00) 10*3/uL Eosinophils # 0.00 L (0.04-0.35) 10*3/uL Basophils # (0.00-0.10) 10*3/uL ABG pH 7.27 L (7.35-7.45) ABG pCO2 50 H (35-45) mmHg ABG pO2 (83-108) mmHg ABG HCO3 (21-25) mmol/L ABG Total CO2 (19-24) mmol/L ABG O2 Saturation 97.4 H (94-97) % Hemoglobin (11.4-16.0) gm/dL Potassium (3.5-5.1) mmol/L Chloride (98-107) mmol/L Carbon Dioxide (22-30) mmol/L BUN (7-17) mg/dL Glucose (74-99) mg/dL POC Glucose (mg/dL) 278 H (70-110) mg/dL Calcium (8.4-10.2) mg/dL Total Protein (6.3-8.2) g/dL Albumin (3.5-5.0) g/dL 04/03/25 04/03/25 04/03/25 Range/Units 04:36 05:40 05:51 WBC (4.50-10.00) 10*3/uL RBC (4.10-5.20) 10*6/uL Hgb (12.0-15.0) g/dL Hct (37.2-46.3) % MCV (80.0-97.0) fL MCH (27.0-32.0) pg Immature Gran # (0.00-0.04) 10*3/uL Neutrophils # (1.80-7.70) 10*3/uL Lymphocytes # (0.90-5.00) 10*3/uL Eosinophils # (0.04-0.35) 10*3/uL Basophils # (0.00-0.10) 10*3/uL ABG pH 7.30 L (7.35-7.45) ABG pCO2 (35-45) mmHg ABG pO2 224 H (83-108) mmHg ABG HCO3 19 L (21-25) mmol/L ABG Total CO2 (19-24) mmol/L ABG O2 Saturation 99.8 H (94-97) % Hemoglobin (11.4-16.0) gm/dL Potassium 3.4 L (3.5-5.1) mmol/L Chloride 108 H (98-107) mmol/L Carbon Dioxide 18 L (22-30) mmol/L BUN (7-17) mg/dL Glucose 184 H (74-99) mg/dL POC Glucose (mg/dL) 196 H (70-110) mg/dL Calcium 7.5 L (8.4-10.2) mg/dL Total Protein 5.6 L (6.3-8.2) g/dL Albumin 3.1 L (3.5-5.0) g/dL Diabetes panel 04/02/25 04/03/25 Range/Units 19:15 04:36 Sodium 138 140 (137-145) mmol/L Potassium 4.2 3.4 L (3.5-5.1) mmol/L Chloride 102 108 H (98-107) mmol/L Carbon Dioxide 25 18 L (22-30) mmol/L BUN 21 H 17 (7-17) mg/dL Creatinine 0.82 0.78 (0.52-1.04) mg/dL Glucose 145 H 184 H (74-99) mg/dL Calcium 9.7 7.5 L (8.4-10.2) mg/dL AST 28 31 (14-36) U/L ALT 17 29 (4-34) U/L Alkaline Phosphatase 78 48 (38-126) U/L Total Protein 8.0 5.6 L (6.3-8.2) g/dL Albumin 4.7 3.1 L (3.5-5.0) g/dL Calcium panel 04/02/25 04/03/25 Range/Units 19:15 04:36 Calcium 9.7 7.5 L (8.4-10.2) mg/dL Albumin 4.7 3.1 L (3.5-5.0) g/dL Pituitary panel 04/02/25 04/03/25 Range/Units 19:15 04:36 Sodium 138 140 (137-145) mmol/L Potassium 4.2 3.4 L (3.5-5.1) mmol/L Chloride 102 108 H (98-107) mmol/L Carbon Dioxide 25 18 L (22-30) mmol/L BUN 21 H 17 (7-17) mg/dL Creatinine 0.82 0.78 (0.52-1.04) mg/dL Glucose 145 H 184 H (74-99) mg/dL Calcium 9.7 7.5 L (8.4-10.2) mg/dL Adrenal panel 04/02/25 04/03/25 Range/Units 19:15 04:36 Sodium 138 140 (137-145) mmol/L Potassium 4.2 3.4 L (3.5-5.1) mmol/L Chloride 102 108 H (98-107) mmol/L Carbon Dioxide 25 18 L (22-30) mmol/L BUN 21 H 17 (7-17) mg/dL Creatinine 0.82 0.78 (0.52-1.04) mg/dL Glucose 145 H 184 H (74-99) mg/dL Calcium 9.7 7.5 L (8.4-10.2) mg/dL Total Bilirubin 0.8 0.5 (0.2-1.3) mg/dL AST 28 31 (14-36) U/L ALT 17 29 (4-34) U/L Alkaline Phosphatase 78 48 (38-126) U/L Total Protein 8.0 5.6 L (6.3-8.2) g/dL Albumin 4.7 3.1 L (3.5-5.0) g/dL
[2025-04-03 14:42] LABS: Basophils # (A) 0.01 10*3/uL (0.00-0.10); Basophils % (A) 0.1 %; HCT 33.8 % (37.2-46.3); HGB 11.1 g/dL (12.0-15.0); Lymphocytes # (A) 0.48 10*3/uL (0.90-5.00); MCH 33.1 pg (27.0-32.0); MCHC 32.8 g/dL (32.0-37.0); MCV 100.9 fL (80.0-97.0); Mean Platelet Volume 9.4 fL (9.5-12.2); Monocytes # (A) 0.24 10*3/uL (0.20-1.00); Monocytes % (A) 1.5 %; Neutrophils # (A) 14.98 10*3/uL (1.80-7.70); Neutrophils % (A) 94.8 %; Platelet Count 220 10*3/uL (140-440); RBC 3.35 10*6/uL (4.10-5.20); RDW 13.2 % (11.5-14.5)
--- NOTE | 2025-04-03 16:30 | CA ---
Transthoracic Echo Report Name: Latricia Wing Age: 80 Gender: F : 1945 Exam Date: 04/03/2025 08:27 Exam Location: [place] [facility] Ht (in): 61 Wt (lb): 100 Ordering Physician: Gold Kevin Attending/Referring Phys: Data Visualization Developer Beti Gamboa RDCS Procedure CPT: Indications: chest wall trauma, sternal fracture Cardiac Hx: Technical Quality: Good Contrast 1: Total Dose (mL): Contrast 2: Total Dose (mL): MEASUREMENTS (Male / Female) Normal Values 2D ECHO LV Diastolic Diameter PLAX 4.5 cm 4.2 - 5.9 / 3.9 - 5.3 cm LV Systolic Diameter PLAX 3.0 cm IVS Diastolic Thickness 1.0 cm 0.6 - 1.0 / 0.6 - 0.9 cm LVPW Diastolic Thickness 0.8 cm 0.6 - 1.0 / 0.6 - 0.9 cm LV Relative Wall Thickness 0.4 RV Internal Dim ED PLAX 3.1 cm LA Systolic Diameter LX 3.7 cm 3.0 - 4.0 / 2.7 - 3.8 cm LV Diastolic Volume MOD BP 43.7 cm??? 67 - 155 / 56 - 104 cm??? LV Systolic Volume MOD BP 22.8 cm??? 22 - 58 / 19 - 49 cm??? LV Ejection Fraction MOD BP 47.8 % >= 55 % LV Cardiac Index MOD BP 973.6 cm???/min???m??? LV Diastolic Volume MOD 4C 48.3 cm??? LV Systolic Volume MOD 4C 26.8 cm??? LV Ejection Fraction MOD 4C 44.4 % LV Cardiac Index MOD 4C 1001.1 cm???/min???m??? LV Diastolic Length 4C 6.2 cm LV Systolic Length 4C 5.4 cm LV Diastolic Volume MOD 2C 38.1 cm??? LV Systolic Volume MOD 2C 19.0 cm??? LV Ejection Fraction MOD 2C 50.1 % LV Cardiac Index MOD 2C 891.4 cm???/min???m??? LV Diastolic Length 2C 6.5 cm LV Systolic Length 2C 5.2 cm LA Volume 38.4 cm??? 18 - 58 / 22 - 52 cm??? LA Volume Index 27.6 cm???/m??? 16 - 28 cm???/m??? M-MODE Aortic Root Diameter MM 3.0 cm LA Systolic Diameter MM 3.5 cm LA Ao Ratio MM 1.2 AV Cusp Separation MM 1.7 cm DOPPLER MV Area PHT 2.9 cm??? Mitral E Point Velocity 66.8 cm/s Mitral A Point Velocity 92.8 cm/s Mitral E to A Ratio 0.7 MV Deceleration Time 265.0 ms TR Peak Velocity 242.7 cm/s TR Peak Gradient 23.6 mmHg Right Atrial Pressure 20.0 mmHg Pulmonary Artery Systolic Pressu 43.6 mmHg Right Ventricular Systolic Press 43.6 mmHg FINDINGS Left Ventricle Left ventricular ejection fraction is estimated at 45-50 %. Mildly increased septal wall thickness. Mildly decreased left ventricular ejection fraction. Left ventricular cavity size normal. Mildly reduced global left ventricular systolic function. Right Ventricle Mild right ventricular dilatation. Mild pulmonary hypertension. Right Atrium Mild right atrial dilatation. Left Atrium Moderate left atrial dilatation. 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 No mitral stenosis. Aortic Valve Trileaflet aortic valve. No aortic stenosis. Mild aortic regurgitation. Diffuse thickening (sclerosis) of the aortic valve cusps without reduced excursion. Tricuspid Valve Structurally normal tricuspid valve. Moderate tricuspid regurgitation. No tricuspid stenosis. Pulmonic Valve Structurally normal pulmonic valve. Trace to mild pulmonic regurgitation. No pulmonic stenosis. Pericardium No pericardial effusion. Left pleural effusion. Aorta Normal size aortic root and proximal ascending aorta. CONCLUSIONS Left ventricle size is at upper limits of normal with mild global decrease in contractility estimate ejection fraction of 45 to 50%. 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 Moderate tricuspid regurgitation moderate pulmonary hypertension. Minimal to mild aortic insufficiency no pericardial effusion Previewed by: Dr. Janeth Maldonado MD (Electronically Signed) Final Date: 03 Apr 2025 16:29
[2025-04-03 17:57] LABS: Glucose,Whole Blood 121 mg/dL (70-110)
[2025-04-03] MEDS ORDERED: HYDROCORTISONE SUCCINATE 100 MG/2 ML VIAL IV SCH (22:00)
[2025-04-03] MEDS: NOREPINEPHRINE 4 MG in SODIUM CHLORIDE 0.9% 250 ML IV SCH (23:00)
[2025-04-03] MEDS ORDERED: NOREPINEPHRINE 8 MG in SODIUM CHLORIDE 0.9% 250 ML IV SCH (23:30)
[2025-04-03 23:38] LABS: Basophils # (A) 0.01 10*3/uL (0.00-0.10); Basophils % (A) 0.1 %; HCT 33.7 % (37.2-46.3); HGB 10.8 g/dL (12.0-15.0); Lymphocytes # (A) 0.34 10*3/uL (0.90-5.00); Lymphocytes % (A) 2.5 %; MCH 32.4 pg (27.0-32.0); MCV 101.2 fL (80.0-97.0); Mean Platelet Volume 10.3 fL (9.5-12.2); Monocytes # (A) 0.33 10*3/uL (0.20-1.00); Monocytes % (A) 2.4 %; Neutrophils # (A) 13.02 10*3/uL (1.80-7.70); Neutrophils % (A) 94.5 %; Platelet Count 205 10*3/uL (140-440); RBC 3.33 10*6/uL (4.10-5.20); RDW 13.2 % (11.5-14.5); WBC 13.77 10*3/uL (4.50-10.00)
[2025-04-04 04:32] LABS: Basophils # (A) 0.01 10*3/uL (0.00-0.10); Basophils % (A) 0.1 %; HCT 33.1 % (37.2-46.3); HGB 10.7 g/dL (12.0-15.0); Lymphocytes # (A) 0.31 10*3/uL (0.90-5.00); Lymphocytes % (A) 2.5 %; MCH 32.7 pg (27.0-32.0); MCHC 32.3 g/dL (32.0-37.0); MCV 101.2 fL (80.0-97.0); Mean Platelet Volume 9.9 fL (9.5-12.2); Monocytes # (A) 0.31 10*3/uL (0.20-1.00); Monocytes % (A) 2.5 %; Neutrophils # (A) 11.65 10*3/uL (1.80-7.70); Neutrophils % (A) 94.2 %; Platelet Count 179 10*3/uL (140-440); RBC 3.27 10*6/uL (4.10-5.20); RDW 13.4 % (11.5-14.5); WBC 12.37 10*3/uL (4.50-10.00)
[2025-04-04 04:49] LABS: African American GFR (CKD) >90 (>60 ml/min/1.73 sqM); Anion Gap 9 mmol/L; Blood Urea Nitrogen 16 mg/dL (7-17); Carbon Dioxide 16 mmol/L (22-30); Chloride 114 mmol/L (98-107); Glucose 130 mg/dL (74-99); Magnesium 2.2 mg/dL (1.6-2.3); Non-African American GFR(CKD) 87 (>60 ml/min/1.73 sqM); Sodium 139 mmol/L (137-145)
[2025-04-04 05:50] LABS: Glucose,Whole Blood 134 mg/dL (70-110)
[2025-04-04 06:14] LABS: T4, Free (Free Thyroxine) 1.41 ng/dL (0.78-2.19)
[2025-04-04 06:14] LABS: ABG Base Excess -5.9 mmol/L; ABG HCO3 20 mmol/L (21-25); ABG Oxygen Saturation 98.9 % (94-97); ABG PCO2 38 mmHg (35-45); ABG PH 7.32 (7.35-7.45); ABG PO2 115 mmHg (83-108); ABG TCO2 21 mmol/L (19-24)
[2025-04-04 06:22] LABS: Allen Test Performed? no
--- NOTE | 2025-04-04 07:19 | XR ---
EXAMINATION TYPE: XR chest 1V portable DATE OF EXAM: 04/04/2025 COMPARISON: 04/03/2025 CLINICAL INDICATION: Female, 80 years old with history of Tube placement; TECHNIQUE: Single frontal view of the chest is obtained. FINDINGS: The ET tube is 5.2 cm above the queta. There is an NG tube within the stomach. There is no change in retrocardiac opacity likely combination of small pleural effusion and left lowe r lobe atelectasis or pneumonia. There is persistent small right effusion. There is no pneumothorax. The pulmonary vasculature is not congested and the heart size is normal. IMPRESSION: 1. ET tube 5.2 cm above the queta. NG tube within the stomach. 2. No change in the acute cardiopulmonary process predominantly involving the left lung base. [facility], Workstation: [id number] 04/04/2025 7:17 AM
--- NOTE | 2025-04-04 08:09 | P.PN ---
Progress Note - Text Progress Note Date: 04/04/25 No acute events overnight. Patient remains intubated. PHYSICAL EXAM: VITAL SIGNS: Reviewed GENERAL: Well-developed in no acute distress. HEENT: No sclera icterus. Extraocular movements grossly intact. Moist buccal mucosa. Head is atraumatic, normocephalic. No nasal drainage. CHEST: No ecchymosis, erythema or abrasions noted. ABDOMEN: Soft. Mildly distended. NEUROLOGIC: Alert and oriented. Cranial nerves II through XII grossly intact. ASSESSMENT: 1. Mechanical fall with trauma to chest wall 2. Nondisplaced fracture of the lower sternum 3. Anaphylactic reaction to Toradol with respiratory failure requiring to be intubated PLAN: - Cardiothoracic Surgery Recs for evaluation of the sternal fracture - Vent management per pulmonary team - Continue pain management - ICU care Naresh Martinez DO [facility] [phone]
[2025-04-04] MEDS: SODIUM BICARB 8.4% 50 ML SYR (1 MEQ/ML) IV STA (10:03)
[2025-04-04 11:18] LABS: ABG Base Excess -0.8 mmol/L; ABG HCO3 24 mmol/L (21-25); ABG Oxygen Saturation 98.5 % (94-97); ABG PCO2 37 mmHg (35-45); ABG PH 7.41 (7.35-7.45); ABG PO2 100 mmHg (83-108); ABG TCO2 25 mmol/L (19-24)
[2025-04-04 11:20] LABS: Allen Test Performed? no
--- NOTE | 2025-04-04 12:24 | P.PN ---
Subjective Progress Note Date: 04/04/25 Hospital Course: 80-year-old female with past medical history of chronic bronchial asthma, bob meade, who presented to the ER after mechanical fall landing on her right chest.n the ED she underwent extensive evaluation. BP 180/83, HR 89, RR 20, T 98.2F, 97% on RA. CBC, Coag panel, CMP significant for WBC 23.59, MCV 100.7, BUN 21, glu 145. Trop < 0.012. Mag 2.1. CXR showed findings of COPD, no rib fracture, hiatal hernia, scoliosis. Unfortunately, she received Toradol for pain management with an allergy to ASA which resulted in an anaphylactic reaction requiring intubation and transfer to ICU. Chest CT did show nondisplaced fracture of the lower sternum. She did develop hypotension for which she was started on Levophed. Also developed SVT requiring cardioversion and A-Fib with RVR requi ring Amiodarone drip. Patient was also started on Zosyn for concern of aspiration and possible coli tis. Noted to have abdominal distention, NG tube inserted,CTA chest/abd/pevis showing no PE, LLL opacity, R basilar atelectasis versus consolidation, multiple vertebral compression deformities, fluid/gas filled distended stomach with NG tube, small bowel ileus, wall thickening of the ascending colon. Cardiothoracic surgery consulted for nondisplaced sternal fracture, no surgical intervention warranted sternal fracture is minimal and nondisplaced, recommended heart hugger once patient is extubated to provide stability to the sternal, avoid lifting more than 10 pounds for the next 3 months. TTE was obtained and showed EF 45 to 50%, myxomatous mitral valve with prolapse of ventral mitral leaflet and severe mitral regurgitation, moderate pulmonary hypertension 04/04: Seen and examined at bedside, intubated, sedated, no pressor support required. Discussed with RN, plan for possible extubation later today or tomorrow. Subjective: Intubated and sedated Pertinent positives and negatives as discussed above, a complete review of systems was performed and all other systems are negative. Vitals Signs Reviewed. General: [nontoxic], [no distress], [appears at stated age], intubated, sedated Derm: [warm], [dry] Head: [atraumatic], [normocephalic], [symmetric] Eyes: [EOMI], [no lid lag], [anicteric sclera] Mouth: [no lip lesion], [mucus membranes moist] Cardiovascular: [S1S2 reg], [no murmur] Lungs: [CTA bilateral], [no rhonchi, no rales] , [no accessory muscle use] Abdominal: [soft], [ nontender to palpation], [no guarding], [no appreciable organomegaly] Ext: [no gross muscle atrophy], [no edema], [no contractures] Neuro: Unable to perform full exam, patient is intubated and sedated Psych: [Intubated and sedated Assessment and Plan: Acute hypoxic respiratory failure secondary to anaphylactic shock from Toradol -Continue ventilator support per pulmonary - Sedated with propofol, plan for SBT with possible extubation later today or tomorrow - Chest x-ray showing ET tube 5.2 cm above queta, no change in the acute cardiopulmonary process predominantly involving the left lung base - Continue Solu-Medrol 40 mg IV every 12 hours -Continue Pulmicort twice daily, Benadryl 25 mg IV every 6 hours, famotidine 20 mg IV at bedtime, Perforomist 20 mcg twice daily, DuoNeb every 4 hour SVT and atrial fibrillation with RVR -Status post cardioversion -Continued on amiodarone 0.5 mg/min -Cardiology consulted, appreciate recommendations -Free T4 normal Sepsis due to possible aspiration and possible colitis - Continue IV Zosyn 3.75 mg IV 3 times daily - Procalcitonin elevated 0.94 - Sputum cultures normal respiratory jaziel - Blood cultures pending - Aspiration precautions, elevate HOB 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 Hyperglycemia, likely steroid-induced -Continue with Accu-Cheks, hypoglycemia precautions, SSI Hypokalemia, resolved Macrocytic anemia: Likely dilutional. No signs of active bleeding. Monitor. Vertebral compression fractures: Chronic. Likely outpatient follow up. I have reviewed the following investigations consultant notes: Cardiothoracic surgery, general surgery, pulmonology I have reviewed the results of the following tests: ABG, CBC, CMP I have ordered the following tests: CBC BMP I have discussed the care of this patient with the following independent historian: Registered nurse as above I have independently interpreted the following test below: As above I have discussed the management of this patient with the following physician: DVT ppx: Lovenox Code status: Full code Anticipated discharge place: TBD Anticipated discharge time: TBD Objective - Vital Signs Vital signs: Vital Signs Temp 97.7 F 04/04/25 08:00 Pulse 84 04/04/25 10:00 Resp 30 H 04/04/25 10:00 BP 104/69 04/03/25 23:15 Pulse Ox 100 04/04/25 10:00 FiO2 5 04/04/25 10:45 Intake & Output 04/03/25 04/04/25 04/04/25 18:59 06:59 18:59 Intake Total 2144.279 2145.111 331.159 Output Total 355 450 275 Balance 4137.112 6891.111 56.159 Weight 51 kg 54.5 kg Intake: IV 1430 1703 182 Sodium Chloride 0.9% 1, 1430 1560 130 000 ml @ 130 mls/hr IV . Q7H42M [facility] Rx#:[id number] marjorie 33 12 kvo 110 40 Intake, IV Titration 644.279 162.111 43.159 Amount Cisatracurium 200 mg In 29.126 Sodium Chloride 0.9% 180 ml @ 1 MCG/KG/MIN 2.722 mls/hr IV .Q24H [facility] Rx#: [id number] Magnesium Sulfate-D5w Pmx 100 1 gm In Dextrose/Water 1 100ml.bag @ 100 mls/hr IVPB ONCE ONE Rx#: [id number] Norepinephrine 4 mg In 83.401 53.748 Sodium Chloride 0.9% 250 ml @ 0.03 MCG/KG/MIN 5. 185 mls/hr IV .Q24H [facility] Rx#:[id number] Norepinephrine 4 mg In 8.938 Sodium Chloride 0.9% 250 ml @ 0.03 MCG/KG/MIN 5. 829 mls/hr IV .Q24H [facility] Rx#:[id number] Piperacillin-Tazobactam 3 100 .375 gm In Sodium Chloride 0.9% 100 ml @ 25 mls/hr IVPB Q8H [facility] Rx#: [id number] Potassium Chloride 20 meq 200 In Water For Injection 1 100ml.bag @ 50 mls/hr IVPB Q2H [facility] Rx#: [id number] fentaNYL (PF). 1,000 mcg 31.752 In Sodium Chloride 0.9% 80 ml @ 0.5 MCG/KG/HR 2. 268 mls/hr IV .Q24H [facility] Rx#:[id number] propofoL 1,000 mg In 100 99.425 43.159 Empty Bag 1 bag @ 10 MCG/ KG/MIN 2.722 mls/hr IV . Q24H [facility] Rx#:[id number] Tube Feeding 40 190 106 Lipid 0 Sodium Chloride 0.9% 1, 0 000 ml @ 130 mls/hr IV . Q7H42M [facility] Rx#:[id number] Other 30 90 Output: Urine 355 450 275 Other: Voiding Method Indwelling Catheter Indwelling Catheter ABP, PAP, CO, CI - Last Documented Arterial Blood Pressure 131/60 - Labs CBC & Chem 7: 04/04/25 04:15 04/04/25 04:15 Labs: Abnormal Lab Results - Last 24 Hours (Table) 04/03/25 04/03/25 04/03/25 Range/Units 14:30 17:55 23:19 WBC 15.80 H 13.77 H (4.50-10.00) 10*3/uL RBC 3.35 L 3.33 L (4.10-5.20) 10*6/uL Hgb 11.1 L 10.8 L (12.0-15.0) g/dL Hct 33.8 L 33.7 L (37.2-46.3) % MCV 100.9 H 101.2 H (80.0-97.0) fL MCH 33.1 H 32.4 H (27.0-32.0) pg MPV 9.4 L (9.5-12.2) fL Immature Gran # 0.09 H 0.07 H (0.00-0.04) 10*3/uL Neutrophils # 14.98 H 13.02 H (1.80-7.70) 10*3/uL Lymphocytes # 0.48 L 0.34 L (0.90-5.00) 10*3/uL Eosinophils # 0.00 L 0.00 L (0.04-0.35) 10*3/uL ABG pH (7.35-7.45) ABG pO2 (83-108) mmHg ABG HCO3 (21-25) mmol/L ABG Total CO2 (19-24) mmol/L ABG O2 Saturation (94-97) % Hemoglobin (11.4-16.0) gm/dL Chloride (98-107) mmol/L Carbon Dioxide (22-30) mmol/L Glucose (74-99) mg/dL POC Glucose (mg/dL) 121 H (70-110) mg/dL Calcium (8.4-10.2) mg/dL Procalcitonin (0.02-0.50) ng/mL TSH (0.465-4.680) mIU/L 04/04/25 04/04/25 04/04/25 Range/Units 04:15 04:15 04:15 WBC 12.37 H (4.50-10.00) 10*3/uL RBC 3.27 L (4.10-5.20) 10*6/uL Hgb 10.7 L (12.0-15.0) g/dL Hct 33.1 L (37.2-46.3) % MCV 101.2 H (80.0-97.0) fL MCH 32.7 H (27.0-32.0) pg MPV (9.5-12.2) fL Immature Gran # 0.09 H (0.00-0.04) 10*3/uL Neutrophils # 11.65 H (1.80-7.70) 10*3/uL Lymphocytes # 0.31 L (0.90-5.00) 10*3/uL Eosinophils # 0.00 L (0.04-0.35) 10*3/uL ABG pH (7.35-7.45) ABG pO2 (83-108) mmHg ABG HCO3 (21-25) mmol/L ABG Total CO2 (19-24) mmol/L ABG O2 Saturation (94-97) % Hemoglobin (11.4-16.0) gm/dL Chloride 114 H (98-107) mmol/L Carbon Dioxide 16 L (22-30) mmol/L Glucose 130 H (74-99) mg/dL POC Glucose (mg/dL) (70-110) mg/dL Calcium 7.0 L (8.4-10.2) mg/dL Procalcitonin 0.94 H (0.02-0.50) ng/mL TSH 0.085 L (0.465-4.680) mIU/L 04/04/25 04/04/25 04/04/25 Range/Units 05:49 06:20 11:16 WBC (4.50-10.00) 10*3/uL RBC (4.10-5.20) 10*6/uL Hgb (12.0-15.0) g/dL Hct (37.2-46.3) % MCV (80.0-97.0) fL MCH (27.0-32.0) pg MPV (9.5-12.2) fL Immature Gran # (0.00-0.04) 10*3/uL Neutrophils # (1.80-7.70) 10*3/uL Lymphocytes # (0.90-5.00) 10*3/uL Eosinophils # (0.04-0.35) 10*3/uL ABG pH 7.32 L (7.35-7.45) ABG pO2 115 H (83-108) mmHg ABG HCO3 20 L (21-25) mmol/L ABG Total CO2 25 H (19-24) mmol/L ABG O2 Saturation 98.9 H 98.5 H (94-97) % Hemoglobin 10.8 L 10.8 L (11.4-16.0) gm/dL Chloride (98-107) mmol/L Carbon Dioxide (22-30) mmol/L Glucose (74-99) mg/dL POC Glucose (mg/dL) 134 H (70-110) mg/dL Calcium (8.4-10.2) mg/dL Procalcitonin (0.02-0.50) ng/mL TSH (0.465-4.680) mIU/L Microbiology - Last 24 Hours (Table) 04/03/25 00:00 Gram Stain - Preliminary Sputum Sputum Culture - Preliminary
[2025-04-04 12:37] LABS: Glucose,Whole Blood 114 mg/dL (70-110)
--- NOTE | 2025-04-04 13:56 | P.PN ---
Subjective Progress Note Date: 04/04/25 Patient is a 80-year-old female with past medical history significant for chronic bronchial asthma, previous possible allergic reaction to Tylenol or aspirin. Presented to emergency department yesterday afternoon. She had a fall while working in the garden. Reportedly, fell on a garden decoration. Her chief complaint was right-sided rib pain. Workup in the emergency department including a CT of the chest showing a acute nondisplaced fracture of the lower sternum. Labs including a CBC with a WBC count of 21.6, hemoglobin 10.8, platelets 261. Previous hemoglobin 13.4, possibly hemodilution. CMP: Sodium 138, potassium 4.2, chloride 102, serum bicarb 25, BUN 21, creatinine 0.82, glucose 145. LFTs unremarkable. Troponin less than 0.012 She did receive some Toradol for the pain. According to the ER note, shortly after developed significant increased work of breathing, reduced air exchange, and impending respiratory failure. She was treated for suspected allergic reaction, given a dose of IM epinephrine, Solu-Medrol, and Benadryl. She was intubated by the ED provider. Subsequently, became hypotensive and tachycardic. She received 1.5 L fluid bolus in the ED. Also, started on norepinephrine for blood pressure support. Patient did go into unstable atrial fibrillation with RVR, she was cardioverted x 3 in the ED, which were unsuccessful. Patient transferred to the intensive care unit in critical condition. I am evaluating this patient in room 256. Current ventilator settings assist-control, respiratory rate 24, tidal volume 300, FiO2 60%, PEEP of 5. She is asynchronous with the ventilator, breathing in the high 30s and bucking the vent. Propofol is being used for sedation and is currently increased to 40 mcg/kg/min. Limited lung sounds and air exchange bilaterally. Most recent ABG done on above- mentioned ventilator settings with a PaO2 of 164, pCO2 54, pH of 7.26. Follow- up chest x-ray endotracheal tube approximately 5.7 cm above the queta. Orogastric tube coursing below the diaphragm. Coarse interstitial lung markings. No notable pneumothoraces or effusions. Left lower lobe opacity. Currently, patient is in atrial fibrillation with RVR. Rate ranging from 130 to 160 bpm. Norepinephrine infusing at 0.2 mcg/kg/min. Blood pressure 96/67 mmHg. Despite adequate sedation, continues to have elevated peak airway pressures of 44 and her static airway pressure is 29. my supervising physician, Dr. Hanson called and updated on the situation. On 04/04/2025, the patient is off fentanyl and off Nimbex and the patient is only on propofol running at 35 mcg/kg/min. The patient is on assist-control mode of mechanical ventilation at rate of 28, tidal volume 300, FiO2 40% with a PEEP of 5. Chest x-ray shows no acute abnormalities. The patient is obviously a smoker spastic and wheezy. The peak airway pressure on mechanical ventilator is down to 21. Blood gas showed a pH of 7.32 with a JUR449 and PO215. No significant bronchospasm or wheezing. The patient remains in normal saline at a rate of 130 cc an hour. Urine output is noted of 5200 cc an hour. The white cell count is currently down to 12.3. The patient is receiving vital HP at rate of 33 cc an hour for enteral feeding and nutritional support. Echocardiogram was done and the patient has an ejection fraction of 45 to 50% along with severe mitral regurgitation. Cardiac rhythm is sinus. The blood work shows a white cell count of 12.3, hemoglobin 10.7 and platelet count of 179. The sodium levels at 139, K is at 4, serum bicarbonate 16, BUN 16 with a creatinine of 0.9. Proc alcitonin level is 0.94. Free T4 is at 1.4. Objective - Vital Signs Vital signs: Vital Signs Temp 97.6 F 04/04/25 04:00 Pulse 78 04/04/25 08:14 Resp 28 H 04/04/25 07:00 BP 104/69 04/03/25 23:15 Pulse Ox 99 04/04/25 07:00 FiO2 40 04/04/25 07:49 Intake & Output 04/03/25 04/04/25 04/04/25 18:59 06:59 18:59 Intake Total 2144.279 2145.111 163 Output Total 355 450 45 Balance 7259.910 7898.111 118 Weight 51 kg 54.5 kg Intake: IV 1430 1703 143 Sodium Chloride 0.9% 1, 1430 1560 130 000 ml @ 130 mls/hr IV . Q7H42M [facility] Rx#:[id number] marjorie 33 3 kvo 110 10 Intake, IV Titration 644.279 162.111 Amount Cisatracurium 200 mg In 29.126 Sodium Chloride 0.9% 180 ml @ 1 MCG/KG/MIN 2.722 mls/hr IV .Q24H [facility] Rx#: [id number] Magnesium Sulfate-D5w Pmx 100 1 gm In Dextrose/Water 1 100ml.bag @ 100 mls/hr IVPB ONCE [facility] Rx#: [id number] Norepinephrine 4 mg In 83.401 53.748 Sodium Chloride 0.9% 250 ml @ 0.03 MCG/KG/MIN 5. 185 mls/hr IV .Q24H [facility] Rx#:[id number] Norepinephrine 4 mg In 8.938 Sodium Chloride 0.9% 250 ml @ 0.03 MCG/KG/MIN 5. 829 mls/hr IV .Q24H [facility] Rx#:[id number] Piperacillin-Tazobactam 3 100 .375 gm In Sodium Chloride 0.9% 100 ml @ 25 mls/hr IVPB Q8H [facility] Rx#: [id number] Potassium Chloride 20 meq 200 In Water For Injection 1 100ml.bag @ 50 mls/hr IVPB Q2H [facility] Rx#: [id number] fentaNYL (PF). 1,000 mcg 31.752 In Sodium Chloride 0.9% 80 ml @ 0.5 MCG/KG/HR 2. 268 mls/hr IV .Q24H [facility] Rx#:[id number] propofoL 1,000 mg In 100 99.425 Empty Bag 1 bag @ 10 MCG/ KG/MIN 2.722 mls/hr IV . Q24H [facility] Rx#:[id number] Tube Feeding 40 190 20 Lipid 0 Sodium Chloride 0.9% 1, 0 000 ml @ 130 mls/hr IV . Q7H42M [facility] Rx#:[id number] Other 30 90 Output: Urine 355 450 45 Other: Voiding Method Indwelling Catheter Indwelling Catheter ABP, PAP, CO, CI - Last Documented Arterial Blood Pressure 110/48 - Exam GENERAL EXAM: Sedated, 80-year-old female, intubated to the mechanical ventilator HEAD: Normocephalic and atraumatic. No angioedema. EYES: reaction of pupils to light, left greater than right. NOSE: Clear with pink turbinates. THROAT: No erythema or exudates. NECK: No masses, no JVD. CHEST: No chest wall deformity. LUNGS: Lungs were clear to auscultation and percussion, and with normal diaphragmatic excursion. No wheezes or rales were noted. Peak pressures is down to 21.. CVS: S1 and S2 normal with no audible murmur, irregular rhythm. No extra heart sounds ABDOMEN: No hepatosplenomegaly, active bowel sounds, no guarding or rigidity. No diarrhea. Orogastric tube to LIS with limited coffee-ground output. SPINE: No scoliosis or deformity SKIN: No rashes, urticaria. CENTRAL NERVOUS SYSTEM: No focal deficits, tone is normal in all 4 extremities. EXTREMITIES: There is no peripheral edema, clubbing, or cyanosis. Peripheral pulses are intact. Right femoral central line. - Labs CBC & Chem 7: 04/04/25 04:15 04/04/25 04:15 Labs: Abnormal Lab Results - Last 24 Hours (Table) 04/03/25 04/03/25 04/03/25 Range/Units 11:51 11:55 14:30 WBC 15.80 H (4.50-10.00) 10*3/uL RBC 3.35 L (4.10-5.20) 10*6/uL Hgb 11.1 L (12.0-15.0) g/dL Hct 33.8 L (37.2-46.3) % MCV 100.9 H (80.0-97.0) fL MCH 33.1 H (27.0-32.0) pg MPV 9.4 L (9.5-12.2) fL Immature Gran # 0.09 H (0.00-0.04) 10*3/uL Neutrophils # 14.98 H (1.80-7.70) 10*3/uL Lymphocytes # 0.48 L (0.90-5.00) 10*3/uL Eosinophils # 0.00 L (0.04-0.35) 10*3/uL ABG pH (7.35-7.45) ABG pO2 (83-108) mmHg ABG HCO3 (21-25) mmol/L ABG O2 Saturation (94-97) % Hemoglobin (11.4-16.0) gm/dL Chloride (98-107) mmol/L Carbon Dioxide (22-30) mmol/L Glucose (74-99) mg/dL POC Glucose (mg/dL) 168 H 160 H (70-110) mg/dL Calcium (8.4-10.2) mg/dL TSH (0.465-4.680) mIU/L 04/03/25 04/03/25 04/04/25 Range/Units 17:55 23:19 04:15 WBC 13.77 H 12.37 H (4.50-10.00) 10*3/uL RBC 3.33 L 3.27 L (4.10-5.20) 10*6/uL Hgb 10.8 L 10.7 L (12.0-15.0) g/dL Hct 33.7 L 33.1 L (37.2-46.3) % MCV 101.2 H 101.2 H (80.0-97.0) fL MCH 32.4 H 32.7 H (27.0-32.0) pg MPV (9.5-12.2) fL Immature Gran # 0.07 H 0.09 H (0.00-0.04) 10*3/uL Neutrophils # 13.02 H 11.65 H (1.80-7.70) 10*3/uL Lymphocytes # 0.34 L 0.31 L (0.90-5.00) 10*3/uL Eosinophils # 0.00 L 0.00 L (0.04-0.35) 10*3/uL ABG pH (7.35-7.45) ABG pO2 (83-108) mmHg ABG HCO3 (21-25) mmol/L ABG O2 Saturation (94-97) % Hemoglobin (11.4-16.0) gm/dL Chloride (98-107) mmol/L Carbon Dioxide (22-30) mmol/L Glucose (74-99) mg/dL POC Glucose (mg/dL) 121 H (70-110) mg/dL Calcium (8.4-10.2) mg/dL TSH (0.465-4.680) mIU/L 04/04/25 04/04/25 04/04/25 Range/Units 04:15 05:49 06:20 WBC (4.50-10.00) 10*3/uL RBC (4.10-5.20) 10*6/uL Hgb (12.0-15.0) g/dL Hct (37.2-46.3) % MCV (80.0-97.0) fL MCH (27.0-32.0) pg MPV (9.5-12.2) fL Immature Gran # (0.00-0.04) 10*3/uL Neutrophils # (1.80-7.70) 10*3/uL Lymphocytes # (0.90-5.00) 10*3/uL Eosinophils # (0.04-0.35) 10*3/uL ABG pH 7.32 L (7.35-7.45) ABG pO2 115 H (83-108) mmHg ABG HCO3 20 L (21-25) mmol/L ABG O2 Saturation 98.9 H (94-97) % Hemoglobin 10.8 L (11.4-16.0) gm/dL Chloride 114 H (98-107) mmol/L Carbon Dioxide 16 L (22-30) mmol/L Glucose 130 H (74-99) mg/dL POC Glucose (mg/dL) 134 H (70-110) mg/dL Calcium 7.0 L (8.4-10.2) mg/dL TSH 0.085 L (0.465-4.680) mIU/L Microbiology - Last 24 Hours (Table) 04/03/25 00:00 Gram Stain - Preliminary Sputum Assessment and Plan Assessment: NSAID induced anaphylaxis, anaphylactic shock. Patient presented after a fall. Found to have sternal fracture. Given a dose of IV Toradol in the ED, subsequently developed increased work of breathing, reduced air exchange, and impending respiratory failure. Initially given a dose of IM epinephrine, Solu- Medrol, and Benadryl. The patient was resuscitated accordingly and the patient is currently hemodynamically stable on no pressors. No significant mucus present wheezing and respiratory acidosis essentially covered. Acute asthma exacerbation, improved and there is no significant bronchospasm wheezing on today's evaluation. Acute hypoxemic and hypercapnic respiratory failure, secondary to above, requiring intubation mechanical ventilator. Blood gases show improvement in respiratory status and the patient's chest x-ray showed no acute abnormalities Atrial fibrillation with rapid ventricular response, recovered and the patient is back to normal sinus rhythm. Amiodarone has been discontinued. Hypotension and shock,, resuscitated with fluids and pressors and the patient is currently off pressors None anion gap metabolic acidosis Mechanical fall with acute lower body sternal fracture Acute leukocytosis, improving History of previous allergic reaction to Tylenol or aspirin History of left femoral neck fracture with left hip hemiarthroplasty Plan: Sedation holiday Discontinue the propofol and assess patient's weaning parameters If the weaning parameters are adequate, we will proceed with a spontaneous br eathing trial, anticipating extubation today Give sodium bicarb 50 mEq x 2 IV fluids to KVO Continue Solu-Medrol 1 to 2 mg/kg per day, Discontinue Pepcid and Benadryl Continue DuoNebs every 4 hours, budesonide inhalation, formoterol inhalation Cardiac rhythm is sinus and the patient is currently off amiodarone Pressors have been weaned off and discontinued Cover empirically on Zosyn, empiric coverage Will continue to follow make further recommendations based on her progress. Clinically stable. Hemodynamically stable. Possible extubation today. This is working progress and this evaluation was done in 40 minutes. Time with Patient: Greater than 30
--- NOTE | 2025-04-04 14:46 | P.CRDCN ---
History of Present Illness Consult date: 04/04/25 History of present illness: The patient is a 80-year-old female patient who does not follow-up with any owner manager on regular basis with no significant past medical history who fell at home was brought to the emergency department for further investigation after that. In the emergency department the patient was having severe sternal discomfort and as a matter of fact she was found to have sternal fracture. She was experiencing excruciating pain and for that reason she was given Toradol were subsequently she developed respiratory failure and she developed what it seems to be severe hypotension could be secondary to severe allergic reaction/anaphylactic reaction to Toradol. Subsequently the patient was started on vasopressors with norepinephrine she was also intubated and placed on mechanical ventilation and transferred to the ICU. When she was seen and e valuated this afternoon she was off norepinephrine and not on any vasopressors and also she was extubated. Currently she is hemodynamically stable. She underwent a workup including an EKG showed sinus mechanism. The troponin was checked and came to be unremarkable. We consulted to see the patient because of brief episode of atrial fibrillation lasted less than 24 hours. According to the patient and her no history of paroxysmal atrial fibrillation and no history of any cardiac arrhythmia or congestive heart failure or coronary artery disease and never seen a owner manager before. She has been maintaining normal sinus mechanism since then. She was given amiodarone and subsequently she was converted to normal sinus mechanism. The patient underwent further evaluation including an echocardiogram which revealed mildly impaired LV function with EF between 45 to 50% with evidence of moderate to severe mitral regurgitation and moderate pulmonary hypertension. The physical examination is remarkable for regular rhythm with a systolic murmur at the apical area and right and left upper sternal border with diminished breathing sounds bilaterally and no edema was noted in the lower extremities. Assessment Anaphylactic reaction to Toradol Acute hypoxic respiratory failure required intubation and mechanical ventilation, the patient was extubated Hypotension which has resolved as well Paroxysmal atrial fibrillation and currently the patient is in normal sinus mechanism. 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 twice daily try to keep her in normal sinus mechanism. Increase the dose of Lovenox to be therapeutic Workup for the mitral regurgitation as an outpatient and no need for any workup needed at this point Acute coronary event was ruled out Follow-up with the patient Past Medical History Past Medical History: Asthma, Dementia History of Any Multi-Drug Resistant Organisms: None Reported Past Surgical History: Tubal Ligation Additional Past Surgical History / Comment(s): neck surgery Past Anesthesia/Blood Transfusion Reactions: No Reported Reaction Past Psychological History: No Psychological Hx Reported Smoking Status: Never smoker Past Alcohol Use History: None Reported Past Drug Use History: None Reported - Past Family History Father Family Medical History: Hypertension Mother Additional Family Medical History / Comment(s): Alzhemiers Sister(s) Family Medical History: CVA/TIA Medications and Allergies Home Medications Medication Instructions Recorded Confirmed Type Budesonide-Formot 160-4.5 Mcg 2 puff INHALATION RT-BID #1 each 08/27/22 04/03/25 Rx [Symbicort 160-4.5 Mcg Inhaler] Alendronate Sodium [Fosamax] 70 mg PO WEEKLY 03/01/23 04/03/25 History Calcium Carbonate [Calcium] 600 mg PO BID 03/01/23 04/03/25 History Albuterol Inhaler [Ventolin Hfa 1 puff INHALATION RT-Q4H PRN 04/03/25 04/03/25 History Inhaler] Albuterol Nebulized [Ventolin 2.5 mg INHALATION RT-Q4H PRN 04/03/25 04/03/25 History Nebulized] Donepezil [Aricept] 5 mg PO DAILY 04/03/25 04/03/25 History Fexofenadine HCl [Gemini Allergy] 60 mg PO DAILY 04/03/25 04/03/25 History Allergies Allergy/AdvReac Type Severity Reaction Status Date / Time acetaminophen [From Tylenol] Allergy Severe Anaphylaxis Verified 04/03/25 07:37 ketorolac [From Toradol] Allergy Severe Anaphylaxis Verified 04/03/25 07:41 aspirin Allergy Anaphylaxis Verified 04/03/25 07:37 Physical Exam Vitals: Vital Signs Temp Pulse Resp BP Pulse Ox FiO2 04/04/25 13:00 93 21 98 04/04/25 12:35 90 04/04/25 12:25 88 04/04/25 12:00 98.4 F 91 16 98 04/04/25 11:00 90 16 99 04/04/25 10:45 5 04/04/25 10:00 84 30 H 100 04/04/25 09:30 80 28 H 99 04/04/25 09:00 78 28 H 99 04/04/25 08:30 79 28 H 100 04/04/25 08:14 78 04/04/25 08:00 97.7 F 75 28 H 100 40 04/04/25 07:58 70 04/04/25 07:49 40 04/04/25 07:47 74 04/04/25 07:30 72 28 H 100 04/04/25 07:00 73 28 H 99 40 04/04/25 06:45 73 28 H 99 40 04/04/25 06:30 74 28 H 100 40 04/04/25 06:15 75 28 H 100 04/04/25 06:00 75 28 H 100 04/04/25 05:45 75 28 H 99 04/04/25 05:30 75 28 H 100 04/04/25 05:15 76 28 H 99 04/04/25 05:00 76 28 H 100 04/04/25 04:45 78 28 H 99 04/04/25 04:30 79 28 H 99 40 04/04/25 04:15 80 28 H 100 40 04/04/25 04:00 97.6 F 84 28 H 99 40 04/04/25 03:49 70 04/04/25 03:30 72 19 100 04/04/25 03:29 73 04/04/25 03:28 40 04/04/25 03:15 72 21 100 04/04/25 03:00 72 22 100 04/04/25 02:45 72 28 H 99 04/04/25 02:30 71 24 99 04/04/25 02:15 69 28 H 98 04/04/25 02:00 68 22 98 05 01:45 68 28 H 98 04/04/25 01:30 70 28 H 98 04/04/25 01:15 67 28 H 99 04/04/25 01:00 67 28 H 99 40 04/04/25 00:45 67 28 H 99 40 04/04/25 00:31 66 04/04/25 00:30 98.2 F 67 28 H 99 40 04/04/25 00:20 40 04/04/25 00:19 66 05 00:15 67 28 H 99 40 04/04/25 00:00 66 28 H 99 40 04/03/25 23:45 67 28 H 98 40 04/03/25 23:30 68 28 H 98 04/03/25 23:25 70 28 H 99 05 23:15 65 28 H 104/69 99 04/03/25 23:00 64 28 H 104/69 99 04/03/25 22:45 66 28 H 104/69 99 04/03/25 22:30 66 28 H 104/69 98 04/03/25 22:15 66 28 H 104/69 99 04/03/25 22:00 67 28 H 104/69 99 04/03/25 21:45 69 27 H 104/69 98 04/03/25 21:30 68 28 H 104/69 100 04/03/25 21:15 66 28 H 104/69 98 04/03/25 21:00 66 28 H 104/69 98 04/03/25 20:45 68 28 H 99 40 04/03/25 20:30 64 28 H 98 40 04/03/25 20:21 65 04/03/25 20:15 65 28 H 98 40 04/03/25 20:05 66 04/03/25 20:04 66 04/03/25 20:00 63 28 H 98 40 04/03/25 19:54 63 04/03/25 19:51 40 04/03/25 19:45 63 28 H 99 40 04/03/25 19:30 62 28 H 99 40 04/03/25 19:15 63 28 H 98 05 19:00 64 28 H 98 40 04/03/25 18:45 64 28 H 98 40 04/03/25 18:30 64 28 H 98 40 05 18:15 64 28 H 98 40 04/03/25 18:00 65 28 H 98 40 05 17:45 64 28 H 98 40 04/03/25 17:30 64 28 H 98 40 05 17:15 64 28 H 98 40 05 17:00 65 28 H 98 40 04/03/25 16:45 65 28 H 98 40 05 16:38 66 28 H 04/03/25 16:30 65 28 H 98 40 04/03/25 16:23 64 28 H 04/03/25 16:18 40 04/03/25 16:15 66 28 H 97 40 04/03/25 16:00 97.2 F L 64 28 H 98 40 04/03/25 15:45 64 28 H 98 40 04/03/25 15:30 64 28 H 98 40 04/03/25 15:15 65 28 H 98 40 04/03/25 15:00 66 28 H 98 40 04/03/25 14:45 66 28 H 98 40 Intake and Output 04/03/25 04/04/25 04/04/25 22:59 06:59 14:59 Intake Total 8203.721 5535.111 403.590 Output Total 260 315 500 Balance 829.198 9448.111 -96.410 Intake: IV 1079 1144 221 Sodium Chloride 0.9% 1, 1040 1040 130 000 ml @ 130 mls/hr IV . Q7H42M [facility] Rx#:[id number] marjorie 9 24 21 kvo 30 80 70 Intake, IV Titration 8.663 162.111 43.590 Amount Norepinephrine 4 mg In 5.185 53.748 Sodium Chloride 0.9% 250 ml @ 0.03 MCG/KG/MIN 5. 185 mls/hr IV .Q24H [facility] Rx#:[id number] Norepinephrine 4 mg In 8.938 Sodium Chloride 0.9% 250 ml @ 0.03 MCG/KG/MIN 5. 829 mls/hr IV .Q24H [facility] Rx#:[id number] fentaNYL (PF). 1,000 mcg 3.478 In Sodium Chloride 0.9% 80 ml @ 0.5 MCG/KG/HR 2. 268 mls/hr IV .Q24H [facility] Rx#:[id number] propofoL 1,000 mg In 99.425 43.590 Empty Bag 1 bag @ 10 MCG/ KG/MIN 2.722 mls/hr IV . Q24H [facility] Rx#:[id number] Tube Feeding 80 150 139 Lipid 0 Sodium Chloride 0.9% 1, 0 000 ml @ 130 mls/hr IV . Q7H42M [facility] Rx#:[id number] Other 60 60 Output: Urine 260 315 500 Other: Voiding Method Indwelling Catheter Indwelling Catheter Weight 54.5 kg ABP, PAP, CO, CI - Last 8 Hours Arterial Blood Pressure 141/65 Arterial Blood Pressure 130/57 Arterial Blood Pressure 129/59 Arterial Blood Pressure 131/60 Arterial Blood Pressure 125/57 Arterial Blood Pressure 118/56 Arterial Blood Pressure 100/47 Arterial Blood Pressure 111/51 Arterial Blood Pressure 105/45 Arterial Blood Pressure 110/48 Arterial Blood Pressure 120/51 Results 04/04/25 04:15 04/04/25 04:15 Cardiac Enzymes 04/03/25 Range/Units 14:30 Troponin I 0.026 (0.000-0.034) ng/mL CBC 04/03/25 04/03/25 04/04/25 Range/Units 14:30 23:19 04:15 WBC 15.80 H 13.77 H 12.37 H (4.50-10.00) 10*3/uL RBC 3.35 L 3.33 L 3.27 L (4.10-5.20) 10*6/uL Hgb 11.1 L 10.8 L 10.7 L (12.0-15.0) g/dL Hct 33.8 L 33.7 L 33.1 L (37.2-46.3) % Plt Count 220 205 179 (140-440) 10*3/uL Comprehensive Metabolic Panel 04/04/25 Range/Units 04:15 Sodium 139 (137-145) mmol/L Potassium 4.0 (3.5-5.1) mmol/L Chloride 114 H (98-107) mmol/L Carbon Dioxide 16 L (22-30) mmol/L BUN 16 (7-17) mg/dL Creatinine 0.62 (0.52-1.04) mg/dL Glucose 130 H (74-99) mg/dL Calcium 7.0 L (8.4-10.2) mg/dL Current Medications Generic Name Dose Route Start Last Admin Trade Name Freq PRN Reason Stop Dose Admin Albuterol/Ipratropium 3 ml 04/03/25 00:00 04/04/25 12:25 Ipratropium-Albuterol 3 Ml Neb INHALATION 3 ml RT-Q4H [facility] Administration Amiodarone HCl 200 mg 04/04/25 21:00 Amiodarone 200 Mg Tab PO BID [facility] Budesonide 1 mg 04/03/25 08:00 04/04/25 07:47 Budesonide 1 Mg/2 Ml Nebu INHALATION 1 mg RT-BID [facility] Administration Chlorhexidine Gluconate 15 ml 04/03/25 09:30 04/04/25 09:09 Chlorhexidine Gluconate 15 Ml Cup MUCOUS MEM 15 ml BID [facility] Administration Dextrose/Water 25 ml 04/03/25 00:38 Dextrose 50% Syringe 50 Ml IVP PER PROTOCOL PRN Hypoglycemia Protocol Dextrose/Water 50 ml 04/03/25 00:38 Dextrose 50% Syringe 50 Ml IVP PER PROTOCOL PRN Hypoglycemia Protocol Enoxaparin Sodium 40 mg 04/04/25 21:00 Enoxaparin 40 Mg/0.4 Ml Syringe SQ BID [facility] Famotidine 20 mg 04/02/25 22:30 04/03/25 20:44 Famotidine 20 Mg/2 Ml Vial IV 20 mg HS [facility] Administration Formoterol Fumarate 20 mcg 04/03/25 08:00 04/04/25 07:47 Formoterol Fumarate 20 Mcg/2 Ml Nebu INHALATION 20 mcg RT-BID [facility] Administration Propofol 1,000 mg/ IV Solution 100 mls @ 2.722 mls/hr 04/02/25 19:43 04/04/25 10:25 IV 0 mcg/kg/min .Q24H [facility] 0 mls/hr Titration Protocol 10 MCG/KG/MIN Fentanyl Citrate 1,000 mcg/ 100 mls @ 2.268 mls/hr 04/03/25 01:45 04/04/25 01:16 Sodium Chloride IV Not Given .Q24H [facility] Protocol 0.5 MCG/KG/HR Piperacillin Sod/Tazobactam 100 mls @ 25 mls/hr 04/03/25 03:00 04/04/25 11:38 Sod 3.375 gm/ Sodium Chloride IVPB 25 mls/hr Q8H [facility] Administration Protocol Insulin Human Lispro 0 unit 04/03/25 00:45 04/04/25 14:36 Insulin Lispro (Humalog) 100 Unit/Ml 10 Ml Vl SQ Not Given Q6H [facility] Protocol Methylprednisolone Sodium Succinate 40 mg 04/03/25 09:00 04/04/25 09:09 Methylprednisolone Sod Succi 40 Mg/Ml 1 Ml Vial IV 40 mg Q12HR [facility] Administration Miscellaneous Information 1 each 05/16/25 06:54 Potassium Replacement Protocol 1 Each Misc MISCELLANE DAILY PRN Per Protocol Protocol Naloxone HCl 0.2 mg 04/02/25 20:28 Naloxone 0.4 Mg/Ml 1 Ml Vial IV Q2M PRN Opioid Reversal Pantoprazole Sodium 40 mg 04/03/25 09:00 04/04/25 09:09 Pantoprazole 40 Mg/10 Ml Vial IVP 40 mg BID [facility] Administration Intake and Output 04/03/25 04/04/25 04/04/25 22:59 06:59 14:59 Intake Total 9725.855 4156.111 403.590 Output Total 260 315 500 Balance 028.179 2442.111 -96.410 Intake: IV 1079 1144 221 Sodium Chloride 0.9% 1, 1040 1040 130 000 ml @ 130 mls/hr IV . Q7H42M [facility] Rx#:[id number] marjorie 9 24 21 kvo 30 80 70 Intake, IV Titration 8.663 162.111 43.590 Amount Norepinephrine 4 mg In 5.185 53.748 Sodium Chloride 0.9% 250 ml @ 0.03 MCG/KG/MIN 5. 185 mls/hr IV .Q24H [facility] Rx#:[id number] Norepinephrine 4 mg In 8.938 Sodium Chloride 0.9% 250 ml @ 0.03 MCG/KG/MIN 5. 829 mls/hr IV .Q24H [facility] Rx#:[id number] fentaNYL (PF). 1,000 mcg 3.478 In Sodium Chloride 0.9% 80 ml @ 0.5 MCG/KG/HR 2. 268 mls/hr IV .Q24H [facility] Rx#:[id number] propofoL 1,000 mg In 99.425 43.590 Empty Bag 1 bag @ 10 MCG/ KG/MIN 2.722 mls/hr IV . Q24H [facility] Rx#:[id number] Tube Feeding 80 150 139 Lipid 0 Sodium Chloride 0.9% 1, 0 000 ml @ 130 mls/hr IV . Q7H42M [facility] Rx#:[id number] Other 60 60 Output: Urine 260 315 500 Other: Voiding Method Indwelling Catheter Indwelling Catheter Weight 54.5 kg 04/04/25 04:15 04/04/25 04:15
[2025-04-04 18:15] LABS: Glucose,Whole Blood 140 mg/dL (70-110)
[2025-04-04] MEDS: ENOXAPARIN 40 MG/0.4 ML SYRINGE SQ SCH (20:24)
[2025-04-04] MEDS: AMIODARONE 200 MG TAB PO SCH (20:24)
[2025-04-04 20:34] LABS: Glucose,Whole Blood 126 mg/dL (70-110)
[2025-04-04] MEDS: INSULIN LISPRO (HumaLOG) 100 UNIT/ML 10 mL VL SQ SCH (20:34)
[2025-04-05] MEDS: polyethylene glycoL 3350 17 GM POWD.PACK PO SCH (04:49)
[2025-04-05 05:00] LABS: Basophils # (A) 0.01 10*3/uL (0.00-0.10); Basophils % (A) 0.1 %; Lymphocytes # (A) 0.34 10*3/uL (0.90-5.00); Lymphocytes % (A) 2.2 %; MCH 32.1 pg (27.0-32.0); MCHC 32.2 g/dL (32.0-37.0); MCV 99.6 fL (80.0-97.0); Mean Platelet Volume 10.2 fL (9.5-12.2); Monocytes # (A) 0.49 10*3/uL (0.20-1.00); Monocytes % (A) 3.1 %; Neutrophils # (A) 14.66 10*3/uL (1.80-7.70); Neutrophils % (A) 93.8 %; Platelet Count 198 10*3/uL (140-440); RBC 2.71 10*6/uL (4.10-5.20); RDW 13.7 % (11.5-14.5); WBC 15.63 10*3/uL (4.50-10.00)
[2025-04-05 05:02] LABS: HGB 8.7 g/dL (12.0-15.0)
[2025-04-05 05:18] LABS: African American GFR (CKD) >90 (>60 ml/min/1.73 sqM); Anion Gap 7 mmol/L; Blood Urea Nitrogen 22 mg/dL (7-17); Calcium 7.1 mg/dL (8.4-10.2); Carbon Dioxide 24 mmol/L (22-30); Chloride 111 mmol/L (98-107); Glucose 119 mg/dL (74-99); Magnesium 2.5 mg/dL (1.6-2.3); Non-African American GFR(CKD) 82 (>60 ml/min/1.73 sqM); Potassium 3.9 mmol/L (3.5-5.1); Sodium 142 mmol/L (137-145)
[2025-04-05 05:51] LABS: Glucose,Whole Blood 137 mg/dL (70-110)
--- NOTE | 2025-04-05 07:07 | P.PN ---
Subjective Progress Note Date: 04/05/25 The patient is a 80-year-old female patient who does not follow-up with any cone machine feeder on regular basis with no significant past medical history who fell at home was brought to the emergency department for further investigation after that. In the emergency department the patient was having severe sternal discomfort and as a matter of fact she was found to have sternal fracture. She was experiencing excruciating pain and for that reason she was given Toradol were subsequently she developed respiratory failure and she developed what it seems to be severe hypotension could be secondary to severe allergic reaction/anaphylactic reaction to Toradol. Subsequently the patient was started on vasopressors with norepinephrine she was also intubated and placed on mechanical ventilation and transferred to the ICU. When she was seen and evaluated this afternoon she was off norepinephrine and not on any vasopressors and also she was extubated. Currently she is hemodynamically stable. She underwent a workup including an EKG showed sinus mechanism. The troponin was checked and came to be unremarkable. We consulted to see the patient because of brief episode of atrial fibrillation lasted less than 24 hours. According to the patient and her no history of paroxysmal atrial fibrillation and no history of any cardiac arrhythmia or congestive heart failure or coronary artery disease and never seen a cone machine feeder before. She has been maintaining normal sinus mechanism since then. She was given amiodarone and subsequently she was converted to normal sinus mechanism. The patient underwent further evaluation including an echocardiogram which revealed mildly impaired LV function with EF between 45 to 50% with evidence of moderate to severe mitral regurgitation and moderate pulmonary hypertension. The physical examination is remarkable for regular rhythm with a systolic murmur at the apical area and right and left upper sternal border with diminished breathing sounds bilaterally and no edema was noted in the lower extremities. April 05, 2025 The patient was seen and evaluated this morning which she remains in sinus mechanism. The echo showed mildly impaired LV function with EF between 45 to 50% with valvular heart disease consistent of moderate to severe MR as well as tricuspid regurgitation and pulmonary hypertension. The mitral valve need to be addressed as an outpatient. She is on amiodarone which we will continue at this point and consider tapering down the dose and also she is at therapeutic dose of Lovenox. She is asymptomatic. She is hemodynamically stable. She is struggling with constipation. The physical examination is remarkable for regular rhythm with a systolic murmur at the pickle area and clear breathing sounds bilaterally and no edema was noted. Assessment Anaphylactic reaction to Toradol Acute hypoxic respiratory failure required intubation and mechanical ventilation, the patient was extubated Hypotension which has resolved as well Paroxysmal atrial fibrillation and currently the patient is in normal sinus mechanism. 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 moderate pulmonary hypertension Status post fall with sternal fracture Plan Continue the current dose of amiodarone and consider tapering down amiodarone down the line Continue Lovenox Address the valvular heart disease once the patient discharged home Follow-up with the patient Objective - Vital Signs Vital signs: Vital Signs Temp 98.3 F 04/05/25 04:00 Pulse 96 04/05/25 06:00 Resp 23 04/05/25 06:00 BP 104/69 04/04/25 20:00 Pulse Ox 96 04/05/25 06:00 FiO2 5 04/04/25 10:45 Intake & Output 04/04/25 04/05/25 04/05/25 18:59 06:59 18:59 Intake Total 581.590 543 Output Total 910 700 Balance -328.410 -157 Weight 50.5 kg Intake: IV 299 143 Sodium Chloride 0.9% 1, 130 000 ml @ 130 mls/hr IV . Q7H42M [facility] Rx#:[id number] marjorie 39 33 kvo 130 110 Intake, IV Titration 43.590 200 Amount Piperacillin-Tazobactam 3 200 .375 gm In Sodium Chloride 0.9% 100 ml @ 25 mls/hr IVPB Q8H [facility] Rx#: [id number] propofoL 1,000 mg In 43.590 Empty Bag 1 bag @ 10 MCG/ KG/MIN 2.722 mls/hr IV . Q24H [facility] Rx#:[id number] Oral 100 200 Tube Feeding 139 Output: Urine 910 700 Other: Voiding Method Indwelling Catheter Indwelling Catheter ABP, PAP, CO, CI - Last Documented Arterial Blood Pressure 144/70 - Labs CBC & Chem 7: 04/05/25 04:44 04/05/25 04:44 Labs: Abnormal Lab Results - Last 24 Hours (Table) 04/04/25 04/04/25 04/04/25 Range/Units 04:15 11:16 12:36 WBC (4.50-10.00) 10*3/uL RBC (4.10-5.20) 10*6/uL Hgb (12.0-15.0) g/dL Hct (37.2-46.3) % MCV (80.0-97.0) fL MCH (27.0-32.0) pg Immature Gran # (0.00-0.04) 10*3/uL Neutrophils # (1.80-7.70) 10*3/uL Lymphocytes # (0.90-5.00) 10*3/uL Eosinophils # (0.04-0.35) 10*3/uL ABG Total CO2 25 H (19-24) mmol/L ABG O2 Saturation 98.5 H (94-97) % Hemoglobin 10.8 L (11.4-16.0) gm/dL Chloride (98-107) mmol/L BUN (7-17) mg/dL Glucose (74-99) mg/dL POC Glucose (mg/dL) 114 H (70-110) mg/dL Calcium (8.4-10.2) mg/dL Magnesium (1.6-2.3) mg/dL Procalcitonin 0.94 H (0.02-0.50) ng/mL 04/04/25 04/04/25 04/05/25 Range/Units 18:13 20:33 04:44 WBC 15.63 H (4.50-10.00) 10*3/uL RBC 2.71 L (4.10-5.20) 10*6/uL Hgb 8.7 L D (12.0-15.0) g/dL Hct 27.0 L (37.2-46.3) % MCV 99.6 H (80.0-97.0) fL MCH 32.1 H (27.0-32.0) pg Immature Gran # 0.13 H (0.00-0.04) 10*3/uL Neutrophils # 14.66 H (1.80-7.70) 10*3/uL Lymphocytes # 0.34 L (0.90-5.00) 10*3/uL Eosinophils # 0.00 L (0.04-0.35) 10*3/uL ABG Total CO2 (19-24) mmol/L ABG O2 Saturation (94-97) % Hemoglobin (11.4-16.0) gm/dL Chloride (98-107) mmol/L BUN (7-17) mg/dL Glucose (74-99) mg/dL POC Glucose (mg/dL) 140 H 126 H (70-110) mg/dL Calcium (8.4-10.2) mg/dL Magnesium (1.6-2.3) mg/dL Procalcitonin (0.02-0.50) ng/mL 04/05/25 04/05/25 Range/Units 04:44 05:49 WBC (4.50-10.00) 10*3/uL RBC (4.10-5.20) 10*6/uL Hgb (12.0-15.0) g/dL Hct (37.2-46.3) % MCV (80.0-97.0) fL MCH (27.0-32.0) pg Immature Gran # (0.00-0.04) 10*3/uL Neutrophils # (1.80-7.70) 10*3/uL Lymphocytes # (0.90-5.00) 10*3/uL Eosinophils # (0.04-0.35) 10*3/uL ABG Total CO2 (19-24) mmol/L ABG O2 Saturation (94-97) % Hemoglobin (11.4-16.0) gm/dL Chloride 111 H (98-107) mmol/L BUN 22 H (7-17) mg/dL Glucose 119 H (74-99) mg/dL POC Glucose (mg/dL) 137 H (70-110) mg/dL Calcium 7.1 L (8.4-10.2) mg/dL Magnesium 2.5 H (1.6-2.3) mg/dL Procalcitonin (0.02-0.50) ng/mL Microbiology - Last 24 Hours (Table) 04/03/25 10:55 Blood Culture - Preliminary Blood 04/03/25 00:00 Gram Stain - Preliminary Sputum Sputum Culture - Preliminary
--- NOTE | 2025-04-05 07:11 | XR ---
EXAMINATION TYPE: XR chest 1V portable DATE OF EXAM: 04/05/2025 COMPARISON: 04/04/2025 CLINICAL INDICATION: Female, 80 years old with history of Tube placement; TECHNIQUE: Single frontal view of the chest is obtained. FINDINGS: There is been interval removal of the ET tube and NG tube. There are diffuse interstitial opacity is unchanged. The retrocardiac opacity is most likely a combin ation of small pleural effusion and atelectasis or pneumonia is stable. There is no pneumothorax. The heart size is normal. The osseous structures are intact. IMPRESSION: 1. Interval removal of the ET tube and NG tube. 2. No change in the acute cardiopulmonary disease. [facility], , 04/05/2025 7:09 AM
--- NOTE | 2025-04-05 07:35 | XR ---
Abdomen. HISTORY: Abdominal pain COMPARISON: None TECHNIQUE: Supine and upright views the abdomen were obtained. FINDINGS: There is a retrocardiac opacity likely combination of small pleural effusion and possibly pneumonia o r atelectasis. There is no free air beneath the diaphragm. The bowel gas pattern is nonspecific and there is no evidence of obstruction. There is no fecal impac tion. There is no suspicious abdominal or pelvic calcification. There is a right central venous catheter in the right common iliac vein. There is a left hip prosthesis in satisfactory position. IMPRESSION: 1. Nonspecific abdomen without evidence of free air or obstruction 2. left lower lobe infiltrate. [facility], , 04/05/2025 7:33 AM
--- NOTE | 2025-04-05 10:41 | P.PN ---
Subjective Progress Note Date: 04/05/25 Hospital Course: 80-year-old female with past medical history of chronic bronchial asthma, bob meade, who presented to the ER after mechanical fall landing on her right chest.n the ED she underwent extensive evaluation. BP 180/83, HR 89, RR 20, T 98.2F, 97% on RA. CBC, Coag panel, CMP significant for WBC 23.59, MCV 100.7, BUN 21, glu 145. Trop < 0.012. Mag 2.1. CXR showed findings of COPD, no rib fracture, hiatal hernia, scoliosis. Unfortunately, she received Toradol for pain management with an allergy to ASA which resulted in an anaphylactic reaction requiring intubation and transfer to ICU. Chest CT did show nondisplaced fracture of the lower sternum. She did develop hypotension for which she was started on Levophed. Also developed SVT requiring cardioversion and A-Fib with RVR requi ring Amiodarone drip. Patient was also started on Zosyn for concern of aspiration and possible coli tis. Noted to have abdominal distention, NG tube inserted,CTA chest/abd/pevis showing no PE, LLL opacity, R basilar atelectasis versus consolidation, multiple vertebral compression deformities, fluid/gas filled distended stomach with NG tube, small bowel ileus, wall thickening of the ascending colon. Cardiothoracic surgery consulted for nondisplaced sternal fracture, no surgical intervention warranted sternal fracture is minimal and nondisplaced, recommended heart hugger once patient is extubated to provide stability to the sternal, avoid lifting more than 10 pounds for the next 3 months. TTE was obtained and showed EF 45 to 50%, myxomatous mitral valve with prolapse of ventral mitral leaflet and severe mitral regurgitation, moderate pulmonary hypertension 04/04: Seen and examined at bedside, intubated, sedated, no pressor support required. Discussed with RN, plan for possible extubation later today or tomorrow. 04/05: Patient was extubated to nasal cannula, overnight was complaining of abdominal pain, x-ray was done and showed no free air or fecal impaction, patient was provided with Metamucil, had pudding-like bowel movement, no blood reported. Hemoglobin dropped to 8.7 Subjective: Complains of some abdominal discomfort, improved Pertinent positives and negatives as discussed above, a complete review of systems was performed and all other systems are negative. Vitals Signs Reviewed. General: [nontoxic], [no distress], [appears at stated age], Derm: [warm], [dry] Head: [atraumatic], [normocephalic], [symmetric] Eyes: [EOMI], [no lid lag], [anicteric sclera] Mouth: [no lip lesion], [mucus membranes moist] Cardiovascular: [S1S2 reg], [no murmur] Lungs: [CTA bilateral], [no rhonchi, no rales] , [no accessory muscle use] Abdominal: [soft], [mild generalized tenderness, active bowel sounds], [no guarding], [no appreciable organomegaly] Ext: [no gross muscle atrophy], [no edema], [no contractures] Neuro: No focal deficits Psych: [Alert and oriented, appropriate affect Assessment and Plan: Acute hypoxic respiratory failure secondary to anaphylactic shock from Toradol -Pulm crit following, appreciate recommendations, patient downgraded to 3 S. awaiting bed - Extubated to nasal cannula, denies shortness of breath - Continue Solu-Medrol 40 mg IV every 12 hours -Continue Pulmicort twice daily, Benadryl 25 mg IV every 6 hours, famotidine 20 mg IV at bedtime, Perforomist 20 mcg twice daily, DuoNeb every 4 hour SVT and atrial fibrillation with RVR -Status post cardioversion - Switch to oral amiodarone 200 mg p.o. twice daily -Cardiology consulted, appreciate recommendations -Free T4 normal Acute anemia -Hemoglobin on admission 13.4, dropped to 8.7, no blood in stool or urine reported. Possibly related to anemia of acute illness, monitor CBC daily Sepsis due to possible aspiration and possible colitis -Abdominal pain abdominal x-ray showed no obstruction no fecal impaction. 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 Hyperglycemia, likely steroid-induced -Continue with Accu-Cheks, hypoglycemia precautions, SSI Hypokalemia, resolved Macrocytic anemia: Likely dilutional. No signs of active bleeding. Monitor. Vertebral compression fractures: Chronic. Likely outpatient follow up. I have reviewed the following cosmetic sales consultant notes: general surgery, pulmonology, cardiology I have reviewed the results of the following tests: CBC, BMP, abdominal x-ray I have ordered the following tests: CBC BMP I have discussed the care of this patient with the following independent historian: Registered nurse as above I have independently interpreted the following test below: As above I have discussed the management of this patient with the following physician: DVT ppx: Lovenox Code status: Full code Anticipated discharge place: TBD Anticipated discharge time: TBD Objective - Vital Signs Vital signs: Vital Signs Temp 98.2 F 04/05/25 08:00 Pulse 82 04/05/25 09:00 Resp 18 04/05/25 09:00 BP 104/69 04/05/25 07:00 Pulse Ox 99 04/05/25 09:00 FiO2 5 04/04/25 10:45 Intake & Output 04/04/25 04/05/25 04/05/25 18:59 06:59 18:59 Intake Total 581.590 543 39 Output Total 910 700 150 Balance -328.410 -157 -111 Weight 50.5 kg Intake: IV 299 143 39 Sodium Chloride 0.9% 1, 130 000 ml @ 130 mls/hr IV . Q7H42M [facility] Rx#:[id number] marjorie 39 33 9 kvo 130 110 30 Intake, IV Titration 43.590 200 Amount Piperacillin-Tazobactam 3 200 .375 gm In Sodium Chloride 0.9% 100 ml @ 25 mls/hr IVPB Q8H [facility] Rx#: [id number] propofoL 1,000 mg In 43.590 Empty Bag 1 bag @ 10 MCG/ KG/MIN 2.722 mls/hr IV . Q24H [facility] Rx#:[id number] Oral 100 200 Tube Feeding 139 Output: Urine 910 700 150 Other: Voiding Method Indwelling Catheter Indwelling Catheter Indwelling Catheter # Bowel Movements 1 ABP, PAP, CO, CI - Last Documented Arterial Blood Pressure 121/59 - Labs CBC & Chem 7: 04/05/25 04:44 04/05/25 04:44 Labs: Abnormal Lab Results - Last 24 Hours (Table) 04/04/25 04/04/25 04/04/25 Range/Units 04:15 11:16 12:36 WBC (4.50-10.00) 10*3/uL RBC (4.10-5.20) 10*6/uL Hgb (12.0-15.0) g/dL Hct (37.2-46.3) % MCV (80.0-97.0) fL MCH (27.0-32.0) pg Immature Gran # (0.00-0.04) 10*3/uL Neutrophils # (1.80-7.70) 10*3/uL Lymphocytes # (0.90-5.00) 10*3/uL Eosinophils # (0.04-0.35) 10*3/uL ABG Total CO2 25 H (19-24) mmol/L ABG O2 Saturation 98.5 H (94-97) % Hemoglobin 10.8 L (11.4-16.0) gm/dL Chloride (98-107) mmol/L BUN (7-17) mg/dL Glucose (74-99) mg/dL POC Glucose (mg/dL) 114 H (70-110) mg/dL Calcium (8.4-10.2) mg/dL Magnesium (1.6-2.3) mg/dL Procalcitonin 0.94 H (0.02-0.50) ng/mL 04/04/25 04/04/25 04/05/25 Range/Units 18:13 20:33 04:44 WBC 15.63 H (4.50-10.00) 10*3/uL RBC 2.71 L (4.10-5.20) 10*6/uL Hgb 8.7 L D (12.0-15.0) g/dL Hct 27.0 L (37.2-46.3) % MCV 99.6 H (80.0-97.0) fL MCH 32.1 H (27.0-32.0) pg Immature Gran # 0.13 H (0.00-0.04) 10*3/uL Neutrophils # 14.66 H (1.80-7.70) 10*3/uL Lymphocytes # 0.34 L (0.90-5.00) 10*3/uL Eosinophils # 0.00 L (0.04-0.35) 10*3/uL ABG Total CO2 (19-24) mmol/L ABG O2 Saturation (94-97) % Hemoglobin (11.4-16.0) gm/dL Chloride (98-107) mmol/L BUN (7-17) mg/dL Glucose (74-99) mg/dL POC Glucose (mg/dL) 140 H 126 H (70-110) mg/dL Calcium (8.4-10.2) mg/dL Magnesium (1.6-2.3) mg/dL Procalcitonin (0.02-0.50) ng/mL 04/05/25 04/05/25 Range/Units 04:44 05:49 WBC (4.50-10.00) 10*3/uL RBC (4.10-5.20) 10*6/uL Hgb (12.0-15.0) g/dL Hct (37.2-46.3) % MCV (80.0-97.0) fL MCH (27.0-32.0) pg Immature Gran # (0.00-0.04) 10*3/uL Neutrophils # (1.80-7.70) 10*3/uL Lymphocytes # (0.90-5.00) 10*3/uL Eosinophils # (0.04-0.35) 10*3/uL ABG Total CO2 (19-24) mmol/L ABG O2 Saturation (94-97) % Hemoglobin (11.4-16.0) gm/dL Chloride 111 H (98-107) mmol/L BUN 22 H (7-17) mg/dL Glucose 119 H (74-99) mg/dL POC Glucose (mg/dL) 137 H (70-110) mg/dL Calcium 7.1 L (8.4-10.2) mg/dL Magnesium 2.5 H (1.6-2.3) mg/dL Procalcitonin (0.02-0.50) ng/mL Microbiology - Last 24 Hours (Table) 04/03/25 00:00 Gram Stain - Final Sputum Sputum Culture - Final 04/03/25 10:55 Blood Culture - Preliminary Blood
[2025-04-05 11:04] LABS: Glucose,Whole Blood 111 mg/dL (70-110)
--- NOTE | 2025-04-05 11:39 | P.PN ---
Progress Note - Text Progress Note Date: 04/05/25 No acute events overnight. Patient was extubated. Having bowel function. PHYSICAL EXAM: VITAL SIGNS: Reviewed GENERAL: Well-developed in no acute distress. HEENT: No sclera icterus. Extraocular movements grossly intact. Moist buccal mucosa. Head is atraumatic, normocephalic. No nasal drainage. CHEST: No ecchymosis, erythema or abrasions noted. ABDOMEN: Soft. Mildly distended. NEUROLOGIC: Alert and oriented. Cranial nerves II through XII grossly intact. ASSESSMENT: 1. Mechanical fall with trauma to chest wall 2. Nondisplaced fracture of the lower sternum 3. Anaphylactic reaction to Toradol with respiratory failure requiring to be intubated PLAN: - Cardiothoracic Surgery Recs for evaluation of the sternal fracture - Continue pain management - ICU care [facility] [phone]
--- NOTE | 2025-04-05 12:47 | P.PN ---
Subjective Progress Note Date: 04/05/25 Patient is a 80-year-old female with past medical history significant for chronic bronchial asthma, previous possible allergic reaction to Tylenol or aspirin. Presented to emergency department yesterday afternoon. She had a fall while working in the garden. Reportedly, fell on a garden decoration. Her chief complaint was right-sided rib pain. Workup in the emergency department including a CT of the chest showing a acute nondisplaced fracture of the lower sternum. Labs including a CBC with a WBC count of 21.6, hemoglobin 10.8, platelets 261. Previous hemoglobin 13.4, possibly hemodilution. CMP: Sodium 138, potassium 4.2, chloride 102, serum bicarb 25, BUN 21, creatinine 0.82, glucose 145. LFTs unremarkable. Troponin less than 0.012 She did receive some Toradol for the pain. According to the ER note, shortly after developed significant increased work of breathing, reduced air exchange, and impending respiratory failure. She was treated for suspected allergic reaction, given a dose of IM epinephrine, Solu-Medrol, and Benadryl. She was intubated by the ED provider. Subsequently, became hypotensive and tachycardic. She received 1.5 L fluid bolus in the ED. Also, started on norepinephrine for blood pressure support. Patient did go into unstable atrial fibrillation with RVR, she was cardioverted x 3 in the ED, which were unsuccessful. Patient transferred to the intensive care unit in critical condition. I am evaluating this patient in room 256. Current ventilator settings assist-control, respiratory rate 24, tidal volume 300, FiO2 60%, PEEP of 5. She is asynchronous with the ventilator, breathing in the high 30s and bucking the vent. Propofol is being used for sedation and is currently increased to 40 mcg/kg/min. Limited lung sounds and air exchange bilaterally. Most recent ABG done on above- mentioned ventilator settings with a PaO2 of 164, pCO2 54, pH of 7.26. Follow- up chest x-ray endotracheal tube approximately 5.7 cm above the queta. Orogastric tube coursing below the diaphragm. Coarse interstitial lung markings. No notable pneumothoraces or effusions. Left lower lobe opacity. Currently, patient is in atrial fibrillation with RVR. Rate ranging from 130 to 160 bpm. Norepinephrine infusing at 0.2 mcg/kg/min. Blood pressure 96/67 mmHg. Despite adequate sedation, continues to have elevated peak airway pressures of 44 and her static airway pressure is 29. my supervising physician, Dr. Hanson called and updated on the situation. On 04/04/2025, the patient is off fentanyl and off Nimbex and the patient is only on propofol running at 35 mcg/kg/min. The patient is on assist-control mode of mechanical ventilation at rate of 28, tidal volume 300, FiO2 40% with a PEEP of 5. Chest x-ray shows no acute abnormalities. The patient is obviously a smoker spastic and wheezy. The peak airway pressure on mechanical ventilator is down to 21. Blood gas showed a pH of 7.32 with a GWA701 and PO215. No significant bronchospasm or wheezing. The patient remains in normal saline at a rate of 130 cc an hour. Urine output is noted of 5200 cc an hour. The white cell count is currently down to 12.3. The patient is receiving vital HP at rate of 33 cc an hour for enteral feeding and nutritional support. Echocardiogram was done and the patient has an ejection fraction of 45 to 50% along with severe mitral regurgitation. Cardiac rhythm is sinus. The blood work shows a white cell count of 12.3, hemoglobin 10.7 and platelet count of 179. The sodium levels at 139, K is at 4, serum bicarbonate 16, BUN 16 with a creatinine of 0.9. Proc alcitonin level is 0.94. Free T4 is at 1.4. 04/05/2025, the patient is being seen for a follow-up. The patient was weaned off the mechanical ventilator and the patient was extubated yesterday without any major difficulties. This morning, the patient 2 L of oxygen by nasal cannula. Chest x-ray shows some mild pulm vascular congestion and small left- sided pleural effusion. Cardiac rhythm remains sinus and cardiology opted to keep the patient on oral amiodarone. Remains on bronchodilators. Remains on steroids. Remains on empiric antibiotic coverage with IV Zosyn. White cell count 15.6, hemoglobin 8.7 and the platelet count of 191. Sodium is 142, BUN 22 creatinine 0.7. She did complain of some mild abdominal discomfort. She does have positive bowel sounds. X-ray of the abdomen showed no evidence of any free air or obstruction. Some limited infiltration in the left lung base was also noted. She denies having any specific complaints. No significant chest wall pain.Echocardiogram was also completed and the patient was found to have left ventricular ejection fraction of 45 to 50%. 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 She also has moderate tricuspid regurgitation and moderate degree of pulmonary hypertension. Objective - Vital Signs Vital signs: Vital Signs Temp 98.3 F 04/05/25 04:00 Pulse 104 H 04/05/25 08:11 Resp 25 H 04/05/25 07:00 BP 104/69 04/05/25 07:00 Pulse Ox 97 04/05/25 07:00 FiO2 5 04/04/25 10:45 Intake & Output 04/04/25 04/05/25 04/05/25 18:59 06:59 18:59 Intake Total 581.590 543 13 Output Total 910 700 50 Balance -328.410 -157 -37 Weight 50.5 kg Intake: IV 299 143 13 Sodium Chloride 0.9% 1, 130 000 ml @ 130 mls/hr IV . Q7H42M [facility] Rx#:[id number] marjorie 39 33 3 kvo 130 110 10 Intake, IV Titration 43.590 200 Amount Piperacillin-Tazobactam 3 200 .375 gm In Sodium Chloride 0.9% 100 ml @ 25 mls/hr IVPB Q8H [facility] Rx#: [id number] propofoL 1,000 mg In 43.590 Empty Bag 1 bag @ 10 MCG/ KG/MIN 2.722 mls/hr IV . Q24H [facility] Rx#:[id number] Oral 100 200 Tube Feeding 139 Output: Urine 910 700 50 Other: Voiding Method Indwelling Catheter Indwelling Catheter ABP, PAP, CO, CI - Last Documented Arterial Blood Pressure 120/62 - Exam GENERAL EXAM: Sedated, 80-year-old female, extubated and patient is currently on 2 L of oxygen nasal cannula HEAD: Normocephalic and atraumatic. No angioedema. EYES: reaction of pupils to light, left greater than right. NOSE: Clear with pink turbinates. THROAT: No erythema or exudates. NECK: No masses, no JVD. CHEST: No chest wall deformity. LUNGS: Lungs were clear to auscultation and percussion, and with normal diaphragmatic excursion. No wheezes or rales were noted. CVS: S1 and S2 normal with no audible murmur, irregular rhythm. No extra heart s ounds ABDOMEN: No hepatosplenomegaly, active bowel sounds, no guarding or rigidity. No diarrhea. Positive bowel sounds. No peritoneal signs. SPINE: No scoliosis or deformity SKIN: No rashes, urticaria. CENTRAL NERVOUS SYSTEM: No focal deficits, tone is normal in all 4 extremities. EXTREMITIES: There is no peripheral edema, clubbing, or cyanosis. Peripheral pulses are intact. Right femoral central line. - Labs CBC & Chem 7: 04/05/25 04:44 04/05/25 04:44 Labs: Abnormal Lab Results - Last 24 Hours (Table) 04/04/25 04/04/25 04/04/25 Range/Units 04:15 11:16 12:36 WBC (4.50-10.00) 10*3/uL RBC (4.10-5.20) 10*6/uL Hgb (12.0-15.0) g/dL Hct (37.2-46.3) % MCV (80.0-97.0) fL MCH (27.0-32.0) pg Immature Gran # (0.00-0.04) 10*3/uL Neutrophils # (1.80-7.70) 10*3/uL Lymphocytes # (0.90-5.00) 10*3/uL Eosinophils # (0.04-0.35) 10*3/uL ABG Total CO2 25 H (19-24) mmol/L ABG O2 Saturation 98.5 H (94-97) % Hemoglobin 10.8 L (11.4-16.0) gm/dL Chloride (98-107) mmol/L BUN (7-17) mg/dL Glucose (74-99) mg/dL POC Glucose (mg/dL) 114 H (70-110) mg/dL Calcium (8.4-10.2) mg/dL Magnesium (1.6-2.3) mg/dL Procalcitonin 0.94 H (0.02-0.50) ng/mL 04/04/25 04/04/25 04/05/25 Range/Units 18:13 20:33 04:44 WBC 15.63 H (4.50-10.00) 10*3/uL RBC 2.71 L (4.10-5.20) 10*6/uL Hgb 8.7 L D (12.0-15.0) g/dL Hct 27.0 L (37.2-46.3) % MCV 99.6 H (80.0-97.0) fL MCH 32.1 H (27.0-32.0) pg Immature Gran # 0.13 H (0.00-0.04) 10*3/uL Neutrophils # 14.66 H (1.80-7.70) 10*3/uL Lymphocytes # 0.34 L (0.90-5.00) 10*3/uL Eosinophils # 0.00 L (0.04-0.35) 10*3/uL ABG Total CO2 (19-24) mmol/L ABG O2 Saturation (94-97) % Hemoglobin (11.4-16.0) gm/dL Chloride (98-107) mmol/L BUN (7-17) mg/dL Glucose (74-99) mg/dL POC Glucose (mg/dL) 140 H 126 H (70-110) mg/dL Calcium (8.4-10.2) mg/dL Magnesium (1.6-2.3) mg/dL Procalcitonin (0.02-0.50) ng/mL 04/05/25 04/05/25 Range/Units 04:44 05:49 WBC (4.50-10.00) 10*3/uL RBC (4.10-5.20) 10*6/uL Hgb (12.0-15.0) g/dL Hct (37.2-46.3) % MCV (80.0-97.0) fL MCH (27.0-32.0) pg Immature Gran # (0.00-0.04) 10*3/uL Neutrophils # (1.80-7.70) 10*3/uL Lymphocytes # (0.90-5.00) 10*3/uL Eosinophils # (0.04-0.35) 10*3/uL ABG Total CO2 (19-24) mmol/L ABG O2 Saturation (94-97) % Hemoglobin (11.4-16.0) gm/dL Chloride 111 H (98-107) mmol/L BUN 22 H (7-17) mg/dL Glucose 119 H (74-99) mg/dL POC Glucose (mg/dL) 137 H (70-110) mg/dL Calcium 7.1 L (8.4-10.2) mg/dL Magnesium 2.5 H (1.6-2.3) mg/dL Procalcitonin (0.02-0.50) ng/mL Microbiology - Last 24 Hours (Table) 04/03/25 10:55 Blood Culture - Preliminary Blood 04/03/25 00:00 Gram Stain - Preliminary Sputum Sputum Culture - Preliminary Assessment and Plan Assessment: NSAID induced anaphylaxis, anaphylactic shock. Patient presented after a fall. Found to have sternal fracture. Given a dose of IV Toradol in the ED, subsequently developed increased work of breathing, reduced air exchange, and impending respiratory failure. Initially given a dose of IM epinephrine, Solu- Medrol, and Benadryl. The patient was resuscitated accordingly and the patient is currently hemodynamically stable on no pressors. No significant mucus present wheezing and respiratory acidosis essentially covered. Acute hypoxic/hypercapnic respiratory failure, recovered and the patient is c urrently on 2 L of oxygen by nasal cannula. Limited atelectasis/infiltration of the left lung base Acute asthma exacerbation, improved and there is no significant bronchospasm wheezing on today's evaluation. Acute hypoxemic and hypercapnic respiratory failure, secondary to above, requiring intubation mechanical ventilator. Blood gases show improvement in respiratory status and the patient was extubated on 04/04/2025 without any complications. Atrial fibrillation with rapid ventricular response, recovered and the patient is back to normal sinus rhythm. Amiodarone is being given orally 200 mg p.o. twice a day Systolic heart failure, mild LV dysfunction with an ejection fraction 45 to 50% Severe mitral regurgitation with myxomatous mitral valve degeneration Hypotension and shock,, resuscitated with fluids and pressors and the patient is currently off pressors None anion gap metabolic acidosis, recovered Mechanical fall with acute lower body sternal fracture Acute leukocytosis, improving History of previous allergic reaction to Tylenol or aspirin History of left femoral neck fracture with left hip hemiarthroplasty Plan: Extubated the patient is currently on 2 L of oxygen Incentive spirometer Pulmonary toileting Chest x-ray was noted Continue IV heparin IV fluids to KVO Continue Solu-Medrol for another 24 hours and transition the patient to a prednisone burst taper as of tomorrow Continue DuoNebs every 4 hours, budesonide inhalation, formoterol inhalation Cardiac rhythm is sinus and the patient is currently off amiodarone drip and the patient is currently on oral amiodarone 200 mg p.o. twice a day Pressors have been weaned off and discontinued more than 24 hours ago Cover empirically on Zosyn, empiric coverage Will continue to follow make further recommendations based on her progress. Clinically stable. Hemodynamically stable. This is working progress and this evaluation was done in 40 minutes. Time with Patient: Greater than 30
[2025-04-05 16:11] LABS: Glucose,Whole Blood 132 mg/dL (70-110)
[2025-04-05] MEDS: PSYLLIUM HUSK 100% 6 GM PACKET PO SCH (16:56)
[2025-04-05 19:56] LABS: Glucose,Whole Blood 133 mg/dL (70-110)
[2025-04-06 06:04] LABS: Glucose,Whole Blood 143 mg/dL (70-110)
[2025-04-06 07:09] LABS: African American GFR (CKD) 73 (>60 ml/min/1.73 sqM); Anion Gap 7 mmol/L; Blood Urea Nitrogen 31 mg/dL (7-17); Calcium 7.5 mg/dL (8.4-10.2); Carbon Dioxide 25 mmol/L (22-30); Chloride 109 mmol/L (98-107); Glucose 115 mg/dL (74-99); Non-African American GFR(CKD) 64 (>60 ml/min/1.73 sqM); Potassium 3.8 mmol/L (3.5-5.1); Sodium 141 mmol/L (137-145)
--- NOTE | 2025-04-06 07:36 | XR ---
EXAMINATION TYPE: XR chest 1V portable DATE OF EXAM: 04/06/2025 7:02 AM COMPARISON: 04/05/2025 CLINICAL INDICATION: Female, 80 years old with history of Tube placement, , FINDINGS: Heart upper limits of normal in size. Diffuse interstitial densities persist but with improvement fro m prior. Residual patchy bibasilar opacities and trace pleural effusions. IMPRESSION: Improving but residual interstitial changes. Ongoing trace pleural effusions with adjacent atelectasi s and/or consolidation. [facility], , 04/06/2025 7:34 AM
[2025-04-06 09:13] LABS: Basophils # (A) 0.01 10*3/uL (0.00-0.10); Basophils % (A) 0.1 %; Lymphocytes # (A) 1.07 10*3/uL (0.90-5.00); Lymphocytes % (A) 6.4 %; MCH 32.6 pg (27.0-32.0); MCHC 32.8 g/dL (32.0-37.0); MCV 99.4 fL (80.0-97.0); Mean Platelet Volume 11.1 fL (9.5-12.2); Monocytes # (A) 0.91 10*3/uL (0.20-1.00); Monocytes % (A) 5.4 %; Neutrophils # (A) 14.69 10*3/uL (1.80-7.70); Neutrophils % (A) 87.3 %; Platelet Count 211 10*3/uL (140-440); RBC 1.75 10*6/uL (4.10-5.20); RDW 14.1 % (11.5-14.5); WBC 16.81 10*3/uL (4.50-10.00)
[2025-04-06 09:16] LABS: HGB 5.7 g/dL (12.0-15.0)
[2025-04-06 09:17] LABS: HCT 17.4 % (37.2-46.3)
[2025-04-06 09:47] LABS: Glucose,Whole Blood 157 mg/dL (70-110)
[2025-04-06 09:55] LABS: MCH 32.1 pg (27.0-32.0); MCHC 32.1 g/dL (32.0-37.0); Mean Platelet Volume 9.9 fL (9.5-12.2); Platelet Count 164 10*3/uL (140-440); RBC 1.62 10*6/uL (4.10-5.20)
[2025-04-06 10:10] LABS: HCT 16.2 % (37.2-46.3); HGB 5.2 g/dL (12.0-15.0)
[2025-04-06 11:47] LABS: Glucose,Whole Blood 198 mg/dL (70-110)
--- NOTE | 2025-04-06 12:15 | CT ---
EXAMINATION TYPE: CT angio abdomen pelvis DATE OF EXAM: 04/06/2025 COMPARISON: Prior CTA 4 days earlier. CLINICAL INDICATION: Female, 80 years old with history of Hb drop, left sided abd pain, retroperitone al bleed?, Hb drop, LTt side abdomen pain, retroperitoneal bleed?, TECHNIQUE: CTA scan of the abdomen and pelvis is performed without and with IV Contrast, patient injected with 1 00 mL of Isovue 370., (none if empty) Oral contrast used: without Oral Contrast (none if empty) CT DLP: 1374.1 mGycm, Automated exposure control for dose reduction was used. 3-D reconstructed image s are created on an independent workstation and reviewed. FINDINGS: LUNG BASES: Small to moderate size right greater than left pleural effusions are now present with ass ociated compressive atelectasis. LIVER/GB: Internal gallstones are present. Common bile duct measures 6 mm coronal images 59. PANCREAS: No significant abnormality is seen. SPLEEN: No significant abnormality is seen. ADRENALS: No significant abnormality is seen. KIDNEYS: Air-fluid level in the bladder is seen presumed chronic catheterization. BOWEL: Moderate size hiatal hernia now seen. UTERUS/ADNEXA: No gross abnormality seen. LYMPH NODES: No greater than 1cm abdominal or pelvic lymph nodes are appreciated. OSSEOUS STRUCTURES: Metallic hardware from left hip arthroplasty is redemonstrated. This causes strea k artifact somewhat limiting evaluation of pelvic structures. There is S-shaped scoliosis with multil evel compression type fractures in the thoracolumbar spine redemonstrated. OTHER: There is no heterogeneous large right pelvic or retroperitoneal fluid collection or hematoma m easuring 13.6 x 7.1 cm axial image 1 56 x 13.4 cm craniocaudal dimension coronal image 66. More promi nent diffuse subcutaneous edema is noted. A feeding vessel or source of active hemorrhage is not maria a rly identified. Local mass effect is present. IMPRESSION: New large right pelvic retroperitoneal fluid collection or hematoma as detailed above. [facility], , 04/06/2025 12:13 PM
--- NOTE | 2025-04-06 13:15 | P.PN ---
Subjective Progress Note Date: 04/06/25 Hospital Course: 80-year-old female with past medical history of chronic bronchial asthma, bob meade, who presented to the ER after mechanical fall landing on her right chest.n the ED she underwent extensive evaluation. BP 180/83, HR 89, RR 20, T 98.2F, 97% on RA. CBC, Coag panel, CMP significant for WBC 23.59, MCV 100.7, BUN 21, glu 145. Trop < 0.012. Mag 2.1. CXR showed findings of COPD, no rib fracture, hiatal hernia, scoliosis. Unfortunately, she received Toradol for pain management with an allergy to ASA which resulted in an anaphylactic reaction requiring intubation and transfer to ICU. Chest CT did show nondisplaced fracture of the lower sternum. She did develop hypotension for which she was started on Levophed. Also developed SVT requiring cardioversion and A-Fib with RVR requi ring Amiodarone drip. Patient was also started on Zosyn for concern of aspiration and possible coli tis. Noted to have abdominal distention, NG tube inserted,CTA chest/abd/pevis showing no PE, LLL opacity, R basilar atelectasis versus consolidation, multiple vertebral compression deformities, fluid/gas filled distended stomach with NG tube, small bowel ileus, wall thickening of the ascending colon. Cardiothoracic surgery consulted for nondisplaced sternal fracture, no surgical intervention warranted sternal fracture is minimal and nondisplaced, recommended heart hugger once patient is extubated to provide stability to the sternal, avoid lifting more than 10 pounds for the next 3 months. TTE was obtained and showed EF 45 to 50%, myxomatous mitral valve with prolapse of ventral mitral leaflet and severe mitral regurgitation, moderate pulmonary hypertension 04/04: Seen and examined at bedside, intubated, sedated, no pressor support required. Discussed with RN, plan for possible extubation later today or tomorrow. 04/05: Patient was extubated to nasal cannula, overnight was complaining of abdominal pain, x-ray was done and showed no free air or fecal impaction, patient was provided with Metamucil, had pudding-like bowel movement, no blood reported. Hemoglobin dropped to 8.7 04/06: Seen and examined at bedside, patient's present, patient states that she feels well, had small bowel movement this morning, no blood noted. She does not have any abdominal pain at rest, on palpation right-sided discomfort/tenderness.Hemoglobin dropped to 5.2, CTA abdomen ordered stat and showed new large right pelvic retroperitoneal fluid collection or hematoma with local mass effect, vascular surgery consulted, directly messaged and called, preliminary no surgical intervention, continue blood transfusion. She is normotensive, heart rate stable. Patient will be transferred to ICU, discussed with ICU team Pertinent positives and negatives as discussed above, a complete review of sys tems was performed and all other systems are negative. Vitals Signs Reviewed. General: [nontoxic], [no distress], [appears at stated age], Derm: [warm], [dry] Head: [atraumatic], [normocephalic], [symmetric] Eyes: [EOMI], [no lid lag], [anicteric sclera] Mouth: [no lip lesion], [mucus membranes moist] Cardiovascular: [S1S2 reg], [no murmur] Lungs: [CTA bilateral], [no rhonchi, no rales] , [no accessory muscle use] Abdominal: [Soft, right-sided tenderness, no rebound or guarding Ext: [no gross muscle atrophy], [no edema], [no contractures] Neuro: No focal deficits Psych: [Alert and oriented, appropriate affect Assessment and Plan: Acute hypoxic respiratory failure secondary to anaphylactic shock from Toradol, resolved -Pulm crit following, appreciate recommendations, patient downgraded to 3 S. awaiting bed - Extubated to nasal cannula, denies shortness of breath, 04/06 on room air - Continue Solu-Medrol 40 mg IV every 12 hours -Continue Pulmicort twice daily, Benadryl 25 mg IV every 6 hours, famotidine 20 mg IV at bedtime, Perforomist 20 mcg twice daily, DuoNeb every 4 hour SVT and atrial fibrillation with RVR -Status post cardioversion - Switch to oral amiodarone 200 mg p.o. twice daily -Cardiology consulted, appreciate recommendations -Free T4 normal Acute anemia -Hemoglobin on admission 13.4, dropped to 8.7, no blood in stool or urine reported. monitor CBC daily -Hemoglobin dropped to 5.2, CTA abdomen ordered stat and showed new large right pelvic retroperitoneal fluid collection or hematoma with local mass effect, vascular surgery consulted, directly messaged and called, preliminary no surgical intervention, continue blood transfusion -2 units of PRBC ordered on 04/06, CBC every 6 hours -IR consulted -Patient's blood pressure remained stable -Anemia workup ordered and pending -Discontinue Lovenox, VTE prophylaxis with SCD Sepsis due to possible aspiration and possible colitis -Abdominal pain abdominal x-ray showed no obstruction no fecal impaction. 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 Hyperglycemia, likely steroid-induced -Continue with Accu-Cheks, hypoglycemia precautions, SSI Hypokalemia, resolved Vertebral compression fractures: Chronic. Likely outpatient follow up. I have reviewed the following contact center consultant notes: general surgery, pulmonology, cardiology I have reviewed the results of the following tests: CBC, BMP, CT abdomen I have ordered the following tests: CBC BMP, anemia workup, CTA abdomen I have discussed the care of this patient with the following independent historian: Registered nurse patient's I have independently interpreted the following test below: As above I have discussed the management of this patient with the following physician: Dr. Mercado, vascular surgery DVT ppx: SCD Code status: Full code Anticipated discharge place: TBD Anticipated discharge time: TBD Objective - Vital Signs Vital signs: Vital Signs Temp 98.7 F 04/06/25 12:35 Pulse 103 H 04/06/25 13:03 Resp 16 04/06/25 12:35 BP 152/72 04/06/25 12:35 Pulse Ox 96 04/06/25 12:35 FiO2 5 04/04/25 10:45 Intake & Output 04/05/25 04/06/25 04/06/25 18:59 06:59 18:59 Intake Total 170 10 240 Output Total 400 240 500 Balance -230 -230 -260 Weight 50.8 kg Intake: IV 52 10 Invasive Line 6 10 marjorie 12 kvo 40 Oral 118 240 Blood Product 0 Unit 0 Output: Urine 400 240 500 Other: Voiding Method Indwelling Catheter Bedside Commode Bedside Commode # Voids 0 # Bowel Movements 1 1 1 ABP, PAP, CO, CI - Last Documented Arterial Blood Pressure 121/59 - Labs CBC & Chem 7: 04/06/25 09:45 04/06/25 06:25 Labs: Abnormal Lab Results - Last 24 Hours (Table) 04/04/25 04/05/25 04/05/25 Range/Units 01:20 16:11 19:55 WBC (4.50-10.00) 10*3/uL RBC (4.10-5.20) 10*6/uL Hgb (12.0-15.0) g/dL Hct (37.2-46.3) % MCV (80.0-97.0) fL MCH (27.0-32.0) pg Immature Gran # (0.00-0.04) 10*3/uL Neutrophils # (1.80-7.70) 10*3/uL Eosinophils # (0.04-0.35) 10*3/uL Chloride (98-107) mmol/L BUN (7-17) mg/dL Glucose (74-99) mg/dL POC Glucose (mg/dL) 157 H 132 H 133 H (70-110) mg/dL Calcium (8.4-10.2) mg/dL Lactate Dehydrogenase (120-246) U/L Crossmatch 04/06/25 04/06/25 04/06/25 Range/Units 06:02 06:25 07:50 WBC 16.81 H (4.50-10.00) 10*3/uL RBC 1.75 L (4.10-5.20) 10*6/uL Hgb 5.7 L* D (12.0-15.0) g/dL Hct 17.4 L* (37.2-46.3) % MCV 99.4 H (80.0-97.0) fL MCH 32.6 H (27.0-32.0) pg Immature Gran # 0.13 H (0.00-0.04) 10*3/uL Neutrophils # 14.69 H (1.80-7.70) 10*3/uL Eosinophils # 0.00 L (0.04-0.35) 10*3/uL Chloride 109 H (98-107) mmol/L BUN 31 H (7-17) mg/dL Glucose 115 H (74-99) mg/dL POC Glucose (mg/dL) 143 H (70-110) mg/dL Calcium 7.5 L (8.4-10.2) mg/dL Lactate Dehydrogenase (120-246) U/L Crossmatch 04/06/25 04/06/25 04/06/25 Range/Units 09:45 09:45 10:52 WBC 12.60 H (4.50-10.00) 10*3/uL RBC 1.62 L (4.10-5.20) 10*6/uL Hgb 5.2 L* (12.0-15.0) g/dL Hct 16.2 L* (37.2-46.3) % MCV 100.0 H (80.0-97.0) fL MCH 32.1 H (27.0-32.0) pg Immature Gran # (0.00-0.04) 10*3/uL Neutrophils # (1.80-7.70) 10*3/uL Eosinophils # (0.04-0.35) 10*3/uL Chloride (98-107) mmol/L BUN (7-17) mg/dL Glucose (74-99) mg/dL POC Glucose (mg/dL) (70-110) mg/dL Calcium (8.4-10.2) mg/dL Lactate Dehydrogenase 297 H (120-246) U/L Crossmatch See Detail 04/06/25 Range/Units 11:43 WBC (4.50-10.00) 10*3/uL RBC (4.10-5.20) 10*6/uL Hgb (12.0-15.0) g/dL Hct (37.2-46.3) % MCV (80.0-97.0) fL MCH (27.0-32.0) pg Immature Gran # (0.00-0.04) 10*3/uL Neutrophils # (1.80-7.70) 10*3/uL Eosinophils # (0.04-0.35) 10*3/uL Chloride (98-107) mmol/L BUN (7-17) mg/dL Glucose (74-99) mg/dL POC Glucose (mg/dL) 198 H (70-110) mg/dL Calcium (8.4-10.2) mg/dL Lactate Dehydrogenase (120-246) U/L Crossmatch Microbiology - Last 24 Hours (Table) 04/03/25 10:55 Blood Culture - Preliminary Blood 04/03/25 00:00 Gram Stain - Final Sputum Sputum Culture - Final
--- NOTE | 2025-04-06 13:46 | P.PN ---
Progress Note - Text Progress Note Date: 04/06/25 No acute events overnight. Patient having new onset moderately distended abdomen with some right lower quadrant pain. Having bowel function. PHYSICAL EXAM: VITAL SIGNS: Reviewed GENERAL: Well-developed in no acute distress. HEENT: No sclera icterus. Extraocular movements grossly intact. Moist buccal mucosa. Head is atraumatic, normocephalic. No nasal drainage. CHEST: No ecchymosis, erythema or abrasions noted. ABDOMEN: Soft. Moderately distended. NEUROLOGIC: Alert and oriented. Cranial nerves II through XII grossly intact. ASSESSMENT: 1. Mechanical fall with trauma to chest wall 2. Large right pelvic retroperitoneal fluid collection or hematoma 3. Nondisplaced fracture of the lower sternum 4. Anaphylactic reaction to Toradol with respiratory failure requiring to be intubated PLAN: - Cardiothoracic Surgery Recs for evaluation of the sternal fracture - Vascular surgery consulted by primary team, initial recommendation for no surgical intervention - Continue blood transfusions - Continue pain management -Stat CT abdomen with contrast ordered after patient having drop in hemoglobin from 8.7 to 5.2, CT showed right pelvic peritoneal fluid collection or hematoma Attestation Patient seen and examined at bedside in the ICU. Presented with chief complaint of sternal fracture after mechanical fall. Patient noted to have significant drop in hemoglobin to 5.2 today. Stat CTA of the abdomen and pelvis was performed with finding of retroperitoneal hematoma. No active extravasation is noted. Hemodynamically, patient is otherwise stable. Patient is receiving packed red blood cell. No plan for surgical intervention from trauma surgery. Vascular surgery is involved with no plan for surgical intervention at this time as well. If continued concern for extravasation, patient will benefit from IR embolization. Continue to closely monitor in ICU. Ziggy Nieves DO
[2025-04-06 13:51] LABS: Glucose,Whole Blood 174 mg/dL (70-110)
--- NOTE | 2025-04-06 14:16 | P.GSCN ---
History of Present Illness Consult date: 04/06/25 Reason for Consult: Trial peritoneal hematoma, acute anemia Requesting physician: Randee Martin History of present illness: This a very pleasant 80-year-old female with a past medical history including dementia, asthma and anaphylactic shock secondary to aspirin allergy who had presented to the emergency department 4 days ago after sustaining a fall with complaints of sternal chest pain. Apparently patient was in the garden and tripped and fell and hit a cement garden statue with her chest. Patient does have some short-term memory loss secondary to her dementia states he went out to look at the garden and there were 2 garden statues 1 that was turned and the other that was actually moved. He believes that she likely hit 1 with her chest and the other 1 possibly by her hip. She was given Toradol in the emergency department for pain and went into acute hypoxic respiratory failure secondary to anaphylactic shock and subsequently was intubated after patient did not respond to IV Solu-Medrol and Benadryl. She had been in the intensive care unit initially, she was diagnosed with acute nondisplaced fracture of the lower sternum by chest CT. On admission patient's initial hemoglobin was 13.4 with a drop to 11 and has progressively dropped over the last couple of days yesterday was 8.7 and then again today had another drop down to 5.2. Apparently patient was also noted to have some right groin bruising as well as right hip bruising. She is complaining of some right lower abdominal tenderness. She had a CT angiogram of the abdomen and pelvis reports a new large right pelvic retroperitoneal fluid collection or hematoma measuring 13.6 x 7.1 cm without any feeding vessel or source of active hemorrhage clearly identified. Local mass effect present. Vascular surgery was consulted for retroperitoneal hematoma with acute anemia. Apparently during this hospitalization she had new onset atrial fibrillation and was started on amiodarone with no further EKG evidence of atrial fibrillation. She was started on Lovenox 40 mg twice daily 2 days ago on 04/04/2025. Following that she had a drop in her hemoglobin from 10.2-8.7 yesterday and further dropped today to 5.2. Last dose of Lovenox 40 mg subcu was this morning, it has been discontinued since. Patient is sitting up in bed, she has blood infusing at this time. She is awake and alert, appears in no acute distress. No complaints of severe abdominal pain, last bowel movement was yesterday. Does state that she has a little bit of an ache or tenderness in her right lower abdomen. No nausea or vomiting. Review of Systems A 14 point review systems was completed all pertinent positives and negatives as stated in the HPI. Past Medical History Past Medical History: Asthma, Dementia History of Any Multi-Drug Resistant Organisms: None Reported Past Surgical History: Tubal Ligation Additional Past Surgical History / Comment(s): neck surgery Past Anesthesia/Blood Transfusion Reactions: No Reported Reaction Past Psychological History: No Psychological Hx Reported Smoking Status: Never smoker Past Alcohol Use History: None Reported Past Drug Use History: None Reported - Past Family History Father Family Medical History: Hypertension Mother Additional Family Medical History / Comment(s): Alzhemiers Sister(s) Family Medical History: CVA/TIA Medications and Allergies Home Medications Medication Instructions Recorded Confirmed Type Budesonide-Formot 160-4.5 Mcg 2 puff INHALATION RT-BID #1 each 08/27/22 04/03/25 Rx [Symbicort 160-4.5 Mcg Inhaler] Alendronate Sodium [Fosamax] 70 mg PO WEEKLY 03/01/23 04/03/25 History Calcium Carbonate [Calcium] 600 mg PO BID 03/01/23 04/03/25 History Albuterol Inhaler [Ventolin Hfa 1 puff INHALATION RT-Q4H PRN 04/03/25 04/03/25 History Inhaler] Albuterol Nebulized [Ventolin 2.5 mg INHALATION RT-Q4H PRN 04/03/25 04/03/25 History Nebulized] Donepezil [Aricept] 5 mg PO DAILY 04/03/25 04/03/25 History Fexofenadine HCl [Gemini Allergy] 60 mg PO DAILY 04/03/25 04/03/25 History Allergies Allergy/AdvReac Type Severity Reaction Status Date / Time acetaminophen [From Tylenol] Allergy Severe Anaphylaxis Verified 04/03/25 07:37 ketorolac [From Toradol] Allergy Severe Anaphylaxis Verified 04/03/25 07:41 aspirin Allergy Anaphylaxis Verified 04/03/25 07:37 Surgical - Exam Vital Signs Temp Pulse Resp BP Pulse Ox 98.2 F 89 20 180/83 97 04/02/25 15:42 04/02/25 15:42 04/02/25 15:42 04/02/25 15:42 04/02/25 15:42 General appearance: The patient is alert, oriented, appears in no acute distress. HET: Head is normocephalic and atraumatic. Pupils are equal and reactive. Neck: Supple. Heart: Regular. Lungs: Equal expansion, normal respiratory effort. Abdomen: Soft, mild distention, right lower quadrant tenderness with palpation. Right pelvis/groin with ecchymosis also wraps around right flank. Extremities: Normal skin color and turgor. No lower extremity edema. Neurological: Alert oriented. Results - Labs 04/06/25 09:45 04/06/25 06:25 Abnormal Lab Results - Last 24 Hours (Table) 04/04/25 04/05/25 04/05/25 Range/Units 01:20 16:11 19:55 WBC (4.50-10.00) 10*3/uL RBC (4.10-5.20) 10*6/uL Hgb (12.0-15.0) g/dL Hct (37.2-46.3) % MCV (80.0-97.0) fL MCH (27.0-32.0) pg Immature Gran # (0.00-0.04) 10*3/uL Neutrophils # (1.80-7.70) 10*3/uL Eosinophils # (0.04-0.35) 10*3/uL Chloride (98-107) mmol/L BUN (7-17) mg/dL Glucose (74-99) mg/dL POC Glucose (mg/dL) 157 H 132 H 133 H (70-110) mg/dL Calcium (8.4-10.2) mg/dL Lactate Dehydrogenase (120-246) U/L Crossmatch 04/06/25 04/06/25 04/06/25 Range/Units 06:02 06:25 07:50 WBC 16.81 H (4.50-10.00) 10*3/uL RBC 1.75 L (4.10-5.20) 10*6/uL Hgb 5.7 L* D (12.0-15.0) g/dL Hct 17.4 L* (37.2-46.3) % MCV 99.4 H (80.0-97.0) fL MCH 32.6 H (27.0-32.0) pg Immature Gran # 0.13 H (0.00-0.04) 10*3/uL Neutrophils # 14.69 H (1.80-7.70) 10*3/uL Eosinophils # 0.00 L (0.04-0.35) 10*3/uL Chloride 109 H (98-107) mmol/L BUN 31 H (7-17) mg/dL Glucose 115 H (74-99) mg/dL POC Glucose (mg/dL) 143 H (70-110) mg/dL Calcium 7.5 L (8.4-10.2) mg/dL Lactate Dehydrogenase (120-246) U/L Crossmatch 04/06/25 04/06/25 04/06/25 Range/Units 09:45 09:45 10:52 WBC 12.60 H (4.50-10.00) 10*3/uL RBC 1.62 L (4.10-5.20) 10*6/uL Hgb 5.2 L* (12.0-15.0) g/dL Hct 16.2 L* (37.2-46.3) % MCV 100.0 H (80.0-97.0) fL MCH 32.1 H (27.0-32.0) pg Immature Gran # (0.00-0.04) 10*3/uL Neutrophils # (1.80-7.70) 10*3/uL Eosinophils # (0.04-0.35) 10*3/uL Chloride (98-107) mmol/L BUN (7-17) mg/dL Glucose (74-99) mg/dL POC Glucose (mg/dL) (70-110) mg/dL Calcium (8.4-10.2) mg/dL Lactate Dehydrogenase 297 H (120-246) U/L Crossmatch See Detail 04/06/25 Range/Units 11:43 WBC (4.50-10.00) 10*3/uL RBC (4.10-5.20) 10*6/uL Hgb (12.0-15.0) g/dL Hct (37.2-46.3) % MCV (80.0-97.0) fL MCH (27.0-32.0) pg Immature Gran # (0.00-0.04) 10*3/uL Neutrophils # (1.80-7.70) 10*3/uL Eosinophils # (0.04-0.35) 10*3/uL Chloride (98-107) mmol/L BUN (7-17) mg/dL Glucose (74-99) mg/dL POC Glucose (mg/dL) 198 H (70-110) mg/dL Calcium (8.4-10.2) mg/dL Lactate Dehydrogenase (120-246) U/L Crossmatch Microbiology - Last 24 Hours (Table) 04/03/25 10:55 Blood Culture - Preliminary Blood 04/03/25 00:00 Gram Stain - Final Sputum Sputum Culture - Final Diabetes panel 04/06/25 Range/Units 06:25 Sodium 141 (137-145) mmol/L Potassium 3.8 (3.5-5.1) mmol/L Chloride 109 H (98-107) mmol/L Carbon Dioxide 25 (22-30) mmol/L BUN 31 H (7-17) mg/dL Creatinine 0.88 (0.52-1.04) mg/dL Glucose 115 H (74-99) mg/dL Calcium 7.5 L (8.4-10.2) mg/dL Calcium panel 04/06/25 Range/Units 06:25 Calcium 7.5 L (8.4-10.2) mg/dL Pituitary panel 04/06/25 Range/Units 06:25 Sodium 141 (137-145) mmol/L Potassium 3.8 (3.5-5.1) mmol/L Chloride 109 H (98-107) mmol/L Carbon Dioxide 25 (22-30) mmol/L BUN 31 H (7-17) mg/dL Creatinine 0.88 (0.52-1.04) mg/dL Glucose 115 H (74-99) mg/dL Calcium 7.5 L (8.4-10.2) mg/dL Adrenal panel 04/06/25 Range/Units 06:25 Sodium 141 (137-145) mmol/L Potassium 3.8 (3.5-5.1) mmol/L Chloride 109 H (98-107) mmol/L Carbon Dioxide 25 (22-30) mmol/L BUN 31 H (7-17) mg/dL Creatinine 0.88 (0.52-1.04) mg/dL Glucose 115 H (74-99) mg/dL Calcium 7.5 L (8.4-10.2) mg/dL Assessment and Plan Assessment: 1. Retroperitoneal hematoma without any active bleeding on CTA, likely secondary to trauma from mechanical fall and recent start of anticoagulation 2. Acute blood loss anemia secondary to above 3. Mechanical fall 4. Acute nondisplaced sternum fracture 5. New onset atrial fibrillation 6. Anticoagulation with Lovenox 40 mg twice daily, now on hold Plan: 1. Agree to hold anticoagulation 2. Transfuse for hemoglobin less than 7 3. There is no indication for any vascular surgical intervention 4. Continue rest of medical management per primary medical team Thank you for this consultation, we will continue to follow. The impression and plan of care has been dictated as directed. Dr. Mercado I performed a history and examination of this patient, discussed the same with the dictator. I agree with the dictator's note ,documented as a scribe. Any additional findings or plans will be noted.
[2025-04-06 16:30] LABS: Glucose,Whole Blood 138 mg/dL (70-110)
[2025-04-06 17:10] LABS: % Iron Saturation 15.79 (12.00-45.00)
--- NOTE | 2025-04-06 17:21 | P.PN ---
Subjective Progress Note Date: 04/06/25 Principal diagnosis: Anaphylaxis induced by nonsteroidal anti-inflammatory drugs Patient is a 80-year-old female with past medical history significant for chronic bronchial asthma, previous possible allergic reaction to Tylenol or aspirin. Presented to emergency department yesterday afternoon. She had a fall while working in the garden. Reportedly, fell on a garden decoration. Her chief complaint was right-sided rib pain. Workup in the emergency department including a CT of the chest showing a acute nondisplaced fracture of the lower sternum. Labs including a CBC with a WBC count of 21.6, hemoglobin 10.8, platelets 261. Previous hemoglobin 13.4, possibly hemodilution. CMP: Sodium 138, potassium 4.2, chloride 102, serum bicarb 25, BUN 21, creatinine 0.82, glucose 145. LFTs unremarkable. Troponin less than 0.012 She did receive some Toradol for the pain. According to the ER note, shortly after developed significant increased work of breathing, reduced air exchange, and impending respiratory failure. She was treated for suspected allergic reaction, given a dose of IM epinephrine, Solu-Medrol, and Benadryl. She was intubated by the ED provider. Subsequently, became hypotensive and tachycardic. She received 1.5 L fluid bolus in the ED. Also, started on norepinephrine for blood pressure support. Patient did go into unstable atrial fibrillation with RVR, she was cardioverted x 3 in the ED, which were unsuccessful. Patient transferred to the intensive care unit in critical condition. I am evaluating this patient in room 256. Current ventilator settings assist-control, respiratory rate 24, tidal volume 300, FiO2 60%, PEEP of 5. She is asynchronous with the ventilator, breathing in the high 30s and bucking the vent. Propofol is being used for sedation and is currently increased to 40 mcg/kg/min. Limited lung sounds and air exchange bilaterally. Most recent ABG done on above- mentioned ventilator settings with a PaO2 of 164, pCO2 54, pH of 7.26. Follow- up chest x-ray endotracheal tube approximately 5.7 cm above the queta. Orogastric tube coursing below the diaphragm. Coarse interstitial lung markings. No notable pneumothoraces or effusions. Left lower lobe opacity. Currently, patient is in atrial fibrillation with RVR. Rate ranging from 130 to 160 bpm. Norepinephrine infusing at 0.2 mcg/kg/min. Blood pressure 96/67 mmHg. Despite adequate sedation, continues to have elevated peak airway pressures of 44 and her static airway pressure is 29. my supervising physician, Dr. Hanson called and updated on the situation. On 04/04/2025, the patient is off fentanyl and off Nimbex and the patient is only on propofol running at 35 mcg/kg/min. The patient is on assist-control mode of mechanical ventilation at rate of 28, tidal volume 300, FiO2 40% with a PEEP of 5. Chest x-ray shows no acute abnormalities. The patient is obviously a smoker spastic and wheezy. The peak airway pressure on mechanical ventilator is down to 21. Blood gas showed a pH of 7.32 with a [id number] and PO215. No significant bronchospasm or wheezing. The patient remains in normal saline at a rate of 130 cc an hour. Urine output is noted of 5200 cc an hour. The white cell count is currently down to 12.3. The patient is receiving vital HP at rate of 33 cc an hour for enteral feeding and nutritional support. Echocardiogram was done and the patient has an ejection fraction of 45 to 50% along with severe mitral regurgitation. Cardiac rhythm is sinus. The blood work shows a white cell count of 12.3, hemoglobin 10.7 and platelet count of 179. The sodium levels at 139, K is at 4, serum bicarbonate 16, BUN 16 with a creatinine of 0.9. Procalcitonin level is 0.94. Free T4 is at 1.4. 04/05/2025, the patient is being seen for a follow-up. The patient was weaned off the mechanical ventilator and the patient was extubated yesterday without any major difficulties. This morning, the patient 2 L of oxygen by nasal cannula. Chest x-ray shows some mild pulm vascular congestion and small left- sided pleural effusion. Cardiac rhythm remains sinus and cardiology opted to keep the patient on oral amiodarone. Remains on bronchodilators. Remains on steroids. Remains on empiric antibiotic coverage with IV Zosyn. White cell count 15.6, hemoglobin 8.7 and the platelet count of 191. Sodium is 142, BUN 22 creatinine 0.7. She did complain of some mild abdominal discomfort. She does have positive bowel sounds. X-ray of the abdomen showed no evidence of any free air or obstruction. Some limited infiltration in the left lung base was also noted. She denies having any specific complaints. No significant chest wall pain.Echocardiogram was also completed and the patient was found to have left ventricular ejection fraction of 45 to 50%. 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 She also has moderate tricuspid regurgitation and moderate degree of pulmonary hypertension. Patient was seen today on 04/06/2025, had to transfer the patient to the ICU because her CT of abdomen pelvis showed retroperitoneal hematoma but no active bleeding but the patient was noted to have low hemoglobin has transferred the patient temporarily to the ICU to receive 2 units of packed RBCs and to monitor for the next 24 hours. Saw the patient in the ICU, doing well, not hypotensive, not in any distress, patient is receiving her second unit of packed RBCs during my evaluation. Hemoglobin this morning was as low 5.2 and yesterday was 8.7. No active GI blood losses. Basic metabolic profile is normal renal profile is normal Objective - Vital Signs Vital signs: Vital Signs Temp 98.8 F 04/06/25 16:01 Pulse 94 04/06/25 16:30 Resp 28 H 04/06/25 16:30 BP 145/96 04/06/25 16:30 Pulse Ox 95 04/06/25 16:30 FiO2 5 04/04/25 10:45 Intake & Output 04/05/25 04/06/25 04/06/25 18:59 06:59 18:59 Intake Total 170 10 550 Output Total 400 240 700 Balance -230 -230 -150 Weight 50.8 kg 50.8 kg Intake: IV 52 10 Invasive Line 6 10 marjorie 12 kvo 40 Oral 118 240 Blood Product 310 As-1 Unit 310 [id number] As-1 Unit 0 [id number] Output: Urine 400 240 700 Other: Voiding Method Indwelling Catheter Bedside Commode External Catheter # Voids 0 # Bowel Movements 1 1 1 ABP, PAP, CO, CI - Last Documented Arterial Blood Pressure 119/63 - Exam GENERAL EXAM: Revealed 80-year-old female in no distress HEAD: Normocephalic and atraumatic. No angioedema. EYES: reaction of pupils to light, left greater than right. NOSE: Clear with pink turbinates. THROAT: No erythema or exudates. NECK: No masses, no JVD. CHEST: No chest wall deformity. LUNGS: Clear bilaterally no rhonchi no wheezes CVS: S1 and S2 normal with no audible murmur, irregular rhythm. No extra heart sounds ABDOMEN: No hepatosplenomegaly, active bowel sounds, no guarding or rigidity. No diarrhea. Positive bowel sounds. No peritoneal signs. SPINE: No scoliosis or deformity SKIN: No rashes, urticaria. CENTRAL NERVOUS SYSTEM: Alert oriented x 3 no focal deficit EXTREMITIES: No clubbing edema or cyanosis - Labs CBC & Chem 7: 04/06/25 09:45 04/06/25 06:25 Labs: Abnormal Lab Results - Last 24 Hours (Table) 04/04/25 04/05/25 04/06/25 Range/Units 01:20 19:55 06:02 WBC (4.50-10.00) 10*3/uL RBC (4.10-5.20) 10*6/uL Hgb (12.0-15.0) g/dL Hct (37.2-46.3) % MCV (80.0-97.0) fL MCH (27.0-32.0) pg Immature Gran # (0.00-0.04) 10*3/uL Neutrophils # (1.80-7.70) 10*3/uL Eosinophils # (0.04-0.35) 10*3/uL Chloride (98-107) mmol/L BUN (7-17) mg/dL Glucose (74-99) mg/dL POC Glucose (mg/dL) 157 H 133 H 143 H (70-110) mg/dL Calcium (8.4-10.2) mg/dL Iron (50-170) UG/DL Transferrin (204.0-354.0) mg/dL Lactate Dehydrogenase (120-246) U/L Crossmatch 04/06/25 04/06/25 04/06/25 Range/Units 06:25 07:50 09:45 WBC 16.81 H 12.60 H (4.50-10.00) 10*3/uL RBC 1.75 L 1.62 L (4.10-5.20) 10*6/uL Hgb 5.7 L* D 5.2 L* (12.0-15.0) g/dL Hct 17.4 L* 16.2 L* (37.2-46.3) % MCV 99.4 H 100.0 H (80.0-97.0) fL MCH 32.6 H 32.1 H (27.0-32.0) pg Immature Gran # 0.13 H (0.00-0.04) 10*3/uL Neutrophils # 14.69 H (1.80-7.70) 10*3/uL Eosinophils # 0.00 L (0.04-0.35) 10*3/uL Chloride 109 H (98-107) mmol/L BUN 31 H (7-17) mg/dL Glucose 115 H (74-99) mg/dL POC Glucose (mg/dL) (70-110) mg/dL Calcium 7.5 L (8.4-10.2) mg/dL Iron (50-170) UG/DL Transferrin (204.0-354.0) mg/dL Lactate Dehydrogenase (120-246) U/L Crossmatch 04/06/25 04/06/25 04/06/25 Range/Units 09:45 10:52 11:43 WBC (4.50-10.00) 10*3/uL RBC (4.10-5.20) 10*6/uL Hgb (12.0-15.0) g/dL Hct (37.2-46.3) % MCV (80.0-97.0) fL MCH (27.0-32.0) pg Immature Gran # (0.00-0.04) 10*3/uL Neutrophils # (1.80-7.70) 10*3/uL Eosinophils # (0.04-0.35) 10*3/uL Chloride (98-107) mmol/L BUN (7-17) mg/dL Glucose (74-99) mg/dL POC Glucose (mg/dL) 198 H (70-110) mg/dL Calcium (8.4-10.2) mg/dL Iron 42 L (50-170) UG/DL Transferrin 190.0 L (204.0-354.0) mg/dL Lactate Dehydrogenase 297 H (120-246) U/L Crossmatch See Detail 04/06/25 04/06/25 Range/Units 13:49 16:29 WBC (4.50-10.00) 10*3/uL RBC (4.10-5.20) 10*6/uL Hgb (12.0-15.0) g/dL Hct (37.2-46.3) % MCV (80.0-97.0) fL MCH (27.0-32.0) pg Immature Gran # (0.00-0.04) 10*3/uL Neutrophils # (1.80-7.70) 10*3/uL Eosinophils # (0.04-0.35) 10*3/uL Chloride (98-107) mmol/L BUN (7-17) mg/dL Glucose (74-99) mg/dL POC Glucose (mg/dL) 174 H 138 H (70-110) mg/dL Calcium (8.4-10.2) mg/dL Iron (50-170) UG/DL Transferrin (204.0-354.0) mg/dL Lactate Dehydrogenase (120-246) U/L Crossmatch Microbiology - Last 24 Hours (Table) 04/03/25 10:55 Blood Culture - Preliminary Blood Assessment and Plan Assessment: Impression: Retroperitoneal bleed/hematoma most likely secondary to fall, Acute blood loss anemia Recent episode of anaphylaxis secondary to NSAID Acute hypoxic and hypercapnic respiratory failure Acute asthma exacerbation Mild LV dysfunction Severe mitral regurgitation with myxomatous mitral valve degeneration Mechanical fall with acute lower sternal fracture History of left femoral neck fracture with left hemiarthroplasty Recommendation: Transfuse patient for a hemoglobin below 7 Continue to monitor patient in the ICU Monitor closely her hemodynamics and repeat hemoglobin in a.m. No surgical intervention is indicated at this point Continue her present medications as listed avoid any NSAID drugs Will continue to follow Time with Patient: Less than 30
[2025-04-06 19:50] LABS: HCT 29.1 % (37.2-46.3); MCHC 34.4 g/dL (32.0-37.0); Mean Platelet Volume 10.2 fL (9.5-12.2); Platelet Count 163 10*3/uL (140-440); RBC 3.03 10*6/uL (4.10-5.20); RDW 14.1 % (11.5-14.5)
[2025-04-06 20:08] LABS: Glucose,Whole Blood 142 mg/dL (70-110)
--- NOTE | 2025-04-06 21:02 | P.PN ---
Subjective Progress Note Date: 04/06/25 The patient is a 80-year-old female patient who does not follow-up with any supervisor braiding on regular basis with no significant past medical history who fell at home was brought to the emergency department for further investigation after that. In the emergency department the patient was having severe sternal discomfort and as a matter of fact she was found to have sternal fracture. She was experiencing excruciating pain and for that reason she was given Toradol were subsequently she developed respiratory failure and she developed what it seems to be severe hypotension could be secondary to severe allergic reaction/anaphylactic reaction to Toradol. Subsequently the patient was started on vasopressors with norepinephrine she was also intubated and placed on mechanical ventilation and transferred to the ICU. When she was seen and evaluated this afternoon she was off norepinephrine and not on any vasopressors and also she was extubated. Currently she is hemodynamically stable. She underwent a workup including an EKG showed sinus mechanism. The troponin was checked and came to be unremarkable. We consulted to see the patient because of brief episode of atrial fibrillation lasted less than 24 hours. According to the patient and her no history of paroxysmal atrial fibrillation and no history of any cardiac arrhythmia or congestive heart failure or coronary artery disease and never seen a supervisor braiding before. She has been maintaining normal sinus mechanism since then. She was given amiodarone and subsequently she was converted to normal sinus mechanism. The patient underwent further evaluation including an echocardiogram which revealed mildly impaired LV function with EF between 45 to 50% with evidence of moderate to severe mitral regurgitation and moderate pulmonary hypertension. The physical examination is remarkable for regular rhythm with a systolic murmur at the apical area and right and left upper sternal border with diminished breathing sounds bilaterally and no edema was noted in the lower extremities. April 05, 2025 The patient was seen and evaluated this morning which she remains in sinus mechanism. The echo showed mildly impaired LV function with EF between 45 to 50% with valvular heart disease consistent of moderate to severe MR as well as tricuspid regurgitation and pulmonary hypertension. The mitral valve need to be addressed as an outpatient. She is on amiodarone which we will continue at this point and consider tapering down the dose and also she is at therapeutic dose of Lovenox. She is asymptomatic. She is hemodynamically stable. She is struggling with constipation. The physical examination is remarkable for regular rhythm with a systolic murmur at the pickle area and clear breathing sounds bilaterally and no edema was noted. 04/06/2025 Seen and examined at bedside this a.m., hemoglobin 5.2, CT abdominal pelvis showed large right pelvic retroperitoneal fluid which is most likely hematoma, of for this vascular surgery has been consulted. History hemoglobin was 8.7, Assessment Acute anemia Retroperitoneal hematoma Anaphylactic reaction to Toradol Acute hypoxic respiratory failure required intubation and mechanical ventilation, the patient was extubated Hypotension which has resolved as well Paroxysmal atrial fibrillation and currently the patient is in normal sinus mechanism. 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 moderate pulmonary hypertension Status post fall with sternal fracture Plan Continue the current dose of amiodarone and consider tapering down amiodarone down the line Hold anticoagulation Address the valvular heart disease once the patient discharged home Follow-up with the patient Prognosis is very guarded Objective - Vital Signs Vital signs: Vital Signs Temp 98.6 F 04/06/25 18:32 Pulse 90 04/06/25 20:05 Resp 17 04/06/25 19:00 BP 161/88 04/06/25 19:00 Pulse Ox 94 L 04/06/25 19:00 FiO2 5 04/04/25 10:45 Intake & Output 04/06/25 04/06/25 04/07/25 06:59 18:59 06:59 Intake Total 10 1000 Output Total 240 900 0 Balance -230 100 0 Weight 50.8 kg 50.8 kg Intake: IV 10 140 Invasive Line 6 10 Piperacillin-Tazobactam 3 100 .375 gm In Sodium Chloride 0.9% 100 ml @ 25 mls/hr IVPB Q8H [facility] Rx#: [id number] kvo 40 Oral 240 Blood Product 620 Rc As-1 Unit 310 [id number] As-1 Unit 310 [id number] Output: Urine 240 900 0 Other: Voiding Method Bedside Commode External Catheter # Voids 0 0 # Bowel Movements 1 1 ABP, PAP, CO, CI - Last Documented Arterial Blood Pressure 119/63 - Labs CBC & Chem 7: 04/06/25 19:39 04/06/25 06:25 Labs: Abnormal Lab Results - Last 24 Hours (Table) 04/04/25 04/06/25 04/06/25 Range/Units 01:20 06:02 06:25 WBC (4.50-10.00) 10*3/uL RBC (4.10-5.20) 10*6/uL Hgb (12.0-15.0) g/dL Hct (37.2-46.3) % MCV (80.0-97.0) fL MCH (27.0-32.0) pg Immature Gran # (0.00-0.04) 10*3/uL Neutrophils # (1.80-7.70) 10*3/uL Eosinophils # (0.04-0.35) 10*3/uL Chloride 109 H (98-107) mmol/L BUN 31 H (7-17) mg/dL Glucose 115 H (74-99) mg/dL POC Glucose (mg/dL) 157 H 143 H (70-110) mg/dL Calcium 7.5 L (8.4-10.2) mg/dL Iron (50-170) UG/DL Transferrin (204.0-354.0) mg/dL Lactate Dehydrogenase (120-246) U/L Crossmatch 04/06/25 04/06/25 04/06/25 Range/Units 07:50 09:45 09:45 WBC 16.81 H 12.60 H (4.50-10.00) 10*3/uL RBC 1.75 L 1.62 L (4.10-5.20) 10*6/uL Hgb 5.7 L* D 5.2 L* (12.0-15.0) g/dL Hct 17.4 L* 16.2 L* (37.2-46.3) % MCV 99.4 H 100.0 H (80.0-97.0) fL MCH 32.6 H 32.1 H (27.0-32.0) pg Immature Gran # 0.13 H (0.00-0.04) 10*3/uL Neutrophils # 14.69 H (1.80-7.70) 10*3/uL Eosinophils # 0.00 L (0.04-0.35) 10*3/uL Chloride (98-107) mmol/L BUN (7-17) mg/dL Glucose (74-99) mg/dL POC Glucose (mg/dL) (70-110) mg/dL Calcium (8.4-10.2) mg/dL Iron (50-170) UG/DL Transferrin (204.0-354.0) mg/dL Lactate Dehydrogenase (120-246) U/L Crossmatch See Detail 04/06/25 04/06/25 04/06/25 Range/Units 10:52 11:43 13:49 WBC (4.50-10.00) 10*3/uL RBC (4.10-5.20) 10*6/uL Hgb (12.0-15.0) g/dL Hct (37.2-46.3) % MCV (80.0-97.0) fL MCH (27.0-32.0) pg Immature Gran # (0.00-0.04) 10*3/uL Neutrophils # (1.80-7.70) 10*3/uL Eosinophils # (0.04-0.35) 10*3/uL Chloride (98-107) mmol/L BUN (7-17) mg/dL Glucose (74-99) mg/dL POC Glucose (mg/dL) 198 H 174 H (70-110) mg/dL Calcium (8.4-10.2) mg/dL Iron 42 L (50-170) UG/DL Transferrin 190.0 L (204.0-354.0) mg/dL Lactate Dehydrogenase 297 H (120-246) U/L Crossmatch 04/06/25 04/06/25 04/06/25 Range/Units 16:29 19:39 20:07 WBC 13.00 H (4.50-10.00) 10*3/uL RBC 3.03 L (4.10-5.20) 10*6/uL Hgb 10.0 L D (12.0-15.0) g/dL Hct 29.1 L (37.2-46.3) % MCV (80.0-97.0) fL MCH 33.0 H (27.0-32.0) pg Immature Gran # (0.00-0.04) 10*3/uL Neutrophils # (1.80-7.70) 10*3/uL Eosinophils # (0.04-0.35) 10*3/uL Chloride (98-107) mmol/L BUN (7-17) mg/dL Glucose (74-99) mg/dL POC Glucose (mg/dL) 138 H 142 H (70-110) mg/dL Calcium (8.4-10.2) mg/dL Iron (50-170) UG/DL Transferrin (204.0-354.0) mg/dL Lactate Dehydrogenase (120-246) U/L Crossmatch Microbiology - Last 24 Hours (Table) 04/03/25 10:55 Blood Culture - Preliminary Blood
[2025-04-07] MEDS: MELATONIN 5 MG TABLET PO SCH (00:18)
[2025-04-07 00:53] LABS: HCT 27.6 % (37.2-46.3); HGB 9.6 g/dL (12.0-15.0); MCHC 34.8 g/dL (32.0-37.0); MCV 94.8 fL (80.0-97.0); Mean Platelet Volume 10.5 fL (9.5-12.2); Platelet Count 154 10*3/uL (140-440); RBC 2.91 10*6/uL (4.10-5.20); RDW 14.5 % (11.5-14.5); WBC 11.62 10*3/uL (4.50-10.00)
[2025-04-07 06:08] LABS: HCT 26.5 % (37.2-46.3); HGB 8.9 g/dL (12.0-15.0); Lymphocytes # (A) 0.46 10*3/uL (0.90-5.00); Lymphocytes % (A) 4.4 %; MCH 31.7 pg (27.0-32.0); MCHC 33.6 g/dL (32.0-37.0); MCV 94.3 fL (80.0-97.0); Mean Platelet Volume 10.3 fL (9.5-12.2); Monocytes # (A) 0.51 10*3/uL (0.20-1.00); Monocytes % (A) 4.9 %; Neutrophils # (A) 9.39 10*3/uL (1.80-7.70); Neutrophils % (A) 90.1 %; Platelet Count 147 10*3/uL (140-440); RBC 2.81 10*6/uL (4.10-5.20); RDW 14.6 % (11.5-14.5); WBC 10.42 10*3/uL (4.50-10.00)
[2025-04-07 06:17] LABS: Glucose,Whole Blood 135 mg/dL (70-110)
[2025-04-07 06:25] LABS: African American GFR (CKD) 85 (>60 ml/min/1.73 sqM); Anion Gap 2 mmol/L; Blood Urea Nitrogen 22 mg/dL (7-17); Calcium 7.8 mg/dL (8.4-10.2); Carbon Dioxide 23 mmol/L (22-30); Chloride 108 mmol/L (98-107); Glucose 119 mg/dL (74-99); Non-African American GFR(CKD) 73 (>60 ml/min/1.73 sqM); Potassium 3.8 mmol/L (3.5-5.1); Sodium 133 mmol/L (137-145)
--- NOTE | 2025-04-07 10:55 | P.PN ---
Subjective Progress Note Date: 04/07/25 Principal diagnosis: Retroperitoneal hematoma Patient is seen and examined today as a follow-up. She remains in the ICU. Vital signs have been stable. Hemoglobin initially went up to 10.0 status post 2 units of blood yesterday evening with a repeat today at 8.9. Patient denies any abdominal pain, no nausea or vomiting. Objective - Vital Signs Vital signs: Vital Signs Temp 98.3 F 04/07/25 04:00 Pulse 95 04/07/25 07:00 Resp 24 04/07/25 07:00 BP 153/83 04/07/25 07:00 Pulse Ox 95 04/07/25 07:00 FiO2 5 04/04/25 10:45 Intake & Output 04/06/25 04/07/25 04/07/25 18:59 06:59 18:59 Intake Total 1000 200 Output Total 900 650 0 Balance 100 -450 0 Weight 50.8 kg Intake: IV 140 200 Piperacillin-Tazobactam 3 100 100 .375 gm In Sodium Chloride 0.9% 100 ml @ 25 mls/hr IVPB Q8H [facility] Rx#: [id number] kvo 40 100 Oral 240 Blood Product 620 Rc As-1 Unit 310 [id number] Rc As-1 Unit 310 [id number] Output: Urine 900 650 0 Other: Voiding Method External Catheter External Catheter # Voids 0 1 # Bowel Movements 1 ABP, PAP, CO, CI - Last Documented Arterial Blood Pressure 119/63 - Exam General appearance: The patient is alert, oriented, appears in no acute distress. HET: Head is normocephalic and atraumatic. Pupils are equal and reactive. Neck: Supple. Heart: Regular. Lungs: Equal expansion, normal respiratory effort. Abdomen: Soft, tender in the right lower quadrant, mildly distended. Ecchymosis right lower abdomen/groin and flank. Extremities: Normal skin color and turgor. Neurological: Alert and oriented to self and place. - Labs CBC & Chem 7: 04/07/25 05:39 04/07/25 05:39 Labs: Abnormal Lab Results - Last 24 Hours (Table) 04/04/25 04/06/25 04/06/25 Range/Units 01:20 07:50 09:45 WBC 16.81 H 12.60 H (4.50-10.00) 10*3/uL RBC 1.75 L 1.62 L (4.10-5.20) 10*6/uL Hgb 5.7 L* D 5.2 L* (12.0-15.0) g/dL Hct 17.4 L* 16.2 L* (37.2-46.3) % MCV 99.4 H 100.0 H (80.0-97.0) fL MCH 32.6 H 32.1 H (27.0-32.0) pg Immature Gran # 0.13 H (0.00-0.04) 10*3/uL Neutrophils # 14.69 H (1.80-7.70) 10*3/uL Lymphocytes # (0.90-5.00) 10*3/uL Eosinophils # 0.00 L (0.04-0.35) 10*3/uL Sodium (137-145) mmol/L Chloride (98-107) mmol/L BUN (7-17) mg/dL Glucose (74-99) mg/dL POC Glucose (mg/dL) 157 H (70-110) mg/dL Calcium (8.4-10.2) mg/dL Iron (50-170) UG/DL Transferrin (204.0-354.0) mg/dL Lactate Dehydrogenase (120-246) U/L Crossmatch 04/06/25 04/06/25 04/06/25 Range/Units 09:45 10:52 11:43 WBC (4.50-10.00) 10*3/uL RBC (4.10-5.20) 10*6/uL Hgb (12.0-15.0) g/dL Hct (37.2-46.3) % MCV (80.0-97.0) fL MCH (27.0-32.0) pg Immature Gran # (0.00-0.04) 10*3/uL Neutrophils # (1.80-7.70) 10*3/uL Lymphocytes # (0.90-5.00) 10*3/uL Eosinophils # (0.04-0.35) 10*3/uL Sodium (137-145) mmol/L Chloride (98-107) mmol/L BUN (7-17) mg/dL Glucose (74-99) mg/dL POC Glucose (mg/dL) 198 H (70-110) mg/dL Calcium (8.4-10.2) mg/dL Iron 42 L (50-170) UG/DL Transferrin 190.0 L (204.0-354.0) mg/dL Lactate Dehydrogenase 297 H (120-246) U/L Crossmatch See Detail 04/06/25 04/06/25 04/06/25 Range/Units 13:49 16:29 19:39 WBC 13.00 H (4.50-10.00) 10*3/uL RBC 3.03 L (4.10-5.20) 10*6/uL Hgb 10.0 L D (12.0-15.0) g/dL Hct 29.1 L (37.2-46.3) % MCV (80.0-97.0) fL MCH 33.0 H (27.0-32.0) pg Immature Gran # (0.00-0.04) 10*3/uL Neutrophils # (1.80-7.70) 10*3/uL Lymphocytes # (0.90-5.00) 10*3/uL Eosinophils # (0.04-0.35) 10*3/uL Sodium (137-145) mmol/L Chloride (98-107) mmol/L BUN (7-17) mg/dL Glucose (74-99) mg/dL POC Glucose (mg/dL) 174 H 138 H (70-110) mg/dL Calcium (8.4-10.2) mg/dL Iron (50-170) UG/DL Transferrin (204.0-354.0) mg/dL Lactate Dehydrogenase (120-246) U/L Crossmatch 04/06/25 04/07/25 04/07/25 Range/Units 20:07 00:10 05:39 WBC 11.62 H 10.42 H (4.50-10.00) 10*3/uL RBC 2.91 L 2.81 L (4.10-5.20) 10*6/uL Hgb 9.6 L 8.9 L (12.0-15.0) g/dL Hct 27.6 L 26.5 L (37.2-46.3) % MCV (80.0-97.0) fL MCH 33.0 H (27.0-32.0) pg Immature Gran # 0.06 H (0.00-0.04) 10*3/uL Neutrophils # 9.39 H (1.80-7.70) 10*3/uL Lymphocytes # 0.46 L (0.90-5.00) 10*3/uL Eosinophils # 0.00 L (0.04-0.35) 10*3/uL Sodium (137-145) mmol/L Chloride (98-107) mmol/L BUN (7-17) mg/dL Glucose (74-99) mg/dL POC Glucose (mg/dL) 142 H (70-110) mg/dL Calcium (8.4-10.2) mg/dL Iron (50-170) UG/DL Transferrin (204.0-354.0) mg/dL Lactate Dehydrogenase (120-246) U/L Crossmatch 04/07/25 04/07/25 Range/Units 05:39 06:16 WBC (4.50-10.00) 10*3/uL RBC (4.10-5.20) 10*6/uL Hgb (12.0-15.0) g/dL Hct (37.2-46.3) % MCV (80.0-97.0) fL MCH (27.0-32.0) pg Immature Gran # (0.00-0.04) 10*3/uL Neutrophils # (1.80-7.70) 10*3/uL Lymphocytes # (0.90-5.00) 10*3/uL Eosinophils # (0.04-0.35) 10*3/uL Sodium 133 L (137-145) mmol/L Chloride 108 H (98-107) mmol/L BUN 22 H (7-17) mg/dL Glucose 119 H (74-99) mg/dL POC Glucose (mg/dL) 135 H (70-110) mg/dL Calcium 7.8 L (8.4-10.2) mg/dL Iron (50-170) UG/DL Transferrin (204.0-354.0) mg/dL Lactate Dehydrogenase (120-246) U/L Crossmatch Microbiology - Last 24 Hours (Table) 04/03/25 10:55 Blood Culture - Preliminary Blood Assessment and Plan Assessment: 1. Retroperitoneal hematoma without any active bleeding on CTA, likely secondary to trauma from mechanical fall and recent start of anticoagulation 2. Acute blood loss anemia secondary to above 3. Mechanical fall 4. Acute nondisplaced sternum fracture 5. New onset atrial fibrillation 6. Anticoagulation with Lovenox 40 mg twice daily, now on hold Plan: 1. Continue to hold anticoagulation 2. Daily CBC, transfuse for hemoglobin less than 7 3. There is no indication for any vascular surgical intervention 4. Continue rest of medical management per primary medical team Thank you for this consultation, we will continue to follow. The impression and plan of care has been dictated as directed. Dr. Cordero I performed a history and examination of this patient, discussed the same with the dictator. I agree with the dictator's note ,documented as a scribe. Any additional findings or plans will be noted.
[2025-04-07 11:47] LABS: Glucose,Whole Blood 222 mg/dL (70-110)
--- NOTE | 2025-04-07 12:24 | P.PN ---
Subjective Progress Note Date: 04/07/25 Hospital Course: 80-year-old female with past medical history of chronic bronchial asthma, bob meade, who presented to the ER after mechanical fall landing on her right chest.n the ED she underwent extensive evaluation. BP 180/83, HR 89, RR 20, T 98.2F, 97% on RA. CBC, Coag panel, CMP significant for WBC 23.59, MCV 100.7, BUN 21, glu 145. Trop < 0.012. Mag 2.1. CXR showed findings of COPD, no rib fracture, hiatal hernia, scoliosis. Unfortunately, she received Toradol for pain management with an allergy to ASA which resulted in an anaphylactic reaction requiring intubation and transfer to ICU. Chest CT did show nondisplaced fracture of the lower sternum. She did develop hypotension for which she was started on Levophed. Also developed SVT requiring cardioversion and A-Fib with RVR requi ring Amiodarone drip. Patient was also started on Zosyn for concern of aspiration and possible coli tis. Noted to have abdominal distention, NG tube inserted,CTA chest/abd/pevis showing no PE, LLL opacity, R basilar atelectasis versus consolidation, multiple vertebral compression deformities, fluid/gas filled distended stomach with NG tube, small bowel ileus, wall thickening of the ascending colon. Cardiothoracic surgery consulted for nondisplaced sternal fracture, no surgical intervention warranted sternal fracture is minimal and nondisplaced, recommended heart hugger once patient is extubated to provide stability to the sternal, avoid lifting more than 10 pounds for the next 3 months. TTE was obtained and showed EF 45 to 50%, myxomatous mitral valve with prolapse of ventral mitral leaflet and severe mitral regurgitation, moderate pulmonary hypertension \ 04/05: Patient was extubated to nasal cannula, overnight was complaining of abdominal pain, x-ray was done and showed no free air or fecal impaction, patient was provided with Metamucil, had pudding-like bowel movement, no blood r eported. Hemoglobin dropped to 8.7 04/06: Seen and examined at bedside, patient's present, patient states that she feels well, had small bowel movement this morning, no blood noted. She does not have any abdominal pain at rest, on palpation right-sided discomfort/tenderness.Hemoglobin dropped to 5.2, CTA abdomen ordered stat and showed new large right pelvic retroperitoneal fluid collection or hematoma with local mass effect, vascular surgery consulted, directly messaged and called, pre liminary no surgical intervention, continue blood transfusion. She is normotensive, heart rate stable. Patient will be transferred to ICU, discussed with ICU team 04/07: Patient was seen and examined at bedside, was sitting in recliner, patient's present during exam. IR and vascular surgery following, no interventions required. Hemoglobin initially went up to 2:10 units of PRBC, was 8.9 this morning, WBC going down 10.42. Patient denies abdominal pain, nausea, vomiting, vital stable Pertinent positives and negatives as discussed above, a complete review of systems was performed and all other systems are negative. Vitals Signs Reviewed. General: [nontoxic], [no distress], [appears at stated age], Derm: [warm], [dry] Head: [atraumatic], [normocephalic], [symmetric] Eyes: [EOMI], [no lid lag], [anicteric sclera] Mouth: [no lip lesion], [mucus membranes moist] Cardiovascular: [S1S2 reg], [no murmur] Lungs: [CTA bilateral], [no rhonchi, no rales] , [no accessory muscle use] Abdominal: [Soft, right-sided tenderness, no rebound or guarding Ext: [no gross muscle atrophy], [no edema], [no contractures] Neuro: No focal deficits Psych: [Alert and oriented, appropriate affect Assessment and Plan: Acute hypoxic respiratory failure secondary to anaphylactic shock from Toradol, resolved -Pulm crit following, appreciate recommendations, patient downgraded to 3 S. awaiting bed - Continue Solu-Medrol 40 mg IV every 12 hours -Continue Pulmicort twice daily, Benadryl 25 mg IV every 6 hours, famotidine 20 mg IV at bedtime, Perforomist 20 mcg twice daily, DuoNeb every 4 hour SVT and atrial fibrillation with RVR -Status post cardioversion - Continue oral amiodarone 200 mg p.o. twice daily -Cardiology consulted, appreciate recommendations -Free T4 normal Acute anemia Retroperitoneal hematoma likely from fall in the settings of DVT prophylaxis with Lovenox Anion deficiency -Hemoglobin on admission 13.4, dropped to 8.7, no blood in stool or urine reported. monitor CBC daily -Hemoglobin dropped to 5.2, CTA abdomen ordered stat and showed new large right pelvic retroperitoneal fluid collection or hematoma with local mass effect, vascular surgery consulted, directly messaged and called, preliminary no surgical intervention, continue blood transfusion -2 units of PRBC ordered on 04/06, continue CBC every 8 hours for today and CBC daily after -IR consulted, no interventions recommended -Patient's blood pressure remained stable -Discontinue Lovenox, VTE prophylaxis with SCD -Will start ferrous sulfate 325 daily Sepsis due to possible aspiration and possible colitis -Abdominal pain abdominal x-ray showed no obstruction no fecal impaction. 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 Hyperglycemia, likely steroid-induced -Continue with Accu-Cheks, hypoglycemia precautions, SSI Hypokalemia, resolved Vertebral compression fractures: Chronic. Likely outpatient follow up. I have reviewed the following supply chain consultant notes: general surgery,, IR, vascular surgery, pulmonology, cardiology I have reviewed the results of the following tests: CBC, BMP I have ordered the following tests: CBC BMP I have discussed the care of this patient with the following independent historian: Registered nurse patient's I have independently interpreted the following test below: As above I have discussed the management of this patient with the following physician: DVT ppx: SCD Code status: Full code Anticipated discharge place: TBD Anticipated discharge time: TBD Objective - Vital Signs Vital signs: Vital Signs Temp 98.2 F 04/07/25 12:00 Pulse 90 04/07/25 12:00 Resp 20 04/07/25 12:00 BP 137/91 04/07/25 12:00 Pulse Ox 95 04/07/25 07:00 FiO2 93 04/07/25 08:00 Intake & Output 04/06/25 04/07/25 04/07/25 18:59 06:59 18:59 Intake Total 1000 200 200 Output Total 900 650 2 Balance 100 -450 198 Weight 50.8 kg Intake: IV 140 200 Piperacillin-Tazobactam 3 100 100 .375 gm In Sodium Chloride 0.9% 100 ml @ 25 mls/hr IVPB Q8H [facility] Rx#: [id number] kvo 40 100 Oral 240 200 Blood Product 620 Rc As-1 Unit 310 [id number] Rc As-1 Unit 310 [id number] Output: Urine 900 650 0 Stool 2 Other: Voiding Method External Catheter External Catheter Bedside Commode # Voids 0 1 1 # Bowel Movements 1 1 ABP, PAP, CO, CI - Last Documented Arterial Blood Pressure 119/63 - Labs CBC & Chem 7: 04/07/25 05:39 04/07/25 05:39 Labs: Abnormal Lab Results - Last 24 Hours (Table) 04/06/25 04/06/25 04/06/25 Range/Units 09:45 10:52 13:49 WBC (4.50-10.00) 10*3/uL RBC (4.10-5.20) 10*6/uL Hgb (12.0-15.0) g/dL Hct (37.2-46.3) % MCH (27.0-32.0) pg Immature Gran # (0.00-0.04) 10*3/uL Neutrophils # (1.80-7.70) 10*3/uL Lymphocytes # (0.90-5.00) 10*3/uL Eosinophils # (0.04-0.35) 10*3/uL Sodium (137-145) mmol/L Chloride (98-107) mmol/L BUN (7-17) mg/dL Glucose (74-99) mg/dL POC Glucose (mg/dL) 174 H (70-110) mg/dL Calcium (8.4-10.2) mg/dL Iron 42 L (50-170) UG/DL Transferrin 190.0 L (204.0-354.0) mg/dL Crossmatch See Detail 04/06/25 04/06/2504/06/25 Range/Units 16:29 19:39 20:07 WBC 13.00 H (4.50-10.00) 10*3/uL RBC 3.03 L (4.10-5.20) 10*6/uL Hgb 10.0 L D (12.0-15.0) g/dL Hct 29.1 L (37.2-46.3) % MCH 33.0 H (27.0-32.0) pg Immature Gran # (0.00-0.04) 10*3/uL Neutrophils # (1.80-7.70) 10*3/uL Lymphocytes # (0.90-5.00) 10*3/uL Eosinophils # (0.04-0.35) 10*3/uL Sodium (137-145) mmol/L Chloride (98-107) mmol/L BUN (7-17) mg/dL Glucose (74-99) mg/dL POC Glucose (mg/dL) 138 H 142 H (70-110) mg/dL Calcium (8.4-10.2) mg/dL Iron (50-170) UG/DL Transferrin (204.0-354.0) mg/dL Crossmatch 04/07/25 04/07/25 04/07/25 Range/Units 00:10 05:39 05:39 WBC 11.62 H 10.42 H (4.50-10.00) 10*3/uL RBC 2.91 L 2.81 L (4.10-5.20) 10*6/uL Hgb 9.6 L 8.9 L (12.0-15.0) g/dL Hct 27.6 L 26.5 L (37.2-46.3) % MCH 33.0 H (27.0-32.0) pg Immature Gran # 0.06 H (0.00-0.04) 10*3/uL Neutrophils # 9.39 H (1.80-7.70) 10*3/uL Lymphocytes # 0.46 L (0.90-5.00) 10*3/uL Eosinophils # 0.00 L (0.04-0.35) 10*3/uL Sodium 133 L (137-145) mmol/L Chloride 108 H (98-107) mmol/L BUN 22 H (7-17) mg/dL Glucose 119 H (74-99) mg/dL POC Glucose (mg/dL) (70-110) mg/dL Calcium 7.8 L (8.4-10.2) mg/dL Iron (50-170) UG/DL Transferrin (204.0-354.0) mg/dL Crossmatch 04/07/25 04/07/25 Range/Units 06:16 11:45 WBC (4.50-10.00) 10*3/uL RBC (4.10-5.20) 10*6/uL Hgb (12.0-15.0) g/dL Hct (37.2-46.3) % MCH (27.0-32.0) pg Immature Gran # (0.00-0.04) 10*3/uL Neutrophils # (1.80-7.70) 10*3/uL Lymphocytes # (0.90-5.00) 10*3/uL Eosinophils # (0.04-0.35) 10*3/uL Sodium (137-145) mmol/L Chloride (98-107) mmol/L BUN (7-17) mg/dL Glucose (74-99) mg/dL POC Glucose (mg/dL) 135 H 222 H (70-110) mg/dL Calcium (8.4-10.2) mg/dL Iron (50-170) UG/DL Transferrin (204.0-354.0) mg/dL Crossmatch Microbiology - Last 24 Hours (Table) 04/03/25 10:55 Blood Culture - Preliminary Blood
[2025-04-07] MEDS: FERROUS SULFATE 325 MG TAB PO SCH (12:47)
--- NOTE | 2025-04-07 12:50 | P.PN ---
Subjective Progress Note Date: 04/07/25 Principal diagnosis: Anaphylaxis induced by nonsteroidal anti-inflammatory drugs Patient is a 80-year-old female with past medical history significant for chronic bronchial asthma, previous possible allergic reaction to Tylenol or aspirin. Presented to emergency department yesterday afternoon. She had a fall while working in the garden. Reportedly, fell on a garden decoration. Her chief complaint was right-sided rib pain. Workup in the emergency department including a CT of the chest showing a acute nondisplaced fracture of the lower sternum. Labs including a CBC with a WBC count of 21.6, hemoglobin 10.8, platelets 261. Previous hemoglobin 13.4, possibly hemodilution. CMP: Sodium 138, potassium 4.2, chloride 102, serum bicarb 25, BUN 21, creatinine 0.82, glucose 145. LFTs unremarkable. Troponin less than 0.012 She did receive some Toradol for the pain. According to the ER note, shortly after developed significant increased work of breathing, reduced air exchange, and impending respiratory failure. She was treated for suspected allergic reaction, given a dose of IM epinephrine, Solu-Medrol, and Benadryl. She was intubated by the ED provider. Subsequently, became hypotensive and tachycardic. She received 1.5 L fluid bolus in the ED. Also, started on norepinephrine for blood pressure support. Patient did go into unstable atrial fibrillation with RVR, she was cardioverted x 3 in the ED, which were unsuccessful. Patient transferred to the intensive care unit in critical condition. I am evaluating this patient in room 256. Current ventilator settings assist-control, respiratory rate 24, tidal volume 300, FiO2 60%, PEEP of 5. She is asynchronous with the ventilator, breathing in the high 30s and bucking the vent. Propofol is being used for sedation and is currently increased to 40 mcg/kg/min. Limited lung sounds and air exchange bilaterally. Most recent ABG done on above- mentioned ventilator settings with a PaO2 of 164, pCO2 54, pH of 7.26. Follow- up chest x-ray endotracheal tube approximately 5.7 cm above the queta. Orogastric tube coursing below the diaphragm. Coarse interstitial lung markings. No notable pneumothoraces or effusions. Left lower lobe opacity. Currently, patient is in atrial fibrillation with RVR. Rate ranging from 130 to 160 bpm. Norepinephrine infusing at 0.2 mcg/kg/min. Blood pressure 96/67 mmHg. Despite adequate sedation, continues to have elevated peak airway pressures of 44 and her static airway pressure is 29. my supervising physician, Dr. Hanson called and updated on the situation. On 04/04/2025, the patient is off fentanyl and off Nimbex and the patient is only on propofol running at 35 mcg/kg/min. The patient is on assist-control mode of mechanical ventilation at rate of 28, tidal volume 300, FiO2 40% with a PEEP of 5. Chest x-ray shows no acute abnormalities. The patient is obviously a smoker spastic and wheezy. The peak airway pressure on mechanical ventilator is down to 21. Blood gas showed a pH of 7.32 with a NPW041 and PO215. No significant bronchospasm or wheezing. The patient remains in normal saline at a rate of 130 cc an hour. Urine output is noted of 5200 cc an hour. The white cell count is currently down to 12.3. The patient is receiving vital HP at rate of 33 cc an hour for enteral feeding and nutritional support. Echocardiogram was done and the patient has an ejection fraction of 45 to 50% along with severe mitral regurgitation. Cardiac rhythm is sinus. The blood work shows a white cell count of 12.3, hemoglobin 10.7 and platelet count of 179. The sodium levels at 139, K is at 4, serum bicarbonate 16, BUN 16 with a creatinine of 0.9. Procalcitonin level is 0.94. Free T4 is at 1.4. 04/05/2025, the patient is being seen for a follow-up. The patient was weaned off the mechanical ventilator and the patient was extubated yesterday without any major difficulties. This morning, the patient 2 L of oxygen by nasal cannula. Chest x-ray shows some mild pulm vascular congestion and small left- sided pleural effusion. Cardiac rhythm remains sinus and cardiology opted to keep the patient on oral amiodarone. Remains on bronchodilators. Remains on steroids. Remains on empiric antibiotic coverage with IV Zosyn. White cell count 15.6, hemoglobin 8.7 and the platelet count of 191. Sodium is 142, BUN 22 creatinine 0.7. She did complain of some mild abdominal discomfort. She does have positive bowel sounds. X-ray of the abdomen showed no evidence of any free air or obstruction. Some limited infiltration in the left lung base was also noted. She denies having any specific complaints. No significant chest wall pain.Echocardiogram was also completed and the patient was found to have left ventricular ejection fraction of 45 to 50%. 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 She also has moderate tricuspid regurgitation and moderate degree of pulmonary hypertension. Patient was seen today on 04/06/2025, had to transfer the patient to the ICU because her CT of abdomen pelvis showed retroperitoneal hematoma but no active bleeding but the patient was noted to have low hemoglobin has transferred the patient temporarily to the ICU to receive 2 units of packed RBCs and to monitor for the next 24 hours. Saw the patient in the ICU, doing well, not hypotensive, not in any distress, patient is receiving her second unit of packed RBCs during my evaluation. Hemoglobin this morning was as low 5.2 and yesterday was 8.7. No active GI blood losses. Basic metabolic profile is normal renal profile is normal Patient was evaluated today on 04/07/2025, patient was transferred yesterday to the ICU mostly because of her drop in hemoglobin and she was found to have a retroperitoneal hematoma. Patient is doing great, received a total of 2 units of packed RBCs, hemoglobin is stable, patient is not in any distress. WBC is 10.4 hemoglobin 8.9 electrolytes are normal renal profile is normal. Objective - Vital Signs Vital signs: Vital Signs Temp 98.2 F 04/07/25 12:00 Pulse 90 04/07/25 12:00 Resp 20 04/07/25 12:00 BP 137/91 04/07/25 12:00 Pulse Ox 95 04/07/25 07:00 FiO2 93 04/07/25 08:00 Intake & Output 04/06/25 04/07/25 04/07/25 18:59 06:59 18:59 Intake Total 1000 200 200 Output Total 900 650 2 Balance 100 -450 198 Weight 50.8 kg Intake: IV 140 200 Piperacillin-Tazobactam 3 100 100 .375 gm In Sodium Chloride 0.9% 100 ml @ 25 mls/hr IVPB Q8H [facility] Rx#: [id number] kvo 40 100 Oral 240 200 Blood Product 620 Rc As-1 Unit 310 [id number] Rc As-1 Unit 310 [id number] Output: Urine 900 650 0 Stool 2 Other: Voiding Method External Catheter External Catheter Bedside Commode # Voids 0 1 1 # Bowel Movements 1 1 ABP, PAP, CO, CI - Last Documented Arterial Blood Pressure 119/63 - Exam GENERAL EXAM: Revealed 80-year-old female in no distress, on room air HEAD: Normocephalic and atraumatic. No angioedema. EYES: reaction of pupils to light, left greater than right. NOSE: Clear with pink turbinates. THROAT: No erythema or exudates. NECK: No masses, no JVD. CHEST: No chest wall deformity. LUNGS: Clear bilaterally no rhonchi no wheezes CVS: S1 and S2 normal with no audible murmur, irregular rhythm. No extra heart sounds ABDOMEN: No hepatosplenomegaly, active bowel sounds, no guarding or rigidity. No diarrhea. Positive bowel sounds. No peritoneal signs. SPINE: No scoliosis or deformity SKIN: No rashes, urticaria. CENTRAL NERVOUS SYSTEM: Alert oriented x 3 no focal deficit EXTREMITIES: No clubbing edema or cyanosis - Labs CBC & Chem 7: 04/07/25 05:39 04/07/25 05:39 Labs: Abnormal Lab Results - Last 24 Hours (Table) 04/06/25 04/06/25 04/06/25 Range/Units 09:45 10:52 13:49 WBC (4.50-10.00) 10*3/uL RBC (4.10-5.20) 10*6/uL Hgb (12.0-15.0) g/dL Hct (37.2-46.3) % MCH (27.0-32.0) pg Immature Gran # (0.00-0.04) 10*3/uL Neutrophils # (1.80-7.70) 10*3/uL Lymphocytes # (0.90-5.00) 10*3/uL Eosinophils # (0.04-0.35) 10*3/uL Sodium (137-145) mmol/L Chloride (98-107) mmol/L BUN (7-17) mg/dL Glucose (74-99) mg/dL POC Glucose (mg/dL) 174 H (70-110) mg/dL Calcium (8.4-10.2) mg/dL Iron 42 L (50-170) UG/DL Transferrin 190.0 L (204.0-354.0) mg/dL Crossmatch See Detail 05/19/25 05/19/25 05/19/25 Range/Units 16:29 19:39 20:07 WBC 13.00 H (4.50-10.00) 10*3/uL RBC 3.03 L (4.10-5.20) 10*6/uL Hgb 10.0 L D (12.0-15.0) g/dL Hct 29.1 L (37.2-46.3) % MCH 33.0 H (27.0-32.0) pg Immature Gran # (0.00-0.04) 10*3/uL Neutrophils # (1.80-7.70) 10*3/uL Lymphocytes # (0.90-5.00) 10*3/uL Eosinophils # (0.04-0.35) 10*3/uL Sodium (137-145) mmol/L Chloride (98-107) mmol/L BUN (7-17) mg/dL Glucose (74-99) mg/dL POC Glucose (mg/dL) 138 H 142 H (70-110) mg/dL Calcium (8.4-10.2) mg/dL Iron (50-170) UG/DL Transferrin (204.0-354.0) mg/dL Crossmatch 04/07/25 04/07/25 04/07/25 Range/Units 00:10 05:39 05:39 WBC 11.62 H 10.42 H (4.50-10.00) 10*3/uL RBC 2.91 L 2.81 L (4.10-5.20) 10*6/uL Hgb 9.6 L 8.9 L (12.0-15.0) g/dL Hct 27.6 L 26.5 L (37.2-46.3) % MCH 33.0 H (27.0-32.0) pg Immature Gran # 0.06 H (0.00-0.04) 10*3/uL Neutrophils # 9.39 H (1.80-7.70) 10*3/uL Lymphocytes # 0.46 L (0.90-5.00) 10*3/uL Eosinophils # 0.00 L (0.04-0.35) 10*3/uL Sodium 133 L (137-145) mmol/L Chloride 108 H (98-107) mmol/L BUN 22 H (7-17) mg/dL Glucose 119 H (74-99) mg/dL POC Glucose (mg/dL) (70-110) mg/dL Calcium 7.8 L (8.4-10.2) mg/dL Iron (50-170) UG/DL Transferrin (204.0-354.0) mg/dL Crossmatch 04/07/25 04/07/25 Range/Units 06:16 11:45 WBC (4.50-10.00) 10*3/uL RBC (4.10-5.20) 10*6/uL Hgb (12.0-15.0) g/dL Hct (37.2-46.3) % MCH (27.0-32.0) pg Immature Gran # (0.00-0.04) 10*3/uL Neutrophils # (1.80-7.70) 10*3/uL Lymphocytes # (0.90-5.00) 10*3/uL Eosinophils # (0.04-0.35) 10*3/uL Sodium (137-145) mmol/L Chloride (98-107) mmol/L BUN (7-17) mg/dL Glucose (74-99) mg/dL POC Glucose (mg/dL) 135 H 222 H (70-110) mg/dL Calcium (8.4-10.2) mg/dL Iron (50-170) UG/DL Transferrin (204.0-354.0) mg/dL Crossmatch Microbiology - Last 24 Hours (Table) 04/03/25 10:55 Blood Culture - Preliminary Blood Assessment and Plan Assessment: Impression: Retroperitoneal bleed/hematoma most likely secondary to fall, Acute blood loss anemia Recent episode of anaphylaxis secondary to NSAID Acute hypoxic and hypercapnic respiratory failure Acute asthma exacerbation Mild LV dysfunction Severe mitral regurgitation with myxomatous mitral valve degeneration Mechanical fall with acute lower sternal fracture History of left femoral neck fracture with left hemiarthroplasty Recommendation: Transfer patient back to medical surgical floor Daily monitoring of hemoglobin No surgical intervention is indicated at this point Continue her present medications as listed avoid any NSAID drugs Will continue to follow Time with Patient: Less than 30
--- NOTE | 2025-04-07 14:12 | P.PN ---
Subjective Progress Note Date: 04/07/25 Patient seen and examined at bedside in ICU. Doing well. Hemoglobin responded well to packed red blood cell transfusion. Objective - Vital Signs Vital signs: Vital Signs Temp 98.2 F 04/07/25 12:00 Pulse 90 04/07/25 12:00 Resp 20 04/07/25 12:00 BP 137/91 04/07/25 12:00 Pulse Ox 95 04/07/25 07:00 FiO2 93 04/07/25 08:00 Intake & Output 04/06/25 04/07/25 04/07/25 18:59 06:59 18:59 Intake Total 1000 200 200 Output Total 900 650 2 Balance 100 -450 198 Weight 50.8 kg Intake: IV 140 200 Piperacillin-Tazobactam 3 100 100 .375 gm In Sodium Chloride 0.9% 100 ml @ 25 mls/hr IVPB Q8H [facility] Rx#: [id number] kvo 40 100 Oral 240 200 Blood Product 620 Rc As-1 Unit 310 [id number] Rc As-1 Unit 310 [id number] Output: Urine 900 650 0 Stool 2 Other: Voiding Method External Catheter External Catheter Bedside Commode # Voids 0 1 1 # Bowel Movements 1 1 ABP, PAP, CO, CI - Last Documented Arterial Blood Pressure 119/63 - Constitutional General appearance: Present: cooperative, no acute distress - Respiratory Details: No difficulty with respiration - Gastrointestinal Gastrointestinal Comment(s): Soft, nontender, nondistended, no rebound or guarding - Labs CBC & Chem 7: 04/07/25 05:39 04/07/25 05:39 Labs: Abnormal Lab Results - Last 24 Hours (Table) 04/06/25 04/06/25 04/06/25 Range/Units 09:45 10:52 16:29 WBC (4.50-10.00) 10*3/uL RBC (4.10-5.20) 10*6/uL Hgb (12.0-15.0) g/dL Hct (37.2-46.3) % MCH (27.0-32.0) pg Immature Gran # (0.00-0.04) 10*3/uL Neutrophils # (1.80-7.70) 10*3/uL Lymphocytes # (0.90-5.00) 10*3/uL Eosinophils # (0.04-0.35) 10*3/uL Sodium (137-145) mmol/L Chloride (98-107) mmol/L BUN (7-17) mg/dL Glucose (74-99) mg/dL POC Glucose (mg/dL) 138 H (70-110) mg/dL Calcium (8.4-10.2) mg/dL Iron 42 L (50-170) UG/DL Transferrin 190.0 L (204.0-354.0) mg/dL Crossmatch See Detail 04/06/25 04/06/25 04/07/25 Range/Units 19:39 20:07 00:10 WBC 13.00 H 11.62 H (4.50-10.00) 10*3/uL RBC 3.03 L 2.91 L (4.10-5.20) 10*6/uL Hgb 10.0 L D 9.6 L (12.0-15.0) g/dL Hct 29.1 L 27.6 L (37.2-46.3) % MCH 33.0 H 33.0 H (27.0-32.0) pg Immature Gran # (0.00-0.04) 10*3/uL Neutrophils # (1.80-7.70) 10*3/uL Lymphocytes # (0.90-5.00) 10*3/uL Eosinophils # (0.04-0.35) 10*3/uL Sodium (137-145) mmol/L Chloride (98-107) mmol/L BUN (7-17) mg/dL Glucose (74-99) mg/dL POC Glucose (mg/dL) 142 H (70-110) mg/dL Calcium (8.4-10.2) mg/dL Iron (50-170) UG/DL Transferrin (204.0-354.0) mg/dL Crossmatch 04/07/25 04/07/25 04/07/25 Range/Units 05:39 05:39 06:16 WBC 10.42 H (4.50-10.00) 10*3/uL RBC 2.81 L (4.10-5.20) 10*6/uL Hgb 8.9 L (12.0-15.0) g/dL Hct 26.5 L (37.2-46.3) % MCH (27.0-32.0) pg Immature Gran # 0.06 H (0.00-0.04) 10*3/uL Neutrophils # 9.39 H (1.80-7.70) 10*3/uL Lymphocytes # 0.46 L (0.90-5.00) 10*3/uL Eosinophils # 0.00 L (0.04-0.35) 10*3/uL Sodium 133 L (137-145) mmol/L Chloride 108 H (98-107) mmol/L BUN 22 H (7-17) mg/dL Glucose 119 H (74-99) mg/dL POC Glucose (mg/dL) 135 H (70-110) mg/dL Calcium 7.8 L (8.4-10.2) mg/dL Iron (50-170) UG/DL Transferrin (204.0-354.0) mg/dL Crossmatch 04/07/25 Range/Units 11:45 WBC (4.50-10.00) 10*3/uL RBC (4.10-5.20) 10*6/uL Hgb (12.0-15.0) g/dL Hct (37.2-46.3) % MCH (27.0-32.0) pg Immature Gran # (0.00-0.04) 10*3/uL Neutrophils # (1.80-7.70) 10*3/uL Lymphocytes # (0.90-5.00) 10*3/uL Eosinophils # (0.04-0.35) 10*3/uL Sodium (137-145) mmol/L Chloride (98-107) mmol/L BUN (7-17) mg/dL Glucose (74-99) mg/dL POC Glucose (mg/dL) 222 H (70-110) mg/dL Calcium (8.4-10.2) mg/dL Iron (50-170) UG/DL Transferrin (204.0-354.0) mg/dL Crossmatch Microbiology - Last 24 Hours (Table) 04/03/25 10:55 Blood Culture - Preliminary Blood Assessment and Plan Plan: 80-year-old female with finding of sternal fracture after fall and finding of retroperitoneal hematoma. After packed red blood cell, patient hemoglobin has responded appropriately. No signs of hemorrhagic shock on vitals. Continue with current management. No plan for acute surgical intervention at this time.
[2025-04-07 16:06] LABS: Glucose,Whole Blood 156 mg/dL (70-110)
[2025-04-07 16:31] LABS: Basophils # (A) 0.01 10*3/uL (0.00-0.10); Basophils % (A) 0.1 %; HCT 26.2 % (37.2-46.3); HGB 8.8 g/dL (12.0-15.0); Lymphocytes % (A) 2.9 %; MCH 32.6 pg (27.0-32.0); MCHC 33.6 g/dL (32.0-37.0); Mean Platelet Volume 10.2 fL (9.5-12.2); Monocytes # (A) 0.59 10*3/uL (0.20-1.00); Monocytes % (A) 5.7 %; Neutrophils # (A) 9.49 10*3/uL (1.80-7.70); Neutrophils % (A) 90.8 %; Platelet Count 161 10*3/uL (140-440); RDW 14.8 % (11.5-14.5); WBC 10.44 10*3/uL (4.50-10.00)
[2025-04-07 20:14] LABS: Glucose,Whole Blood 161 mg/dL (70-110)
[2025-04-08 00:48] LABS: Basophils # (A) 0.01 10*3/uL (0.00-0.10); Basophils % (A) 0.1 %; HCT 24.8 % (37.2-46.3); HGB 8.4 g/dL (12.0-15.0); Lymphocytes # (A) 0.24 10*3/uL (0.90-5.00); Lymphocytes % (A) 2.6 %; MCH 32.4 pg (27.0-32.0); MCHC 33.9 g/dL (32.0-37.0); MCV 95.8 fL (80.0-97.0); Mean Platelet Volume 10.3 fL (9.5-12.2); Monocytes # (A) 0.39 10*3/uL (0.20-1.00); Monocytes % (A) 4.2 %; Neutrophils # (A) 8.59 10*3/uL (1.80-7.70); Neutrophils % (A) 92.5 %; Platelet Count 167 10*3/uL (140-440); RBC 2.59 10*6/uL (4.10-5.20); RDW 14.8 % (11.5-14.5); WBC 9.29 10*3/uL (4.50-10.00)
[2025-04-08 05:58] LABS: Basophils # (A) 0.01 10*3/uL (0.00-0.10); Basophils % (A) 0.1 %; HCT 24.9 % (37.2-46.3); HGB 8.4 g/dL (12.0-15.0); Lymphocytes # (A) 0.37 10*3/uL (0.90-5.00); Lymphocytes % (A) 4.3 %; MCH 32.8 pg (27.0-32.0); MCHC 33.7 g/dL (32.0-37.0); MCV 97.3 fL (80.0-97.0); Mean Platelet Volume 10.6 fL (9.5-12.2); Monocytes # (A) 0.45 10*3/uL (0.20-1.00); Monocytes % (A) 5.3 %; Neutrophils # (A) 7.67 10*3/uL (1.80-7.70); Neutrophils % (A) 89.6 %; Platelet Count 160 10*3/uL (140-440); RBC 2.56 10*6/uL (4.10-5.20); RDW 14.8 % (11.5-14.5); WBC 8.56 10*3/uL (4.50-10.00)
[2025-04-08 06:21] LABS: Glucose,Whole Blood 146 mg/dL (70-110)
--- NOTE | 2025-04-08 10:08 | P.PN ---
Subjective Progress Note Date: 04/08/25 Principal diagnosis: Retroperitoneal hematoma Patient is seen and examined today as a follow-up. She is in the ICU as an overflow. She is sitting up in the chair. She denies any abdominal pain. States that she had a small bowel movement yesterday. Hemoglobin is stable at 8.4. She denies any dizziness or lightheadedness. She has been getting up to the commode. Anticoagulation remains on hold. Objective - Vital Signs Vital signs: Vital Signs Temp 98.5 F 04/08/25 08:00 Pulse 82 04/08/25 08:00 Resp 16 04/08/25 08:00 BP 148/79 04/08/25 08:00 Pulse Ox 96 04/08/25 08:00 FiO2 93 04/07/25 08:00 Intake & Output 04/07/25 04/08/25 04/08/25 18:59 06:59 18:59 Intake Total 600 100 Output Total 2 1050 400 Balance 598 -950 -400 Weight 51.2 kg Intake: IV 100 100 Piperacillin-Tazobactam 3 100 100 .375 gm In Sodium Chloride 0.9% 100 ml @ 25 mls/hr IVPB Q8H [facility] Rx#: [id number] Oral 500 Output: Urine 0 1050 400 Stool 2 Other: Voiding Method Bedside Commode Bedside Commode Bedside Commode # Voids 2 2 1 # Bowel Movements 1 1 ABP, PAP, CO, CI - Last Documented Arterial Blood Pressure 119/63 - Exam General appearance: The patient is alert, oriented, appears in no acute distress. HET: Head is normocephalic and atraumatic. Pupils are equal and reactive. Neck: Supple. Heart: Regular. Lungs: Equal expansion, normal respiratory effort. Abdomen: Soft, tender in the right lower quadrant, mildly distended. Ecchymosis right lower abdomen/groin and flank. Extremities: Normal skin color and turgor. Ecchymosis right hip Neurological: Alert and oriented to self and place. - Labs CBC & Chem 7: 04/08/25 05:24 04/07/25 05:39 Labs: Abnormal Lab Results - Last 24 Hours (Table) 04/07/25 04/07/25 04/07/25 Range/Units 11:45 16:04 16:15 WBC 10.44 H (4.50-10.00) 10*3/uL RBC 2.70 L (4.10-5.20) 10*6/uL Hgb 8.8 L (12.0-15.0) g/dL Hct 26.2 L (37.2-46.3) % MCV (80.0-97.0) fL MCH 32.6 H (27.0-32.0) pg Immature Gran # 0.05 H (0.00-0.04) 10*3/uL Neutrophils # 9.49 H (1.80-7.70) 10*3/uL Lymphocytes # 0.30 L (0.90-5.00) 10*3/uL Eosinophils # 0.00 L (0.04-0.35) 10*3/uL POC Glucose (mg/dL) 222 H 156 H (70-110) mg/dL 04/07/25 04/08/25 04/08/25 Range/Units 20:13 00:02 05:24 WBC (4.50-10.00) 10*3/uL RBC 2.59 L 2.56 L (4.10-5.20) 10*6/uL Hgb 8.4 L 8.4 L (12.0-15.0) g/dL Hct 24.8 L 24.9 L (37.2-46.3) % MCV 97.3 H (80.0-97.0) fL MCH 32.4 H 32.8 H (27.0-32.0) pg Immature Gran # 0.06 H 0.06 H (0.00-0.04) 10*3/uL Neutrophils # 8.59 H (1.80-7.70) 10*3/uL Lymphocytes # 0.24 L 0.37 L (0.90-5.00) 10*3/uL Eosinophils # 0.00 L 0.00 L (0.04-0.35) 10*3/uL POC Glucose (mg/dL) 161 H (70-110) mg/dL 04/08/25 Range/Units 06:19 WBC (4.50-10.00) 10*3/uL RBC (4.10-5.20) 10*6/uL Hgb (12.0-15.0) g/dL Hct (37.2-46.3) % MCV (80.0-97.0) fL MCH (27.0-32.0) pg Immature Gran # (0.00-0.04) 10*3/uL Neutrophils # (1.80-7.70) 10*3/uL Lymphocytes # (0.90-5.00) 10*3/uL Eosinophils # (0.04-0.35) 10*3/uL POC Glucose (mg/dL) 146 H (70-110) mg/dL Assessment and Plan Assessment: 1. Retroperitoneal hematoma without any active bleeding on CTA, likely secondary to trauma from mechanical fall and recent start of anticoagulation 2. Acute blood loss anemia secondary to above 3. Mechanical fall 4. Acute nondisplaced sternum fracture 5. New onset atrial fibrillation 6. Anticoagulation with Lovenox 40 mg twice daily, now on hold Plan: 1. Would recommend holding anticoagulation, will defer to medical team 2. There is no indication for any vascular surgical intervention 3. Encourage ambulation, PT on consultation have them come evaluate patient 4. Continue rest of medical management per primary medical team Thank you for this consultation, we will sign off at this time. The impression and plan of care has been dictated as directed. Dr. Mary Ellen Martinez I performed a history and examination of this patient, discussed the same with the dictator. I agree with the dictator's note ,documented as a scribe. Any additional findings or plans will be noted.
[2025-04-08 11:23] LABS: Glucose,Whole Blood 163 mg/dL (70-110)
[2025-04-08 11:32] VITALS: BMI 21.3
--- NOTE | 2025-04-08 12:31 | P.PN ---
Subjective Progress Note Date: 04/08/25 Principal diagnosis: Anaphylaxis induced by nonsteroidal anti-inflammatory drugs Patient is a 80-year-old female with past medical history significant for chronic bronchial asthma, previous possible allergic reaction to Tylenol or aspirin. Presented to emergency department yesterday afternoon. She had a fall while working in the garden. Reportedly, fell on a garden decoration. Her chief complaint was right-sided rib pain. Workup in the emergency department including a CT of the chest showing a acute nondisplaced fracture of the lower sternum. Labs including a CBC with a WBC count of 21.6, hemoglobin 10.8, platelets 261. Previous hemoglobin 13.4, possibly hemodilution. CMP: Sodium 138, potassium 4.2, chloride 102, serum bicarb 25, BUN 21, creatinine 0.82, glucose 145. LFTs unremarkable. Troponin less than 0.012 She did receive some Toradol for the pain. According to the ER note, shortly after developed significant increased work of breathing, reduced air exchange, and impending respiratory failure. She was treated for suspected allergic reaction, given a dose of IM epinephrine, Solu-Medrol, and Benadryl. She was intubated by the ED provider. Subsequently, became hypotensive and tachycardic. She received 1.5 L fluid bolus in the ED. Also, started on norepinephrine for blood pressure support. Patient did go into unstable atrial fibrillation with RVR, she was cardioverted x 3 in the ED, which were unsuccessful. Patient transferred to the intensive care unit in critical condition. I am evaluating this patient in room 256. Current ventilator settings assist-control, respiratory rate 24, tidal volume 300, FiO2 60%, PEEP of 5. She is asynchronous with the ventilator, breathing in the high 30s and bucking the vent. Propofol is being used for sedation and is currently increased to 40 mcg/kg/min. Limited lung sounds and air exchange bilaterally. Most recent ABG done on above- mentioned ventilator settings with a PaO2 of 164, pCO2 54, pH of 7.26. Follow- up chest x-ray endotracheal tube approximately 5.7 cm above the queta. Orogastric tube coursing below the diaphragm. Coarse interstitial lung markings. No notable pneumothoraces or effusions. Left lower lobe opacity. Currently, patient is in atrial fibrillation with RVR. Rate ranging from 130 to 160 bpm. Norepinephrine infusing at 0.2 mcg/kg/min. Blood pressure 96/67 mmHg. Despite adequate sedation, continues to have elevated peak airway pressures of 44 and her static airway pressure is 29. my supervising physician, Dr. Hanson called and updated on the situation. On 04/04/2025, the patient is off fentanyl and off Nimbex and the patient is only on propofol running at 35 mcg/kg/min. The patient is on assist-control mode of mechanical ventilation at rate of 28, tidal volume 300, FiO2 40% with a PEEP of 5. Chest x-ray shows no acute abnormalities. The patient is obviously a smoker spastic and wheezy. The peak airway pressure on mechanical ventilator is down to 21. Blood gas showed a pH of 7.32 with a RAE840 and PO215. No significant bronchospasm or wheezing. The patient remains in normal saline at a rate of 130 cc an hour. Urine output is noted of 5200 cc an hour. The white cell count is currently down to 12.3. The patient is receiving vital HP at rate of 33 cc an hour for enteral feeding and nutritional support. Echocardiogram was done and the patient has an ejection fraction of 45 to 50% along with severe mitral regurgitation. Cardiac rhythm is sinus. The blood work shows a white cell count of 12.3, hemoglobin 10.7 and platelet count of 179. The sodium levels at 139, K is at 4, serum bicarbonate 16, BUN 16 with a creatinine of 0.9. Procalcitonin level is 0.94. Free T4 is at 1.4. 04/05/2025, the patient is being seen for a follow-up. The patient was weaned off the mechanical ventilator and the patient was extubated yesterday without any major difficulties. This morning, the patient 2 L of oxygen by nasal cannula. Chest x-ray shows some mild pulm vascular congestion and small left- sided pleural effusion. Cardiac rhythm remains sinus and cardiology opted to keep the patient on oral amiodarone. Remains on bronchodilators. Remains on steroids. Remains on empiric antibiotic coverage with IV Zosyn. White cell count 15.6, hemoglobin 8.7 and the platelet count of 191. Sodium is 142, BUN 22 creatinine 0.7. She did complain of some mild abdominal discomfort. She does have positive bowel sounds. X-ray of the abdomen showed no evidence of any free air or obstruction. Some limited infiltration in the left lung base was also noted. She denies having any specific complaints. No significant chest wall pain.Echocardiogram was also completed and the patient was found to have left ventricular ejection fraction of 45 to 50%. 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 She also has moderate tricuspid regurgitation and moderate degree of pulmonary hypertension. Patient was seen today on 04/06/2025, had to transfer the patient to the ICU because her CT of abdomen pelvis showed retroperitoneal hematoma but no active bleeding but the patient was noted to have low hemoglobin has transferred the patient temporarily to the ICU to receive 2 units of packed RBCs and to monitor for the next 24 hours. Saw the patient in the ICU, doing well, not hypotensive, not in any distress, patient is receiving her second unit of packed RBCs during my evaluation. Hemoglobin this morning was as low 5.2 and yesterday was 8.7. No active GI blood losses. Basic metabolic profile is normal renal profile is normal Patient was evaluated today on 04/07/2025, patient was transferred yesterday to the ICU mostly because of her drop in hemoglobin and she was found to have a retroperitoneal hematoma. Patient is doing great, received a total of 2 units of packed RBCs, hemoglobin is stable, patient is not in any distress. WBC is 10.4 hemoglobin 8.9 electrolytes are normal renal profile is normal. Patient was seen today on 04/08/2025, hemoglobin is stable at 8.4, patient is sitting at the bedside chair, does not seem to be symptomatic, she has no cough no wheezing no shortness of breath no nausea no vomiting no abdominal pain. Labs reviewed, WBC is 8.5 hemoglobin 8.4, basic metabolic profile is normal BUN is 22 creatinine 0.78, hence I plan to transfer the patient to a medical surgical floor. Patient was transferred to the ICU 2 days ago for retroperitoneal hematoma without active bleeding felt to be related to her recent trauma from mechanical fall and recent restart of anticoagulation. Patient also had recent acute nondisplaced sternal fracture and new onset atrial fibrillation. Objective - Vital Signs Vital signs: Vital Signs Temp 98.5 F 04/08/25 08:00 Pulse 88 04/08/25 11:55 Resp 16 04/08/25 08:00 BP 148/79 04/08/25 08:00 Pulse Ox 96 04/08/25 08:00 FiO2 93 04/07/25 08:00 Intake & Output 04/07/25 04/08/25 04/08/25 18:59 06:59 18:59 Intake Total 600 100 Output Total 2 1050 400 Balance 598 -950 -400 Weight 51.2 kg 51.2 kg Intake: IV 100 100 Piperacillin-Tazobactam 3 100 100 .375 gm In Sodium Chloride 0.9% 100 ml @ 25 mls/hr IVPB Q8H [facility] Rx#: [id number] Oral 500 Output: Urine 0 1050 400 Stool 2 Other: Voiding Method Bedside Commode Bedside Commode Bedside Commode # Voids 2 2 1 # Bowel Movements 1 1 ABP, PAP, CO, CI - Last Documented Arterial Blood Pressure 119/63 - Exam GENERAL EXAM: Revealed 80-year-old female in no distress, on room air HEAD: Normocephalic and atraumatic. No angioedema. EYES: reaction of pupils to light, left greater than right. NOSE: Clear with pink turbinates. THROAT: No erythema or exudates. NECK: No masses, no JVD. CHEST: No chest wall deformity. LUNGS: Clear bilaterally no rhonchi no wheezes CVS: S1 and S2 normal with no audible murmur, regular rate and rhythm ABDOMEN: No hepatosplenomegaly, active bowel sounds, no guarding or rigidity. No diarrhea. Positive bowel sounds. No peritoneal signs. SPINE: No scoliosis or deformity SKIN: No rashes, urticaria. CENTRAL NERVOUS SYSTEM: Alert oriented x 3 no focal deficit EXTREMITIES: No clubbing edema or cyanosis - Labs CBC & Chem 7: 04/08/25 05:24 04/07/25 05:39 Labs: Abnormal Lab Results - Last 24 Hours (Table) 04/07/25 04/07/25 04/07/25 Range/Units 16:04 16:15 20:13 WBC 10.44 H (4.50-10.00) 10*3/uL RBC 2.70 L (4.10-5.20) 10*6/uL Hgb 8.8 L (12.0-15.0) g/dL Hct 26.2 L (37.2-46.3) % MCV (80.0-97.0) fL MCH 32.6 H (27.0-32.0) pg Immature Gran # 0.05 H (0.00-0.04) 10*3/uL Neutrophils # 9.49 H (1.80-7.70) 10*3/uL Lymphocytes # 0.30 L (0.90-5.00) 10*3/uL Eosinophils # 0.00 L (0.04-0.35) 10*3/uL POC Glucose (mg/dL) 156 H 161 H (70-110) mg/dL 04/08/25 04/08/25 04/08/25 Range/Units 00:02 05:24 06:19 WBC (4.50-10.00) 10*3/uL RBC 2.59 L 2.56 L (4.10-5.20) 10*6/uL Hgb 8.4 L 8.4 L (12.0-15.0) g/dL Hct 24.8 L 24.9 L (37.2-46.3) % MCV 97.3 H (80.0-97.0) fL MCH 32.4 H 32.8 H (27.0-32.0) pg Immature Gran # 0.06 H 0.06 H (0.00-0.04) 10*3/uL Neutrophils # 8.59 H (1.80-7.70) 10*3/uL Lymphocytes # 0.24 L 0.37 L (0.90-5.00) 10*3/uL Eosinophils # 0.00 L 0.00 L (0.04-0.35) 10*3/uL POC Glucose (mg/dL) 146 H (70-110) mg/dL 04/08/25 Range/Units 11:20 WBC (4.50-10.00) 10*3/uL RBC (4.10-5.20) 10*6/uL Hgb (12.0-15.0) g/dL Hct (37.2-46.3) % MCV (80.0-97.0) fL MCH (27.0-32.0) pg Immature Gran # (0.00-0.04) 10*3/uL Neutrophils # (1.80-7.70) 10*3/uL Lymphocytes # (0.90-5.00) 10*3/uL Eosinophils # (0.04-0.35) 10*3/uL POC Glucose (mg/dL) 163 H (70-110) mg/dL Assessment and Plan Assessment: Impression: Retroperitoneal bleed/hematoma most likely secondary to fall, Acute blood loss anemia Recent episode of anaphylaxis secondary to NSAID Acute hypoxic and hypercapnic respiratory failure Acute asthma exacerbation Mild LV dysfunction Severe mitral regurgitation with myxomatous mitral valve degeneration Mechanical fall with acute lower sternal fracture History of left femoral neck fracture with left hemiarthroplasty Recommendation: Will transfer patient to medical surgical floor Consider discharge planning if cleared by other consultants Continue to avoid nonsteroidal anti-inflammatory drugs Will continue to follow Time with Patient: Less than 30
--- NOTE | 2025-04-08 12:55 | P.PN ---
Subjective Progress Note Date: 04/08/25 SURGICAL PROGRESS NOTE CHIEF COMPLAINT: Fall with sternal fracture HISTORY OF PRESENT ILLNESS: Patient sitting at bedside chair in the ICU. She has a bedside sitter. Appears comfortable. She has been confused. Vital stable. Afebrile. WBC 8.56 Hgb stable at 8.4 platelets 160 PHYSICAL EXAM: VITAL SIGNS: Reviewed. GENERAL: Well-developed in no acute distress. CHEST: No difficulty with respiration ABDOMEN: Soft. Nondistended. Nontender. NEUROLOGIC: Awake. Pleasantly confused.. ASSESSMENT: 1. Sternal fracture after trip and fall 2. Retroperitoneal hematoma PLAN: - No surgical intervention planned - Continue supportive care - Continue monitor hemoglobin Physician General Freight Agent note has been reviewed by physician. Signing provider agrees with the documented findings, assessment, and plan of care. Attestation Pt seen and examined in ICU. Hgb stable in 8s. Confused. No evidence of active bleeding at this time. No plan for surgical intervention. If patient has concern for active bleeding, she will require IR embolization eval. Ziggy Nieves, Objective - Vital Signs Vital signs: Vital Signs Temp 98.5 F 04/08/25 08:00 Pulse 88 04/08/25 11:55 Resp 16 04/08/25 08:00 BP 148/79 04/08/25 08:00 Pulse Ox 96 04/08/25 08:00 FiO2 93 04/07/25 08:00 Intake & Output 04/07/25 04/08/25 04/08/25 18:59 06:59 18:59 Intake Total 600 100 Output Total 2 1050 400 Balance 598 -950 -400 Weight 51.2 kg 51.2 kg Intake: IV 100 100 Piperacillin-Tazobactam 3 100 100 .375 gm In Sodium Chloride 0.9% 100 ml @ 25 mls/hr IVPB Q8H [facility] Rx#: [id number] Oral 500 Output: Urine 0 1050 400 Stool 2 Other: Voiding Method Bedside Commode Bedside Commode Bedside Commode # Voids 2 2 1 # Bowel Movements 1 1 ABP, PAP, CO, CI - Last Documented Arterial Blood Pressure 119/63 - Labs CBC & Chem 7: 04/08/25 05:24 04/07/25 05:39 Labs: Abnormal Lab Results - Last 24 Hours (Table) 04/07/25 04/07/25 04/07/25 Range/Units 16:04 16:15 20:13 WBC 10.44 H (4.50-10.00) 10*3/uL RBC 2.70 L (4.10-5.20) 10*6/uL Hgb 8.8 L (12.0-15.0) g/dL Hct 26.2 L (37.2-46.3) % MCV (80.0-97.0) fL MCH 32.6 H (27.0-32.0) pg Immature Gran # 0.05 H (0.00-0.04) 10*3/uL Neutrophils # 9.49 H (1.80-7.70) 10*3/uL Lymphocytes # 0.30 L (0.90-5.00) 10*3/uL Eosinophils # 0.00 L (0.04-0.35) 10*3/uL POC Glucose (mg/dL) 156 H 161 H (70-110) mg/dL 04/08/25 04/08/25 04/08/25 Range/Units 00:02 05:24 06:19 WBC (4.50-10.00) 10*3/uL RBC 2.59 L 2.56 L (4.10-5.20) 10*6/uL Hgb 8.4 L 8.4 L (12.0-15.0) g/dL Hct 24.8 L 24.9 L (37.2-46.3) % MCV 97.3 H (80.0-97.0) fL MCH 32.4 H 32.8 H (27.0-32.0) pg Immature Gran # 0.06 H 0.06 H (0.00-0.04) 10*3/uL Neutrophils # 8.59 H (1.80-7.70) 10*3/uL Lymphocytes # 0.24 L 0.37 L (0.90-5.00) 10*3/uL Eosinophils # 0.00 L 0.00 L (0.04-0.35) 10*3/uL POC Glucose (mg/dL) 146 H (70-110) mg/dL 04/08/25 Range/Units 11:20 WBC (4.50-10.00) 10*3/uL RBC (4.10-5.20) 10*6/uL Hgb (12.0-15.0) g/dL Hct (37.2-46.3) % MCV (80.0-97.0) fL MCH (27.0-32.0) pg Immature Gran # (0.00-0.04) 10*3/uL Neutrophils # (1.80-7.70) 10*3/uL Lymphocytes # (0.90-5.00) 10*3/uL Eosinophils # (0.04-0.35) 10*3/uL POC Glucose (mg/dL) 163 H (70-110) mg/dL
[2025-04-08 14:12] VITALS: BP 148/76; RESP 14; TEMP 98.9
--- NOTE | 2025-04-08 15:07 | P.DS ---
Providers Date of admission: 04/02/25 20:28 Attending physician: Salinas Espinoza MD Consults: 04/02/25 20:28 Consult Physician Stat Consulting Provider: Korey Hanson Consult Reason/Comments: Anaphylactic reaction, respiratory failure Do you want consulting provider notified?: Yes 04/02/25 20:48 Consult Physician Routine Consulting Provider: Ziggy Nieves Consult Reason/Comments: Sternal fracture Do you want consulting provider notified?: Yes 04/03/25 00:49 Consult Physician Routine Consulting Provider: Gogo Jordan Consult Reason/Comments: Possible upper GI bleed Do you want consulting provider notified?: Yes 04/03/25 11:21 Consult Physician Routine Consulting Provider: Adrian Amin Consult Reason/Comments: sternal fracture Do you want consulting provider notified?: Yes 04/04/25 09:24 Consult Physician Routine Consulting Provider: Janeth Maldonado Consult Reason/Comments: severe MR, afib rvr Do you want consulting provider notified?: Yes 04/06/25 12:28 Consult Physician Stat Consulting Provider: Vasu Cordero Consult Reason/Comments: retroperitoneal hematoma, acute anemia Do you want consulting provider notified?: Yes Primary care physician: Milad Choudhary MD Hospital Course: Discharge Diagnosis: Acute hypoxic respiratory failure secondary to anaphylactic shock from Toradol, resolved SVT and atrial fibrillation with RVR Acute anemia Retroperitoneal hematoma Iron deficiency Sepsis due to possible aspiration and possible colitis HFrEF not in acute exacerbation Severe mitral regurgitation Moderate pulmonary hypertension Nondisplaced sternal fracture Hyperglycemia, steroid-induced Hypokalemia, resolved Hospital Course: 80-year-old female with past medical history of chronic bronchial asthma, dementia, who presented to the ER after mechanical fall landing on her right chest.n the ED she underwent extensive evaluation. BP 180/83, HR 89, RR 20, T 98.2F, 97% on RA. CBC, Coag panel, CMP significant for WBC 23.59, MCV 100.7, BUN 21, glu 145. Trop < 0.012. Mag 2.1. CXR showed findings of COPD, no rib fracture, hiatal hernia, scoliosis. Unfortunately, she received Toradol for pain management with an allergy to ASA which resulted in an anaphylactic reaction requiring intubation and transfer to ICU. Chest CT did show nondisplaced fracture of the lower sternum. She did develop hypotension for which she was started on Levophed. Also developed SVT requiring cardioversion and A-Fib with RVR requiring Amiodarone drip. Patient was also started on Zosyn for concern of aspiration and possible colitis. Noted to have abdominal distention, NG tube inserted,CTA chest/abd/pevis showing no PE, LLL opacity, R basilar atelectasis versus consolidation, multiple vertebral compression deformities, fluid/gas filled distended stomach with NG tube, small bowel ileus, wall thickening of the ascending colon. Cardiothoracic surgery consulted for nondisplaced sternal fracture, no surgical intervention warranted sternal fracture is minimal and nondisplaced, recommended heart hugger once patient is extubated to provide stability to the sternal, avoid lifting more than 10 pounds for the next 3 months. TTE was obtained and showed EF 45 to 50%, myxomatous mitral valve with prolapse of ventral mitral leaflet and severe mitral regurgitation, moderate pulmonary hypertension 04/05: Patient was extubated to nasal cannula, overnight was complaining of abdominal pain, x-ray was done and showed no free air or fecal impaction, patient was provided with Metamucil, had pudding-like bowel movement, no blood reported. Hemoglobin dropped to 8.7 04/06: Seen and examined at bedside, patient's present, patient states that she feels well, had small bowel movement this morning, no blood noted. She does not have any abdominal pain at rest, on palpation right-sided discomfort/tenderness.Hemoglobin dropped to 5.2, CTA abdomen ordered stat and showed new large right pelvic retroperitoneal fluid collection or hematoma with local mass effect, vascular surgery consulted, directly messaged and called, preliminary no surgical intervention, continue blood transfusion. She is normotensive, heart rate stable. Patient will be transferred to ICU, discussed with ICU team 04/07: Patient was seen and examined at bedside, was sitting in recliner, patient's present during exam. IR and vascular surgery following, no interventions required. Hemoglobin initially went up after 2 units of PRBC, was 8.9 this morning, WBC going down 10.42. Patient denies abdominal pain, nausea, vomiting, vital stable 04/08: Seen examined at bedside, no active complaints, no abdominal pain, hemoglobin remained stable at 8.4. PT OT HHC, pulmonology cleared for discharge, reached out vascular surgery and general surgery, cleared for discharge as well. Patient will be discharged in stable condition on 04/08/2025 with close follow-up with PCP, cardiology, recommend to repeat CBC in 2 to 3 days Patient seen and examined at bedside. Vital signs reviewed and stable. General: [nontoxic], [no distress], [appears at stated age] Derm: [warm], [dry] Head: [atraumatic], [normocephalic], [symmetric] Eyes: [EOMI], [no lid lag], [anicteric sclera] Mouth: [no lip lesion], [mucus membranes moist] Cardiovascular: [S1S2 reg], [no murmur] Lungs: [CTA bilateral], [no rhonchi, no rales] , [no accessory muscle use] Abdominal: [Distended [ nontender to palpation], [no guarding], [no appreciable organomegaly] Ext: [no gross muscle atrophy], [no edema], [no contractures] Neuro: [ CN II-XI grossly intact], [no focal neuro deficits] Psych: [Alert], [oriented], [appropriate affect] A total of 38 minutes of time were spent preparing this complex discharge summary. Plan - Discharge Summary New Discharge Prescriptions: New Amiodarone [Cordarone] 200 mg PO BID #60 tab Ferrous Sulfate [Iron (65 MG Elemental)] 325 mg PO W/LUNCH #30 tab polyethylene glycoL 3350 [Miralax] 17 gm PO DAILY #30 packet Continue Calcium Carbonate [Calcium] 600 mg PO BID Donepezil [Aricept] 5 mg PO DAILY Albuterol Nebulized [Ventolin Nebulized] 2.5 mg INHALATION RT-Q4H PRN PRN Reason: Shortness Of Breath Fexofenadine HCl [Gemini Allergy] 60 mg PO DAILY Albuterol Inhaler [Ventolin Hfa Inhaler] 1 puff INHALATION RT-Q4H PRN PRN Reason: Wheezing OR COUGH Budesonide-Formot 160-4.5 Mcg [Symbicort 160-4.5 Mcg Inhaler] 2 puff INHALATION RT-BID #1 each Alendronate Sodium [Fosamax] 70 mg PO WEEKLY Discharge Medication List Budesonide-Formot 160-4.5 Mcg [Symbicort 160-4.5 Mcg Inhaler] 2 puff INHALATION RT-BID #1 each 08/27/22 [Rx] Alendronate Sodium [Fosamax] 70 mg PO WEEKLY 03/01/23 [History] Calcium Carbonate [Calcium] 600 mg PO BID 03/01/23 [History] Albuterol Inhaler [Ventolin Hfa Inhaler] 1 puff INHALATION RT-Q4H PRN 04/03/25 [History] Albuterol Nebulized [Ventolin Nebulized] 2.5 mg INHALATION RT-Q4H PRN 04/03/25 [History] Donepezil [Aricept] 5 mg PO DAILY 04/03/25 [History] Fexofenadine HCl [Gemini Allergy] 60 mg PO DAILY 04/03/25 [History] Amiodarone [Cordarone] 200 mg PO BID #60 tab 04/08/25 [Rx] Ferrous Sulfate [Iron (65 MG Elemental)] 325 mg PO W/LUNCH #30 tab 04/08/25 [Rx] polyethylene glycoL 3350 [Miralax] 17 gm PO DAILY #30 packet 04/08/25 [Rx] Follow up Appointment(s)/Referral(s): Jarret Bonilla MD [STAFF PHYSICIAN] - 1 Week Milad Choudhary MD [Primary Care Provider] - 1-2 days Ambulatory/Diagnostic Orders: Complete Blood Count w/diff [LAB.AMB] Time Frame: 2 Days, Location: None Selected Activity/Diet/Wound Care/Special Instructions: Please, follow-up with your primary care physician, follow-up with cardiology,avoid lifting more than 10 pounds for the next 3 months Please, make sure you are updated to your primary team on your allergy history. Recommend to repeat blood count in the next 2 to 3 days. Discharge Disposition: HOME WITH HOME HEALTH SERVICES
[2025-04-08 15:48] VITALS: PULSE 88
--- NOTE | 2025-04-09 06:56 | P.PN ---
Subjective Progress Note Date: 04/07/25 The patient is a 80-year-old female patient who does not follow-up with any selling manager on regular basis with no significant past medical history who fell at home was brought to the emergency department for further investigation after that. In the emergency department the patient was having severe sternal discomfort and as a matter of fact she was found to have sternal fracture. She was experiencing excruciating pain and for that reason she was given Toradol were subsequently she developed respiratory failure and she developed what it seems to be severe hypotension could be secondary to severe allergic reaction/anaphylactic reaction to Toradol. Subsequently the patient was started on vasopressors with norepinephrine she was also intubated and placed on mechanical ventilation and transferred to the ICU. When she was seen and evaluated this afternoon she was off norepinephrine and not on any vasopressors and also she was extubated. Currently she is hemodynamically stable. She underwent a workup including an EKG showed sinus mechanism. The troponin was checked and came to be unremarkable. We consulted to see the patient because of brief episode of atrial fibrillation lasted less than 24 hours. According to the patient and her no history of paroxysmal atrial fibrillation and no history of any cardiac arrhythmia or congestive heart failure or coronary artery disease and never seen a selling manager before. She has been maintaining normal sinus mechanism since then. She was given amiodarone and subsequently she was converted to normal sinus mechanism. The patient underwent further evaluation including an echocardiogram which revealed mildly impaired LV function with EF between 45 to 50% with evidence of moderate to severe mitral regurgitation and moderate pulmonary hypertension. The physical examination is remarkable for regular rhythm with a systolic murmur at the apical area and right and left upper sternal border with diminished breathing sounds bilaterally and no edema was noted in the lower extremities. April 05, 2025 The patient was seen and evaluated this morning which she remains in sinus mechanism. The echo showed mildly impaired LV function with EF between 45 to 50% with valvular heart disease consistent of moderate to severe MR as well as tricuspid regurgitation and pulmonary hypertension. The mitral valve need to be addressed as an outpatient. She is on amiodarone which we will continue at this point and consider tapering down the dose and also she is at therapeutic dose of Lovenox. She is asymptomatic. She is hemodynamically stable. She is struggling with constipation. The physical examination is remarkable for regular rhythm with a systolic murmur at the pickle area and clear breathing sounds bilaterally and no edema was noted. 04/06/2025 Seen and examined at bedside this a.m., hemoglobin 5.2, CT abdominal pelvis showed large right pelvic retroperitoneal fluid which is most likely hematoma, of for this vascular surgery has been consulted. History hemoglobin was 8.7, 04/07/2025 Patient seen and examined at bedside this a.m. Patient received blood transfusion for low hemoglobin. Hemoglobin is somewhat stabilized. No new cardiovascular events. Hemodynamically stable. Assessment Acute anemia Retroperitoneal hematoma Anaphylactic reaction to Toradol Acute hypoxic respiratory failure required intubation and mechanical ventilation, the patient was extubated Hypotension which has resolved as well Paroxysmal atrial fibrillation and currently the patient is in normal sinus mechanism. 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 moderate pulmonary hypertension Status post fall with sternal fracture Plan Continue the current dose of amiodarone and consider tapering down amiodarone down the line Hold anticoagulation Address the valvular heart disease once the patient discharged home Follow-up with the patient Prognosis is very guarded Objective - Vital Signs Vital signs: Vital Signs Temp 98.9 F 04/08/25 14:00 Pulse 88 04/08/25 15:48 Resp 14 04/08/25 14:00 BP 148/76 04/08/25 14:00 Pulse Ox 95 04/08/25 14:00 FiO2 93 04/07/25 08:00 Intake & Output 04/08/25 04/08/25 04/09/25 06:59 18:59 06:59 Intake Total 100 Output Total 1050 400 Balance -950 -400 Weight 51.2 kg 51.2 kg Intake: IV 100 Piperacillin-Tazobactam 3 100 .375 gm In Sodium Chloride 0.9% 100 ml @ 25 mls/hr IVPB Q8H [facility] Rx#: [id number] Output: Urine 1050 400 Other: Voiding Method Bedside Commode Bedside Commode # Voids 2 1 # Bowel Movements 1 ABP, PAP, CO, CI - Last Documented Arterial Blood Pressure 119/63 - Labs CBC & Chem 7: 04/08/25 05:24 04/07/25 05:39 Labs: Abnormal Lab Results - Last 24 Hours (Table) 04/08/25 Range/Units 11:20 POC Glucose (mg/dL) 163 H (70-110) mg/dL Microbiology - Last 24 Hours (Table) 04/03/25 10:55 Blood Culture - Final Blood
== END 2025-04-08 16:05 | disposition home health service (06) | DRG 915 ==
LOC: EC 15:08 → 2SICU 20:28 → 3SCARD 04-05 15:14 → 2SICU 04-06 13:43
PROVIDERS: ADMIT Internal Medicine; ATTEND Internal Medicine
PROC: 0BH17EZ Insertion of Endotracheal Airway into Trachea, Via Natural or Artificial Opening (ICD-10-PCS; principal; 2025-04-02)
PROC: 5A1945Z Respiratory Ventilation, 24-96 Consecutive Hours (ICD-10-PCS; principal; 2025-04-02)
PROC: 02HV33Z Insertion of Infusion Device into Superior Vena Cava, Percutaneous Approach (ICD-10-PCS; 2025-04-02)
PROC: 3E043XZ Introduction of Vasopressor into Central Vein, Percutaneous Approach (ICD-10-PCS; 2025-04-02)
PROC: 0DH67UZ Insertion of Feeding Device into Stomach, Via Natural or Artificial Opening (ICD-10-PCS; 2025-04-02)
PROC: 3E0G76Z Introduction of Nutritional Substance into Upper GI, Via Natural or Artificial Opening (ICD-10-PCS; 2025-04-02)
PROC: 30233N1 Transfusion of Nonautologous Red Blood Cells into Peripheral Vein, Percutaneous Approach (ICD-10-PCS; 2025-04-06)
DX: T78.2XXA Anaphylactic shock, unspecified, initial encounter (principal); A41.9 Sepsis, unspecified organism; J96.01 Acute respiratory failure with hypoxia; J96.02 Acute respiratory failure with hypercapnia; K68.3 Retroperitoneal hematoma; J69.0 Pneumonitis due to inhalation of food and vomit; K31.1 Adult hypertrophic pyloric stenosis; I11.0 Hypertensive heart disease with heart failure; J45.901 Unspecified asthma with (acute) exacerbation; F03.90 Unspecified dementia, unspecified severity, without behavioral disturbance, psychotic disturbance, mood disturbance, and anxiety; I27.20 Pulmonary hypertension, unspecified; D53.9 Nutritional anemia, unspecified; I08.1 Rheumatic disorders of both mitral and tricuspid valves; I42.9 Cardiomyopathy, unspecified; J44.9 Chronic obstructive pulmonary disease, unspecified; I50.20 Unspecified systolic (congestive) heart failure; K56.7 Ileus, unspecified; E87.20 Acidosis, unspecified; S22.22XA Fracture of body of sternum, initial encounter for closed fracture; D62 Acute posthemorrhagic anemia; I47.10 Supraventricular tachycardia, unspecified; J98.11 Atelectasis; I48.0 Paroxysmal atrial fibrillation; T38.0X5A Adverse effect of glucocorticoids and synthetic analogues, initial encounter; T39.395A Adverse effect of other nonsteroidal anti-inflammatory drugs [NSAID], initial encounter; E61.1 Iron deficiency; E87.6 Hypokalemia; F17.200 Nicotine dependence, unspecified, uncomplicated; I95.89 Other hypotension; K44.9 Diaphragmatic hernia without obstruction or gangrene; M19.90 Unspecified osteoarthritis, unspecified site; K52.9 Noninfective gastroenteritis and colitis, unspecified; M81.0 Age-related osteoporosis without current pathological fracture; S00.81XA Abrasion of other part of head, initial encounter; S30.1XXA Contusion of abdominal wall, initial encounter; S70.01XA Contusion of right hip, initial encounter; W01.0XXA Fall on same level from slipping, tripping and stumbling without subsequent striking against object, initial encounter; Y92.096 Garden or yard of other non-institutional residence as the place of occurrence of the external cause; Y93.H2 Activity, gardening and landscaping; Z79.51 Long term (current) use of inhaled steroids; Z79.83 Long term (current) use of bisphosphonates; Z79.899 Other long term (current) drug therapy; Z88.6 Allergy status to analgesic agent
CPT/HCPCS: 31500; 36415; 36600; 71045; 71120; 71250; 71275; 74019; 74174; 80048; 80053; 82271; 82607; 82747; 82805; 83010; 83540; 83550; 83615; 83735; 84145; 84439; 84443; 84484; 85025; 85027; 85610; 85730; 86850; 86900; 86901; 86920; 87040; 87070; 87205; 93005; 93306; 94002; 94003; 94640; 94760; 96361; 96372; 96374; 96375; 96376; 99291

== ENCOUNTER → 2025-06-17 | Outpatient (CLI) | payer MEDICARE ==
[2025-06-17 15:34] LABS: ALT 13 U/L (8-44); AST 20 U/L (13-35); Cholesterol 140.00 mg/dL (0.00-200.00); HDL Cholesterol 66.20 mg/dL (40.00-60.00); LDL Cholesterol,Calculated 61.0 mg/dL (0.0-131.0); Triglycerides 64.10 mg/dL (0.00-149.00); VLDL Calculation 12.82 mg/dL (5.00-40.00)
== END | disposition home or self-care (01) ==
LOC: LABWHC1 09:47
PROVIDERS: ATTEND Internal Medicine Cardiovascular Disease
DX: E78.2 Mixed hyperlipidemia (principal)
CPT/HCPCS: 36415; 80061; 84450; 84460